=== PATIENT | male | born 1935 | race Caucasian/White ===

== ENCOUNTER 2020-07-05 16:58 | Emergency (ER) | payer MEDICARE ==
[2020-07-05 17:05] VITALS: RESP 17; TEMP 98.4
--- NOTE | 2020-07-05 17:52 | CT ---
EXAMINATION TYPE: CT brain yojanaine wo con DATE OF EXAM: 07/05/2020 COMPARISON: None HISTORY: Fall. CT DLP: 1559.7 mGycm Automated exposure control for dose reduction was used. There is cerebral atrophy. There is no mass effect nor midline shift. There is mild enlargement of th e ventricles relate to atrophy. Calvarium is intact. There is no evidence of intracranial hemorrhage. Cervical vertebra show degenerative disc space narrowing at C5-6 and C6-7 with spurring of the endpla sesar. There is mild facet arthropathy. The skull base is intact. There is normal aeration of the masto id sinuses. IMPRESSION: Spondylotic changes in the lower cervical spine. No fracture. Cerebral atrophy. No acute intracranial abnormality..
--- NOTE | 2020-07-05 17:54 | XR ---
EXAMINATION TYPE: XR shoulder complete LT DATE OF EXAM: 07/05/2020 COMPARISON: NONE HISTORY: Pain TECHNIQUE: 3 views FINDINGS: I see no fracture nor dislocation. Glenohumeral joint is anatomic. There is widening of the AC joint space. IMPRESSION: No fracture seen. Widened AC joint space consistent with ligamentous tear of uncertain ag e. Joint space measures 1.5 cm
--- NOTE | 2020-07-05 18:04 | ED ---
Fall HPI - General Chief Complaint: Fall Stated Complaint: fall Time Seen by Provider: 07/05/20 17:00 Source: EMS Mode of arrival: EMS - History of Present Illness Initial Comments: 84-year-old male who presents to the emergency department from [facility]. He does have a history of dementia and is only alert and oriented 1. Report is provided by EMS. They state that the patient fell out of his wheelchair earlier today. They did state that he struck the left side of his head. He did not lose consciousness. He originally was not going to be evaluated however later on they were attempting to place the patient in bed and noted that he had some bruising over his left shoulder. There are concern for fracture therefore sent him to the emergency room for evaluation. Patient cannot provide history. Does state that he fell out of his wheelchair. She does have a scab noted to the left side of his forehead which appears to be in healing stages. I'm told that the patient fell on the as well. The patient denies any shoulder pain or headache. The remainder of HPI is limited because the patient's significant dementia. Staff report that the patient is at his normal baseline - Related Data Home Medications Medication Instructions Recorded Confirmed Acetaminophen [Tylenol Arthritis] 650 mg PO Q8H 07/05/20 07/05/20 Albuterol Sulfate [Proair Hfa] 1 puff INHALATION RT-Q6H PRN 07/05/20 07/05/20 Docusate [Colace] 100 mg PO DAILY@0800 07/05/20 07/05/20 Escitalopram Oxalate 5 mg PO DAILY@0800 07/05/20 07/05/20 Fluticasone Nasal [place] [Flonase 2 spr EA NOSTRIL DAILY@0800 07/05/20 07/05/20 Nasal [place]] Furosemide [Lasix] 40 mg PO DAILY PRN 07/05/20 07/05/20 Lactose-Reduced Food [Ensure Plus] 1 can PO TID@0800,1400,2100 07/05/20 07/05/20 Magnesium Hydroxide [Milk of 2,400 mg PO DAILY PRN 07/05/20 07/05/20 Magnesia] Menthol-Zinc Oxide Oint 1 applic TOPICAL BID 07/05/20 07/05/20 [Calmoseptine Oint] Metoprolol Succinate (ER) [Toprol 25 mg PO DAILY@0800 10/18/20 10/18/20 Xl] Na Phos,M-B/Na Phos,Di-Ba [Fleet 133 ml RECTAL DAILY PRN 07/05/20 07/05/20 Adult] Nitroglycerin Sl Tabs [Nitrostat] 0.4 mg SUBLINGUAL Q5M PRN 07/05/20 07/05/20 SILVER sulfADIAZINE Cream 1 applic TOPICAL DAILY 07/05/20 07/05/20 [Silvadene 1% Cream] bisacodyL [Dulcolax] 10 mg RECTAL DAILY PRN 07/05/20 07/05/20 Allergies Allergy/AdvReac Type Severity Reaction Status Date / Time meperidine [From Demerol] Allergy Unknown Verified 07/05/20 17:03 mirtazapine [From Remeron] Allergy Unknown Verified 07/05/20 17:03 morphine Allergy Unknown Verified 07/05/20 17:03 Review of Systems ROS Statement: Those systems with pertinent positive or pertinent negative responses have been documented in the HPI. ROS Other: All systems not noted in ROS Statement are negative. Past Medical History Past Medical History: Atrial Fibrillation, Heart Failure, COPD, Dementia, GERD/Reflux, Hyperlipidemia, Hypertension History of Any Multi-Drug Resistant Organisms: None Reported Past Surgical History: Unable to Obtain Past Psychological History: Anxiety, Depression Smoking Status: Never smoker Past Alcohol Use History: None Reported Past Drug Use History: None Reported General Exam Limitations: altered mental status General appearance: alert, in no apparent distress Head exam: Present: other (healing scab left forehead with small surrounding ecchymosis) Eye exam: Present: normal appearance, PERRL, EOMI. Absent: scleral icterus, conjunctival injection, periorbital swelling ENT exam: Present: normal exam, mucous membranes moist Neck exam: Present: normal inspection. Absent: tenderness, meningismus, lymphadenopathy Respiratory exam: Present: normal lung sounds bilaterally. Absent: respiratory distress, wheezes, rales, rhonchi, stridor Cardiovascular Exam: Present: regular rate, normal rhythm, normal heart sounds. Absent: systolic murmur, diastolic murmur, rubs, gallop, clicks GI/Abdominal exam: Present: soft, normal bowel sounds. Absent: distended, tenderness, guarding, rebound, rigid Extremities exam: Present: other (ecchymosis over left shoulder - 3.0 x 2.0 cm ) Course Vital Signs 07/05/20 07/05/20 16:59 18:30 Temperature 98.4 F Pulse Rate 57 L 56 L Respiratory 17 17 Rate Blood Pressure 141/82 151/82 O2 Sat by Pulse 99 98 Oximetry Medical Decision Making - Medical Decision Making Upon arrival the patient is placed into room 27. A thorough history and physical exam was performed. Patient was sent over for CT of his brain and cervical spine. A left shoulder x-ray was also performed. Imaging is reviewed by myself. Imaging is read by the radiologist as negative for any intracranial process. No acute fracture and the patient's left shoulder. I discussed the results with the patient. He will be discharged back to [facility] at this time. Staff is updated. The patient remained in stable condition awaiting discharge Disposition Clinical Impression: Fall, Left anterior shoulder pain Disposition: HOME SELF-CARE Condition: Stable Instructions (If sedation given, give patient instructions): Fall Prevention for Older Adults (ED) Additional Instructions: You do not have any abnormalities of your left shoulder x-ray or the CAT scan of your brain. I recommend that you are evaluated by your primary care doctor within 2-4 days. Return to the emergency room for any new or worsening symptoms Is patient prescribed a controlled substance at d/c from ED?: No Referrals: Jaziel Turner MD [Primary Care Provider] - 1-2 days Time of Disposition: 18:04
[2020-07-05 18:32] VITALS: BP 151/82; PULSE 56
== END 2020-07-05 18:32 | disposition home or self-care (01) ==
LOC: EC 16:58
DX: S40.012A Contusion of left shoulder, initial encounter (principal); S09.90XA Unspecified injury of head, initial encounter; F03.90 Unspecified dementia, unspecified severity, without behavioral disturbance, psychotic disturbance, mood disturbance, and anxiety; R41.82 Altered mental status, unspecified; F41.9 Anxiety disorder, unspecified; F32.9 Major depressive disorder, single episode, unspecified; I11.0 Hypertensive heart disease with heart failure; I50.9 Heart failure, unspecified; I48.91 Unspecified atrial fibrillation; J44.9 Chronic obstructive pulmonary disease, unspecified; Z79.51 Long term (current) use of inhaled steroids; Z79.899 Other long term (current) drug therapy; Z88.5 Allergy status to narcotic agent; Z88.8 Allergy status to other drugs, medicaments and biological substances; W05.0XXA Fall from non-moving wheelchair, initial encounter; Y93.89 Activity, other specified
CPT/HCPCS: 70450; 72125; 99284

== ENCOUNTER 2020-09-30 19:16 | Inpatient (IN) | payer MEDICARE, BC ==
[2020-09-30] MEDS ORDERED: ACETAMINOPHEN SUPPOSITORY 650 MG SUPP RECTAL STA (19:33)
--- NOTE | 2020-09-30 19:35 | ED ---
General Adult HPI - General Source: EMS Mode of arrival: EMS Limitations: no limitations <Majo Silveira - Last Filed: 10/01/20 03:28> <Mark Portillo - Last Filed: 10/02/20 08:01> - General Chief complaint: Altered Mental Status Stated complaint: AMS Time Seen by Provider: 09/30/20 19:26 - History of Present Illness Initial comments: 84-year-old male patient who is currently residing at [facility] on [facility], history of advanced dementia, tested positive for COVID-19 on 09/16/20, is [facility] for evaluation of altered mental status. Patient has past medical history significant for C1 fracture soft collar in place, chronic systolic congestive heart failure, hypertension, coronary artery disease, advanced dementia, paroxysmal A. fib not on anticoagulation, multiple falls with multiple subdural hemorrhages. Patient is generally alert and oriented 1 and non-verbal. He is unable to contribute to history. [facility], they just came on shift and are unsure why he was sent here. (Majo Silveira) - Related Data Home Medications Medication Instructions Recorded Confirmed Acetaminophen [Tylenol Arthritis] 650 mg PO Q8HR@0600,1400,2200 07/05/20 09/30/20 Albuterol Sulfate [Proair Hfa] 1 puff INHALATION RT-Q6H PRN 07/05/20 09/30/20 Docusate [Colace] 100 mg PO DAILY@0900 07/05/20 09/30/20 Escitalopram Oxalate 5 mg PO DAILY@0900 07/05/20 09/30/20 Fluticasone Nasal [place] [Flonase 2 spr EA NOSTRIL DAILY@0900 07/05/20 09/30/20 Nasal [place]] Sulfamethox-Tmp 800-160Mg [Bactrim 1 tab PO BID@0900,2100 09/30/20 09/30/20 DS 800-160 mg] lisinopriL [Zestril] 2.5 mg PO DAILY@0900 09/30/20 09/30/20 Allergies Allergy/AdvReac Type Severity Reaction Status Date / Time meperidine [From Demerol] Allergy Unknown Verified 09/30/20 20:05 mirtazapine [From Remeron] Allergy Unknown Verified 09/30/20 20:05 morphine Allergy Unknown Verified 09/30/20 20:05 Review of Systems ROS Other: All systems not noted in ROS Statement are negative. <Majo Silveira - Last Filed: 10/01/20 03:28> ROS Other: All systems not noted in ROS Statement are negative. <LindseyMark - Last Filed: 10/02/20 08:01> ROS Statement: Those systems with pertinent positive or pertinent negative responses have been documented in the HPI. Past Medical History Past Medical History: Atrial Fibrillation, Heart Failure, COPD, Dementia, GERD/Reflux, Hyperlipidemia, Hypertension History of Any Multi-Drug Resistant Organisms: None Reported Past Surgical History: Unable to Obtain Past Psychological History: Anxiety, Depression Smoking Status: Never smoker Past Alcohol Use History: None Reported Past Drug Use History: None Reported <Majo Silveira - Last Filed: 10/01/20 03:28> General Exam Limitations: altered mental status General appearance: in no apparent distress, other (This is a well-developed, thin appearing elderly male patient in no acute distress. Vital signs upon presentation are temperature 100.1F, pulse 107, respirations 16, blood pressure 122/87, pulse ox 100% on room air.) Eye exam: Present: normal appearance, PERRL, EOMI. Absent: scleral icterus, conjunctival injection, periorbital swelling ENT exam: Present: normal exam, mucous membranes dry Respiratory exam: Present: normal lung sounds bilaterally, other (tachypnea). Absent: respiratory distress, wheezes, rales, rhonchi, stridor Cardiovascular Exam: Present: normal rhythm, tachycardia, normal heart sounds. Absent: systolic murmur, diastolic murmur, rubs, gallop, clicks GI/Abdominal exam: Present: soft, normal bowel sounds. Absent: distended, tenderness, guarding, rebound, rigid Neurological exam: Present: CN II-XII intact. Absent: alert (drowsy, responds to verbal stimulation), oriented X3 (oriented x1) Psychiatric exam: Present: normal affect, normal mood Skin exam: Present: warm, dry, intact, normal color. Absent: rash <Majo Silveira - Last Filed: 10/01/20 03:28> Course <Majo Silveira - Last Filed: 10/01/20 03:28> Vital Signs 09/30/20 09/30/20 09/30/20 19:24 20:37 22:48 Temperature 100.1 F H 98.2 F Pulse Rate 107 H 113 H 117 H Respiratory 16 17 18 Rate Blood Pressure 122/87 105/76 110/83 O2 Sat by Pulse 100 95 98 Oximetry 09/30/20 10/01/20 10/01/20 23:59 01:00 02:06 Temperature Pulse Rate 141 H 131 H 140 H Respiratory 20 19 20 Rate Blood Pressure 103/85 74/62 104/75 O2 Sat by Pulse 99 96 97 Oximetry 10/01/20 10/01/20 10/01/20 03:00 03:30 04:45 Temperature 98.0 F Pulse Rate 103 H 118 H 113 H Respiratory 20 16 20 Rate Blood Pressure 107/91 102/86 99/67 O2 Sat by Pulse 98 98 99 Oximetry - Reevaluation(s) Reevaluation #1: 10/01/20 01:30 Case was discussed with Dr. Carrion at 2310, who recommended CT brain to rule out acute bleed prior to starting anticoagulation due to multiple recent subdural bleeds. Plan was to start Lovenox and VQ scan in the morning. Patient's vital signs changed acutely. Patient's heart rate increased to 140s-150s and BP decreased into the 80s systolic. Review of labs showed that patient's d-dimer elevated to 31. Patient has acute kidney injury with GFR of 35. We did attempt to give adenosine which slowed rate enough to determine that underlying rhythm is normal sinus. I called the patient's son Link Collins Jr. and had a long discussion regarding his father's condition including current lab findings including kidney injury, concern for pulmonary embolism, and diagnosis of COVID. I did discuss option of CT chest with angiography and risk to his kidneys with potential for kidney failure with dialysis. We discussed risk of not finding a significant pulmonary embolism. Son agreed to proceed with CT scan at this time. We also discussed code status in detail, he is unsure at this time if he wants to change his current full code status. (Majo Silveira) Reevaluation #2: 10/01/20 02:49 CT back and is negative for PE or other significant abnormalities. After 1500ml of fluid the heart rate did improve. BP remains low so we will give an additional 500ml. Patient is resting comfortably. Son at bedside. (Majo Drake) EKG Findings - EKG Comments: EKG Findings:: EKG obtained at 2016 shows sinus tachycardia with occasional PVCs. Ventricular rate is 110, para interval 134, QRS duration 104, QT 364, QTC 492. No evidence of ST elevation or depression. EKG #2 obtained at 1 shows supraventricular tachycardia with occasional PVCs. Ventricular rate is 151, QRS duration 106, QT 322, QTc 510. <Majo Silveira - Last Filed: 10/01/20 03:28> Medical Decision Making - Lab Data Result diagrams: 09/30/20 20:05 09/30/20 20:05 - Radiology Data Radiology results: report reviewed, image reviewed <Majo Silveira - Last Filed: 10/01/20 03:28> - Lab Data Result diagrams: 09/30/20 20:05 09/30/20 20:05 <Mark Portillo - Last Filed: 10/02/20 08:01> - Medical Decision Making 84 year-old male patient diagnosed with COVID-19 on 09/16/20 presenting from [facility] on [facility] with altered mental status and fever. Patient was hospitalized for COVID-19 at [facility] and discharged to rehab. Patient has had multiple falls over the last year with 3 subdural hemorrhages the last being October. Patient also has advanced dementia and is non-verbal. We performed lab testing which showed acute kidney injury, hypernatremia, and lactic acidosis. D-dimer 31. WBC count was normal. Patient initially mildly tachycardic with normal blood pressures did acute develop heart rates in the 150s with low BPs with systolic in the 70s-80s. Patient underwent CT scan of the brain which was normal. CT chest angiography was unremarkable. Patient was given 2L IV fluids which did improve heart rate and blood pressures. Patient will be admitted to the hospital for acute kidney injury, dehydration, and COVID-19. Son is at bedside and is agreeable to the plan. (Majo Silveira) I saw this patient in conjunction with the physician personal injury legal assistant. I performed independent history and physical exam. Agree with case management. (Mark Portillo) - Lab Data Lab Results 09/30/20 09/30/20 09/30/20 Range/Units 20:05 20:05 20:05 WBC 8.3 (3.8-10.6) k/uL RBC 4.90 (4.30-5.90) m/uL Hgb 14.2 (13.0-17.5) gm/dL Hct 44.8 (39.0-53.0) % MCV 91.6 (80.0-100.0) fL MCH 29.0 (25.0-35.0) pg MCHC 31.7 (31.0-37.0) g/dL RDW 14.7 (11.5-15.5) % Plt Count 190 (150-450) k/uL MPV 8.4 Neutrophils % 85 % Lymphocytes % 10 % Monocytes % 5 % Eosinophils % 0 % Basophils % 0 % Neutrophils # 7.0 (1.3-7.7) k/uL Lymphocytes # 0.8 L (1.0-4.8) k/uL Monocytes # 0.4 (0-1.0) k/uL Eosinophils # 0.0 (0-0.7) k/uL Basophils # 0.0 (0-0.2) k/uL PT 10.8 (9.0-12.0) sec INR 1.0 (<1.2) APTT 23.7 (22.0-30.0) sec D-Dimer 31.42 H (<0.60) mg/L FEU Sodium 152 H (137-145) mmol/L Potassium 4.7 (3.5-5.1) mmol/L Chloride 118 H (98-107) mmol/L Carbon Dioxide 28 (22-30) mmol/L Anion Gap 6 mmol/L BUN 61 H (9-20) mg/dL Creatinine 1.75 H (0.66-1.25) mg/dL Est GFR (CKD-EPI)AfAm 41 (>60 ml/min/1.73 sqM) Est GFR (CKD-EPI)NonAf 35 (>60 ml/min/1.73 sqM) Glucose 112 H (74-99) mg/dL Lactic Ac Sepsis Rflx Plasma Lactic Acid Bhargav (0.7-2.0) mmol/L Calcium 8.8 (8.4-10.2) mg/dL Magnesium 2.8 H (1.6-2.3) mg/dL Ferritin 502.1 H (22.0-322.0) ng/mL Total Bilirubin 0.5 (0.2-1.3) mg/dL AST 21 (17-59) U/L ALT 13 (4-49) U/L Alkaline Phosphatase 70 (38-126) U/L Lactate Dehydrogenase 585 (313-618) U/L C-Reactive Protein 138.0 H (<10.0) mg/L Total Protein 6.0 L (6.3-8.2) g/dL Albumin 3.3 L (3.5-5.0) g/dL Procalcitonin (0.02-0.09) ng/mL 09/30/20 09/30/20 09/30/20 Range/Units 20:05 20:05 21:42 WBC (3.8-10.6) k/uL RBC (4.30-5.90) m/uL Hgb (13.0-17.5) gm/dL Hct (39.0-53.0) % MCV (80.0-100.0) fL MCH (25.0-35.0) pg MCHC (31.0-37.0) g/dL RDW (11.5-15.5) % Plt Count (150-450) k/uL MPV Neutrophils % % Lymphocytes % % Monocytes % % Eosinophils % % Basophils % % Neutrophils # (1.3-7.7) k/uL Lymphocytes # (1.0-4.8) k/uL Monocytes # (0-1.0) k/uL Eosinophils # (0-0.7) k/uL Basophils # (0-0.2) k/uL PT (9.0-12.0) sec INR (<1.2) APTT (22.0-30.0) sec D-Dimer (<0.60) mg/L FEU Sodium (137-145) mmol/L Potassium (3.5-5.1) mmol/L Chloride (98-107) mmol/L Carbon Dioxide (22-30) mmol/L Anion Gap mmol/L BUN (9-20) mg/dL Creatinine (0.66-1.25) mg/dL Est GFR (CKD-EPI)AfAm (>60 ml/min/1.73 sqM) Est GFR (CKD-EPI)NonAf (>60 ml/min/1.73 sqM) Glucose (74-99) mg/dL Lactic Ac Sepsis Rflx Y Plasma Lactic Acid Bhargav 2.5 H* (0.7-2.0) mmol/L Calcium (8.4-10.2) mg/dL Magnesium (1.6-2.3) mg/dL Ferritin (22.0-322.0) ng/mL Total Bilirubin (0.2-1.3) mg/dL AST (17-59) U/L ALT (4-49) U/L Alkaline Phosphatase (38-126) U/L Lactate Dehydrogenase (313-618) U/L C-Reactive Protein (<10.0) mg/L Total Protein (6.3-8.2) g/dL Albumin (3.5-5.0) g/dL Procalcitonin 0.15 H (0.02-0.09) ng/mL 10/01/20 Range/Units 00:50 WBC (3.8-10.6) k/uL RBC (4.30-5.90) m/uL Hgb (13.0-17.5) gm/dL Hct (39.0-53.0) % MCV (80.0-100.0) fL MCH (25.0-35.0) pg MCHC (31.0-37.0) g/dL RDW (11.5-15.5) % Plt Count (150-450) k/uL MPV Neutrophils % % Lymphocytes % % Monocytes % % Eosinophils % % Basophils % % Neutrophils # (1.3-7.7) k/uL Lymphocytes # (1.0-4.8) k/uL Monocytes # (0-1.0) k/uL Eosinophils # (0-0.7) k/uL Basophils # (0-0.2) k/uL PT (9.0-12.0) sec INR (<1.2) APTT (22.0-30.0) sec D-Dimer (<0.60) mg/L FEU Sodium (137-145) mmol/L Potassium (3.5-5.1) mmol/L Chloride (98-107) mmol/L Carbon Dioxide (22-30) mmol/L Anion Gap mmol/L BUN (9-20) mg/dL Creatinine (0.66-1.25) mg/dL Est GFR (CKD-EPI)AfAm (>60 ml/min/1.73 sqM) Est GFR (CKD-EPI)NonAf (>60 ml/min/1.73 sqM) Glucose (74-99) mg/dL Lactic Ac Sepsis Rflx Plasma Lactic Acid Bhargav 1.8 (0.7-2.0) mmol/L Calcium (8.4-10.2) mg/dL Magnesium (1.6-2.3) mg/dL Ferritin (22.0-322.0) ng/mL Total Bilirubin (0.2-1.3) mg/dL AST (17-59) U/L ALT (4-49) U/L Alkaline Phosphatase (38-126) U/L Lactate Dehydrogenase (313-618) U/L C-Reactive Protein (<10.0) mg/L Total Protein (6.3-8.2) g/dL Albumin (3.5-5.0) g/dL Procalcitonin (0.02-0.09) ng/mL - Radiology Data CT brain without contrast was obtained. Report was reviewed in its entirety. Impression by Dr. cMnally shows relaxers and chronic small vessel ischemia. Hydrocephalus. No acute intracranial abnormality. No change. One view x-ray of the chest is obtained. Report was reviewed in its entirety. Impression by Dr. Schneider shows mild right basilar opacity, favor atelectasis. (Majo Silveira) Critical Care Time Critical Care Time: Yes Total Critical Care Time: 35 (Review of labs, Imaging reports and images, vital signs review, coordination of care with admitting physician) <Majo Silveira - Last Filed: 10/01/20 03:28> Disposition Decision to Admit Reason: Admit from EC Decision Date: 10/01/20 Decision Time: 03:33 <Majo Silveira - Last Filed: 10/01/20 03:28> <Mark Portillo - Last Filed: 10/02/20 08:01> Clinical Impression: Acute kidney injury, Dehydration, COVID-19, Altered mental status Disposition: ADMITTED IP TO THIS [facility] Condition: Serious
[2020-09-30] MEDS ORDERED: SODIUM CHLORIDE 0.9% 500 ML 500 ML IV ONE (19:40)
[2020-09-30 21:12] LABS: Basophils % (A) 0 %; Eosinophils % (A) 0 %; HCT 44.8 % (39.0-53.0); HGB 14.2 gm/dL (13.0-17.5); Lymphocytes # (A) 0.8 k/uL (1.0-4.8); Lymphocytes % (A) 10 %; MCHC 31.7 g/dL (31.0-37.0); MCV 91.6 fL (80.0-100.0); Mean Platelet Volume 8.4; Monocytes # (A) 0.4 k/uL (0-1.0); Monocytes % (A) 5 %; Neutrophils % (A) 85 %; Platelet Count 190 k/uL (150-450); RDW 14.7 % (11.5-15.5); WBC 8.3 k/uL (3.8-10.6)
--- NOTE | 2020-09-30 21:17 | XR ---
EXAMINATION TYPE: XR chest 1V portable DATE OF EXAM: 09/30/2020 COMPARISON: NONE HISTORY: Altered mental status. TECHNIQUE: Single frontal view of the chest is obtained. FINDINGS: There is subtle mild right basilar opacity. No pleural effusion, or pneumothorax seen. Jodie or post surgical changes noted. The cardiac silhouette size is within normal limits. The osseous st ructures are intact. IMPRESSION: Mild right basilar opacity, favor atelectasis.
[2020-09-30 21:27] LABS: Partial Thromboplastin Time 23.7 sec (22.0-30.0); Prothrombin Time 10.8 sec (9.0-12.0)
[2020-09-30 21:28] LABS: D-Dimer 31.42 mg/L FEU (<0.60)
[2020-09-30 21:29] LABS: Albumin 3.3 g/dL (3.5-5.0); Calcium 8.8 mg/dL (8.4-10.2); Magnesium 2.8 mg/dL (1.6-2.3); Potassium 4.7 mmol/L (3.5-5.1); Total Bilirubin 0.5 mg/dL (0.2-1.3)
[2020-10-01] MEDS ORDERED: NALOXONE 0.4 MG/ML 1 ML VIAL IV PRN (00:07)
[2020-10-01] MEDS ORDERED: ONDANSETRON 4 MG/2 ML VIAL IVP PRN (00:07)
[2020-10-01] MEDS ORDERED: ADENOSINE 3 MG/ML 2 ML VIAL IVP STA ×2 (00:13)
[2020-10-01] MEDS ORDERED: SODIUM CHLORIDE 0.9% 1,000 ML IV SCH (00:15)
--- NOTE | 2020-10-01 00:25 | CT ---
EXAMINATION TYPE: CT brain wo con DATE OF EXAM: 09/30/2020 COMPARISON: 07/05/2020 HISTORY: AMS CT DLP: 1051.4 mGycm Automated exposure control for dose reduction was used. There is cerebral cortical atrophy. There is no mass effect nor midline shift. There is no sign of in tracranial hemorrhage. The calvarium is intact. There is enlargement of the ventricles. There is hypo density in the periventricular white matter. IMPRESSION: Cerebral atrophy and chronic small vessel ischemia. Hydrocephalus. No acute intracranial abnormality. No change.
[2020-10-01] MEDS ORDERED: ENOXAPARIN 80 MG/0.8 ML SYRINGE SQ STA (00:26)
--- NOTE | 2020-10-01 01:59 | CT ---
EXAM: CT Angiography Chest With Intravenous Contrast CLINICAL HISTORY: ITS.REASON CT Reason: Poss pulmonary embolism TECHNIQUE: Axial computed tomographic angiography images of the chest with intravenous contrast. CTDI is 15.17 mGy and DLP is 322.6 mGy-cm. This CT exam was performed using one or more of the following dose reduction techniques: automated exposure control, adjustment of the mA and/or kV according to patient size, and/or use of iterative reconstruction technique. MIP reconstructed images were created and reviewed. COMPARISON: No relevant prior studies available. FINDINGS: Pulmonary arteries: No filling defects. Aorta: No thoracic aortic aneurysm. 3 cm abdominal aortic aneurysm. Lungs: No mass. No consolidation. Scarring/discoid atelectasis in the right lower lobe. Mild COPD. Pleural space: No pneumothorax. No effusion. Thickened right lung base pleura with calcifications. Heart: No cardiomegaly. No pericardial effusion. Bones/joints: No acute fracture or dislocation. Soft tissues: Large volume of stool in the visualized:. Lymph nodes: No enlarged lymph nodes. IMPRESSION: 1. No pulmonary embolism. 2. Thickened right lung base pleura with calcified plaques. Possibly related to prior asbestos exposure. Scarring/discoid atelectasis in the right lower lobe. 3. Mild COPD. 4. 3 cm abdominal aortic aneurysm. 5. Large volume of stool.
[2020-10-01] MEDS ORDERED: SODIUM CHLORIDE 0.9% 500 ML 500 ML IV ONE ×3 (02:25→02:49)
--- NOTE | 2020-10-01 08:15 | US ---
EXAMINATION TYPE: US venous doppler duplex LE DATE OF EXAM: 10/01/2020 8:08 AM COMPARISON: NONE CLINICAL HISTORY: Elevated d-dimer. Shortness of breath. SIDE PERFORMED: Bilateral TECHNIQUE: The lower extremity deep venous system is examined utilizing real time linear array sonog aydin with graded compression, doppler sonography and color-flow sonography. VESSELS IMAGED: Common Femoral Vein Deep Femoral Vein Greater Saphenous Vein * Femoral Vein Popliteal Vein Small Saphenous Vein * Proximal Calf Veins (* superficial vessels) Right Leg: Negative for DVT Left Leg: Negative for DVT Grayscale, color doppler, spectral doppler imaging performed of the deep veins of the bilateral lower extremities. There is normal flow, compressibility, vascular waveforms. IMPRESSION: No ultrasound evidence for acute DVT in either lower extremity.
[2020-10-01] MEDS: SODIUM CHLORIDE 0.45% 1,000 ML IV SCH (10:08)
[2020-10-01 10:46] LABS: Ferritin 502.1 ng/mL (22.0-322.0)
[2020-10-01] MEDS: ESCITALOPRAM 5 MG TAB PO SCH (12:19)
[2020-10-01] MEDS ORDERED: DILTIAZEM DRIP BOLUS FROM BAG 1 MG SOLN IV STA (13:18)
[2020-10-01] MEDS ORDERED: niCARdipine 20 MG in SODIUM CHLORIDE 0.9% 192 ML IV ONE (13:18)
[2020-10-01] MEDS: DILTIAZEM 125 MG in SODIUM CHLORIDE 0.9% 100 ML IV SCH (14:23)
[2020-10-01] MEDS ORDERED: ENOXAPARIN 80 MG/0.8 ML SYRINGE SQ SCH (15:00)
--- NOTE | 2020-10-01 15:22 | P.CNPUL ---
History of Present Illness Consult date: 10/01/20 Requesting physician: Beni Carrion Reason for consult: abnormal CXR/CT Chief complaint: Altered mental status History of present illness: This is an 84-year-old gentleman who resides at [facility]. He has a history of advanced dementia, atrial fibrillation, con gestive heart failure, hypertension, hyperlipidemia, anxiety/depression, frequent falls and previous subdural hemorrhage, recent cervical neck fracture currently in a soft collar. Lifelong nonsmoker. He was brought into the emergency room yesterday for altered mental status. He is seen today in onsultation. Apparently he tested positive 09/16/2020 for CoVID 19 infection. There is also some question of asbestos exposure in the past. Computed tomography scan of the brain revealed cerebral atrophy and chronic small vessel ischemia. Hydrocephalus. No acute intracranial abnormalities. Chest x-ray revealed mild right basilar opacity, most likely atelectasis. CT angiogram revealed no evidence of pulmonary embolism. There is sick and right lung base pleural with calcified plaques. Possibly related to previous asbestos exposure. There is scarring/discoid atelectasis in the right lower lobe. Mild COPD. Dopplers of lower extremity were negative for DVT. White count 8.3. Hemolymph 14.2. Lymphocytes 0.8. D-dimer 31.42. Sodium 152. Potassium 4.7. Creatinine 1.75. Ferritin 502. LDH 585. C-reactive protein 138. Pro-calcitonin 0.15. He is a poor historian. No information able to be obtained from the patient. He was found to be in a chair for ablation with rapid ventricular response. Currently on Cardizem drip at 10 mg per hour. Review of Systems ROS unobtainable: due to mental status Past Medical History Past Medical History: Atrial Fibrillation, Heart Failure, COPD, Dementia, G ERD/Reflux, Hyperlipidemia, Hypertension History of Any Multi-Drug Resistant Organisms: None Reported Past Surgical History: Coronary Bypass/CABG Additional Past Surgical History / Comment(s): 1/2 lung removed. Past Anesthesia/Blood Transfusion Reactions: No Reported Reaction Past Psychological History: Anxiety, Depression Smoking Status: Never smoker Past Alcohol Use History: None Reported Past Drug Use History: None Reported Medications and Allergies Home Medications Medication Instructions Recorded Confirmed Type Acetaminophen [Tylenol Arthritis] 650 mg PO Q8HR@0600,1400,2200 07/05/20 09/30/20 History Albuterol Sulfate [Proair Hfa] 1 puff INHALATION RT-Q6H PRN 07/05/20 09/30/20 History Docusate [Colace] 100 mg PO DAILY@0900 07/05/20 09/30/20 History Escitalopram Oxalate 5 mg PO DAILY@0900 07/05/20 09/30/20 History Fluticasone Nasal [place] [Flonase 2 spr EA NOSTRIL DAILY@0900 07/05/20 09/30/20 History Nasal [place]] Sulfamethox-Tmp 800-160Mg [Bactrim 1 tab PO BID@0900,2100 09/30/20 09/30/20 History DS 800-160 mg] lisinopriL [Zestril] 2.5 mg PO DAILY@0900 09/30/20 09/30/20 History Allergies Allergy/AdvReac Type Severity Reaction Status Date / Time meperidine [From Demerol] Allergy Unknown Verified 09/30/20 20:05 mirtazapine [From Remeron] Allergy Unknown Verified 09/30/20 20:05 morphine Allergy Unknown Verified 09/30/20 20:05 Physical Exam Vitals: Vital Signs Temp Pulse Pulse Resp BP BP Pulse Ox 10/01/20 12:00 97.6 F 136 H 22 149/84 98 10/01/20 08:00 99 F 110 H 24 140/88 92 L 10/01/20 05:14 26 H 10/01/20 04:45 98.0 F 113 H 20 99/67 99 10/01/20 03:30 118 H 16 102/86 98 10/01/20 03:00 103 H 20 107/91 98 10/01/20 02:06 140 H 20 104/75 97 10/01/20 01:00 131 H 19 74/62 96 09/30/20 23:59 141 H 20 103/85 99 09/30/20 22:48 98.2 F 117 H 18 110/83 98 09/30/20 20:37 113 H 17 105/76 95 09/30/20 19:24 100.1 F H 107 H 16 122/87 100 Intake and Output 10/01/20 10/01/20 10/01/20 06:59 14:59 22:59 Output Total 0 Balance 0 Output: Urine 0 Other: Voiding Method Diaper # Voids 2 1 Weight 45 kg 45 kg GENERAL EXAM: Alert, 84-year-old male patient, on 3 L nasal cannula, comfortable in no apparent distress. HEAD: Normocephalic. EYES: Normal reaction of pupils, equal size. NOSE: Clear with pink turbinates. THROAT: No erythema or exudates. NECK: No masses, no JVD. CHEST: No chest wall deformity. LUNGS: Equal air entry with few crackles in the right base CVS: S1 and S2 normal with no audible murmur, tachycardic, irregular rhythm. ABDOMEN: No hepatosplenomegaly, normal bowel sounds, no guarding or rigidity. SPINE: No scoliosis or deformity SKIN: No rashes CENTRAL NERVOUS SYSTEM: No focal deficits, tone is normal in all 4 extremities. EXTREMITIES: There is no peripheral edema. No clubbing, no cyanosis. Peripheral pulses are intact. Results - Laboratory Findings CBC and BMP: 09/30/20 20:05 09/30/20 20:05 PT/INR, D-dimer PT 10.8 sec (9.0-12.0) 09/30/20 20:05 INR 1.0 (<1.2) 09/30/20 20:05 D-Dimer 31.42 mg/L FEU (<0.60) H 09/30/20 20:05 Abnormal lab findings: Abnormal Labs 09/30/20 09/30/20 09/30/20 20:05 20:05 20:05 Lymphocytes # 0.8 L D-Dimer 31.42 H Sodium 152 H Chloride 118 H BUN 61 H Creatinine 1.75 H Glucose 112 H Plasma Lactic Acid Bhargav Magnesium 2.8 H Ferritin 502.1 H C-Reactive Protein 138.0 H Total Protein 6.0 L Albumin 3.3 L Procalcitonin 09/30/20 09/30/20 20:05 20:05 Lymphocytes # D-Dimer Sodium Chloride BUN Creatinine Glucose Plasma Lactic Acid Bhargav 2.5 H* Magnesium Ferritin C-Reactive Protein Total Protein Albumin Procalcitonin 0.15 H - Diagnostic Findings Chest x-ray: image reviewed CT scan - chest: image reviewed Assessment and Plan Assessment: 1 Altered mental status of unclear etiology 2 Recent CoVID 19 infection on 09/16/2020 according to ECF 3 Frequent falls and recent fracture of C1, currently in a soft collar 4 History of chronic systolic congestive heart failure 5 Advanced dementia 6 History of paroxysmal atrial fibrillation not on anticoagulation due to multiple falls, currently on a Cardizem drip 7 History of subdural hemorrhage 8 Hypertension 9 Coronary disease 10 Hyperlipidemia 11 Gastroesophageal reflux disease 12 History of anxiety/depression 13 Poor overall functional performance based on the above-mentioned multiple comorbidities Plan: The patient was seen and evaluated by Dr. Rodriguez Chest x-ray, CAT scan reviewed Minimal atelectasis in the right lung base We'll continue the current treatment plan He is a DO NOT RESUSCITATE/DO NOT INTUBATE CODE STATUS We will continue to follow and make further recommendations based on his clinical status I, the cosigning physician, performed a history & physical examination of the patient. Lungs sounds with few crackles in the right lung base. Maintaining good O2 saturations in the 90s on 3 L/m per nasal cannula. I discussed the assessment and plan of care with my nurse practitioner, Aury Serrano. I attest to the above note as dictated by her. Time with Patient: Greater than 30
[2020-10-01] MEDS: DEXAMETHASONE SOD PHOSPHATE 10 MG/ML 1 ML VIAL IV SCH (15:55)
[2020-10-01] MEDS: ACETAMINOPHEN TAB 325 MG TAB PO SCH ×2 (16:40→22:55)
--- NOTE | 2020-10-01 19:39 | P.HPIM ---
History of Present Illness H&P Date: 10/01/20 Chief Complaint: Tested positive for COVID History of presenting complaint: This is a 84-year-old patient resident of [facility] in [facility] being followed by Davide Pérez. Patient tested positive for COVID 19 on 09/16/2020. Patient was sent in for altered mental status. Patient's son at the bedside. He stated that patient was recently at [facility] was treated there for UTI. From that he was discharged and sent to rehab at [facility] in [facility]. In the process patient lost some weight and become rather weak. As per the EMS run sheet- "patient has a fair appetite. Today patient was not eating well. Has a temperature 101. Patient has a c-collar in place. And he had a fall prior to that for which he was [facility]. Patient also found to have A. fib with rapid ventricular rate. On room air saturation was 90%. Patient himself is not able to give any history. Rather lethargic. Admitting review of systems: Patient cannot tell. Relevant information above Past medical history to include: Atrial fibrillation, CHF, COPD, dementia, GERD, hypertension, hyperlipidemia carotid artery disease with bypass, partial pneumonectomy, anxiety depression Social history: Currently for rehab at [facility] on the [facility]. No history of smoking or alcohol Family history: Patient cannot tell Physical examination: VITAL SIGNS: 100.1, 107, 16, 122/87, 100% on 2 L GENERAL: BMI 15.1, laying in bed, lethargic. EYES: Pupils equal. Conjunctiva dirty appearancel. HEENT: External appearance of nose and ears normal, oral cavity dry mucous membranes. NECK: JVD unable to assess; masses not palpable. HEART: First and second heart sounds are normal; no edema. LUNGS:[ Respiratory rate normal; decreased breath sounds. ABDOMEN: Soft, nontender, liver spleen not palpable, no masses palpable. PSYCH: [Lethargic, barely arousable l. NEUROLOGICAL: Cranial nerves grossly intact; no facial asymmetry, power and sensation grossly intact. LYMPHATICS: No lymph nodes palpable in the axilla and neck INVESTIGATIONS, reviewed in the clinical context: White count 8.3 hemoglobin 14.2 platelets 190 sodium 152 potassium 4.7 chloride 118 bun 61 and creatinine 1.75 lactic acid 2.5 albumin 3.3 CRP 138 pro-calcitonin 0.15 d-dimer 31.42 EKG tracing personally reviewed by me-sinus rhythm with a rate of 150s Chest x-ray film personally reviewed by me-no obvious infiltrate Chest CTA-no PE. Large volume of stool. 3 cm abdominal aortic aneurysm. Computed tomography scan of the brain-cerebral atrophy and chronic small vessel ischemia. Some mild hydrocephalus Doppler ultrasound lower extremity-negative for DVT UA-pending Assessment: -This is a patient who presents with fever. No obvious pulmonary infiltrate. Minimum if any. Was diagnosed with COVID 19 on September 16. Patient does have an elevated CRP and a d-dimer. Which is supportive evidence. -Acute metabolic encephalopathy from above -Hypernatremia, from free water deficit -Atrial fibrillation with a rapid ventricular rate -COPD -Alzheimer's dementia -GERD -Hyperlipidemia -Essential hypertension -Coronary artery disease with prior history of bypass -History of pneumonectomy partial -Severe protein calorie malnutrition patient has decreased muscle mass loss of subcutaneous fat and a BMI 15.1 -Advancing medical debility -No code Plan: Patient started on subcu Lovenox and dexamethasone. Also given half saline. Aspiration precautions. Follow labs closely. Urine cultures pending. Discussed at length with the son at the bedside. Prognosis guarded. 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 Past Anesthesia/Blood Transfusion Reactions: No Reported Reaction Past Psychological History: Anxiety, Depression Smoking Status: Never smoker Past Alcohol Use History: None Reported Past Drug Use History: None Reported Medications and Allergies Home Medications Medication Instructions Recorded Confirmed Type Acetaminophen [Tylenol Arthritis] 650 mg PO Q8HR@0600,1400,2200 07/05/20 09/30/20 History Albuterol Sulfate [Proair Hfa] 1 puff INHALATION RT-Q6H PRN 07/05/20 09/30/20 History Docusate [Colace] 100 mg PO DAILY@0900 07/05/20 09/30/20 History Escitalopram Oxalate 5 mg PO DAILY@0900 07/05/20 09/30/20 History Fluticasone Nasal [place] [Flonase 2 spr EA NOSTRIL DAILY@0900 07/05/20 09/30/20 History Nasal [place]] Sulfamethox-Tmp 800-160Mg [Bactrim 1 tab PO BID@0900,2100 09/30/20 09/30/20 History DS 800-160 mg] lisinopriL [Zestril] 2.5 mg PO DAILY@0900 09/30/20 09/30/20 History Allergies Allergy/AdvReac Type Severity Reaction Status Date / Time meperidine [From Demerol] Allergy Unknown Verified 09/30/20 20:05 mirtazapine [From Remeron] Allergy Unknown Verified 09/30/20 20:05 morphine Allergy Unknown Verified 09/30/20 20:05 Physical Exam Vitals: Vital Signs Temp Pulse Pulse Resp BP BP Pulse Ox 10/01/20 16:00 99.8 F H 126 H 24 121/78 97 10/01/20 14:15 100.8 F H 10/01/20 14:00 24 10/01/20 12:00 97.6 F 136 H 22 149/84 98 10/01/20 08:00 99 F 110 H 24 140/88 92 L 10/01/20 05:14 26 H 10/01/20 04:45 98.0 F 113 H 20 99/67 99 10/01/20 03:30 118 H 16 102/86 98 10/01/20 03:00 103 H 20 107/91 98 10/01/20 02:06 140 H 20 104/75 97 10/01/20 01:00 131 H 19 74/62 96 09/30/20 23:59 141 H 20 103/85 99 09/30/20 22:48 98.2 F 117 H 18 110/83 98 09/30/20 20:37 113 H 17 105/76 95 09/30/20 19:24 100.1 F H 107 H 16 122/87 100 Intake and Output 10/01/20 10/01/20 10/01/20 06:59 14:59 22:59 Output Total 0 Balance 0 Output: Urine 0 Other: Voiding Method Diaper Diaper # Voids 2 1 1 Weight 45 kg 45 kg Results CBC & Chem 7: 09/30/20 20:05 09/30/20 20:05 Labs: Abnormal Lab Results - Last 24 Hours (Table) 09/30/20 09/30/20 09/30/20 Range/Units 20:05 20:05 20:05 Lymphocytes # 0.8 L (1.0-4.8) k/uL D-Dimer 31.42 H (<0.60) mg/L FEU Sodium 152 H (137-145) mmol/L Chloride 118 H (98-107) mmol/L BUN 61 H (9-20) mg/dL Creatinine 1.75 H (0.66-1.25) mg/dL Glucose 112 H (74-99) mg/dL Plasma Lactic Acid Bhargav (0.7-2.0) mmol/L Magnesium 2.8 H (1.6-2.3) mg/dL Ferritin 502.1 H (22.0-322.0) ng/mL C-Reactive Protein 138.0 H (<10.0) mg/L Total Protein 6.0 L (6.3-8.2) g/dL Albumin 3.3 L (3.5-5.0) g/dL Procalcitonin (0.02-0.09) ng/mL 09/30/20 09/30/20 Range/Units 20:05 20:05 Lymphocytes # (1.0-4.8) k/uL D-Dimer (<0.60) mg/L FEU Sodium (137-145) mmol/L Chloride (98-107) mmol/L BUN (9-20) mg/dL Creatinine (0.66-1.25) mg/dL Glucose (74-99) mg/dL Plasma Lactic Acid Bhargav 2.5 H* (0.7-2.0) mmol/L Magnesium (1.6-2.3) mg/dL Ferritin (22.0-322.0) ng/mL C-Reactive Protein (<10.0) mg/L Total Protein (6.3-8.2) g/dL Albumin (3.5-5.0) g/dL Procalcitonin 0.15 H (0.02-0.09) ng/mL Thrombosis Risk Factor Assmnt - Choose All That Apply Each Risk Factor Represents 3 Points: Age 75 years or older Thrombosis Risk Factor Assessment Total Risk Factor Score: 3 Thrombosis Risk Factor Assessment Level: Moderate Risk
[2020-10-01] MEDS: ENOXAPARIN 40 MG/0.4 ML SYRINGE SQ SCH (22:32)
[2020-10-02] MEDS: SODIUM CHLORIDE 0.45% 1,000 ML IV SCH ×2 (00:41→15:15)
[2020-10-02] MEDS: DILTIAZEM 125 MG in SODIUM CHLORIDE 0.9% 100 ML IV SCH (03:31)
[2020-10-02] MEDS: ACETAMINOPHEN TAB 325 MG TAB PO SCH ×3 (06:33→20:32)
[2020-10-02] MEDS: ESCITALOPRAM 5 MG TAB PO SCH (09:07)
[2020-10-02] MEDS: ENOXAPARIN 40 MG/0.4 ML SYRINGE SQ SCH (09:08)
[2020-10-02] MEDS: DEXAMETHASONE SOD PHOSPHATE 10 MG/ML 1 ML VIAL IV SCH (09:34)
--- NOTE | 2020-10-02 10:28 | P.PN ---
Subjective 84-year-old patient resident of [facility] in [facility] being followed by Davide Pérez. Patient tested positive for COVID 19 on 09/16/2020. Patient was sent in for altered mental status. Patient's son at the bedside. He stated that patient was recently at [facility] was treated there for UTI. From that he was discharged and sent to rehab at [facility] in the [place] [facility]. In the process patient lost some weight and become rather weak. As per the EMS run sheet- "patient has a fair appetite. Today patient was not eating well. Has a temperature 101. Patient has a c-collar in place. And he had a fall prior to that for which he was [facility]. Patient also found to have A. fib with rapid ventricular rate. On room air saturation was 90%. Patient himself is not able to give any history. Rather lethargic. 10/02/2020 Patient is alert oriented 1. Patient is cachectic appears to have dementia, poor functionality. Patient is not requiring oxygen at this time. Patient remains on half-normal saline at 75 mL per hour. Repeat labs will be obtained for today and tomorrow morning. Review of systems: Unable to obtain due to his clinical condition All inpatient medications were reviewed and appropriate changes in these medications as dictated in the interval history and assessment and plan. Objective - Vital Signs Vital signs: Vital Signs Temp 97.5 F L 10/02/20 08:00 Pulse 76 10/02/20 08:00 Resp 20 10/02/20 08:00 BP 115/76 10/02/20 08:00 Pulse Ox 96 10/02/20 08:00 Intake & Output 10/01/20 10/02/20 10/02/20 18:59 06:59 18:59 Intake Total 1125 240 Balance 1125 240 Weight 45 kg 53.5 kg Intake: Intake, IV Titration 125 Amount Diltiazem 125 mg In 125 Sodium Chloride 0.9% 100 ml @ 10 MG/HR 10 mls/hr IV .[id number] [facility] Rx#: [id number] Oral 1000 240 Other: Voiding Method Diaper Diaper # Voids 1 2 - Exam PHYSICAL EXAMINATION: GENERAL: The patient is alert and oriented x1, not in any acute distress. Cachectic thin built HEENT: Pupils are round and equally reacting to light. EOMI. No scleral icterus. No conjunctival pallor. Normocephalic, atraumatic. No pharyngeal erythema. No thyromegaly. CARDIOVASCULAR: S1 and S2 present. No murmurs, rubs, or gallops. PULMONARY: Chest is clear to auscultation, no wheezing or crackles. ABDOMEN: Soft, nontender, nondistended, normoactive bowel sounds. No palpable organomegaly. MUSCULOSKELETAL: No joint swelling or deformity. EXTREMITIES: No cyanosis, clubbing, or pedal edema. NEUROLOGICAL: Unable to assess SKIN: No rashes. Note: Because of COVID 19 isolation, some of the history and physical exam findings are indirect and obtained from nursing staff, and other physician examinations to avoid unnecessary contact with the patient. - Labs CBC & Chem 7: 09/30/20 20:05 09/30/20 20:05 Labs: Abnormal Lab Results - Last 24 Hours (Table) 09/30/20 Range/Units 20:05 Ferritin 502.1 H (22.0-322.0) ng/mL Microbiology - Last 24 Hours (Table) 09/30/20 20:20 Blood Culture - Preliminary Blood No Growth after 24 hours 09/30/20 20:05 Blood Culture - Preliminary Blood No Growth after 24 hours Assessment and Plan Plan: -Covid 19 pneumonia. Was diagnosed with COVID 19 on September 16. Patient does have an elevated CRP and a d-dimer. 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
[2020-10-02 11:28] LABS: Calcium 8.4 mg/dL (8.4-10.2); Potassium 4.6 mmol/L (3.5-5.1)
--- NOTE | 2020-10-02 13:35 | P.CRDCN ---
History of Present Illness Consult date: 10/02/20 History of present illness: CHIEF COMPLAINT: A. fib with RVR HISTORY OF PRESENT ILLNESS: This is a 84-year-old male with a past medical history significant for atrial fibrillation, COPD, dementia, hyperlipidemia, and hypertension. It is unknown if the patient follows with a hospital cleaning specialist. We have been asked to see the patient in consultation for A. fib with RVR. The patient's currently admitted to the hospital secondary to Covid 19. The patient apparently went into afib with RVR yesterday. He was started on a cardizem drip. His heartrate is currently controlled. The patient is lethargic and unable to provide any history. DIAGNOSTICS: EKG reveals sinus tachycardia Chest xray mild right basilar opacity, favor atelectasis Laboratory data: W BC 8.3. Hemoglobin 14.2. Platelet count 190. D-dimer 31.42. Sodium 145. Potassium 4.6. UN 49. Creatinine 1.05. Current home cardiac medications include lisinopril 2.5 mg daily REVIEW OF SYSTEMS: Unable to obtain thorough review of systems secondary to altered mental status PHYSICAL EXAM: VITAL SIGNS: Reviewed. GENERAL: Well-developed in no acute distress. HEENT: Head is normocephalic. Pupils are equal, round. Sclerae anicteric. Mucous membranes of the mouth are moist. Neck supple. No JVD or thyromegaly LUNGS: Respirations even and unlabored. Lungs diminished bilaterally. HEART: Regular rate and rhythm. S1 and S2 heard. ABDOMEN: Soft. Nondistended. Nontender. EXTREMITIES: Normal range of motion. No clubbing or cyanosis. Peripheral pulses intact. No lower extremity edema NEUROLOGIC: Lethargic ASSESSMENT: Covid 19 pneumonia Paroxysmal atrial fibrillation with RVR, not on anticoagulation secondary to multiple falls and history of subdural hematoma COPD Hypertension Hyperlipidemia Dementia PLAN: Obtain 2-D echo to assess cardiac structure and function Begin metoprolol 25 mg twice a day Discontinue Cardizem drip Continue telemetry monitoring Further recommendations pending patient's course Nurse practitioner note has been reviewed by physician. Signing provider agrees with the documented findings, assessment, and plan of care. 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 Past Anesthesia/Blood Transfusion Reactions: No Reported Reaction Past Psychological History: Anxiety, Depression Smoking Status: Never smoker Past Alcohol Use History: None Reported Past Drug Use History: None Reported Medications and Allergies Home Medications Medication Instructions Recorded Confirmed Type Acetaminophen [Tylenol Arthritis] 650 mg PO Q8HR@0600,1400,2200 07/05/20 09/30/20 History Albuterol Sulfate [Proair Hfa] 1 puff INHALATION RT-Q6H PRN 07/05/20 09/30/20 Hi story Docusate [Colace] 100 mg PO DAILY@0900 07/05/20 09/30/20 History Escitalopram Oxalate 5 mg PO DAILY@0900 07/05/20 09/30/20 History Fluticasone Nasal [place] [Flonase 2 spr EA NOSTRIL DAILY@0900 07/05/20 09/30/20 History Nasal [place]] Sulfamethox-Tmp 800-160Mg [Bactrim 1 tab PO BID@0900,2100 09/30/20 09/30/20 History DS 800-160 mg] lisinopriL [Zestril] 2.5 mg PO DAILY@0900 09/30/20 09/30/20 History Allergies Allergy/AdvReac Type Severity Reaction Status Date / Time meperidine [From Demerol] Allergy Unknown Verified 09/30/20 20:05 mirtazapine [From Remeron] Allergy Unknown Verified 09/30/20 20:05 morphine Allergy Unknown Verified 09/30/20 20:05 Physical Exam Vitals: Vital Signs Temp Pulse Resp BP Pulse Ox 10/02/20 12:00 97.5 F L 72 22 103/68 92 L 10/02/20 08:00 97.5 F L 76 20 115/76 96 10/02/20 04:00 98.0 F 77 25 H 108/73 97 10/02/20 02:00 26 H 10/01/20 23:55 98.4 F 103 H 26 H 143/78 96 10/01/20 20:00 98.6 F 112 H 22 104/64 95 10/01/20 16:00 99.8 F H 126 H 24 121/78 97 10/01/20 14:15 100.8 F H 10/01/20 14:00 24 Intake and Output 10/01/20 10/02/20 10/02/20 22:59 06:59 14:59 Intake Total 1125 465 Balance 1125 465 Intake: Intake, IV Titration 125 225 Amount Diltiazem 125 mg In 125 Sodium Chloride 0.9% 100 ml @ 10 MG/HR 10 mls/hr IV .[id number] [facility] Rx#: [id number] Sodium Chloride 0.45% 1, 225 000 ml @ 75 mls/hr IV . [id number] [facility] Rx#:[id number] Oral 1000 240 Other: Voiding Method Diaper Diaper Diaper # Voids 1 2 Weight 53.5 kg Results 09/30/20 20:05 10/02/20 11:01 Comprehensive Metabolic Panel 10/02/20 Range/Units 11:01 Sodium 145 (137-145) mmol/L Potassium 4.6 (3.5-5.1) mmol/L Chloride 117 H (98-107) mmol/L Carbon Dioxide 26 (22-30) mmol/L BUN 49 H (9-20) mg/dL Creatinine 1.05 (0.66-1.25) mg/dL Glucose 148 H (74-99) mg/dL Calcium 8.4 (8.4-10.2) mg/dL Current Medications Generic Name Dose Route Start Last Admin Trade Name Freq PRN Reason Stop Dose Admin Acetaminophen 650 mg 10/01/20 14:00 10/02/20 13:06 Acetaminophen Tab 325 Mg Tab PO 650 mg Q8HR@0600,1400,2200 [facility] Administration Dexamethasone Sodium Phosphate 6 mg 10/01/20 13:45 10/02/20 09:34 Dexamethasone Sod Phosphate 10 Mg/Ml 1 Ml Vial IV 6 mg DAILY [facility] Administration Enoxaparin Sodium 40 mg 10/03/20 09:00 Enoxaparin 40 Mg/0.4 Ml Syringe SQ DAILY [facility] Escitalopram Oxalate 5 mg 10/01/20 09:00 10/02/20 09:07 Escitalopram 5 Mg Tab PO 5 mg DAILY@0900 [facility] Administration Sodium Chloride 1,000 mls @ 75 mls/hr 10/01/20 10:00 10/02/20 00:41 Saline 0.45% IV 75 mls/hr .[id number] [facility] Administration Metoprolol Tartrate 25 mg 10/02/20 13:30 Metoprolol Tartrate 25 Mg Tab PO BID [facility] Naloxone HCl 0.2 mg 10/01/20 00:07 Naloxone 0.4 Mg/Ml 1 Ml Vial IV Q2M PRN Opioid Reversal Ondansetron HCl 4 mg 10/01/20 00:07 Ondansetron 4 Mg/2 Ml Vial IVP Q8HR PRN Nausea And Vomiting Intake and Output 10/01/20 10/02/20 10/02/20 22:59 06:59 14:59 Intake Total 1125 465 Balance 1125 465 Intake: Intake, IV Titration 125 225 Amount Diltiazem 125 mg In 125 Sodium Chloride 0.9% 100 ml @ 10 MG/HR 10 mls/hr IV .[id number] [facility] Rx#: [id number] Sodium Chloride 0.45% 1, 225 000 ml @ 75 mls/hr IV . [id number] [facility] Rx#:[id number] Oral 1000 240 Other: Voiding Method Diaper Diaper Diaper # Voids 1 2 Weight 53.5 kg 09/30/20 20:05 10/02/20 11:01
[2020-10-02] MEDS: METOPROLOL TARTRATE 25 MG TAB PO SCH ×2 (15:13→20:32)
--- NOTE | 2020-10-02 15:30 | P.PN ---
Subjective Progress Note Date: 10/02/20 Principal diagnosis: Altered mental status This is an 84-year-old gentleman who resides at [facility] on the [facility]. He has a history of advanced dementia, atrial fibrillation, congestive heart failure, hypertension, hyperlipidemia, anxiety/depression, frequent falls and previous subdural hemorrhage, recent cervical neck fracture currently in a soft collar. Lifelong nonsmoker. He was brought into the emergency room yesterday for altered mental status. He is seen today in consultation. Apparently he tested positive 09/16/2020 for CoVID 19 infection. There is also some question of asbestos exposure in the past. Computed tomography scan of the brain revealed cerebral atrophy and chronic small vessel ischemia. Hydrocephalus. No acute intracranial abnormalities. Chest x-ray revealed mild right basilar opacity, most likely atelectasis. CT angiogram revealed no evidence of pulmonary embolism. There is sick and right lung base pleural with calcified plaques. Possibly related to previous asbestos exposure. There is scarring/discoid atelectasis in the right lower lobe. Mild COPD. Dopplers of lower extremity were negative for DVT. White count 8.3. Hemolymph 14.2. Lymphocytes 0.8. D-dimer 31.42. Sodium 152. Potassium 4.7. Creatinine 1.75. Ferritin 502. LDH 585. C-reactive protein 138. Pro-calcitonin 0.15. He is a poor historian. No information able to be obtained from the patient. He was found to be in a chair for ablation with rapid ventricular response. Currently on Cardizem drip at 10 mg per hour. The patient is seen today 10/02/2020 in follow-up on the selective care unit. He is currently resting fairly comfortably in bed. Currently maintaining O2 saturations in the 90s on room air. Afebrile. Hemodynamically stable. Blood cultures reveal no growth to date. Sodium 145. Potassium 4.6. Creatinine 1 .05. He is continued on dexamethasone, Lovenox. 0.45 normal saline at 75 ML's per hour. Objective - Vital Signs Vital signs: Vital Signs Temp 97.5 F L 10/02/20 12:00 Pulse 72 10/02/20 12:00 Resp 22 10/02/20 12:00 BP 103/68 10/02/20 12:00 Pulse Ox 92 L 10/02/20 12:00 Intake & Output 10/01/20 10/02/20 10/02/20 18:59 06:59 18:59 Intake Total 1125 705 Balance 1125 705 Weight 45 kg 53.5 kg Intake: Intake, IV Titration 125 225 Amount Diltiazem 125 mg In 125 Sodium Chloride 0.9% 100 ml @ 10 MG/HR 10 mls/hr IV .[id number] [facility] Rx#: [id number] Sodium Chloride 0.45% 1, 225 000 ml @ 75 mls/hr IV . [id number] [facility] Rx#:[id number] Oral 1000 480 Other: Voiding Method Diaper Diaper Diaper # Voids 1 2 2 - Exam GENERAL EXAM: Alert, 84-year-old male patient, on room air, comfortable in no apparent distress. HEAD: Normocephalic. EYES: Normal reaction of pupils, equal size. NOSE: Clear with pink turbinates. THROAT: No erythema or exudates. NECK: No masses, no JVD. CHEST: No chest wall deformity. LUNGS: Equal air entry with few crackles in the right base CVS: S1 and S2 normal with no audible murmur, tachycardic, irregular rhythm. ABDOMEN: No hepatosplenomegaly, normal bowel sounds, no guarding or rigidity. SPINE: No scoliosis or deformity SKIN: No rashes CENTRAL NERVOUS SYSTEM: No focal deficits, tone is normal in all 4 extremities. EXTREMITIES: There is no peripheral edema. No clubbing, no cyanosis. Peripheral pulses are intact. - Labs CBC & Chem 7: 09/30/20 20:05 10/02/20 11:01 Labs: Abnormal Lab Results - Last 24 Hours (Table) 10/02/20 Range/Units 11:01 Chloride 117 H (98-107) mmol/L BUN 49 H (9-20) mg/dL Glucose 148 H (74-99) mg/dL Microbiology - Last 24 Hours (Table) 09/30/20 20:20 Blood Culture - Preliminary Blood No Growth after 24 hours 09/30/20 20:05 Blood Culture - Preliminary Blood No Growth after 24 hours Assessment and Plan Assessment: 1 Altered mental status of unclear etiology 2 Recent CoVID 19 infection on 09/16/2020 according to ECF 3 Frequent falls and recent fracture of C1, currently in a soft collar 4 History of chronic systolic congestive heart failure 5 Advanced dementia 6 History of paroxysmal atrial fibrillation not on anticoagulation due to multiple falls, currently on a Cardizem drip 7 History of subdural hemorrhage 8 Hypertension 9 Coronary disease 10 Hyperlipidemia 11 Gastroesophageal reflux disease 12 History of anxiety/depression 13 Poor overall functional performance based on the above-mentioned multiple comorbidities Plan: The patient was seen and evaluated by Dr. Jennifer Gamino from the pulmonary standpoint, on room air We'll continue the current treatment plan He is a DO NOT RESUSCITATE/DO NOT INTUBATE CODE STATUS Cleared for transfer back to [facility] in a.m. We will continue to follow I, the cosigning physician, performed a history & physical examination of the patient. Lungs sounds with few crackles in the right lung base. Maintaining good O2 saturations in the 90s on room air. I discussed the assessment and plan of care with my nurse practitioner, Aury Serrano. I attest to the above note as dictated by her.
[2020-10-03] MEDS: SODIUM CHLORIDE 0.45% 1,000 ML IV SCH ×2 (06:04→23:33)
[2020-10-03] MEDS: ACETAMINOPHEN TAB 325 MG TAB PO SCH ×3 (06:05→19:36)
[2020-10-03 08:02] LABS: African American GFR (CKD) >90 (>60 ml/min/1.73 sqM); Anion Gap 1 mmol/L; Blood Urea Nitrogen 45 mg/dL (9-20); Calcium 8.8 mg/dL (8.4-10.2); Carbon Dioxide 22 mmol/L (22-30); Chloride 118 mmol/L (98-107); Glucose 129 mg/dL (74-99); Non-African American GFR(CKD) 81 (>60 ml/min/1.73 sqM); Potassium 4.7 mmol/L (3.5-5.1); Sodium 141 mmol/L (137-145)
[2020-10-03] MEDS: DEXAMETHASONE SOD PHOSPHATE 10 MG/ML 1 ML VIAL IV SCH (08:52)
[2020-10-03] MEDS: METOPROLOL TARTRATE 25 MG TAB PO SCH ×2 (08:53→19:35)
[2020-10-03] MEDS: ENOXAPARIN 40 MG/0.4 ML SYRINGE SQ SCH (08:53)
[2020-10-03] MEDS: ESCITALOPRAM 5 MG TAB PO SCH (08:53)
--- NOTE | 2020-10-03 15:05 | P.PN ---
Subjective Progress Note Date: 10/03/20 Principal diagnosis: Mental status changes. This is an 84-year-old gentleman who resides at [facility] on the [facility]. He has a history of advanced dementia, atrial fibrillation, congestive heart failure, hypertension, hyperlipidemia, anxiety/depression, frequent falls and previous subdural hemorrhage, recent cervical neck fracture currently in a soft collar. Lifelong nonsmoker. He was brought into the emergency room yesterday for altered mental status. He is seen today in consultation. Apparently he tested positive 09/16/2020 for CoVID 19 infection. There is also some question of asbestos exposure in the past. Computed tomography scan of the brain revealed cerebral atrophy and chronic small vessel ischemia. Hydrocephalus. No acute intracranial abnormalities. Chest x-ray revealed mild right basilar opacity, most likely atelectasis. CT angiogram revealed no evidence of pulmonary embolism. There is sick and right lung base pleural with calcified plaques. Possibly related to previous asbestos exposure. There is scarring/discoid atelectasis in the right lower lobe. Mild COPD. Dopplers of lower extremity were negative for DVT. White count 8.3. Hemolymph 14.2. Lymphocytes 0.8. D-dimer 31.42. Sodium 152. Potassium 4.7. Creatinine 1.75. Ferritin 502. LDH 585. C-reactive protein 138. Pro-calcitonin 0.15. He is a poor historian. No information able to be obtained from the patient. He was found to be in a chair for ablation with rapid ventricular response. Currently on Cardizem drip at 10 mg per hour. The patient is seen today 10/02/2020 in follow-up on the selective care unit. He is currently resting fairly comfortably in bed. Currently maintaining O2 saturations in the 90s on room air. Afebrile. Hemodynamically stable. Blood cultures reveal no growth to date. Sodium 145. Potassium 4.6. Creatinine 1.05. He is continued on dexamethasone, Lovenox. 0.45 normal saline at 75 ML's per hour. Progress note dated 10/03/2020. 84-year-old male admitted with a diagnosis of mental status changes. He had a recent COVID 19 infection on 09/16/2020. He has a history of chronic systolic heart failure, advanced dementia, paroxysmal atrial fibrillation, subdural hematoma, hypertension, CAD, hyperlipidemia, gastroesophageal reflux disease, anxiety/depression, and poor overall functional status. Currently, the patient's on room air, but the saturation ranged from 94 to 99%. His temperature is 96.9 and his blood pressure is stable at 109/73. Microbiologic studies are negative. Sodium is 141, potassium is 4.7, chlorides 118, CO2 22, anion gap 1, BUN 45, and creatinine 0.83. Objective - Vital Signs Vital signs: Vital Signs Temp 96.9 F L 10/03/20 11:50 Pulse 81 10/03/20 11:50 Resp 20 10/03/20 11:50 BP 109/73 10/03/20 11:50 Pulse Ox 94 L 10/03/20 11:50 Intake & Output 10/02/20 10/03/20 10/03/20 18:59 06:59 18:59 Intake Total 945 225 480 Balance 945 225 480 Weight 49 kg Intake: Intake, IV Titration 225 225 Amount Sodium Chloride 0.45% 1, 225 225 000 ml @ 75 mls/hr IV . [id number] [facility] Rx#:[id number] Oral 720 480 Other: Voiding Method Diaper Diaper Diaper # Voids 2 3 - Exam No acute distress, very confused. The patient is currently not on any supplemental oxygen. HEENT examination is grossly unremarkable. Mucous membranes are moist. No oral lesions. Neck supple. Full range of motion. No adenopathy thyromegaly or neck vein distention. Cardiovascular examination reveals irregular rhythm and rate. S1-S2 normal. No S3 or S4. No discernible murmur noted. Lungs reveal a few crackles at the right lung base. No rhonchi or wheezes. Breath sounds equal bilaterally. The patient is no acute respiratory distress. Abdomen soft bowel sounds are heard. No masses or tenderness. Extremities are intact. No cyanosis clubbing or edema. Skin is without rash or lesion. Neurologic examination is brief but nonfocal. - Labs CBC & Chem 7: 09/30/20 20:05 10/03/20 07:09 Labs: Abnormal Lab Results - Last 24 Hours (Table) 10/03/20 Range/Units 07:09 Chloride 118 H (98-107) mmol/L BUN 45 H (9-20) mg/dL Glucose 129 H (74-99) mg/dL Microbiology - Last 24 Hours (Table) 01/13/21 20:20 Blood Culture - Preliminary Blood No Growth after 48 hours 09/30/20 20:05 Blood Culture - Preliminary Blood No Growth after 48 hours Assessment and Plan Assessment: 1 Altered mental status of unclear etiology. 2 Recent COVID 19 infection on 09/16/2020 according to ECF. 3 Frequent falls and recent fracture of C1, currently in a soft collar. 4 History of chronic systolic congestive heart failure. 5 Advanced dementia. 6 History of paroxysmal atrial fibrillation not on anticoagulation due to multiple falls. 7 History of subdural hemorrhage. 8 Hypertension. 9 Coronary disease. 10 Hyperlipidemia. 11 Gastroesophageal reflux disease. 12 History of anxiety/depression. 13 Poor overall functional performance based on the above-mentioned multiple comorbidities. Plan: Plan dated 10/03/2020. The patient appears to be relatively stable from the pulmonary standpoint. The patient should complete 10 days of Decadron and then it can be discontinued. The patient's is currently not on any supplemental oxygen. Blood pressure is stable. We will follow up only as needed. Overall prognosis remains poor. The patient is a no code. Time with Patient: Less than 30
--- NOTE | 2020-10-03 16:06 | ECHOF ---
Referral Reason:LV function MEASUREMENTS -------- HEIGHT: 172.7 cm WEIGHT: 53.1 kg BP: IVSd: 1.3 cm (0.6 - 1.1) LVIDd: 5.3 cm (3.9 - 5.3) LVPWd: 1.3 cm (0.6 - 1.1) IVSs: 1.4 cm LVIDs: 4.8 cm LVPWs: 1.2 cm LAESV Index (A-L): 34.03 ml/m Ao Diam: 3.1 cm (2.0 - 3.7) AV Cusp: 1.4 cm (1.5 - 2.6) LA Diam: 3.2 cm (2.7 - 3.8) MV EXCURSION: 15.965 mm (> 18.000) MV EF SLOPE: 144 mm/s (70 - 150) EPSS: 0.9 cm MV E Jose: 0.71 m/s MV DecT: 271 ms MV A Jose: 0.38 m/s MV E/A Ratio: 1.88 RAP: 5.00 mmHg RVSP: 17.61 mmHg FINDINGS -------- This was a technically adequate study. The left ventricular size is normal. There is mild concentric left ventricular hypertrophy. There is severe global hypokinesis of LV . Overall left ventricular systolic function is severely impair ed with, an EF between 20 - 25 %. The right ventricle is normal in size. LA is moderately dilated 34-39 ml/m2 The right atrial size is normal. Lumason used Aortic valve is trileaflet and is mildly thickened. The mitral valve is normal. The mitral valve leaflets are mildly thickened. Mild mitral regurgita tion is present. The tricuspid valve appears structurally normal. Mild tricuspid regurgitation present. Right vent ricular systolic pressure is normal at < 35 mmHg. Moderate pulmonic regurgitation. The aortic root size is normal. IVC Not well visulized. There is no pericardial effusion. CONCLUSIONS -------- 1. The left ventricular size is normal. 2. There is mild concentric left ventricular hypertrophy. 3. There is severe global hypokinesis of LV . 4. Overall left ventricular systolic function is severely impaired with, an EF between 20 - 25 %. 5. LA is moderately dilated 34-39 ml/m2 6. Aortic valve is trileaflet and is mildly thickened. 7. The mitral valve leaflets are mildly thickened. 8. Mild mitral regurgitation is present. 9. Mild tricuspid regurgitation present. 10. Moderate pulmonic regurgitation. 11. There is no pericardial effusion. AERONAUTICS TEACHER: Mary Escoto RDCS
--- NOTE | 2020-10-03 18:15 | P.PN ---
Subjective HISTORY OF PRESENT ILLNESS: This is a 84-year-old male with a past medical history significant for atrial fibrillation, COPD, dementia, hyperlipidemia, and hypertension. It is unknown if the patient follows with a cable rigger. We have been asked to see the patient in consultation for AGraham awan with RVR. The patient's currently admitted to the hospital secondary to Covid 19. The patient apparently went into afib with RVR yesterday. He was started on a cardizem drip. His heartrate is currently controlled. The patient is lethargic and unable to provide any history. 10/03/2020 Patient seen and examined. Patient confused however denies any chest pain or pressure. Heart rates are controlled the 70s to 80s. Patient was placed on metoprolol 25 twice a day. REVIEW OF SYSTEMS: Unable to obtain thorough review of systems secondary to altered mental status, denies chest pain PHYSICAL EXAM: VITAL SIGNS: Reviewed. GENERAL: Well-developed in no acute distress. Confused HEENT: Head is normocephalic. Pupils are equal, round. Sclerae anicteric. Mucous membranes of the mouth are moist. Neck supple. No JVD or thyromegaly LUNGS: Respirations even and unlabored. Lungs diminished bilaterally. HEART: Regular rate and rhythm. S1 and S2 heard. ABDOMEN: Soft. Nondistended. Nontender. EXTREMITIES: Normal range of motion. No clubbing or cyanosis. Peripheral pulses intact. No lower extremity edema NEUROLOGIC: Lethargic ASSESSMENT: Covid 19 pneumonia Paroxysmal atrial fibrillation with RVR, not on anticoagulation secondary to multiple falls and history of subdural hematoma COPD Hypertension Hyperlipidemia Dementia Cardiomyopathy with ejection fraction 2024% PLAN: Patient's echo reveals cardiomyopathy with ejection fraction 20-25%. Optimize heart failure regimen as able. Patient's pressure is borderline however. Continue with metoprolol 25 mg twice a day. Prognosis guarded. Objective - Vital Signs Vital signs: Vital Signs Temp 96.9 F L 10/03/20 16:00 Pulse 70 10/03/20 16:00 Resp 20 10/03/20 16:00 BP 118/67 10/03/20 16:00 Pulse Ox 97 10/03/20 16:00 Intake & Output 10/02/20 10/03/20 10/03/20 18:59 06:59 18:59 Intake Total 395 793 0848 Balance 664 995 2917 Weight 49 kg Intake: Intake, IV Titration 225 225 600 Amount Sodium Chloride 0.45% 1 225 600 000 ml @ 75 mls/hr IV . [id number] [facility] Rx#:[id number] Oral 720 840 Other: Voiding Method Diaper Diaper Diaper # Voids 2 3 - Labs CBC & Chem 7: 09/30/20 20:05 10/03/20 07:09 Labs: Abnormal Lab Results - Last 24 Hours (Table) 10/03/20 Range/Units 07:09 Chloride 118 H (98-107) mmol/L BUN 45 H (9-20) mg/dL Glucose 129 H (74-99) mg/dL Microbiology - Last 24 Hours (Table) 09/30/20 20:20 Blood Culture - Preliminary Blood No Growth after 48 hours 09/30/20 20:05 Blood Culture - Preliminary Blood No Growth after 48 hours
[2020-10-04] MEDS: METOPROLOL TARTRATE 25 MG TAB PO SCH ×3 (04:51→21:13)
[2020-10-04] MEDS: ACETAMINOPHEN TAB 325 MG TAB PO SCH ×3 (04:51→21:12)
[2020-10-04] MEDS: SODIUM CHLORIDE 0.45% 1,000 ML IV SCH ×2 (04:58→21:13)
[2020-10-04] MEDS: DEXAMETHASONE SOD PHOSPHATE 10 MG/ML 1 ML VIAL IV SCH (08:29)
[2020-10-04] MEDS: ESCITALOPRAM 5 MG TAB PO SCH (08:29)
[2020-10-04] MEDS: ENOXAPARIN 40 MG/0.4 ML SYRINGE SQ SCH ×2 (08:29→21:13)
--- NOTE | 2020-10-04 08:58 | P.PN ---
Subjective Progress Note Date: 10/03/20 84-year-old patient resident of [facility] in [facility] being followed by Davide Pérez. Patient tested positive for COVID 19 on 09/16/2020. Patient was sent in for altered mental status. Patient's son at the bedside. He stated that patient was recently at [facility] was treated there for UTI. From that he was discharged and sent to rehab at [facility] in [facility]. In the process patient lost some weight and become rather weak. As per the EMS run sheet- "patient has a fair appetite. Today patient was not eating well. Has a temperature 101. Patient has a c-collar in place. And he had a fall prior to that for which he was [facility]. Patient also found to have A. fib with rapid ventricular rate. On room air saturation was 90%. Patient himself is not able to give any history. Rather lethargic. 10/02/2020 Patient is alert oriented 1. Patient is cachectic appears to have dementia, poor functionality. Patient is not requiring oxygen at this time. Patient remains on half-normal saline at 75 mL per hour. Repeat labs will be obtained for today and tomorrow morning. 10/03/2020 Patient is mostly nonverbal. Overall there is clinical improvement along with improvement in his labs. Review of systems: Unable to obtain due to his clinical condition All inpatient medications were reviewed and appropriate changes in these medications as dictated in the interval history and assessment and plan. Objective - Vital Signs Vital signs: Vital Signs Temp 97.9 F 10/04/20 03:32 Pulse 60 10/04/20 03:32 Resp 18 10/04/20 03:32 BP 114/70 10/04/20 03:32 Pulse Ox 95 10/04/20 03:32 Intake & Output 10/03/20 10/04/20 10/04/20 18:59 06:59 18:59 Intake Total 1440 225 240 Balance 1440 225 240 Weight 48 kg Intake: Intake, IV Titration 600 225 Amount Sodium Chloride 0.45% 1, 600 225 000 ml @ 75 mls/hr IV . [id number] [facility] Rx#:[id number] Oral 840 240 Other: Voiding Method Diaper Diaper # Voids 2 - Exam PHYSICAL EXAMINATION: GENERAL: The patient is alert and oriented x1, not in any acute distress. Cachectic thin built HEENT: Pupils are round and equally reacting to light. EOMI. No scleral icterus. No conjunctival pallor. Normocephalic, atraumatic. No pharyngeal erythema. No thyromegaly. CARDIOVASCULAR: S1 and S2 present. No murmurs, rubs, or gallops. PULMONARY: Chest is clear to auscultation, no wheezing or crackles. ABDOMEN: Soft, nontender, nondistended, normoactive bowel sounds. No palpable organomegaly. MUSCULOSKELETAL: No joint swelling or deformity. EXTREMITIES: No cyanosis, clubbing, or pedal edema. NEUROLOGICAL: Unable to assess SKIN: No rashes. Note: Because of COVID 19 isolation, some of the history and physical exam findings are indirect and obtained from nursing staff, and other physician examinations to avoid unnecessary contact with the patient. - Labs CBC & Chem 7: 09/30/20 20:05 10/03/20 07:09 Labs: Microbiology - Last 24 Hours (Table) 09/30/20 20:20 Blood Culture - Preliminary Blood No Growth after 72 hours 09/30/20 20:05 Blood Culture - Preliminary Blood No Growth after 72 hours Assessment and Plan Plan: -Covid 19 pneumonia. Was diagnosed with COVID 19 on September 16. Patient does have an elevated CRP and a d-dimer. Continue with Decadron and Lovenox consider ing his poor renal function need to be cautious with the Lovenox if his creatinine continues to be elevated we'll switch him to subcutaneous heparin and discontinue Lovenox patient has elevated d-dimer about 3 -Acute renal failure: Secondary to Bactrim which was discontinued patient is receiving half-normal saline, improved -Generalized deconditioning -Dehydration -Acute metabolic encephalopathy from above -Hypernatremia, from free water deficit and dehydration -Atrial fibrillation with a rapid ventricular rate -COPD -Possible vascular dementia -GERD -Hyperlipidemia -Essential hypertension -Coronary artery disease with prior history of bypass -History of pneumonectomy partial -Moderate protein calorie malnutrition patient has decreased muscle mass loss of subcutaneous fat and a BMI 15.1 -Advancing medical debility -No code Possibly of discharge to subacute rehabilitation on Monday
--- NOTE | 2020-10-04 09:00 | P.PN ---
Subjective 84-year-old patient resident of [facility] in [facility] being followed by Davide Pérez. Patient tested positive for COVID 19 on 09/16/2020. Patient was sent in for altered mental status. Patient's son at the bedside. He stated that patient was recently at [facility] was treated there for UTI. From that he was discharged and sent to rehab at [facility] in [facility]. In the process patient lost some weight and become rather weak. As per the EMS run sheet- "patient has a fair appetite. Today patient was not eating well. Has a temperature 101. Patient has a c-collar in place. And he had a fall prior to that for which he was [facility]. Patient also found to have A. fib with rapid ventricular rate. On room air saturation was 90%. Patient himself is not able to give any history. Rather lethargic. 10/02/2020 Patient is alert oriented 1. Patient is cachectic appears to have dementia, poor functionality. Patient is not requiring oxygen at this time. Patient remains on half-normal saline at 75 mL per hour. Repeat labs will be obtained for today and tomorrow morning. 10/03/2020 Patient is mostly nonverbal. Overall there is clinical improvement along with improvement in his labs. 10/04/2020 Respiratory status improved creatinine improved. Review of systems: Unable to obtain due to his clinical condition All inpatient medications were reviewed and appropriate changes in these medications as dictated in the interval history and assessment and plan. Objective - Vital Signs Vital signs: Vital Signs Temp 97.9 F 10/04/20 03:32 Pulse 60 10/04/20 03:32 Resp 18 10/04/20 03:32 BP 114/70 10/04/20 03:32 Pulse Ox 95 10/04/20 03:32 Intake & Output 10/03/20 10/04/20 10/04/20 18:59 06:59 18:59 Intake Total 1440 225 240 Balance 1440 225 240 Weight 48 kg Intake: Intake, IV Titration 600 225 Amount Sodium Chloride 0.45% 1, 600 225 000 ml @ 75 mls/hr IV . [id number] [facility] Rx#:[id number] Oral 840 240 Other: Voiding Method Diaper Diaper # Voids 2 - Exam PHYSICAL EXAMINATION: GENERAL: The patient is alert and oriented x1, not in any acute distress. Cachectic thin built HEENT: Pupils are round and equally reacting to light. EOMI. No scleral icterus. No conjunctival pallor. Normocephalic, atraumatic. No pharyngeal erythema. No thyromegaly. CARDIOVASCULAR: S1 and S2 present. No murmurs, rubs, or gallops. PULMONARY: Chest is clear to auscultation, no wheezing or crackles. ABDOMEN: Soft, nontender, nondistended, normoactive bowel sounds. No palpable organomegaly. MUSCULOSKELETAL: No joint swelling or deformity. EXTREMITIES: No cyanosis, clubbing, or pedal edema. NEUROLOGICAL: Unable to assess SKIN: No rashes. Note: Because of COVID 19 isolation, some of the history and physical exam findings are indirect and obtained from nursing staff, and other physician examinations to avoid unnecessary contact with the patient. - Labs CBC & Chem 7: 09/30/20 20:05 10/03/20 07:09 Labs: Microbiology - Last 24 Hours (Table) 09/30/20 20:20 Blood Culture - Preliminary Blood No Growth after 72 hours 09/30/20 20:05 Blood Culture - Preliminary Blood No Growth after 72 hours Assessment and Plan Plan: -Covid 19 pneumonia. Was diagnosed with COVID 19 on September 16. Patient does have an elevated CRP and a d-dimer. Continue with Decadron and Lovenox considering his poor renal function need to be cautious with the Lovenox if his creatinine continues to be elevated we'll switch him to subcutaneous heparin and discontinue Lovenox patient has elevated d-dimer about 3 -Acute renal failure: Secondary to Bactrim which was discontinued patient is receiving half-normal saline, improved -Generalized deconditioning -Dehydration -Acute metabolic encephalopathy from above -Hypernatremia, from free water deficit and dehydration -Atrial fibrillation with a rapid ventricular rate -COPD -Possible vascular dementia -GERD -Hyperlipidemia -Essential hypertension -Coronary artery disease with prior history of bypass -History of pneumonectomy partial -Moderate protein calorie malnutrition patient has decreased muscle mass loss of subcutaneous fat and a BMI 15.1 -Advancing medical debility -No code Possibly of discharge to subacute rehabilitation on Monday
--- NOTE | 2020-10-04 12:43 | P.PN ---
Subjective HISTORY OF PRESENT ILLNESS: This is a 84-year-old male with a past medical history significant for paroxysmal atrial fibrillation, COPD, dementia, hyperlipidemia, and hypertension. It is unknown if the patient follows with a guide visitor. He is seen and examined sitting up in bed in no acute distress. Blood pressure 114/70 heart rate 68 afebrile maintaining oxygen saturation on room air. Currently maintained on metoprolol 50 mg twice a day. PHYSICAL EXAM: GENERAL: Well-developed in no acute distress. Confused HEENT: Head is normocephalic. Pupils are equal, round. Sclerae anicteric. Mucous membranes of the mouth are moist. Neck supple. No JVD or thyromegaly LUNGS: Respirations even and unlabored. Lungs diminished bilaterally. HEART: Regular rate and rhythm. S1 and S2 heard. EXTREMITIES: Normal range of motion. No clubbing or cyanosis. Peripheral pulses intact. 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 Add small dose of lisinopril 2.5 mg daily. Nurse Practitioner note has been reviewed, I agree with a documented findings and plan of care. Patient was seen and examined. Objective - Vital Signs Vital signs: Vital Signs Temp 97.9 F 10/04/20 03:32 Pulse 60 10/04/20 03:32 Resp 18 10/04/20 03:32 BP 114/70 10/04/20 03:32 Pulse Ox 95 10/04/20 03:32 Intake & Output 10/03/20 10/04/20 10/04/20 18:59 06:59 18:59 Intake Total 1440 225 240 Balance 1440 225 240 Weight 48 kg Intake: Intake, IV Titration 600 225 Amount Sodium Chloride 0.45% 1, 600 225 000 ml @ 75 mls/hr IV . [id number] [facility] Rx#:[id number] Oral 840 240 Other: Voiding Method Diaper Diaper # Voids 2 - Labs CBC & Chem 7: 09/30/20 20:05 10/03/20 07:09 Labs: Microbiology - Last 24 Hours (Table) 09/30/20 20:20 Blood Culture - Preliminary Blood No Growth after 72 hours 09/30/20 20:05 Blood Culture - Preliminary Blood No Growth after 72 hours
--- NOTE | 2020-10-04 14:28 | P.PN ---
Subjective Progress Note Date: 10/04/20 Principal diagnosis: Mental status changes. This is an 84-year-old gentleman who resides at [facility]. He has a history of advanced dementia, atrial fibrillation, congestive heart failure, hypertension, hyperlipidemia, anxiety/depression, frequent falls and previous subdural hemorrhage, recent cervical neck fracture currently in a soft collar. Lifelong nonsmoker. He was brought into the emergency room yesterday for altered mental status. He is seen today in consultation. Apparently he tested positive 09/16/2020 for CoVID 19 infection. There is also some question of asbestos exposure in the past. Computed tomography scan of the brain revealed cerebral atrophy and chronic small vessel ischemia. Hydrocephalus. No acute intracranial abnormalities. Chest x-ray revealed mild right basilar opacity, most likely atelectasis. CT angiogram revealed no evidence of pulmonary embolism. There is sick and right lung base pleural with calcified plaques. Possibly related to previous asbestos exposure. There is scarring/discoid atelectasis in the right lower lobe. Mild COPD. Dopplers of lower extremity were negative for DVT. White count 8.3. Hemolymph 14.2. Lymphocytes 0.8. D-dimer 31.42. Sodium 152. Potassium 4.7. Creatinine 1.75. Ferritin 502. LDH 585. C-reactive protein 138. Pro-calcitonin 0.15. He is a poor historian. No information able to be obtained from the patient. He was found to be in a chair for ablation with rapid ventricular response. Currently on Cardizem drip at 10 mg per hour. The patient is seen today 10/02/2020 in follow-up on the selective care unit. He is currently resting fairly comfortably in bed. Currently maintaining O2 saturations in the 90s on room air. Afebrile. Hemodynamically stable. Blood cultures reveal no growth to date. Sodium 145. Potassium 4.6. Creatinine 1.05. He is continued on dexamethasone, Lovenox. 0.45 normal saline at 75 ML's per hour. Progress note dated 10/03/2020. 84-year-old male admitted with a diagnosis of mental status changes. He had a recent COVID 19 infection on 09/16/2020. He has a history of chronic systolic heart failure, advanced dementia, paroxysmal atrial fibrillation, subdural hematoma, hypertension, CAD, hyperlipidemia, gastroesophageal reflux disease, anxiety/depression, and poor overall functional status. Currently, the patient's on room air, but the saturation ranged from 94 to 99%. His temperature is 96.9 and his blood pressure is stable at 109/73. Microbiologic studies are negative. Sodium is 141, potassium is 4.7, chlorides 118, CO2 22, anion gap 1, BUN 45, and creatinine 0.83. Progress note dated 10/04/2020. 84-year-old male admitted with a diagnosis of mental status changes. The patient had a recent COVID 19 infection, in late August. He does carry with him a diagnosis of chronic systolic CHF, advanced dementia, paroxysmal atrial fibrillation, subdural hematoma, hypertension, coronary artery disease, hyperlipidemia, gastroesophageal reflux disease, and anxiety/depression. Currently, the patient's on room air. His saturations ranged from 92 up to 96% on no supplemental oxygen. The rest of his vital signs are stable. No new labs for today. Today's temperature is 96.9, heart rate 76, her rate 20, and the pressure 105/69. Objective - Vital Signs Vital signs: Vital Signs Temp 96.9 F L 10/04/20 08:00 Pulse 76 10/04/20 11:47 Resp 20 10/04/20 11:47 BP 105/69 10/04/20 11:47 Pulse Ox 93 L 10/04/20 11:47 Intake & Output 10/03/20 10/04/20 10/04/20 18:59 06:59 18:59 Intake Total 1440 225 420 Balance 1440 225 420 Weight 48 kg 49.5 kg Intake: Intake, IV Titration 600 225 Amount Sodium Chloride 0.45% 1, 600 225 000 ml @ 75 mls/hr IV . [id number] [facility] Rx#:[id number] Oral 840 420 Other: Voiding Method Diaper Diaper Diaper # Voids 1 - Exam No acute distress, very confused. The patient is currently not on any supplemental oxygen. HEENT examination is grossly unremarkable. Mucous membranes are moist. No oral lesions. Neck supple. Full range of motion. No adenopathy thyromegaly or neck vein distention. Cardiovascular examination reveals irregular rhythm and rate. S1-S2 normal. No S3 or S4. No discernible murmur noted. Heart rate is 76 bpm. Lungs reveal a few crackles at the right lung base. No rhonchi or wheezes. Breath sounds equal bilaterally. The patient is no acute respiratory distress. Abdomen soft bowel sounds are heard. No masses or tenderness. Extremities are intact. No cyanosis clubbing or edema. Skin is without rash or lesion. Neurologic examination is brief but nonfocal. - Labs CBC & Chem 7: 09/30/20 20:05 10/03/20 07:09 Labs: Microbiology - Last 24 Hours (Table) 09/30/20 20:20 Blood Culture - Preliminary Blood No Growth after 72 hours 09/30/20 20:05 Blood Culture - Preliminary Blood No Growth after 72 hours Assessment and Plan Assessment: 1 Altered mental status of unclear etiology. 2 Recent COVID 19 infection on 09/16/2020 according to ECF. 3 Frequent falls and recent fracture of C1, currently in a soft collar. 4 History of chronic systolic congestive heart failure. 5 Advanced dementia. 6 History of paroxysmal atrial fibrillation not on anticoagulation due to multi ple falls. 7 History of subdural hemorrhage. 8 Hypertension. 9 Coronary disease. 10 Hyperlipidemia. 11 Gastroesophageal reflux disease. 12 History of anxiety/depression. 13 Poor overall functional performance based on the above-mentioned multiple comorbidities. Plan: Plan dated 10/04/2020. Clinically, the patient seems be relatively stable. His blood pressure is 105/69. Heart rate 76. I'm sure is normal. Room air saturations ranged from 93 up to 96%. The patient is a very poor historian. He suffers from severe dementia. We will continue to follow. Prognosis is guarded. No additional recommendations are made. His respiratory status and hemodynamics status appeared to be stable. Time with Patient: Less than 30
[2020-10-05 03:42] VITALS: RESP 18
[2020-10-05] MEDS: ACETAMINOPHEN TAB 325 MG TAB PO SCH (05:59)
--- NOTE | 2020-10-05 09:16 | P.DS ---
Providers Date of admission: 10/01/20 04:22 Attending physician: Beni Carrion Consults: 10/01/20 00:08 Consult Physician Routine Consulting Provider: Cheng Rodriguez Consult Reason/Comments: COVID Do you want consulting provider notified?: Yes 10/02/20 08:21 Consult Physician Routine Consulting Provider: Robin Watson Consult Reason/Comments: afib rvr Do you want consulting provider notified?: Already Contacted Primary care physician: Daryl Umanzor [facility] Course: 84-year-old patient resident of [facility] in [facility] being followed by Davide Pérez. Patient tested positive for COVID 19 on 09/16/2020. Patient was sent in for altered mental status. Patient's son at the bedside. He stated that patient was recently at [facility] was treated there for UTI. From that he was discharged and sent to rehab at [facility] in [facility]. In the process patient lost some weight and become rather weak. As per the EMS run sheet- "patient has a fair appetite. Today patient was not eating well. Has a temperature 101. Patient has a c-collar in place. And he had a fall prior to that for which he was [facility]. Patient also found to have A. fib with rapid ventricular rate. On room air saturation was 90%. Patient himself is not able to give any history. Rather lethargic. 10/02/2020 Patient is alert oriented 1. Patient is cachectic appears to have dementia, poor functionality. Patient is not requiring oxygen at this time. Patient remains on half-normal saline at 75 mL per hour. Repeat labs will be obtained for today and tomorrow morning. 10/03/2020 Patient is mostly nonverbal. Overall there is clinical improvement along with improvement in his labs. 10/04/2020 Respiratory status improved creatinine improved. 10/05/2020 Patient's creatinine remained stable and improved. Patient will be discharged today to subacute rehabilitation. Patient has severe cardiomyopathy with EF of around 20-25%, presently not on any diuretics Will repeat a chest x-ray shows pulmonary edema patient will need a low-dose of diuretic at that time patient is presently on CRISTIANA inhibitor and beta jacoby. PHYSICAL EXAMINATION: GENERAL: The patient is alert and oriented x1, not in any acute distress. Cachectic thin built HEENT: Pupils are round and equally reacting to light. EOMI. No scleral icterus. No conjunctival pallor. Normocephalic, atraumatic. No pharyngeal erythema. No thyromegaly. CARDIOVASCULAR: S1 and S2 present. No murmurs, rubs, or gallops. PULMONARY: Chest is clear to auscultation, no wheezing or crackles. ABDOMEN: Soft, nontender, nondistended, normoactive bowel sounds. No palpable organomegaly. MUSCULOSKELETAL: No joint swelling or deformity. EXTREMITIES: No cyanosis, clubbing, or pedal edema. NEUROLOGICAL: Unable to assess SKIN: No rashes. Note: Because of COVID 19 isolation, some of the history and physical exam findings are indirect and obtained from nursing staff, and other physician examinations to avoid unnecessary contact with the patient. Assessment and Plan Plan: -Atrial fibrillation with rapid ventricular rate presently rate controlled patient is on beta jacoby which will be continued. Congestive heart failure chronic systolic dysfunction severe cardiomyopathy of of around 20-25%: Patient will be continued on lisinopril and not on any diure tics -Covid 19 pneumonia. Was diagnosed with COVID 19 on September 16. Patient does have an elevated CRP and a d-dimer. Decadron will be discontinued ration the blood pressure need to be monitored considering that Decadron is being discontinued at this time after a few days of being on that medication. Patient will be discharged on Lovenox constraining highly elevated d-dimer which can be continued for next 2 weeks -Acute renal failure: Secondary to Bactrim which was discontinued. Improved now -Generalized deconditioning -Acute metabolic encephalopathy from above, improved a bit patient does have advanced dementia -Hypernatremia, from free water deficit and dehydration -COPD -Possible vascular dementia -GERD -Hyperlipidemia -Essential hypertension -Coronary artery disease with prior history of bypass -History of pneumonectomy partial -Moderate protein calorie malnutrition patient has decreased muscle mass loss of subcutaneous fat and a BMI 15.1 -No code Patient Condition at Discharge: Serious Plan - Discharge Summary Discharge Rx Participant: Yes New Discharge Prescriptions: New Metoprolol Tartrate [Lopressor] 50 mg PO BID #0 tab Enoxaparin [Lovenox] 40 mg SQ BID #30 syringe Continue Albuterol Sulfate [Proair Hfa] 1 puff INHALATION RT-Q6H PRN PRN Reason: Wheezing Acetaminophen [Tylenol Arthritis] 650 mg PO Q8HR@0600,1400,2200 Fluticasone Nasal [place] [Flonase Nasal [place]] 2 spr EA NOSTRIL DAILY@0900 Escitalopram Oxalate 5 mg PO DAILY@0900 Docusate [Colace] 100 mg PO DAILY@0900 lisinopriL [Zestril] 2.5 mg PO DAILY@0900 Discontinued Sulfamethox-Tmp 800-160Mg [Bactrim DS 800-160 mg] 1 tab PO BID@0900,2100 Discharge Medication List Acetaminophen [Tylenol Arthritis] 650 mg PO Q8HR@0600,1400,2200 07/05/20 [History] Albuterol Sulfate [Proair Hfa] 1 puff INHALATION RT-Q6H PRN 07/05/20 [History] Docusate [Colace] 100 mg PO DAILY@0900 07/05/20 [History] Escitalopram Oxalate 5 mg PO DAILY@0900 07/05/20 [History] Fluticasone Nasal [place] [Flonase Nasal [place]] 2 spr EA NOSTRIL DAILY@0900 07/05/20 [History] lisinopriL [Zestril] 2.5 mg PO DAILY@0900 09/30/20 [History] Enoxaparin [Lovenox] 40 mg SQ BID #30 syringe 10/05/20 [Rx] Metoprolol Tartrate [Lopressor] 50 mg PO BID #0 tab 10/05/20 [Rx] Follow up Appointment(s)/Referral(s): Daryl Umanzor MD [Primary Care Provider] - 1-2 Days Discharge Disposition: TRANSFER TO SNF/ECF
--- NOTE | 2020-10-05 09:32 | P.PN ---
Subjective Progress Note Date: 10/05/20 This is an 84-year-old gentleman who resides at [facility] the [facility]. He has a history of advanced dementia, atrial fibrillation, congestive heart failure, hypertension, hyperlipidemia, anxiety/depression, frequent falls and previous subdural hemorrhage, recent cervical neck fracture currently in a soft collar. Lifelong nonsmoker. He was brought into the emergency room yesterday for altered mental status. He is seen today in consultation. Apparently he tested positive 09/16/2020 for CoVID 19 infection. Computed tomography scan of the brain revealed cerebral atrophy and chronic small vessel ischemia. Hydrocephalus. No acute intracranial abnormalities. Chest x-ray revealed mild right basilar opacity, most likely atelectasis. CT angiogram revealed no evidence of pulmonary embolism. There is right lung base pleural with calcified plaques. Possibly related to previous asbestos exposure. There is scarring/discoid atelectasis in the right lower lobe. Mild COPD. Dopplers of lower extremity were negative for DVT. The patient is on Decadron and Lovenox. The procalcitonin is mildly elevated at 0.15. Today's evaluation, the patient is still on room air oxygen. No signs of any significant respiratory distress. He is sluggish. He is slow in answering questions. He is still wearing a soft collar. He is a [facility] resident. No agitation. The chest x-ray from today shows post-bypass thoracotomy changes. There is a hazy infiltration occupying the right lung involving the right lower lobe of the right middle lobe extending to the right upper lobe. Left lower lobe was also infiltrated. This is worse compared to the earlier chest x-ray from 09/30/2020. Objective - Vital Signs Vital signs: Vital Signs Temp 97.7 F 10/05/20 03:40 Pulse 77 10/05/20 03:40 Resp 18 10/05/20 03:40 BP 123/64 10/05/20 03:40 Pulse Ox 94 L 10/05/20 03:40 Intake & Output 10/04/20 10/05/20 10/05/20 18:59 06:59 18:59 Intake Total 1180 Balance 1180 Weight 49.5 kg 48.5 kg Intake: Intake, IV Titration 160 Amount Sodium Chloride 0.45% 1, 160 000 ml @ 75 mls/hr IV . [id number] [facility] Rx#:[id number] Oral 1020 Other: Voiding Method Diaper Diaper # Voids 2 1 - Exam No acute distress, very confused. The patient is currently not on any supplemental oxygen. HEENT examination is grossly unremarkable. Mucous membranes are moist. No oral lesions. Neck supple. Full range of motion. No adenopathy thyromegaly or neck vein distention. Cardiovascular examination reveals irregular rhythm and rate. S1-S2 normal. No S3 or S4. No discernible murmur noted. Heart rate is 76 bpm. Lungs reveal a few crackles at the right lung base. No rhonchi or wheezes. Breath sounds equal bilaterally. The patient is no acute respiratory distress. Abdomen soft bowel sounds are heard. No masses or tenderness. Extremities are intact. No cyanosis clubbing or edema. Skin is without rash or lesion. Neurologic examination is brief but nonfocal. - Labs CBC & Chem 7: 09/30/20 20:05 10/03/20 07:09 Labs: Microbiology - Last 24 Hours (Table) 09/30/20 20:20 Blood Culture - Preliminary Blood No Growth after 96 hours 09/30/20 20:05 Blood Culture - Preliminary Blood No Growth after 96 hours Assessment and Plan Plan: 1 Altered mental status of unclear etiology. 2 Recent COVID 19 infection on 09/16/2020 according to [facility]. Currently on Decadron 6 mg IV and the patient is also on Lovenox 3 Frequent falls and recent fracture of C1, currently in a soft collar. 4 History of chronic systolic congestive heart failure. 5 Advanced dementia. 6 History of paroxysmal atrial fibrillation not on anticoagulation due to m ultiple falls. 7 History of subdural hemorrhage. 8 Hypertension. 9 Coronary disease. 10 Hyperlipidemia. 11 Gastroesophageal reflux disease. 12 History of anxiety/depression. 13 Poor overall functional performance based on the above-mentioned multiple comorbidities. Plan: Clinically, the patient seems be relatively stable. The chest x-ray slightly worse compared to his baseline. Nevertheless, the patient does not have any worsening his oxygenation. Breathing comfortably. His mental status is back to his baseline. He is on Decadron. I would recommend completing a total of 10 days of Decadron. He can potentially go home as long as his overall respiratory status remains unchanged and stable and he does not have any significant oxygen requirements. Long-term prognosis poor. Aspiration precautions. The patient is a very poor historian. He suffers from severe dementia. We will continue to follow. Prognosis is guarded.
[2020-10-05] MEDS ORDERED: FUROSEMIDE 10 MG/ML 4 ML VIAL IV STA (09:39)
--- NOTE | 2020-10-05 09:41 | XR ---
EXAMINATION TYPE: XR chest 1V DATE OF EXAM: 10/05/2020 COMPARISON: Prior chest x-ray 09/30/2020 HISTORY: Congestive heart failure, shortness of breath TECHNIQUE: Single frontal view of the chest is obtained. FINDINGS: There is patchy bilateral airspace disease present. Left hemidiaphragm is obscured, there is blunting the costophrenic angles. No evident pneumothorax. Patient is post median sternotomy. Card iac mediastinal silhouette is stable accounting for differences in technique. Aorta is dense and aneu rysmal. Exam is expiratory and rotated. IMPRESSION: Correlate for possible congestive heart failure versus pneumonia. Difficult to exclude s mall effusions. Aortic aneurysm.
[2020-10-05] MEDS: ENOXAPARIN 40 MG/0.4 ML SYRINGE SQ SCH (09:53)
[2020-10-05] MEDS: ESCITALOPRAM 5 MG TAB PO SCH (09:54)
[2020-10-05] MEDS: DEXAMETHASONE SOD PHOSPHATE 10 MG/ML 1 ML VIAL IV SCH (09:54)
[2020-10-05] MEDS: METOPROLOL TARTRATE 25 MG TAB PO SCH (09:54)
[2020-10-05 10:10] VITALS: BMI 16.2
[2020-10-05 10:17] VITALS: TEMP 96.8
[2020-10-05 12:29] VITALS: BP 110/76; PULSE 79
--- NOTE | 2020-10-05 12:45 | P.PN ---
Subjective Progress Note Date: 10/05/20 HISTORY OF PRESENT ILLNESS: This is a 84-year-old male with a past medical history significant for atrial fibrillation, COPD, dementia, hyperlipidemia, and hypertension. It is unknown if the patient follows with a rose grower. We have been asked to see the patient in consultation for Robby awan with RVR. The patient's currently admitted to the hospital secondary to Covid 19. Patient remains in atrial fibrillation with controlled ventricular rates. Echocardiogram completed revealing ejection fraction 20-25% PHYSICAL EXAM: Thorough physical exam not completed secondary to limited evaluation/examination and due to Covid19 ASSESSMENT: Covid 19 pneumonia Paroxysmal atrial fibrillation with RVR, not on anticoagulation secondary to mu ltiple falls and history of subdural hematoma COPD Hypertension Hyperlipidemia Dementia Cardiomyopathy with ejection fraction 20-25% PLAN: Continue current cardiac medications Patient is stable from a cardiac perspective We will follow on an as-needed basis. Please call for questions or concerns. Nurse practitioner note has been reviewed by physician. Signing provider agrees with the documented findings, assessment, and plan of care. Objective - Vital Signs Vital signs: Vital Signs Temp 96.8 F L 10/05/20 08:30 Pulse 79 10/05/20 12:00 Resp 18 10/05/20 12:00 BP 110/76 10/05/20 12:00 Pulse Ox 96 10/05/20 12:00 Intake & Output 10/04/20 10/05/20 10/05/20 18:59 06:59 18:59 Intake Total 1180 375 Balance 1180 375 Weight 49.5 kg 48.5 kg 48.5 kg Intake: Intake, IV Titration 160 375 Amount Sodium Chloride 0.45% 1, 160 375 000 ml @ 75 mls/hr IV . [id number] [facility] Rx#:[id number] Oral 1020 Other: Voiding Method Diaper Diaper Diaper # Voids 2 1 1 - Labs CBC & Chem 7: 09/30/20 20:05 10/03/20 07:09 Labs: Microbiology - Last 24 Hours (Table) 09/30/20 20:20 Blood Culture - Preliminary Blood No Growth after 96 hours 09/30/20 20:05 Blood Culture - Preliminary Blood No Growth after 96 hours
== END 2020-10-05 13:00 | DRG 177 ==
LOC: EC 19:16 → 3SCARD 10-01 04:22
PROVIDERS: ADMIT Hospitalist; ATTEND Hospitalist
DX: U07.1 COVID-19 (principal); G93.41 Metabolic encephalopathy; E43 Unspecified severe protein-calorie malnutrition; J12.82 Pneumonia due to coronavirus disease 2019; I50.22 Chronic systolic (congestive) heart failure; N17.9 Acute kidney failure, unspecified; J44.0 Chronic obstructive pulmonary disease with (acute) lower respiratory infection; E87.0 Hyperosmolality and hypernatremia; E87.2 Acidosis; Z68.1 Body mass index [BMI] 19.9 or less, adult; J98.11 Atelectasis; R64 Cachexia; G91.9 Hydrocephalus, unspecified; I42.9 Cardiomyopathy, unspecified; I48.0 Paroxysmal atrial fibrillation; Z66 Do not resuscitate; I25.10 Atherosclerotic heart disease of native coronary artery without angina pectoris; I11.0 Hypertensive heart disease with heart failure; E78.5 Hyperlipidemia, unspecified; E86.0 Dehydration; F02.80 Dementia in other diseases classified elsewhere, unspecified severity, without behavioral disturbance, psychotic disturbance, mood disturbance, and anxiety; F41.8 Other specified anxiety disorders; G30.9 Alzheimer's disease, unspecified; R53.81 Other malaise; R29.6 Repeated falls; K21.9 Gastro-esophageal reflux disease without esophagitis; Z79.899 Other long term (current) drug therapy; Z88.8 Allergy status to other drugs, medicaments and biological substances; Z88.5 Allergy status to narcotic agent; Z95.1 Presence of aortocoronary bypass graft; Z90.2 Acquired absence of lung [part of]
CPT/HCPCS: 36415; 70450; 71045; 71275; 80048; 80053; 82728; 83605; 83615; 83735; 84145; 85025; 85379; 85610; 85730; 86140; 87040; 93005; 93306; 93970; 96361; 96372; 96374; 99291

== ENCOUNTER 2020-10-11 11:10 | Inpatient (IN) | payer MEDICARE, BC ==
[2020-10-11] MEDS ORDERED: ACETAMINOPHEN SUPPOSITORY 650 MG SUPP RECTAL STA (11:27)
[2020-10-11] MEDS ORDERED: SODIUM CHLORIDE 0.9% 1,000 ML IV STA ×2 (11:28→13:06)
--- NOTE | 2020-10-11 11:31 | ED ---
General Adult HPI - General Chief complaint: Arrhythmia/Palpitations Stated complaint: Tachycardia Time Seen by Provider: 10/11/20 11:17 Source: patient, EMS, RN notes reviewed Mode of arrival: EMS Limitations: no limitations - History of Present Illness Initial comments: Patient is a 84-year-old male presenting to the emergency department for tachycardia. Patient is nonverbal and provides no history. Patient reportedly was diagnosed withcovid a few weeks ago. History is further limited. Patient does have history of A. fib. Unclear if patient is having fevers at home. Staff was considering if patient was candidate for hospice however family did not want that. - Related Data Home Medications Medication Instructions Recorded Confirmed Acetaminophen [Tylenol Arthritis] 650 mg PO Q8HR@0600,1400,2200 07/05/20 10/11/20 Albuterol Sulfate [Proair Hfa] 1 puff INHALATION RT-Q6H PRN 07/05/20 10/11/20 Docusate [Colace] 100 mg PO DAILY@2100 07/05/20 10/11/20 Escitalopram Oxalate 5 mg PO DAILY@209907/05/20 10/11/20 Fluticasone Nasal [place] [Flonase 2 spr EA NOSTRIL DAILY@0900 07/05/20 10/11/20 Nasal [place]] lisinopriL [Zestril] 2.5 mg PO DAILY@0900 09/30/20 10/11/20 Enoxaparin [Lovenox] 40 mg SQ BID@0900,2100 10/11/20 10/11/20 Lactose-Reduced Food [Ensure Plus] 120 ml PO TID@1000,1400,1800 10/11/20 10/11/20 Metoprolol Tartrate [Lopressor] 50 mg PO BID@0900,2100 10/11/20 10/11/20 Metoprolol Tartrate [Lopressor] 50 mg PO ONCE PRN 10/11/20 10/11/20 Allergies Allergy/AdvReac Type Severity Reaction Status Date / Time meperidine [From Demerol] Allergy Unknown Verified 10/11/20 13:19 mirtazapine [From Remeron] Allergy Unknown Verified 10/11/20 13:19 morphine Allergy Unknown Verified 10/11/20 13:19 Review of Systems ROS Statement: Those systems with pertinent positive or pertinent negative responses have been documented in the HPI. ROS Other: All systems not noted in ROS Statement are negative. Limitations: ROS unobtainable due to patients medical condition Past Medical History Past Medical History: Atrial Fibrillation, Heart Failure, COPD, Dementia, GERD/Reflux, Hyperlipidemia, Hypertension History of Any Multi-Drug Resistant Organisms: None Reported Past Surgical History: Coronary Bypass/CABG Additional Past Surgical History / Comment(s): 1/2 lung removed. Past Anesthesia/Blood Transfusion Reactions: No Reported Reaction Past Psychological History: Anxiety, Depression Smoking Status: Never smoker Past Alcohol Use History: None Reported Past Drug Use History: None Reported General Exam Limitations: altered mental status, physical limitation General appearance: lethargic Head exam: Present: atraumatic Eye exam: Present: normal appearance, PERRL ENT exam: Present: normal oropharynx Neck exam: Present: normal inspection Respiratory exam: Present: normal lung sounds bilaterally Cardiovascular Exam: Present: tachycardia, irregular rhythm GI/Abdominal exam: Present: soft. Absent: distended, tenderness Extremities exam: Present: normal inspection Neurological exam: Present: altered, other (Nonverbal. Does not follow commands.) Expanded Neurological exam: Present: other (Withdraws all extremities to pain.) Speech: Present: total aphasia Eye Response: (2) open to pain Motor Response: (4) withdraws to pain Verbal Response: (1) no verbal response Psychiatric exam: Present: flat affect Skin exam: Present: normal color Course Vital Signs 10/11/20 10/11/20 10/11/20 11:13 12:11 12:44 Temperature 99.6 F 98.2 F Pulse Rate 165 H 165 H 165 H Respiratory 22 26 H Rate Blood Pressure 104/85 117/88 O2 Sat by Pulse 96 96 Oximetry - Reevaluation(s) Reevaluation #1: 10/11/20 13:27 Patient does meet sepsis criteria diagnosed at 1320. Blood culture, lactic acid, fluid bolus, and IV antibiotics have been ordered. EKG Findings - EKG Comments: EKG Findings:: Neuro context tachycardia with rate of 166. QRS 108. QT 294. QTC 448. Left axis. Nonspecific ST-T. Normal QRS. Medical Decision Making - Medical Decision Making Patient reevaluated. Case discussed with Dr. Carrion, who will admit covering for Dr. Umanzor. Case also discussed with Dr. Vazquez, who will consult. He does not feel patient needs to go to ICU at this time. He agrees with extra fluids and Cardizem drip that of just been started. - Lab Data Result diagrams: 10/11/20 11:46 10/11/20 11:46 Lab Results 10/11/20 10/11/20 10/11/20 Range/Units 11:46 11:46 11:46 WBC 15.3 H (3.8-10.6) k/uL RBC 4.91 (4.30-5.90) m/uL Hgb 14.4 (13.0-17.5) gm/dL Hct 44.8 (39.0-53.0) % MCV 91.3 (80.0-100.0) fL MCH 29.3 (25.0-35.0) pg MCHC 32.1 (31.0-37.0) g/dL RDW 14.8 (11.5-15.5) % Plt Count 315 (150-450) k/uL MPV 7.8 Neutrophils % 91 % Lymphocytes % 4 % Monocytes % 3 % Eosinophils % 1 % Basophils % 0 % Neutrophils # 14.0 H (1.3-7.7) k/uL Lymphocytes # 0.7 L (1.0-4.8) k/uL Monocytes # 0.5 (0-1.0) k/uL Eosinophils # 0.1 (0-0.7) k/uL Basophils # 0.0 (0-0.2) k/uL Hypochromasia Slight PT 11.0 (9.0-12.0) sec INR 1.0 (<1.2) APTT 27.9 (22.0-30.0) sec Sodium 150 H (137-145) mmol/L Potassium 4.8 (3.5-5.1) mmol/L Chloride 121 H (98-107) mmol/L Carbon Dioxide 22 (22-30) mmol/L Anion Gap 7 mmol/L BUN 41 H (9-20) mg/dL Creatinine 1.06 (0.66-1.25) mg/dL Est GFR (CKD-EPI)AfAm 75 (>60 ml/min/1.73 sqM) Est GFR (CKD-EPI)NonAf 65 (>60 ml/min/1.73 sqM) Glucose 124 H (74-99) mg/dL Plasma Lactic Acid Bhargav (0.7-2.0) mmol/L Calcium 8.7 (8.4-10.2) mg/dL Magnesium 2.5 H (1.6-2.3) mg/dL Total Bilirubin 0.7 (0.2-1.3) mg/dL AST 26 (17-59) U/L ALT 38 (4-49) U/L Alkaline Phosphatase 63 (38-126) U/L Lactate Dehydrogenase 937 H (313-618) U/L C-Reactive Protein 86.5 H (<10.0) mg/L Total Protein 5.8 L (6.3-8.2) g/dL Albumin 2.9 L (3.5-5.0) g/dL Urine Color Urine Appearance (Clear) Urine pH (5.0-8.0) Ur Specific [place] (1.001-1.035) Urine Protein (Negative) Urine Glucose (UA) (Negative) Urine Ketones (Negative) Urine Blood (Negative) Urine Nitrite (Negative) Urine Bilirubin (Negative) Urine Urobilinogen (<2.0) mg/dL Ur Leukocyte Esterase (Negative) Urine RBC (0-5) /hpf Urine WBC (0-5) /hpf Urine WBC Clumps (None) /hpf Urine Bacteria (None) /hpf Urine Mucus (None) /hpf 10/11/20 10/11/20 Range/Units 11:46 12:31 WBC (3.8-10.6) k/uL RBC (4.30-5.90) m/uL Hgb (13.0-17.5) gm/dL Hct (39.0-53.0) % MCV (80.0-100.0) fL MCH (25.0-35.0) pg MCHC (31.0-37.0) g/dL RDW (11.5-15.5) % Plt Count (150-450) k/uL MPV Neutrophils % % Lymphocytes % % Monocytes % % Eosinophils % % Basophils % % Neutrophils # (1.3-7.7) k/uL Lymphocytes # (1.0-4.8) k/uL Monocytes # (0-1.0) k/uL Eosinophils # (0-0.7) k/uL Basophils # (0-0.2) k/uL Hypochromasia PT (9.0-12.0) sec INR (<1.2) APTT (22.0-30.0) sec Sodium (137-145) mmol/L Potassium (3.5-5.1) mmol/L Chloride (98-107) mmol/L Carbon Dioxide (22-30) mmol/L Anion Gap mmol/L BUN (9-20) mg/dL Creatinine (0.66-1.25) mg/dL Est GFR (CKD-EPI)AfAm (>60 ml/min/1.73 sqM) Est GFR (CKD-EPI)NonAf (>60 ml/min/1.73 sqM) Glucose (74-99) mg/dL Plasma Lactic Acid Bhargav 2.4 H* (0.7-2.0) mmol/L Calcium (8.4-10.2) mg/dL Magnesium (1.6-2.3) mg/dL Total Bilirubin (0.2-1.3) mg/dL AST (17-59) U/L ALT (4-49) U/L Alkaline Phosphatase (38-126) U/L Lactate Dehydrogenase (313-618) U/L C-Reactive Protein (<10.0) mg/L Total Protein (6.3-8.2) g/dL Albumin (3.5-5.0) g/dL Urine Color Yellow Urine Appearance Turbid (Clear) Urine pH 5.0 (5.0-8.0) Ur Specific [place] 1.028 (1.001-1.035) Urine Protein 1+ H (Negative) Urine Glucose (UA) Negative (Negative) Urine Ketones Negative (Negative) Urine Blood Moderate H (Negative) Urine Nitrite Negative (Negative) Urine Bilirubin Negative (Negative) Urine Urobilinogen <2.0 (<2.0) mg/dL Ur Leukocyte Esterase Large H (Negative) Urine RBC 124 H (0-5) /hpf Urine WBC >182 H (0-5) /hpf Urine WBC Clumps Many H (None) /hpf Urine Bacteria Few H (None) /hpf Urine Mucus Many H (None) /hpf - Radiology Data Radiology results: image reviewed (She x-ray with right middle and lower lobe interstitial infiltrates, similar to previous) Critical Care Time Critical Care Time: Yes Total Critical Care Time: 34 Disposition Clinical Impression: COVID-19, UTI (urinary tract infection), Sepsis, Tachycardia, Dehydration Disposition: ADMITTED IP TO THIS [facility] Condition: Serious Is patient prescribed a controlled substance at d/c from ED?: No Referrals: Daryl Umanzor MD [Primary Care Provider] - 1-2 days Decision Time: 13:22
[2020-10-11] MEDS ORDERED: LIDOCAINE URO-JET JELLY 2% 5 ML KIT URETHRAL ONE (12:07)
[2020-10-11 12:09] LABS: Albumin 2.9 g/dL (3.5-5.0); C Reactive Protein 86.5 mg/L (<10.0); Calcium 8.7 mg/dL (8.4-10.2); Magnesium 2.5 mg/dL (1.6-2.3); Potassium 4.8 mmol/L (3.5-5.1); Total Bilirubin 0.7 mg/dL (0.2-1.3); Total Protein 5.8 g/dL (6.3-8.2)
[2020-10-11 12:13] LABS: Basophils % (A) 0 %; Eosinophils # (A) 0.1 k/uL (0-0.7); Eosinophils % (A) 1 %; HCT 44.8 % (39.0-53.0); HGB 14.4 gm/dL (13.0-17.5); Hypochromasia Slight; Lymphocytes # (A) 0.7 k/uL (1.0-4.8); Lymphocytes % (A) 4 %; MCH 29.3 pg (25.0-35.0); MCHC 32.1 g/dL (31.0-37.0); MCV 91.3 fL (80.0-100.0); Mean Platelet Volume 7.8; Monocytes # (A) 0.5 k/uL (0-1.0); Monocytes % (A) 3 %; Neutrophils % (A) 91 %; Platelet Count 315 k/uL (150-450); RBC 4.91 m/uL (4.30-5.90); RDW 14.8 % (11.5-15.5); WBC 15.3 k/uL (3.8-10.6)
--- NOTE | 2020-10-11 12:29 | XR ---
EXAMINATION TYPE: XR chest 1V portable DATE OF EXAM: 10/11/2020 COMPARISON: 10/05/2020 HISTORY: Suspected Covid pneumonia TECHNIQUE: AP chest FINDINGS: Chest is examined in the AP view. Patient is rotated and side bent towards the right. Sternotomy wires are present. Heart size is normal. Pulmonary vasculature is normal. Mild infiltrate is present to the right mid and lower lung field. Findings are nonspecific. Atypical pneumonia is wit hin the differential. Atelectasis and pneumonia could be considered. Findings are similar to comparis on. IMPRESSION: 1. Right mid and lower lung field infiltrate. Findings were present previously.
[2020-10-11 12:36] LABS: Partial Thromboplastin Time 27.9 sec (22.0-30.0)
[2020-10-11] MEDS: DILTIAZEM 125 MG in SODIUM CHLORIDE 0.9% 100 ML IV SCH (12:50)
[2020-10-11 12:54] LABS: Appearance,Urine Turbid (Clear); Bacteria,Urine Few /hpf; Bilirubin,Urine Negative (Negative); Blood,Urine Moderate (Negative); Color,Urine Yellow; Glucose,Urine (UA) Negative (Negative); Ketones,Urine Negative (Negative); Leukocyte Esterase,Urine Large (Negative); Mucus,Urine Many /hpf; Nitrite,Urine Negative (Negative); Protein,Urine 1+ (Negative); RBC,Urine 124 /hpf (0-5); Specific Gravity,Urine 1.028 (1.001-1.035); Urobilinogen,Urine <2.0 mg/dL (<2.0); WBC,Urine >182 /hpf (0-5)
[2020-10-11] MEDS ORDERED: cefTRIAXone IN SWFI 1,000 MG/10 ML SYRINGE IVP STA (13:05)
[2020-10-11] MEDS ORDERED: AZITHROMYCIN 500 MG in SODIUM CHLORIDE 0.9% 250 ML IVPB STA (13:33)
[2020-10-11] MEDS ORDERED: PNEUMONIA PROTOCOL UTILIZED 1 EACH MISC PO PRN (13:33)
[2020-10-11] MEDS ORDERED: METOPROLOL TARTRATE 50 MG TAB PO PRN (13:35)
[2020-10-11 16:55] LABS: Ferritin 461.4 ng/mL (22.0-322.0)
[2020-10-11] MEDS: ZINC SULFATE 220 MG CAP PO SCH (19:22)
[2020-10-11] MEDS: ASCORBIC ACID 500 MG TAB PO SCH ×2 (19:22→21:30)
[2020-10-11] MEDS: CHOLECALCIFEROL 25 MCG (1000 IU) TABLET PO SCH (19:22)
[2020-10-11] MEDS: SODIUM CHLORIDE 0.9% 1,000 ML IV SCH ×2 (19:24→21:30)
[2020-10-11] MEDS: ENOXAPARIN 40 MG/0.4 ML SYRINGE SQ SCH (21:29)
[2020-10-11] MEDS: METOPROLOL TARTRATE 50 MG TAB PO SCH (21:30)
[2020-10-12] MEDS: ACETAMINOPHEN SUPPOSITORY 650 MG SUPP RECTAL PRN (01:07)
[2020-10-12] MEDS: SODIUM CHLORIDE 0.9% 1,000 ML IV SCH (06:06)
[2020-10-12] MEDS: ALBUTEROL HFA INHALER INHALATION PRN ×2 (07:43→20:52)
--- NOTE | 2020-10-12 08:23 | XR ---
EXAMINATION TYPE: XR chest 1V DATE OF EXAM: 10/12/2020 COMPARISON: 10/11/2020 HISTORY: 84-year-old male pneumonia TECHNIQUE: Single frontal view of the chest is obtained. FINDINGS: Rightward patient rotation ultrasound and normal cardiac and mediastinal contours. Median sternotomy wires post-CABG changes. Stable line at the right hilum. Heart borderline to mildly enlarged. Patchy airspace opacities throughout the right lung with underlying effusion persist. Left lung and pleural space are relatively clear. IMPRESSION: Limited, rotated exam. Continued small right effusion with patchy pulmonary edema versus infiltrate t hroughout the right lung without significant change.
[2020-10-12] MEDS ORDERED: AMIODARONE 200 MG TAB PO SCH (09:30)
--- NOTE | 2020-10-12 09:51 | CT ---
EXAMINATION TYPE: CT brain wo con DATE OF EXAM: 10/12/2020 COMPARISON: 09/30/2020 and 07/05/2020 HISTORY: 84-year-old male Left Arm Flaccid TECHNIQUE: Examination was done in axial plane without intravenous contrast. Coronal and sagittal r econstructions performed. CT DLP: 1072.4 mGycm Automated exposure control for dose reduction was used. FINDINGS: There is no evidence of acute intracranial hemorrhage, acute ischemic changes, mass, mass-effect, or extra-axial fluid collection. There is no effacement of cerebral sulci or basal subarachnoid cister ns. There is no midline shift. Reyes-white matter distinction is preserved. Remains some mild left frontal scalp swelling. Mild generalized cervical cortical atrophy. Mild to mo derate hydrocephalus may in part relate to central cerebral atrophy. Ratliff ratio calculated at 0.37, not significantly changed. Partially empty sella. Paranasal sinuses and mastoid air cells are well pneumatized. Orbits and globes are intact. IMPRESSION: Mild to moderate ventriculomegaly/hydrocephalus probably in part due to central cerebral atrophy. Thi s remains unchanged. Correlate to exclude underlying NPH. No acute intracranial abnormality seen.
[2020-10-12] MEDS: METOPROLOL TARTRATE 50 MG TAB PO SCH ×2 (10:22→20:33)
[2020-10-12] MEDS: CHOLECALCIFEROL 25 MCG (1000 IU) TABLET PO SCH (10:22)
[2020-10-12] MEDS: ASCORBIC ACID 500 MG TAB PO SCH ×2 (10:22→20:36)
[2020-10-12] MEDS: ZINC SULFATE 220 MG CAP PO SCH (10:23)
[2020-10-12] MEDS: ENOXAPARIN 40 MG/0.4 ML SYRINGE SQ SCH ×2 (10:26→20:33)
[2020-10-12] MEDS: PIPERACILLIN-TAZOBACTAM 3.375 GM in SODIUM CHLORIDE 0.9% 100 ML IVPB SCH ×2 (10:32→18:21)
[2020-10-12] MEDS: DEXTROSE 5% IN WATER 1,000 ML IV SCH (10:33)
[2020-10-12] MEDS ORDERED: DEXTROSE 5% IN WATER 100 ML with AMIODARONE 150 MG IV ONE (12:00)
[2020-10-12] MEDS ORDERED: AMIODARONE 360 MG in DEXTROSE 5% IN WATER 200 ML IV ONE ×2 (12:00)
--- NOTE | 2020-10-12 12:07 | P.CRDCN ---
History of Present Illness History of present illness: HISTORY OF PRESENTING ILLNESS This is a pleasant 84-year-old male past medical history significant for paroxysmal atrial fibrillation on long-term anticoagulation secondary to frequent falls and subdural hematoma in the past, COPD, chronic systolic heart failure, hypertension, dyslipidemia and coronary artery disease status post bypass grafting exact details unavailable. The patient is nonverbal. He does not answer questions or give history. We have been asked to see in consultation for atrial fibrillation. Since the hospital from [facility] secondary to tachycardia. He was recently diagnosed with Covid. Review of previous hospitalization reveals he was seen by Dr. Watson secondary to Chantel. lv at that time. An echocardiogram was obtained revealing impaired LV systolic function with ejection fraction 20-25%. Patient has been seen by the pulmonary care team and their concern for possible recurrent aspiration. He is currently nothing by mouth pending speech evaluation. DIAGNOSTICS EKG reveals atrial fibrillation with heart rate of 160. Telemetry tracings indicate going atrial fibrillation with variable ventricular rates. Chest xray on admission revealed right mid and lower lung infiltrate. Repeat today revealed continued small right effusion with patchy pulmonary edema versus ongoing infiltrate throughout the right lung. Laboratory reviewed, CBC 15.3, hemoglobin 14.4, platelets 315, sodium 150, potassium 4.8, creatinine 1.06, peak lactic acid 3. 5 repeat after hydration 1.9, magnesium 2.5, C-reactive protein 86.5 and procalcitonin 0.21. Current cardiac medications include lisinopril 2.5 mg daily, Lovenox 40 mg subcu twice a day, Lopressor 50 mg twice a day. REVIEW OF SYSTEMS At the time of my exam: Unable to obtain an accurate review of systems secondary to altered mental status. PHYSICAL EXAMINATION Blood pressure 135/77 heart rate 106 afebrile and maintaining oxygen saturation on high flow nasal cannula. CONSTITUTIONAL: No apparent distress. HEENT: Head is normocephalic. Pupils are equal, round. Sclerae anicteric. Mucous membranes of the mouth are moist. No JVD. No carotid bruit. CHEST EXAMINATION: Scatterd rhonchi on the right. No wheezes or rales. No chest wall tenderness is noted on palpation or with deep breathing. HEART EXAMINATION: Irregular rate and rhythm. S1, S2 heard. No murmurs, gallops or rub. ABDOMEN: Soft, nontender. Positive bowel sounds. EXTREMITIES: 2+ peripheral pulses, no lower extremity edema and no calf tend erness. NEUROLOGIC EXAMINATION: Patient is awake, alert and oriented x3. ASSESSMENT Covid 19 Paroxysmal atrial fibrillation not on [facility] anticoagulation secondary to history of falls and subdural hematoma Leukocytosis Lactic acidosis Chronic systolic heart failure Coronary artery disease status post bypass grafting Hypertension Dyslipidemia COPD Dementia PLAN Initiate amiodarone bolus and infusion. Continue Cardizem infusion until his heart rates are under 100. Unfortunately, he is not tolerating oral intake at this time. Prognosis is guarded. Further recommendations to follow based upon clinical course. Thank you kindly for this consultation. Nurse Practitioner note has been reviewed, I agree with a documented findings and plan of care. Patient was seen and examined. 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 Past Anesthesia/Blood Transfusion Reactions: No Reported Reaction Past Psychological History: Anxiety, Depression Smoking Status: Never smoker Past Alcohol Use History: None Reported Past Drug Use History: None Reported Medications and Allergies Home Medications Medication Instructions Recorded Confirmed Type Acetaminophen [Tylenol Arthritis] 650 mg PO Q8HR@0600,1400,2200 07/05/20 10/11/20 History Albuterol Sulfate [Proair Hfa] 1 puff INHALATION RT-Q6H PRN 07/05/20 10/11/20 History Docusate [Colace] 100 mg PO DAILY@209907/05/20 10/11/20 History Escitalopram Oxalate 5 mg PO DAILY@209907/05/20 10/11/20 History Fluticasone Nasal [place] [Flonase 2 spr EA NOSTRIL DAILY@0900 07/05/20 10/11/20 History Nasal [place]] lisinopriL [Zestril] 2.5 mg PO DAILY@0909/30/20 10/11/20 History Enoxaparin [Lovenox] 40 mg SQ BID@0900,209910/11/20 10/11/20 History Lactose-Reduced Food [Ensure Plus] 120 ml PO TID@1000,1400,1800 10/11/20 10/11/20 History Metoprolol Tartrate [Lopressor] 50 mg PO BID@0900,209910/11/2010/11/21 History Metoprolol Tartrate [Lopressor] 50 mg PO ONCE PRN 10/11/20 10/11/20 History Allergies Allergy/AdvReac Type Severity Reaction Status Date / Time meperidine [From Demerol] Allergy Unknown Verified 10/11/20 13:19 mirtazapine [From Remeron] Allergy Unknown Verified 10/11/20 13:19 morphine Allergy Unknown Verified 10/11/20 13:19 Physical Exam Vitals: Vital Signs Temp Pulse Pulse Resp BP BP Pulse Ox 10/12/20 08:00 97.7 F 106 H 24 135/77 94 L 10/12/20 04:00 98.0 F 126 H 19 114/73 94 L 10/11/20 23:49 100.5 F H 121 H 18 124/75 95 10/11/20 20:29 93 L 10/11/20 20:00 100.0 F H 133 H 19 123/82 93 L 10/11/20 16:00 99.1 F 10/11/20 14:08 111 H 26 H 110/87 96 10/11/20 14:00 132 H 26 H 10/11/20 13:51 163 H 22 107/84 96 10/11/20 13:50 99.2 F 132 H 24 100/69 95 10/11/20 12:44 98.2 F 165 H 10/11/20 12:11 165 H 26 H 117/88 96 10/11/20 11:13 99.6 F 165 H 22 104/85 96 Intake and Output 10/11/20 10/12/20 10/12/20 22:59 06:59 14:59 Output Total 500 Balance -500 Output: Urine 500 Other: Voiding Method Indwelling Catheter Indwelling Catheter Indwelling Catheter # Voids 1 # Bowel Movements 1 Weight 60.1 kg Results 10/11/20 11:46 10/11/20 11:46 Cardiac Enzymes 10/11/20 Range/Units 11:46 AST 26 (17-59) U/L Lactate Dehydrogenase 937 H (313-618) U/L Coagulation 10/11/20 Range/Units 11:46 PT 11.0 (9.0-12.0) sec APTT 27.9 (22.0-30.0) sec CBC 10/11/20 Range/Units 11:46 WBC 15.3 H (3.8-10.6) k/uL RBC 4.91 (4.30-5.90) m/uL Hgb 14.4 (13.0-17.5) gm/dL Hct 44.8 (39.0-53.0) % Plt Count 315 (150-450) k/uL Comprehensive Metabolic Panel 10/11/20 Range/Units 11:46 Sodium 150 H (137-145) mmol/L Potassium 4.8 (3.5-5.1) mmol/L Chloride 121 H (98-107) mmol/L Carbon Dioxide 22 (22-30) mmol/L BUN 41 H (9-20) mg/dL Creatinine 1.06 (0.66-1.25) mg/dL Glucose 124 H (74-99) mg/dL Calcium 8.7 (8.4-10.2) mg/dL AST 26 (17-59) U/L ALT 38 (4-49) U/L Alkaline Phosphatase 63 (38-126) U/L Total Protein 5.8 L (6.3-8.2) g/dL Albumin 2.9 L (3.5-5.0) g/dL Current Medications Generic Name Dose Route Start Last Admin Trade Name Freq PRN Reason Stop Dose Admin Acetaminophen 650 mg 10/11/20 11:27 10/12/20 01:07 Acetaminophen Suppository 650 Mg Supp RECTAL 650 mg Q4HR PRN Administration Fever and/ or Mild Pain Albuterol Sulfate 1 puff 10/11/20 13:35 10/12/20 07:43 Albuterol Hfa Inhaler INHALATION 1 puff RT-Q6H PRN Administration Wheezing Ascorbic Acid 500 mg 10/11/20 13:45 10/11/20 21:30 Ascorbic Acid 500 Mg Tab PO Not Given BID FLORENCIO Azithromycin 500 mg 10/12/20 14:00 Azithromycin 500 Mg Tab PO DAILY@1400 [facility] Cholecalciferol 125 mcg 10/11/20 13:45 10/11/20 19:22 Cholecalciferol 25 Mcg (1000 Iu) Tablet PO Not Given DAILY FLORENCIO Enoxaparin Sodium 40 mg 10/11/20 21:00 10/11/20 21:29 Enoxaparin 40 Mg/0.4 Ml Syringe SQ 40 mg BID@0900,2100 [facility] Administration Diltiazem HCl 125 mg/ Sodium 125 mls @ 5 mls/hr 10/11/20 12:45 10/11/20 12:50 Chloride IV 5 mg/hr .Q24H FLORENCIO 5 mls/hr Administration 5 MG/HR Sodium Chloride 1,000 mls @ 130 mls/hr 10/11/20 13:45 10/12/20 06:06 Saline 0.9% IV 130 mls/hr .Q7H42M FLORENCIO Administration Ceftriaxone Sodium 2 gm/ 50 mls @ 100 mls/hr 10/12/20 09:00 Sodium Chloride IVPB 10/14/20 09:01 Q24HR FLORENCIO Metoprolol Tartrate 50 mg 10/11/20 13:35 Metoprolol Tartrate 50 Mg Tab PO ONCE PRN elevated pulse Metoprolol Tartrate 50 mg 10/11/20 21:00 10/11/20 21:30 Metoprolol Tartrate 50 Mg Tab PO Not Given BID@0900,2100 [facility] Miscellaneous Information 1 each 10/11/20 13:33 Pneumonia Protocol Utilized 1 Each Misc PO ONCE PRN Per Protocol Zinc Sulfate 220 mg 10/11/20 13:45 10/11/20 19:22 Zinc Sulfate 220 Mg Cap PO Not Given DAILY FLORENCIO Intake and Output 10/11/20 10/12/20 10/12/20 22:59 06:59 14:59 Output Total 500 Balance -500 Output: Urine 500 Other: Voiding Method Indwelling Catheter Indwelling Catheter Indwelling Catheter # Voids 1 # Bowel Movements 1 Weight 60.1 kg 10/11/20 11:46 10/11/20 11:46
[2020-10-12] MEDS ORDERED: SODIUM CHLORIDE 0.45% 1,000 ML IV SCH (13:45)
[2020-10-12] MEDS ORDERED: NON FORMULARY DRUG (Lactose-Reduced Food [Ensure Plus] 237 ML Liquid) PO SCH (14:00)
[2020-10-12] MEDS ORDERED: AZITHROMYCIN 500 MG TAB PO SCH (14:00)
[2020-10-12] MEDS: DILTIAZEM 125 MG in SODIUM CHLORIDE 0.9% 100 ML IV SCH (14:28)
[2020-10-12] MEDS: ACETAMINOPHEN TAB 325 MG TAB PO SCH ×2 (15:16→20:36)
--- NOTE | 2020-10-12 15:30 | P.CNNES ---
History of Present Illness Consult date: 10/12/20 Requesting physician: Beni Carrion Reason for Consult: Left-sided weakness History of Present Illness: Patient is a 84-year-old male with history of advanced dementia, resident of [facility] came to the hospital by ambulance yesterday at 11:10 AM for tachycardia. Patient was nonverbal, not providing any history. Patient was diagnosed with Covid 09/16/2020. Patient does have history of atrial fibrillation. Staff was considering patient was candidate for hospice however family did not want that. Patient currently on Lovenox 40 mg subcu twice a day, prior to arrival. Patient is completely nonverbal, not able to provide any history. Patient has history of recurrent falls, therefore not on anticoagulation. Patient was placed on Cardizem drip. Patient has left arm flaccid. Vital signs on arrival blood pressure 104/85, pulse rate 165, temperature 99.6 CT head showed [id number] ventricular megaly/hydrocephalus probably in part due to central cerebral atrophy. This remains unchanged. Correlate to exclude underlying NPH. No acute process. Chest x-ray showed right mid and lower lung field infiltrates. EKG showed supraventricular tachycardia with occasional PVCs. Left axis deviation. Patient's blood test shows WBC 15.3 hemoglobin 14.4, platelets 315. PT/PTT normal. Sodium 150 potassium 4.8, BUN 41, creatinine 1.06. Liver panel is normal. CRP 86.5. UA shows large amount of leukocyte Estrace, > 182 WBCs, with many WBC clumps and few bacteria. Urine culture so far negative. Patient started on Zosyn, Rocephin and Zithromax. Also on amiodarone. Patient on Lovenox 40 mg SQ twice a day. 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 Past Anesthesia/Blood Transfusion Reactions: No Reported Reaction Past Psychological History: Anxiety, Depression Smoking Status: Never smoker Past Alcohol Use History: None Reported Past Drug Use History: None Reported Medications and Allergies Home Medications Medication Instructions Recorded Confirmed Type Acetaminophen [Tylenol Arthritis] 650 mg PO Q8HR@0600,1400,2200 10/18/20 01/24/21 History Albuterol Sulfate [Proair Hfa] 1 puff INHALATION RT-Q6H PRN 07/05/20 10/11/20 History Docusate [Colace] 100 mg PO DAILY@209907/05/20 10/11/20 History Escitalopram Oxalate 5 mg PO DAILY@209907/05/20 10/11/20 History Fluticasone Nasal [place] [Flonase 2 spr EA NOSTRIL DAILY@89907/05/20 10/11/20 History Nasal [place]] lisinopriL [Zestril] 2.5 mg PO DAILY@89909/30/20 10/11/20 History Enoxaparin [Lovenox] 40 mg SQ BID@09,209910/11/20 10/11/20 History Lactose-Reduced Food [Ensure Plus] 120 ml PO TID@1000,1400,1800 10/11/20 10/11/20 History Metoprolol Tartrate [Lopressor] 50 mg PO BID@0900,209910/11/20 10/11/20 History Metoprolol Tartrate [Lopressor] 50 mg PO ONCE PRN 10/11/20 10/11/20 History Allergies Allergy/AdvReac Type Severity Reaction Status Date / Time meperidine [From Demerol] Allergy Unknown Verified 10/11/20 13:19 mirtazapine [From Remeron] Allergy Unknown Verified 10/11/20 13:19 morphine Allergy Unknown Verified 10/11/20 13:19 Physical Examination - Vital Signs Vital Signs: Vital Signs Temp Pulse Pulse Resp BP BP Pulse Ox 10/12/20 08:00 97.7 F 106 H 24 135/77 94 L 10/12/20 04:00 98.0 F 126 H 19 114/73 94 L 10/11/20 23:49 100.5 F H 121 H 18 124/75 95 10/11/20 20:29 93 L 10/11/20 20:00 100.0 F H 133 H 19 123/82 93 L 10/11/20 16:00 99.1 F 10/11/20 14:08 111 H 26 H 110/87 96 10/11/20 14:00 132 H 26 H 10/11/20 13:51 163 H 22 107/84 96 10/11/20 13:50 99.2 F 132 H 24 100/69 95 10/11/20 12:44 98.2 F 165 H 10/11/20 12:11 165 H 26 H 117/88 96 10/11/20 11:13 99.6 F 165 H 22 104/85 96 Intake and Output 10/11/20 10/12/20 10/12/20 22:59 06:59 14:59 Output Total 500 Balance -500 Output: Urine 500 Other: Voiding Method Indwelling Catheter Indwelling Catheter Indwelling Catheter # Voids 1 # Bowel Movements 1 Weight 60.1 kg On examination patient is an elderly male, appears somewhat cachectic, in no distress. He is nonverbal. He does make some eye contact, but does not follow much commands. Patient's pupils are round and reacting, visual maravilla could not be tested. No obvious gaze deviation. He has mild left facial asymmetry. Patient did not protrude his tongue. Lower cranial nerves could not be tested. Extraocular muscles could not be tested although patient does move his gaze on either side. Patient spontaneously moves his right arm and brings it on his face, but the left arm is flaccid. He tried to squeeze very minimally with the right hand, and give some resistance for biceps but was not consistent. Patient moves bilateral lower extremities but right is better than the left. Patient does not withdraw to painful stimuli with the left arm. Patient has downgoing plantar on the right, but upgoing plantar on the left. Patient has no peripheral edema. Peripheral pulses are present. Patient has some crackles. Abdomen is soft. S1 and S2 audible. Results - Laboratory Findings CBC and BMP: 10/11/20 11:46 10/11/20 11:46 Abnormal Lab Findings: Abnormal Labs 10/11/20 10/11/20 10/11/20 11:46 11:46 11:46 WBC 15.3 H Neutrophils # 14.0 H Lymphocytes # 0.7 L Sodium 150 H Chloride 121 H BUN 41 H Glucose 124 H Plasma Lactic Acid Bhargav 2.4 H* Magnesium 2.5 H Ferritin 461.4 H Lactate Dehydrogenase 937 H C-Reactive Protein 86.5 H Total Protein 5.8 L Albumin 2.9 L Procalcitonin Urine Protein Urine Blood Ur Leukocyte Esterase Urine RBC Urine WBC Urine WBC Clumps Urine Bacteria Urine Mucus 0110/11/20 10/11/20 11:46 12:31 14:52 WBC Neutrophils # Lymphocytes # Sodium Chloride BUN Glucose Plasma Lactic Acid Bhargav 3.5 H* Magnesium Ferritin Lactate Dehydrogenase C-Reactive Protein Total Protein Albumin Procalcitonin 0.21 H Urine Protein 1+ H Urine Blood Moderate H Ur Leukocyte Esterase Large H Urine RBC 124 H Urine WBC >182 H Urine WBC Clumps Many H Urine Bacteria Few H Urine Mucus Many H 10/11/20 10/11/20 17:36 20:08 WBC Neutrophils # Lymphocytes # Sodium Chloride BUN Glucose Plasma Lactic Acid Bhargav 3.1 H* 3.3 H* Magnesium Ferritin Lactate Dehydrogenase C-Reactive Protein Total Protein Albumin Procalcitonin Urine Protein Urine Blood Ur Leukocyte Esterase Urine RBC Urine WBC Urine WBC Clumps Urine Bacteria Urine Mucus Assessment and Plan Assessment: * Acute left hemiparesis, possible CVA. Etiology likely due to cardioembolism from atrial fibrillation. * Advanced dementia * Superimposed encephalopathy, likely due to pneumonia. Recent history of COVID infection. * Atrial fibrillation. * CT head reported hydrocephalus, but patient probably has advanced dementia. Not a candidate for ventriculoperitoneal shunting. Plan: * Continue Lovenox 40 mg twice a day. * Repeat computed tomography scan of the head in a.m. to evaluate for evolving CVA. * Carotid Doppler to rule out stenosis. * Telemetry monitoring showing atrial fibrillation, bigeminy, PAC, PVCs and runs of V. tach. Cardiology on board. Patient started on amiodarone and also on Cardizem. * Patient on antibiotics for pneumonia. * 2-D echo from 10/02/2020 showed mild concentric LVH, severe global hypokinesis of left ventricle. EF is severely impaired 20-25%. Left atrium is moderately dilated. * Supportive care. Patient is DO NOT RESUSCITATE.
--- NOTE | 2020-10-12 15:41 | P.CNPUL ---
History of Present Illness Consult date: 10/12/20 Reason for consult: dyspnea, other Chief complaint: Fever, tachycardia, recent COVD 19 pneumonia History of present illness: 84-year-old white male patient, with recent history of hospitalization for COVID19 pneumonia, and patient was discharged to the [facility] on the [place] on 10/05/2020. Patient was hospitalized from 10/01/2020 through 10/05/2020. Patient is a poor historian, has underlying history of advanced dementia, his severe cardiomyopathy with EF of around 20-25%, atrial fibrillation, chronic congestive heart failure systolic dysfunction, hypertension, hyperlipidemia, anxiety, frequent falls, previous history of subdural hemorrhage, recent cervical neck fracture currently in a soft collar. On 10/11/2020 patient was brought into the emergency department for evaluation of fever, tachycardia. His previous chest x-ray from his previous admission there was mild right basilar opacity, most likely related to atelectasis, a CT angiogram of the chest showed no evidence of pulmonary embolism. 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 His subsequent chest x-ray on 10/05/2020 showed some worsening in the appearance of the right lower lobe and right middle lobe hazy infiltration. However clinically patient had remained stable and did not have any worsening in his oxygenation and he was discharged to the long-term on Decadron. His chest x-ray on admission on the 2020 showed right mid and lower lung field infiltrates. EKG showed SVT with a rate of 166, temperature was 100.5F, patient was satting 93% on 12 L of oxygen. His laboratory data showed leukocytosis with white blood cell, 15.3, hemoglobin of 14.4, neutrophils of 14, lymphocyte count of 0.7, his INR was 1, sodium is 150, potassium is 4.8, chloride was 121, BUN of 41 Cr1.06, his LDH has trended up to 937 from 585, CRP is 86.5, up from 138 during last admission, pro- calcitonin level is 0.21, his urinalysis shows evidence of infection. Patient is lethargic, and there is suspicion for aspiration pneumonia. He was started on a azithromycin and Rocephin for empiric antibiotic coverage, however in view of suspected aspiration we will switch the antibiotic coverage to Zosyn. Brain CT showed mild to moderate ventricular megaly/hydrocephalus probably in part due to central cerebral atrophy. No acute intracranial abnormality Review of Systems All systems: negative Constitutional: Reports fever, Reports weakness, Denies chills Eyes: denies blurred vision, denies pain Ears, nose, mouth and throat: Denies headache, Denies sore throat Cardiovascular: Denies chest pain, Denies shortness of breath Respiratory: Reports dyspnea, Denies cough Gastrointestinal: Denies abdominal pain, Denies diarrhea, Denies nausea, Denies vomiting Musculoskeletal: Denies myalgias Integumentary: Denies pruritus, Denies rash Neurological: Denies numbness, Denies weakness Psychiatric: Denies anxiety, Denies depression Endocrine: Denies fatigue, Denies weight change Past Medical History Past Medical History: Atrial Fibrillation, Heart Failure, COPD, Dementia, GERD/Reflux, Hyperlipidemia, Hypertension History of Any Multi-Drug Resistant Organisms: None Reported Past Surgical History: Coronary Bypass/CABG Additional Past Surgical History / Comment(s): 1/2 lung removed. Past Anesthesia/Blood Transfusion Reactions: No Reported Reaction Past Psychological History: Anxiety, Depression Smoking Status: Never smoker Past Alcohol Use History: None Reported Past Drug Use History: None Reported Medications and Allergies Home Medications Medication Instructions Recorded Confirmed Type Acetaminophen [Tylenol Arthritis] 650 mg PO Q8HR@0600,1400,2200 07/05/20 10/11/20 History Albuterol Sulfate [Proair Hfa] 1 puff INHALATION RT-Q6H PRN 07/05/20 10/11/20 History Docusate [Colace] 100 mg PO DAILY@209907/05/20 10/11/20 History Escitalopram Oxalate 5 mg PO DAILY@209907/05/20 10/11/20 History Fluticasone Nasal [place] [Flonase 2 spr EA NOSTRIL DAILY@0900 07/05/20 10/11/20 History Nasal [place]] lisinopriL [Zestril] 2.5 mg PO DAILY@0900 09/30/20 10/11/20 History Enoxaparin [Lovenox] 40 mg SQ BID@0900,2100 10/11/20 10/11/20 History Lactose-Reduced Food [Ensure Plus] 120 ml PO TID@1000,1400,1800 10/11/20 10/11/20 History Metoprolol Tartrate [Lopressor] 50 mg PO BID@0900,2100 10/11/20 10/11/20 History Metoprolol Tartrate [Lopressor] 50 mg PO ONCE PRN 10/11/20 10/11/20 History Allergies Allergy/AdvReac Type Severity Reaction Status Date / Time meperidine [From Demerol] Allergy Unknown Verified 10/11/20 13:19 mirtazapine [From Remeron] Allergy Unknown Verified 10/11/20 13:19 morphine Allergy Unknown Verified 10/11/20 13:19 Physical Exam Vitals: Vital Signs Temp Pulse Resp BP Pulse Ox 10/12/20 15:00 81 20 87/56 96 10/12/20 14:40 87 20 87/58 95 10/12/20 14:35 87 20 104/59 95 10/12/20 14:30 20 109/55 94 L 10/12/20 08:00 97.7 F 106 H 24 135/77 94 L 10/12/20 04:00 98.0 F 126 H 19 114/73 94 L 10/11/20 23:49 100.5 F H 121 H 18 124/75 95 10/11/20 20:29 93 L 10/11/20 20:00 100.0 F H 133 H 19 123/82 93 L 10/11/20 16:00 99.1 F Intake and Output 10/12/20 10/12/20 10/12/20 06:59 14:59 22:59 Intake Total 125 Output Total 500 150 Balance -500 -25 Intake: Intake, IV Titration 125 Amount Diltiazem 125 mg In 125 Sodium Chloride 0.9% 100 ml @ 5 MG/HR 5 mls/hr IV .Q24H [facility] Rx#:[id number] Output: Urine 500 150 Other: Voiding Method Indwelling Catheter Indwelling Catheter # Voids 1 Weight 60.1 kg GENERAL EXAM: Lethargic, drowsy 84-year-old white male, on 5 L of oxygen, with pulse ox of 96% comfortable in no apparent distress. HEAD: Normocephalic/atraumatic. EYES: Normal reaction of pupils, equal size. Conjunctiva pink, sclera white. NOSE: Clear with pink turbinates. THROAT: No erythema or exudates. NECK: No masses, no JVD, no thyroid enlargement, no adenopathy. CHEST: No chest wall deformity. Symmetrical expansion. LUNGS: Equal air entry with basilar crackles CVS: Regular rate and rhythm, normal S1 and S2, no gallops, no murmurs, no rubs ABDOMEN: Soft, nontender. No hepatosplenomegaly, normal bowel sounds, no guarding or rigidity. EXTREMITIES: No clubbing, no edema, no cyanosis, 2+ pulses and upper and lower extremities. MUSCULOSKELETAL: Muscle strength and tone normal. SPINE: No scoliosis or deformity SKIN: No rashes CENTRAL NERVOUS SYSTEM: Drowsy, lethargic No focal deficits, tone is normal in all 4 extremities. Results - Laboratory Findings CBC and BMP: 10/11/20 11:46 10/11/20 11:46 PT/INR, D-dimer PT 11.0 sec (9.0-12.0) 10/11/20 11:46 INR 1.0 (<1.2) 10/11/20 11:46 Abnormal lab findings: Abnormal Labs 10/11/20 10/11/20 10/11/20 11:46 11:46 11:46 WBC 15.3 H Neutrophils # 14.0 H Lymphocytes # 0.7 L Sodium 150 H Chloride 121 H BUN 41 H Glucose 124 H Plasma Lactic Acid Bhargav 2.4 H* Magnesium 2.5 H Ferritin 461.4 H Lactate Dehydrogenase 937 H C-Reactive Protein 86.5 H Total Protein 5.8 L Albumin 2.9 L Procalcitonin Urine Protein Urine Blood Ur Leukocyte Esterase Urine RBC Urine WBC Urine WBC Clumps Urine Bacteria Urine Mucus 10/11/20 10/11/20 10/11/20 11:46 12:31 14:52 WBC Neutrophils # Lymphocytes # Sodium Chloride BUN Glucose Plasma Lactic Acid Bhargav 3.5 H* Magnesium Ferritin Lactate Dehydrogenase C-Reactive Protein Total Protein Albumin Procalcitonin 0.21 H Urine Protein 1+ H Urine Blood Moderate H Ur Leukocyte Esterase Large H Urine RBC 124 H Urine WBC >182 H Urine WBC Clumps Many H Urine Bacteria Few H Urine Mucus Many H 10/11/20 10/11/20 17:36 20:08 WBC Neutrophils # Lymphocytes # Sodium Chloride BUN Glucose Plasma Lactic Acid Bhargav 3.1 H* 3.3 H* Magnesium Ferritin Lactate Dehydrogenase C-Reactive Protein Total Protein Albumin Procalcitonin Urine Protein Urine Blood Ur Leukocyte Esterase Urine RBC Urine WBC Urine WBC Clumps Urine Bacteria Urine Mucus - Diagnostic Findings Chest x-ray: report reviewed, image reviewed Additional studies: Brain CT, EKG reviewed Assessment and Plan Plan: Assessment: #1. Acute hypoxic respiratory failure related to suspected aspiration pneumonia in addition to recent history of COVID 19 related pneumonia #2. A. fib with RVR #3. Chronic systolic heart failure #4. Recent hospitalization for acute exacerbation of systolic CHF and A. fib with RVR #5. Recent COVID 19 infection diagnosed on 09/16/2020 #6. Acute metabolic encephalopathy and underlying advanced dementia, brain CT showed no acute intracranial abnormality #7. Hypertension #8. Hyperlipidemia #9. Coronary artery disease with prior history of bypass #10. Frequent falls, recent fracture of C1, currently in the soft collar #11. History of paroxysmal A. fib not on anticoagulation due to multiple falls #12. History of subdural hemorrhage #13. GERD/reflux #14. Anxiety/depression Plan: Maintain aspiration precautions, will switch antibiotic coverage to Zosyn, chest x-rays have been reviewed suspect aspiration pneumonia. Keep patient nothing by mouth, obtain swallow evaluation, there is a possibility patient may need PEG tube insertion if remains unable to take in any oral intake. Continue Decadron, Lovenox, continue rate control drugs. I performed a history & physical examination of the patient and discussed their management with my nurse practitioner, Leelee Roth. I reviewed the nurse practitioner's note and agree with the documented findings and plan of care. Lung sounds are positive for diffuse wheezes throughout the lung [place]. The findings and the impression was discussed with the patient. I attest to the documentation by the nurse practitioner. Time with Patient: Greater than 30
--- NOTE | 2020-10-12 19:20 | P.HPIM ---
History of Present Illness H&P Date: 10/12/20 Chief Complaint: Unwell History of presenting complaint: This is a 84-year-old patient resident of [facility] in [facility] being followed by Davide Pérez. Patient tested positive for COVID 19 on 09/16/2020. Patient was sent in for altered mental status. Patient's son at the bedside. He stated that patient was recently at [facility] was treated there for UTI. From that he was discharged and sent to rehab at [facility] in [facility]. In the process patient lost some weight and become rather weak. Patient admitted to the hospital on September 16. Diagnosed with COVID 19 pneumonia. Treated with heparin steroids. Also to acute kidney injury felt to be from Bactrim. Acute metabolic encephalopathy. Hyponatremic. Uncontrolled A. fib. Advanced medical debility. Patient was discharged on October 05. It seemed by the time patient left from the hospital he was eating. As per the EMS run sheet: Blood pressure 120/88, pulse 81, respiration 30, pulse ox 83% on room air, temperature 100.6. EMS was called out for patient having rapid respirations and tachycardia. Patient is barely been talking over the last week. Decrease response to stimuli. Patient been moving his hand under his head. No signs of trauma. EKG showed sinus tachycardia. Admitting review of systems: Patient cannot tell. Relevant information above Past medical history to include: Atrial fibrillation, CHF, COPD, dementia, GERD, hypertension, hyperlipidemia carotid artery disease with bypass, partial pneumonectomy, anxiety depression. COVID 19 pneumonia diagnosed 09/16/2020 Social history: rehab at [facility] on the [facility]. No history of smoking or alcohol Family history: Patient cannot tell Physical examination: VITAL SIGNS: 99.6, 165, 26, 104/85, 96% room air GENERAL: BMI 19, laying in bed, a bit delirious, moving about, EYES: Pupils equal. Conjunctiva normal HEENT: External appearance of nose and ears normal, oral cavity dry NECK: wearing a collar HEART: First and second heart sounds are normal; no edema. LUNGS:[ Respiratory rate increased; decreased breath sounds. ABDOMEN: Soft, nontender, liver spleen not palpable, no masses palpable. PSYCH: Patient lesions-unable to assess. NEUROLOGICAL: Cranial nerves grossly intact; no facial asymmetry, moving limbs LYMPHATICS: No lymph nodes palpable in the axilla and neck INVESTIGATIONS, reviewed in the clinical context: White count 15.3 hemoglobin 14.4 platelets 315-2150 potassium 4.8 bun 41 and creatinine 1.06 Lactic acid 2.4 CRP 86.5 pro-calcitonin 0.21 UA positive for leukoesterase, WBC, bacteria EKG tracing personally reviewed by me--sinus tachycardia Chest x-ray film personally reviewed by me-right lower lobe infiltrate Assessment: -Right lower lobe pneumonia, suspect gram-negative orgasm and/or aspiration, causing sepsis with lactic acidosis, POA -Acute metabolic encephalopathy from infection, hypernatremia -Hypernatremia, from free water deficit -Persistent Atrial fibrillation with a rapid ventricular rate -COPD -Alzheimer's dementia -GERD -Hyperlipidemia -Essential hypertension -Coronary artery disease with prior history of bypass -History of pneumonectomy partial -Moderate protein calorie malnutrition patient has decreased muscle mass loss of subcutaneous fat and a BMI 19 -Advancing medical debility -No code Plan: Patient started IV amiodarone. IV Zosyn. IV fluids. Aspiration precautions. All feeding with assistance. Follow labs closely. Prognosis guarded. IV D5 0.45 drip. Fall precautions Past Medical History Past Medical History: Atrial Fibrillation, Heart Failure, COPD, Dementia, GERD/Reflux, Hyperlipidemia, Hypertension History of Any Multi-Drug Resistant Organisms: None Reported Past Surgical History: Coronary Bypass/CABG Additional Past Surgical History / Comment(s): 1/2 lung removed. Past Anesthesia/Blood Transfusion Reactions: No Reported Reaction Past Psychological History: Anxiety, Depression Smoking Status: Never smoker Past Alcohol Use History: None Reported Past Drug Use History: None Reported Medications and Allergies Home Medications Medication Instructions Recorded Confirmed Type Acetaminophen [Tylenol Arthritis] 650 mg PO Q8HR@0600,1400,2200 07/05/20 10/11/20 History Albuterol Sulfate [Proair Hfa] 1 puff INHALATION RT-Q6H PRN 07/05/20 10/11/20 History Docusate [Colace] 100 mg PO DAILY@209907/05/20 10/11/20 History Escitalopram Oxalate 5 mg PO DAILY@209907/05/20 10/11/20 History Fluticasone Nasal [place] [Flonase 2 spr EA NOSTRIL DAILY@0900 07/05/20 10/11/20 History Nasal [place]] lisinopriL [Zestril] 2.5 mg PO DAILY@0900 09/30/20 10/11/20 History Enoxaparin [Lovenox] 40 mg SQ BID@0900,2100 10/11/20 10/11/20 History Lactose-Reduced Food [Ensure Plus] 120 ml PO TID@1000,1400,1800 10/11/20 10/11/20 History Metoprolol Tartrate [Lopressor] 50 mg PO BID@0900,2100 10/11/20 10/11/20 History Metoprolol Tartrate [Lopressor] 50 mg PO ONCE PRN 10/11/20 10/11/20 History Allergies Allergy/AdvReac Type Severity Reaction Status Date / Time meperidine [From Demerol] Allergy Unknown Verified 10/11/20 13:19 mirtazapine [From Remeron] Allergy Unknown Verified 10/11/20 13:19 morphine Allergy Unknown Verified 10/11/20 13:19 Physical Exam Vitals: Vital Signs Temp Pulse Pulse Resp BP BP Pulse Ox 10/12/20 08:00 97.7 F 106 H 24 135/77 94 L 10/12/20 04:00 98.0 F 126 H 19 114/73 94 L 10/11/20 23:49 100.5 F H 121 H 18 124/75 95 10/11/20 20:29 93 L 10/11/20 20:00 100.0 F H 133 H 19 123/82 93 L 10/11/20 16:00 99.1 F 10/11/20 14:08 111 H 26 H 110/87 96 10/11/20 14:00 132 H 26 H 10/11/20 13:51 163 H 22 107/84 96 10/11/20 13:50 99.2 F 132 H 24 100/69 95 10/11/20 12:44 98.2 F 165 H 10/11/20 12:11 165 H 26 H 117/88 96 Intake and Output 10/11/20 10/12/20 10/12/20 22:59 06:59 14:59 Output Total 500 Balance -500 Output: Urine 500 Other: Voiding Method Indwelling Catheter Indwelling Catheter Indwelling Catheter # Voids 1 # Bowel Movements 1 Weight 60.1 kg Results CBC & Chem 7: 10/11/20 11:46 10/11/20 11:46 Labs: Abnormal Lab Results - Last 24 Hours (Table) 10/11/20 10/11/20 10/11/20 Range/Units 11:46 11:46 11:46 WBC 15.3 H (3.8-10.6) k/uL Neutrophils # 14.0 H (1.3-7.7) k/uL Lymphocytes # 0.7 L (1.0-4.8) k/uL Sodium 150 H (137-145) mmol/L Chloride 121 H (98-107) mmol/L BUN 41 H (9-20) mg/dL Glucose 124 H (74-99) mg/dL Plasma Lactic Acid Bhargav 2.4 H* (0.7-2.0) mmol/L Magnesium 2.5 H (1.6-2.3) mg/dL Ferritin 461.4 H (22.0-322.0) ng/mL Lactate Dehydrogenase 937 H (313-618) U/L C-Reactive Protein 86.5 H (<10.0) mg/L Total Protein 5.8 L (6.3-8.2) g/dL Albumin 2.9 L (3.5-5.0) g/dL Procalcitonin (0.02-0.09) ng/mL Urine Protein (Negative) Urine Blood (Negative) Ur Leukocyte Esterase (Negative) Urine RBC (0-5) /hpf Urine WBC (0-5) /hpf Urine WBC Clumps (None) /hpf Urine Bacteria (None) /hpf Urine Mucus (None) /hpf 10/11/20 10/11/20 10/11/20 Range/Units 11:46 12:31 14:52 WBC (3.8-10.6) k/uL Neutrophils # (1.3-7.7) k/uL Lymphocytes # (1.0-4.8) k/uL Sodium (137-145) mmol/L Chloride (98-107) mmol/L BUN (9-20) mg/dL Glucose (74-99) mg/dL Plasma Lactic Acid Bhargav 3.5 H* (0.7-2.0) mmol/L Magnesium (1.6-2.3) mg/dL Ferritin (22.0-322.0) ng/mL Lactate Dehydrogenase (313-618) U/L C-Reactive Protein (<10.0) mg/L Total Protein (6.3-8.2) g/dL Albumin (3.5-5.0) g/dL Procalcitonin 0.21 H (0.02-0.09) ng/mL Urine Protein 1+ H (Negative) Urine Blood Moderate H (Negative) Ur Leukocyte Esterase Large H (Negative) Urine RBC 124 H (0-5) /hpf Urine WBC >182 H (0-5) /hpf Urine WBC Clumps Many H (None) /hpf Urine Bacteria Few H (None) /hpf Urine Mucus Many H (None) /hpf 10/11/20 10/11/20 Range/Units 17:36 20:08 WBC (3.8-10.6) k/uL Neutrophils # (1.3-7.7) k/uL Lymphocytes # (1.0-4.8) k/uL Sodium (137-145) mmol/L Chloride (98-107) mmol/L BUN (9-20) mg/dL Glucose (74-99) mg/dL Plasma Lactic Acid Bhargav 3.1 H* 3.3 H* (0.7-2.0) mmol/L Magnesium (1.6-2.3) mg/dL Ferritin (22.0-322.0) ng/mL Lactate Dehydrogenase (313-618) U/L C-Reactive Protein (<10.0) mg/L Total Protein (6.3-8.2) g/dL Albumin (3.5-5.0) g/dL Procalcitonin (0.02-0.09) ng/mL Urine Protein (Negative) Urine Blood (Negative) Ur Leukocyte Esterase (Negative) Urine RBC (0-5) /hpf Urine WBC (0-5) /hpf Urine WBC Clumps (None) /hpf Urine Bacteria (None) /hpf Urine Mucus (None) /hpf Microbiology - Last 24 Hours (Table) 10/11/20 12:31 Urine Culture - Preliminary Urine,Voided
[2020-10-12] MEDS: ESCITALOPRAM 5 MG TAB PO SCH (20:33)
[2020-10-12] MEDS: DOCUSATE 100 MG CAP PO SCH (20:36)
[2020-10-12] MEDS: AMIODARONE 450 MG in DEXTROSE 5% IN WATER 250 ML IV SCH ×2 (21:09)
[2020-10-13] MEDS: PIPERACILLIN-TAZOBACTAM 3.375 GM in SODIUM CHLORIDE 0.9% 100 ML IVPB SCH ×3 (02:24→18:06)
[2020-10-13] MEDS: DILTIAZEM 125 MG in SODIUM CHLORIDE 0.9% 100 ML IV SCH ×2 (02:39→23:47)
[2020-10-13] MEDS ORDERED: FUROSEMIDE 10 MG/ML 4 ML VIAL ONE (02:47)
[2020-10-13] MEDS ORDERED: FUROSEMIDE 10 MG/ML 4 ML VIAL IV STA (02:47)
[2020-10-13] MEDS: ACETAMINOPHEN TAB 325 MG TAB PO SCH ×3 (05:47→21:42)
[2020-10-13] MEDS: DEXTROSE 5% IN WATER 1,000 ML IV SCH (06:11)
[2020-10-13] MEDS: ALBUTEROL HFA INHALER INHALATION PRN (08:39)
[2020-10-13] MEDS: ASCORBIC ACID 500 MG TAB PO SCH ×2 (08:53→21:42)
[2020-10-13] MEDS: ENOXAPARIN 40 MG/0.4 ML SYRINGE SQ SCH ×2 (09:00→22:00)
--- NOTE | 2020-10-13 09:09 | US ---
EXAMINATION TYPE: US carotid duplex LT DATE OF EXAM: 10/13/2020 COMPARISON: NONE CLINICAL HISTORY: neuro deficits. Patient non-responsive. EXAM MEASUREMENTS: RIGHT: Unable to scan right side due to patient position. Patient curled into his right side with hi s right arm up, unable to move patient to scan right side. LEFT: Peak Systolic Velocity (PSV) cm/sec ----- Left CCA: 60.1 ----- Left ICA: 119.4 ----- Left ECA: 72.3 ICA/CCA ratio: 2.0 LEFT: End Diastole cm/sec ----- Left CCA: 11.3 ----- Left ICA: 41.8 ----- Left ECA: 4.8 VERTEBRALS (direction of flow): Left Vertebral: Antegrade Rhythm: Arrhythmia Mild plaque with slight velocity increase seen in left ICA. IMPRESSION: No evidence for hemodynamically significant stenosis. Criteria for Assigning % of Stenosis / Diameter reduction (Estimation based on the indirect measurements of the internal carotid artery velocities (ICA PSV). 1. Normal (no stenosis)=ICA PSV < 125 cm/s: ratio < 2.0: ICA EDV<40 cm/s. 2. Less than 50% stenosis=ICA PSV < 125 cm/s: ratio < 2.0: ICA EDV<40 cm/s. 3. 50 to 69% stenosis=ICA PSV of 125 to 230 cm/s: ration 2.0 ? 4.0: ICA EDV 40-100 cm/s. 4. Greater than 70% stenosis to near occlusion= ICA PSV > 230 cm/s: ratio > 4.0: ICA EDV > 100 cm/s. 5. Near occlusion= ICA PSV velocities may be low or undetectable: variable ratio and ICA EDV. 6. Total occlusion=unable to detect flow.
--- NOTE | 2020-10-13 10:45 | CT ---
EXAMINATION TYPE: CT brain wo con DATE OF EXAM: 10/13/2020 COMPARISON: 10/12/2020 HISTORY: 84-year-old male Neuro deficits TECHNIQUE: Examination was done in axial plane without intravenous contrast. Coronal and sagittal r econstructions performed. CT DLP: 1159.4 mGycm Automated exposure control for dose reduction was used. FINDINGS: There is no evidence of acute intracranial hemorrhage, acute ischemic changes, mass, mass-effect, or extra-axial fluid collection. There is no effacement of cerebral sulci or basal subarachnoid cister ns. There is no midline shift. Reyes-white matter distinction is preserved. No mucosal thickening or stones. Mild cerebral cortical atrophy. Mild to moderate hydrocephalus. Partially empty sella also noted. Mild patchy ventricular white matter hypodensities unchanged. IMPRESSION: 1. No evolving large vascular territory infarct identified. No acute intracranial hemorrhage or midli ne shift. 2. Stable [id number] hydrocephalus as described on 10/12/2020.
--- NOTE | 2020-10-13 11:25 | P.PN ---
Subjective HISTORY OF PRESENTING ILLNESS This is a pleasant 84-year-old male past medical history significant for paroxysmal atrial fibrillation on long-term anticoagulation secondary to frequent falls and subdural hematoma in the past, COPD, chronic systolic heart failure, hypertension, dyslipidemia and coronary artery disease status post bypass grafting exact details unavailable. The patient is nonverbal. He does not answer questions or give history. He is having difficulty swallowing and not taking oral pills. Therefore, he continues to be maintained on IV cardizem and amiodarone. Blood pressure 130/80 heart rate 113 maintaining oxygen saturation on nasal cannula. PHYSICAL EXAMINATION CONSTITUTIONAL: No apparent distress. No physical exam performed due to COVID 19 to prevent spread of infection. ASSESSMENT Covid 19 Paroxysmal atrial fibrillation not on intermediate anticoagulation secondary to history of falls and subdural hematoma Leukocytosis Lactic acidosis Chronic systolic heart failure Coronary artery disease status post bypass grafting Hypertension Dyslipidemia COPD Dementia PLAN Continue IV amiodarone for another 24 hours and hopefully can transition to oral tomorrow. Nurse Practitioner note has been reviewed, I agree with a documented findings and plan of care. Patient was seen and examined. Objective - Vital Signs Vital signs: Vital Signs Temp 98.4 F 10/13/20 08:00 Pulse 113 H 10/13/20 08:00 Resp 28 H 10/13/20 08:00 BP 130/80 10/13/20 08:00 Pulse Ox 94 L 10/13/20 08:39 Intake & Output 10/12/20 10/13/20 10/13/20 18:59 06:59 18:59 Intake Total 395 160.917 Output Total 325 825 Balance 70 -664.083 Weight 61.5 kg Intake: Intake, IV Titration 125 160.917 Amount Diltiazem 125 mg In 125 60.917 Sodium Chloride 0.9% 100 ml @ 5 MG/HR 5 mls/hr IV .Q24H [facility] Rx#:[id number] Piperacillin-Tazobactam 3 100 .375 gm In Sodium Chloride 0.9% 100 ml @ 25 mls/hr IVPB Q8H [facility] Rx#: [id number] Oral 270 Output: Urine 325 825 Other: Voiding Method Indwelling Catheter Indwelling Catheter Indwelling Catheter - Labs CBC & Chem 7: 10/11/20 11:46 10/11/20 11:46 Labs: Microbiology - Last 24 Hours (Table) 10/11/20 12:31 Urine Culture - Preliminary Urine,Voided Gram Neg Bacilli 10/11/20 11:46 Blood Culture - Preliminary Blood No Growth after 24 hours
--- NOTE | 2020-10-13 11:33 | XR ---
EXAMINATION TYPE: XR chest 1V portable DATE OF EXAM: 10/13/2020 HISTORY: follow up COVID, aspir pneumonia . COMPARISON: 10/12/2020 TECHNIQUE: Single view of the chest is submitted. FINDINGS: There is near complete opacification of the right hemithorax. Underlying infiltrate, mass atelectasis and effusion suspected. The left lung is hyperinflated. Mild patchy density right medial lung base. The heart is stable. Hilar and mediastinal structures are within normal limits. Degenerative changes are seen of the dorsal spine. IMPRESSION: 1. There is near complete opacification of the right hemithorax. Underlying infiltrate, mass atelect asis and effusion suspected. The left lung is hyperinflated. Mild patchy density right medial lung ba se.
[2020-10-13] MEDS: ZINC SULFATE 220 MG CAP PO SCH (12:02)
[2020-10-13] MEDS: CHOLECALCIFEROL 25 MCG (1000 IU) TABLET PO SCH (12:02)
--- NOTE | 2020-10-13 14:49 | P.PN ---
Subjective Progress Note Date: 10/13/20 Patient essentially unchanged. Patient continues to be nonverbal. Continues to have flaccid left upper extremity Objective - Vital Signs Vital signs: Vital Signs Temp 97.1 F L 10/13/20 11:56 Pulse 74 10/13/20 11:56 Resp 24 10/13/20 11:56 BP 116/66 10/13/20 11:56 Pulse Ox 97 10/13/20 11:56 Intake & Output 10/12/20 10/13/20 10/13/20 18:59 06:59 18:59 Intake Total 395 160.917 Output Total 325 825 Balance 70 -664.083 Weight 61.5 kg Intake: Intake, IV Titration 125 160.917 Amount Diltiazem 125 mg In 125 60.917 Sodium Chloride 0.9% 100 ml @ 5 MG/HR 5 mls/hr IV .Q24H [facility] Rx#:[id number] Piperacillin-Tazobactam 3 100 .375 gm In Sodium Chloride 0.9% 100 ml @ 25 mls/hr IVPB Q8H [facility] Rx#: [id number] Oral 270 Output: Urine 325 825 Other: Voiding Method Indwelling Catheter Indwelling Catheter Indwelling Catheter - Exam Completely unchanged as compared to yesterday. - Labs CBC & Chem 7: 10/11/20 11:46 10/11/20 11:46 Labs: Microbiology - Last 24 Hours (Table) 10/11/20 11:46 Blood Culture - Preliminary Blood No Growth after 48 hours 10/11/20 12:31 Urine Culture - Preliminary Urine,Voided Gram Neg Bacilli Assessment and Plan Assessment: * Acute left hemiparesis, possible CVA. Etiology likely due to cardioembolism from atrial fibrillation. * Advanced dementia * Superimposed encephalopathy, likely due to pneumonia. Recent history of COVID infection. * Atrial fibrillation. * CT head reported hydrocephalus, but patient probably has advanced dementia. Not a candidate for ventriculoperitoneal shunting. Plan: * Continue Lovenox 40 mg twice a day. * Repeat computed tomography scan of the head today did not reveal any evolving stroke. ?Cervical etiology. Patient has soft neck collar in place. * Carotid Doppler showed no significant stenosis. Antegrade flow in both vertebral arteries.. * Telemetry monitoring showing atrial fibrillation, bigeminy, PAC, PVCs and runs of V. tach. Cardiology on board. Patient started on amiodarone and also on Cardizem. * Patient on antibiotics for pneumonia. * 2-D echo from 10/02/2020 showed mild concentric LVH, severe global hypokinesis of left ventricle. EF is severely impaired 20-25%. Left atrium is moderately dilated. * Supportive care. Patient is DO NOT RESUSCITATE.
[2020-10-13] MEDS: AMIODARONE 450 MG in DEXTROSE 5% IN WATER 250 ML IV SCH ×2 (15:00)
--- NOTE | 2020-10-13 16:03 | P.PN ---
Subjective Progress Note Date: 10/13/20 Principal diagnosis: Fever, tachycardia, recent COVID 19 pneumonia 84-year-old white male patient, with recent history of hospitalization for COVID19 pneumonia, and patient was discharged to the [facility] on the [place] on 10/05/2020. Patient was hospitalized from 10/01/2020 through 10/05/2020. Patient is a poor historian, has underlying history of advanced dementia, his severe cardiomyopathy with EF of around 20-25%, atrial fibrillation, chronic congestive heart failure systolic dysfunction, hypertension, hyperlipidemia, anxiety, frequent falls, previous history of subdural hemorrhage, recent cervical neck fracture currently in a soft collar. On 10/11/2020 patient was br ought into the emergency department for evaluation of fever, tachycardia. His previous chest x-ray from his previous admission there was mild right basilar opacity, most likely related to atelectasis, a CT angiogram of the chest showed no evidence of pulmonary embolism. 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 His subsequent chest x- ray on 10/05/2020 showed some worsening in the appearance of the right lower lobe and right middle lobe hazy infiltration. However clinically patient had remained stable and did not have any worsening in his oxygenation and he was discharged to the care home on [place]. His chest x-ray on admission on the 2020 showed right mid and lower lung field infiltrates. EKG showed SVT with a rate of 166, temperature was 100.5F, patient was satting 93% on 12 L of oxygen. His laboratory data showed leukocytosis with white blood cell, 15.3, hemoglobin of 14.4, neutrophils of 14, lymphocyte count of 0.7, his INR was 1, sodium is 150, potassium is 4.8, chloride was 121, BUN of 41 Cr1.06, his LDH has trended up to 937 from 585, CRP is 86.5, up from 138 during last admission, pro- calcitonin level is 0.21, his urinalysis shows evidence of infection. Patient is lethargic, and there is suspicion for aspiration pneumonia. He was started on a azithromycin and Rocephin for empiric antibiotic coverage, however in view of suspected aspiration we will switch the antibiotic coverage to Zosyn. Brain CT showed mild to moderate ventricular megaly/hydrocephalus probably in part due to central cerebral atrophy. No acute intracranial abnormality On 10/13/2020 patient seen in follow-up on selective care unit. Patient is awake, but confused, encephalopathic, but does not appear to be in any acute distress. He is currently on 7 L of oxygen the pulse ox of 97%, not sure why his oxygen had increased, earlier patient was on 3 L of oxygen pulse ox of 94%, patient has been nothing by mouth in view of his altered mentation, speech evaluation was obtained, and patient was noted to be coughing with thin liquids, and although she did not outright failed the swallow evaluation his altered mental status prevented him from following simple verbal commands. Patient had a delayed swallow, and coughing after swallowing, difficulty chewing. Recommendation was made for dysphagia level I pured diet with nectar thick liquids upright positioning, direct one-on-one supervision, however in view of his continued altered mental status, generalized weakness, suspected chronic aspiration, we will recommend PEG tube placement for nutritional support. Today's chest x-ray shows near complete opacification of the right hemithorax, left lung hyperinflated, mild patchy density in the right medial lung base. Patient has a very weak cough, likely developed mucous plugging in the right mainstem bronchus, however his CODE STATUS is DO NOT RESUSCITATE, he is a very frail. We placed on BiPAP support. Overall his CODE STATUS needs to be readdressed again, as the patient is suspected to be chronically aspirating, will need PEG tube for nutritional support if the patient's family wants to continue with supportive care. He has been unable to take any of his oral medications, cardiology has the patient on Cardizem and amiodarone drip for rate control. Patient is on Zosyn for empiric antibiotic coverage. Objective - Vital Signs Vital signs: Vital Signs Temp 97.1 F L 10/13/20 11:56 Pulse 74 10/13/20 11:56 Resp 24 10/13/20 11:56 BP 116/66 10/13/20 11:56 Pulse Ox 97 10/13/20 11:56 Intake & Output 10/12/20 10/13/20 10/13/20 18:59 06:59 18:59 Intake Total 395 160.917 433.28 Output Total 325 825 Balance 70 -664.083 433.28 Weight 61.5 kg Intake: IV 40 Diltiazem 125 mg In 40 Sodium Chloride 0.9% 100 ml @ 5 MG/HR 5 mls/hr IV .Q24H [facility] Rx#:[id number] Intake, IV Titration 125 160.917 393.28 Amount Amiodarone 450 mg In 133.28 Dextrose 5% in Water 250 ml @ 0.5 MG/MIN 16.667 mls/hr IV .Q15H [facility] Rx#: [id number] Dextrose 5% in Water 1, 160 000 ml @ 20 mls/hr IV . Q24H [facility] Rx#:[id number] Diltiazem 125 mg In 125 60.917 Sodium Chloride 0.9% 100 ml @ 5 MG/HR 5 mls/hr IV .Q24H [facility] Rx#:[id number] Piperacillin-Tazobactam 3 100 100 .375 gm In Sodium Chloride 0.9% 100 ml @ 25 mls/hr IVPB Q8H [facility] Rx#: [id number] Oral 270 Output: Urine 325 825 Other: Voiding Method Indwelling Catheter Indwelling Catheter Indwelling Catheter - Exam GENERAL EXAM: Lethargic, drowsy 84-year-old white male, on 7 L of oxygen with a pulse ox of 97% patient is lethargic, he has a weak cough, unable to clear secretions, is thought to be chronically aspirating HEAD: Normocephalic/atraumatic. EYES: Normal reaction of pupils, equal size. Conjunctiva pink, sclera white. NOSE: Clear with pink turbinates. THROAT: No erythema or exudates. NECK: No masses, no JVD, no thyroid enlargement, no adenopathy. CHEST: No chest wall deformity. Symmetrical expansion. LUNGS: Equal air entry with basilar crackles CVS: Regular rate and rhythm, normal S1 and S2, no gallops, no murmurs, no rubs ABDOMEN: Soft, nontender. No hepatosplenomegaly, normal bowel sounds, no guarding or rigidity. EXTREMITIES: No clubbing, no edema, no cyanosis, 2+ pulses and upper and lower extremities. MUSCULOSKELETAL: Muscle strength and tone normal. SPINE: No scoliosis or deformity SKIN: No rashes CENTRAL NERVOUS SYSTEM: Drowsy, lethargic No focal deficits, tone is normal in all 4 extremities. - Labs CBC & Chem 7: 10/11/20 11:46 10/11/20 11:46 Labs: Microbiology - Last 24 Hours (Table) 10/11/20 11:46 Blood Culture - Preliminary Blood No Growth after 48 hours 10/11/20 12:31 Urine Culture - Preliminary Urine,Voided Gram Neg Bacilli Assessment and Plan Plan: Assessment: #1. Acute hypoxic respiratory failure related to suspected aspiration pneumonia in addition to recent history of COVID 19 related pneumonia #2. Suspect chronic aspiration related to overall generalized medical debility, toxic metabolic encephalopathy #3. Near-complete opacification of the right hemithorax likely related to right mainstem mucous plugging, patient has a very weak and ineffective cough, mentation has been altered, patient is thought to be chronically aspirating. Code Status DO NOT RESUSCITATE, will be placed on BiPAP support #4. A. fib with RVR, remains on Cardizem and amiodarone drip #5. Chronic systolic heart failure #6. Recent hospitalization for acute exacerbation of systolic CHF and A. fib with RVR #7. Recent COVID 19 infection diagnosed on 09/16/2020 #8. Acute metabolic encephalopathy and underlying advanced dementia, brain CT showed no acute intracranial abnormality #9. Hypertension #10. Hyperlipidemia #11. 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 Frequent falls, recent fracture of C1, currently in the soft collar #13. History of paroxysmal A. fib not on anticoagulation due to multiple falls #14. History of subdural hemorrhage #15. GERD/reflux #16. Anxiety/depression Plan: Patient has developed near-complete opacification of the right hemithorax, likely related to mucous plugging. Keep the patient nothing by mouth, placed the patient BiPAP support with pressures of 12/6 and FiO2 to keep O2 sat at 92% or better. Continue with Zosyn, CODE STATUS is DO NOT RESUSCITATE, we'll continue with supportive treatment, CODE STATUS is to be addressed, overall prognosis is quite poor and guarded in view of general medical debility, advance d dementia, recurrent hospitalization, chronic aspiration, weak cough reflex. We recommend palliative care hospice consultation, and we will continue supportive medical treatment. I performed a history & physical examination of the patient and discussed their management with my nurse practitioner, Leelee Roth. I reviewed the nurse practitioner's note and agree with the documented findings and plan of care. Lung sounds are positive for diffuse wheezes throughout the lung maravilla. The findings and the impression was discussed with the patient. I attest to the documentation by the nurse practitioner. Time with Patient: Less than 30
[2020-10-13] MEDS: METOPROLOL TARTRATE 50 MG TAB PO SCH ×2 (17:00→21:42)
--- NOTE | 2020-10-13 19:36 | P.PN ---
Progress Note - Text Progress Note Date: 10/13/20 Chief Complaint: Unwell History of presenting complaint: This is a 84-year-old patient resident of [facility] in [facility] being followed by Davide Pérez. Patient tested positive for COVID 19 on 09/16/2020. recently at [facility] was treated there for UTI. From that he was discharged and sent to rehab at [facility] in [facility]. In the process patient lost some weight and become rather weak. Admitted September 16. Diagnosed with COVID 19 pneumonia. Treated with heparin steroids. Also to acute kidney injury felt to be from Bactrim. Acute metabolic encephalopathy. Hyponatremic. Uncontrolled A. fib. Advanced medical debility. Patient was discharged on October 05. Patient oral intake was fairly left the hospital. Now presents to the ER. As per the EMS run sheet: Blood pressure 120/88, pulse 81, respiration 30, pulse ox 83% on room air, temperature 100.6. EMS was called out for patient having rapid respirations and tachycardia. Patient is barely been talking over the last week. Decrease response to stimuli. Patient been moving his hand under his head. No signs of trauma. EKG showed sinus tachycardia. Admitted with right lower lobe pneumonia, possible aspiration with sepsis lactic acidosis, metabolic encephalopathy, hyper natremia, atrial fibrillation rapid ventricular rate. Started on IV Zosyn, aspiration precautions, IV fluids. Today-bit more awake. Nothing by mouth. Remains on IV Cardizem and amiodarone. Heart rate in 1 teens . Admitting review of systems: Patient cannot tell. Past medical history to include: Atrial fibrillation, CHF, COPD, dementia, GERD, hypertension, hyperlipidemia carotid artery disease with bypass, partial pneumonectomy, anxiety depression. COVID 19 pneumonia diagnosed 09/16/2020 Social history: rehab at [facility] on [facility]. No history of smoking or alcohol Family history: Patient cannot tell Physical examination: VITAL SIGNS: 98, 105, 24, 125/83, 98% on 7 L GENERAL: BMI 19, laying in bed, a bit less delirious, EYES: Pupils equal. Conjunctiva normal HEENT: External appearance of nose and ears normal, oral cavity dry NECK: wearing a collar HEART: Irregular heart sounds no edema. LUNGS:[ Respiratory rate increased; decreased breath sounds. ABDOMEN: Soft, nontender, liver spleen not palpable, no masses palpable. PSYCH: Unable to assess. A bit more awake today.. NEUROLOGICAL: Cranial nerves grossly intact; no facial asymmetry, moving limbs INVESTIGATIONS, reviewed in the clinical context: White count 15.3 hemoglobin 14.4 platelets 315-2150 potassium 4.8 bun 41 and creatinine 1.06 Lactic acid 2.4 CRP 86.5 pro-calcitonin 0.21 UA positive for leukoesterase, WBC, bacteria EKG tracing personally reviewed by me--sinus tachycardia Chest x-ray film personally reviewed by me-right lower lobe infiltrate Assessment: -Right lower lobe pneumonia, suspect gram-negative orgasm and/or aspiration, causing sepsis with lactic acidosis, POA -Acute metabolic encephalopathy from infection, hypernatremia-slow to respond -Hypernatremia, from free water deficit -Persistent Atrial fibrillation with a rapid ventricular rate-remains uncontrollable 100 -COPD -Alzheimer's dementia -GERD -Hyperlipidemia -Essential hypertension -Coronary artery disease with prior history of bypass -History of pneumonectomy partial -Moderate protein calorie malnutrition patient has decreased muscle mass loss of subcutaneous fat and a BMI 19 -Advancing medical debility -No code Plan: Continue IV amiodarone. IV Zosyn. IV fluids. IV Cardizem. Aspiration precautions. Follow labs. Spoke at length on the phone to patient's son Gen. Collins. He does understand the patient has multiple problems and rather ill. But of course he is suspecting a more positive outcome. Treatment was explained. She'll try to again visit him tomorrow. I spent today in patient care was about 40 minutes with over 20 minutes of discussion with the son and the nurse.
[2020-10-13] MEDS: DOCUSATE 100 MG CAP PO SCH (21:42)
[2020-10-13] MEDS: ESCITALOPRAM 5 MG TAB PO SCH (21:42)
[2020-10-14] MEDS: PIPERACILLIN-TAZOBACTAM 3.375 GM in SODIUM CHLORIDE 0.9% 100 ML IVPB SCH ×3 (02:59→17:22)
[2020-10-14] MEDS: AMIODARONE 450 MG in DEXTROSE 5% IN WATER 250 ML IV SCH ×2 (03:03)
[2020-10-14] MEDS: ACETAMINOPHEN TAB 325 MG TAB PO SCH ×3 (06:32→19:48)
[2020-10-14] MEDS: DEXTROSE 5% IN WATER 1,000 ML IV SCH ×3 (06:34→19:54)
[2020-10-14 07:48] LABS: HCT 38.1 % (39.0-53.0); Hypochromasia Slight; MCH 29.1 pg (25.0-35.0); MCHC 31.4 g/dL (31.0-37.0); MCV 92.8 fL (80.0-100.0); Mean Platelet Volume 7.8; Platelet Count 245 k/uL (150-450); RBC 4.11 m/uL (4.30-5.90); RDW 14.9 % (11.5-15.5); WBC 11.4 k/uL (3.8-10.6)
[2020-10-14 08:08] LABS: Calcium 8.2 mg/dL (8.4-10.2); Potassium 3.6 mmol/L (3.5-5.1)
[2020-10-14] MEDS: ENOXAPARIN 40 MG/0.4 ML SYRINGE SQ SCH ×2 (08:24→19:53)
[2020-10-14] MEDS: ALBUTEROL HFA INHALER INHALATION PRN ×2 (08:56→19:36)
[2020-10-14] MEDS: ASCORBIC ACID 500 MG TAB PO SCH ×2 (09:09→19:48)
[2020-10-14] MEDS: METOPROLOL TARTRATE 50 MG TAB PO SCH ×2 (09:09→19:48)
[2020-10-14] MEDS: ZINC SULFATE 220 MG CAP PO SCH (09:09)
[2020-10-14] MEDS: CHOLECALCIFEROL 25 MCG (1000 IU) TABLET PO SCH (09:09)
--- NOTE | 2020-10-14 09:16 | XR ---
EXAMINATION TYPE: XR chest 1V portable DATE OF EXAM: 10/14/2020 COMPARISON: Chest x-ray 10/13/2020, 10/12/2020, CT chest 10/01/2020 HISTORY: Pneumonia TECHNIQUE: Single frontal view of the chest is obtained. FINDINGS: Postop changes again seen, there is persistent opacification right hemithorax. Patient is post median sternotomy. Some minimal patchy density present at the left lung base. Patient is rotated . IMPRESSION: Opacified right hemithorax likely due to atelectasis and possible associated effusion. P ostop changes. Difficult to exclude pneumonia
--- NOTE | 2020-10-14 13:02 | P.PN ---
Subjective HISTORY OF PRESENTING ILLNESS This is a pleasant 84-year-old male past medical history significant for paroxysmal atrial fibrillation on long-term anticoagulation secondary to frequent falls and subdural hematoma in the past, COPD, chronic systolic heart failure, hypertension, dyslipidemia and coronary artery disease status post bypass grafting exact details unavailable. The patient is nonverbal. He does not answer questions or give history. He continues to refuse oral intake. Currently maintained on IV amiodarone and cardizem for rate control. Blood pressure 113/77 heart rate 83 afebrile and maintaining oxygen saturation on bip ap. Repeat chest x-ray today reveals opacified right hemithorax likely due to atelectasis or possible associated effusion. Laboratory data reviewed, WBC 11.4, hemoglobin 12, platelets 245, sodium 149, potassium 3.6 and creatinine 1.05. PHYSICAL EXAMINATION CONSTITUTIONAL: No apparent distress. No physical exam performed due to COVID 19 to prevent spread of infection. ASSESSMENT Covid 19 Paroxysmal atrial fibrillation not on oysterman anticoagulation secondary to history of falls and subdural hematoma Leukocytosis Lactic acidosis Chronic systolic heart failure Coronary artery disease status post bypass grafting Hypertension Dyslipidemia COPD Dementia PLAN Continue IV amiodarone and cardizem as long as he is not tolerating oral agents for heart rate control. Nurse Practitioner note has been reviewed, I agree with a documented findings and plan of care. Patient was seen and examined. Objective - Vital Signs Vital signs: Vital Signs Temp 98.1 F 10/14/20 11:04 Pulse 83 10/14/20 11:04 Resp 22 10/14/20 11:04 BP 113/77 10/14/20 11:04 Pulse Ox 93 L 10/14/20 11:04 Intake & Output 10/13/20 10/14/20 10/14/20 18:59 06:59 18:59 Intake Total 683.28 306.504 Output Total 1800 450 0 Balance -1116.72 -143.496 0 Weight 59.5 kg Intake: IV 40 Diltiazem 125 mg In 40 Sodium Chloride 0.9% 100 ml @ 5 MG/HR 5 mls/hr IV .Q24H [facility] Rx#:[id number] Intake, IV Titration 643.28 306.504 Amount Amiodarone 450 mg In 383.28 200.837 Dextrose 5% in Water 250 ml @ 0.5 MG/MIN 16.667 mls/hr IV .Q15H [facility] Rx#: [id number] Dextrose 5% in Water 1, 160 000 ml @ 20 mls/hr IV . Q24H [facility] Rx#:[id number] Diltiazem 125 mg In 105.667 Sodium Chloride 0.9% 100 ml @ 5 MG/HR 5 mls/hr IV .Q24H [facility] Rx#:[id number] Piperacillin-Tazobactam 3 100 .375 gm In Sodium Chloride 0.9% 100 ml @ 25 mls/hr IVPB Q8H [facility] Rx#: [id number] Oral 0 Output: Urine 1800 450 Stool 0 0 Other: Voiding Method Indwelling Catheter Indwelling Catheter Indwelling Catheter - Labs CBC & Chem 7: 10/14/20 07:21 10/14/20 07:21 Labs: Abnormal Lab Results - Last 24 Hours (Table) 10/14/20 10/14/20 Range/Units 07:21 07:21 WBC 11.4 H (3.8-10.6) k/uL RBC 4.11 L (4.30-5.90) m/uL Hgb 12.0 L (13.0-17.5) gm/dL Hct 38.1 L (39.0-53.0) % Sodium 149 H (137-145) mmol/L Chloride 121 H (98-107) mmol/L BUN 35 H (9-20) mg/dL Glucose 144 H (74-99) mg/dL Calcium 8.2 L (8.4-10.2) mg/dL Microbiology - Last 24 Hours (Table) 10/11/20 12:31 Urine Culture - Final Urine,Voided Escherichia coli 10/11/20 11:46 Blood Culture - Preliminary Blood No Growth after 48 hours
--- NOTE | 2020-10-14 13:57 | P.PN ---
Subjective Progress Note Date: 10/14/20 Patient essentially unchanged. Patient continues to be nonverbal. Continues to have flaccid left upper extremity. Patient currently on BiPAP. Objective - Vital Signs Vital signs: Vital Signs Temp 98.1 F 10/14/20 11:04 Pulse 83 10/14/20 11:04 Resp 22 10/14/20 11:04 BP 113/77 10/14/20 11:04 Pulse Ox 93 L 10/14/20 11:04 Intake & Output 10/13/20 10/14/20 10/14/20 18:59 06:59 18:59 Intake Total 683.28 306.504 Output Total 1800 450 0 Balance -1116.72 -143.496 0 Weight 59.5 kg Intake: IV 40 Diltiazem 125 mg In 40 Sodium Chloride 0.9% 100 ml @ 5 MG/HR 5 mls/hr IV .Q24H [facility] Rx#:[id number] Intake, IV Titration 643.28 306.504 Amount Amiodarone 450 mg In 383.28 200.837 Dextrose 5% in Water 250 ml @ 0.5 MG/MIN 16.667 mls/hr IV .Q15H [facility] Rx#: [id number] Dextrose 5% in Water 1, 160 000 ml @ 20 mls/hr IV . Q24H [facility] Rx#:[id number] Diltiazem 125 mg In 105.667 Sodium Chloride 0.9% 100 ml @ 5 MG/HR 5 mls/hr IV .Q24H [facility] Rx#:[id number] Piperacillin-Tazobactam 3 100 .375 gm In Sodium Chloride 0.9% 100 ml @ 25 mls/hr IVPB Q8H [facility] Rx#: [id number] Oral 0 Output: Urine 1800 450 Stool 0 0 Other: Voiding Method Indwelling Catheter Indwelling Catheter Indwelling Catheter - Exam Completely unchanged as compared to yesterday. - Labs CBC & Chem 7: 10/14/20 07:21 10/14/20 07:21 Labs: Abnormal Lab Results - Last 24 Hours (Table) 10/14/20 10/14/20 Range/Units 07:21 07:21 WBC 11.4 H (3.8-10.6) k/uL RBC 4.11 L (4.30-5.90) m/uL Hgb 12.0 L (13.0-17.5) gm/dL Hct 38.1 L (39.0-53.0) % Sodium 149 H (137-145) mmol/L Chloride 121 H (98-107) mmol/L BUN 35 H (9-20) mg/dL Glucose 144 H (74-99) mg/dL Calcium 8.2 L (8.4-10.2) mg/dL Microbiology - Last 24 Hours (Table) 10/11/20 11:46 Blood Culture - Preliminary Blood No Growth after 72 hours 10/11/20 12:31 Urine Culture - Final Urine,Voided Escherichia coli Assessment and Plan Assessment: * Acute left hemiparesis, possible CVA. Etiology likely due to cardioembolism from atrial fibrillation. * Advanced dementia * Superimposed encephalopathy, likely due to pneumonia. Recent history of COVID infection. * Atrial fibrillation. * CT head reported hydrocephalus, but patient probably has advanced dementia. Not a candidate for ventriculoperitoneal shunting. Plan: * Continue Lovenox 40 mg twice a day. * Repeat computed tomography scan of the head today did not reveal any evolving stroke. ?Cervical etiology. Patient has soft neck collar in place. * Carotid Doppler showed no significant stenosis. Antegrade flow in both vertebral arteries.. * Telemetry monitoring showing atrial fibrillation, bigeminy, PAC, PVCs and runs of V. tach. Cardiology on board. Patient started on amiodarone and also on Cardizem. * Patient on antibiotics for pneumonia. * 2-D echo from 10/02/2020 showed mild concentric LVH, severe global hypokinesis of left ventricle. EF is severely impaired 20-25%. Left atrium is moderately dilated. * Consider MRI of the brain and cervical spine, if the family wishes to continue full treatment. * Supportive care. Patient is DO NOT RESUSCITATE.
--- NOTE | 2020-10-14 14:27 | P.PN ---
Subjective Progress Note Date: 10/14/20 84-year-old white male patient, with recent history of hospitalization for COVID19 pneumonia, and patient was discharged to the [facility] on the [place] on 10/05/2020. Patient was hospitalized from 10/01/2020 through 10/05/2020. Patient is a poor historian, has underlying history of advanced dementia, his s evere cardiomyopathy with EF of around 20-25%, atrial fibrillation, chronic congestive heart failure systolic dysfunction, hypertension, hyperlipidemia, anxiety, frequent falls, previous history of subdural hemorrhage, recent cervical neck fracture currently in a soft collar. On 10/11/2020 patient was brought into the emergency department for evaluation of fever, tachycardia. His previous chest x-ray from his previous admission there was mild right basilar opacity, most likely related to atelectasis, a CT angiogram of the chest showed no evidence of pulmonary embolism. 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 His subsequent chest x- ray on 10/05/2020 showed some worsening in the appearance of the right lower lobe and right middle lobe hazy infiltration. However clinically patient had remained stable and did not have any worsening in his oxygenation and he was discharged to the detention on [place]. His chest x-ray on admission on the 2020 showed right mid and lower lung field infiltrates. EKG showed SVT with a rate of 166, temperature was 100.5F, patient was satting 93% on 12 L of oxygen. His laboratory data showed leukocytosis with white blood cell, 15.3, hemoglobin of 14.4, neutrophils of 14, lymphocyte count of 0.7, his INR was 1, sodium is 150, potassium is 4.8, chloride was 121, BUN of 41 Cr1.06, his LDH has trended up to 937 from 585, CRP is 86.5, up from 138 during last admission, pro- calcitonin level is 0.21, his urinalysis shows evidence of infection. Patient is lethargic, and there is suspicion for aspiration pneumonia. He was started on a azithromycin and Rocephin for empiric antibiotic coverage, however in view of suspected aspiration we will switch the antibiotic coverage to Zosyn. Brain CT showed mild to moderate ventricular megaly/hydrocephalus probably in part due to central cerebral atrophy. No acute intracranial abnormality On 10/13/2020 patient seen in follow-up on selective care unit. Patient is aw larry, but confused, encephalopathic, but does not appear to be in any acute distress. He is currently on 7 L of oxygen the pulse ox of 97%, not sure why his oxygen had increased, earlier patient was on 3 L of oxygen pulse ox of 94%, patient has been nothing by mouth in view of his altered mentation, speech evaluation was obtained, and patient was noted to be coughing with thin liquids, and although she did not outright failed the swallow evaluation his altered mental status prevented him from following simple verbal commands. Patient had a delayed swallow, and coughing after swallowing, difficulty chewing. Recommendation was made for dysphagia level I pured diet with nectar thick liquids upright positioning, direct one-on-one supervision, however in view of his continued altered mental status, generalized weakness, suspected chronic aspiration, we will recommend PEG tube placement for nutritional support. Today's chest x-ray shows near complete opacification of the right hemithorax, left lung hyperinflated, mild patchy density in the right medial lung base. Patient has a very weak cough, likely developed mucous plugging in the right mainstem bronchus, however his CODE STATUS is DO NOT RESUSCITATE, he is a very frail. We placed on BiPAP support. Overall his CODE STATUS needs to be readdressed again, as the patient is suspected to be chronically aspirating, will need PEG tube for nutritional support if the patient's family wants to continue with supportive care. He has been unable to take any of his oral medications, cardiology has the patient on Cardizem and amiodarone drip for rate control. Patient is on Zosyn for empiric antibiotic coverage. The patient is seen today 10/14/2020 in follow-up on the selective care unit. He is currently resting in bed. He remains on BiPAP 12/6 and 40% FiO2 to maintain O2 saturations in the 90s. He is currently afebrile. Urine culture positive for E. coli. Blood culture reveals no growth. White count 11.1. Hemoglobin 12.0. Sodium 139. Potassium 3.6. Creatinine 1.05. He remains on a Cardizem drip at 5 mg per hour. Lovenox for DVT prophylaxis. Antibiotics in the form of Zosyn. He is a DO NOT RESUSCITATE/DO NOT INTUBATE CODE STATUS. He remains quite ill. Minimally responsive. X-ray reveals opacified right hemithorax likely due to atelectasis and possible associated effusion. Objective - Vital Signs Vital signs: Vital Signs Temp 98.1 F 10/14/20 11:04 Pulse 83 10/14/20 14:00 Resp 22 10/14/20 14:00 BP 113/77 10/14/20 11:04 Pulse Ox 93 L 10/14/20 11:04 Intake & Output 10/13/20 10/14/20 10/14/20 18:59 06:59 18:59 Intake Total 683.28 306.504 Output Total 1800 450 0 Balance -1116.72 -143.496 0 Weight 59.5 kg Intake: IV 40 Diltiazem 125 mg In 40 Sodium Chloride 0.9% 100 ml @ 5 MG/HR 5 mls/hr IV .Q24H [facility] Rx#:[id number] Intake, IV Titration 643.28 306.504 Amount Amiodarone 450 mg In 383.28 200.837 Dextrose 5% in Water 250 ml @ 0.5 MG/MIN 16.667 mls/hr IV .Q15H [facility] Rx#: [id number] Dextrose 5% in Water 1, 160 000 ml @ 20 mls/hr IV . Q24H [facility] Rx#:[id number] Diltiazem 125 mg In 105.667 Sodium Chloride 0.9% 100 ml @ 5 MG/HR 5 mls/hr IV .Q24H [facility] Rx#:[id number] Piperacillin-Tazobactam 3 100 .375 gm In Sodium Chloride 0.9% 100 ml @ 25 mls/hr IVPB Q8H [facility] Rx#: [id number] Oral 0 Output: Urine 1800 450 Stool 0 0 Other: Voiding Method Indwelling Catheter Indwelling Catheter Indwelling Catheter - Exam GENERAL EXAM: Lethargic, drowsy 84-year-old male patient on BiPAP 12/6 and 40% FiO2, he has a weak cough, unable to clear secretions, is thought to be chronically aspirating HEAD: Normocephalic/atraumatic. EYES: Normal reaction of pupils, equal size. Conjunctiva pink, sclera white. NOSE: Clear with pink turbinates. THROAT: No erythema or exudates. NECK: No masses, no JVD, no thyroid enlargement, no adenopathy. CHEST: No chest wall deformity. Symmetrical expansion. LUNGS: Equal air entry with basilar crackles CVS: Regular rate and rhythm, normal S1 and S2, no gallops, no murmurs, no rubs ABDOMEN: Soft, nontender. No hepatosplenomegaly, normal bowel sounds, no guarding or rigidity. EXTREMITIES: No clubbing, no edema, no cyanosis, 2+ pulses and upper and lower extremities. MUSCULOSKELETAL: Muscle strength and tone normal. SPINE: No scoliosis or deformity SKIN: No rashes CENTRAL NERVOUS SYSTEM: Drowsy, lethargic No focal deficits, tone is normal in all 4 extremities. - Labs CBC & Chem 7: 10/14/20 07:21 10/14/20 07:21 Labs: Abnormal Lab Results - Last 24 Hours (Table) 10/14/20 10/14/20 Range/Units 07:21 07:21 WBC 11.4 H (3.8-10.6) k/uL RBC 4.11 L (4.30-5.90) m/uL Hgb 12.0 L (13.0-17.5) gm/dL Hct 38.1 L (39.0-53.0) % Sodium 149 H (137-145) mmol/L Chloride 121 H (98-107) mmol/L BUN 35 H (9-20) mg/dL Glucose 144 H (74-99) mg/dL Calcium 8.2 L (8.4-10.2) mg/dL Microbiology - Last 24 Hours (Table) 10/11/20 11:46 Blood Culture - Preliminary Blood No Growth after 72 hours 10/11/20 12:31 Urine Culture - Final Urine,Voided Escherichia coli Assessment and Plan Assessment: #1. Acute hypoxic respiratory failure related to suspected aspiration pneumonia in addition to recent history of COVID 19 related pneumonia. Currently on BiPAP 08/23 at 40% FiO2 #2. Suspect chronic aspiration related to overall generalized medical debility, toxic metabolic encephalopathy #3. Near-complete opacification of the right hemithorax likely related to right mainstem mucous plugging, patient has a very weak and ineffective cough, mentation has been altered, patient is thought to be chronically aspirating. Code Status DO NOT RESUSCITATE, on BiPAP support, too frail for bronchoscopy at this point #4. A. fib with RVR, remains on Cardizem and amiodarone drip #5. Chronic systolic heart failure #6. Recent hospitalization for acute exacerbation of systolic CHF and A. fib with RVR #7. Recent COVID 19 infection diagnosed on 09/16/2020 #8. Acute metabolic encephalopathy and underlying advanced dementia, brain CT showed no acute intracranial abnormality #9. Hypertension #10. Hyperlipidemia #11. 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 Frequent falls, recent fracture of C1, currently in the soft collar #13. History of paroxysmal A. fib not on anticoagulation due to multiple falls #14. History of subdural hemorrhage #15. GERD/reflux #16. Anxiety/depression Plan: The patient was seen and evaluated by Dr. Cantu Chest x-ray and labs reviewed Too frail and unstable for bronchoscopy at this point He is a DO NOT RESUSCITATE/DO NOT INTUBATE CODE STATUS Prognosis is poor Hospice should be considered We'll continue the current treatment plan for now I, the cosigning physician, performed a history & physical examination of the patient. Lungs sounds are significantly diminished in the right lung.. Maintaining good O2 saturations in the 90s on 40% FiO2 via BiPAP. I discussed the assessment and plan of care with my nurse practitioner, Aury Serrano. I attest to the above note as dictated by her.
[2020-10-14] MEDS: ESCITALOPRAM 5 MG TAB PO SCH (19:48)
[2020-10-14] MEDS: DOCUSATE 100 MG CAP PO SCH (19:48)
[2020-10-14] MEDS: DILTIAZEM 125 MG in SODIUM CHLORIDE 0.9% 100 ML IV SCH (20:31)
--- NOTE | 2020-10-14 21:46 | P.PN ---
Progress Note - Text Progress Note Date: 10/14/20 Chief Complaint: Unwell History of presenting complaint: This is a 84-year-old patient resident of [facility] in [facility] being followed by Davide Pérez. Patient tested positive for COVID 19 on 09/16/2020. recently at [facility] was treated there for UTI. From that he was discharged and sent to rehab at [facility] in the [place] [facility]. In the process patient lost some weight and become rather weak. Admitted September 16. Diagnosed with COVID 19 pneumonia. Treated with heparin steroids. Also to acute kidney injury felt to be from Bactrim. Acute metabolic encephalopathy. Hyponatremic. Uncontrolled A. fib. Advanced medical debility. Patient was discharged on October 05. Patient oral intake was fairly left the hospital. Now presents to the ER. As per the EMS run sheet: Blood pressure 120/88, pulse 81, respiration 30, pulse ox 83% on room air, temperature 100.6. EMS was called out for patient having rapid respirations and tachycardia. Patient is barely been talking over the last week. Decrease response to stimuli. Patient been moving his hand under his head. No signs of trauma. EKG showed sinus tachycardia. Admitted with right lower lobe pneumonia, possible aspiration with sepsis lactic acidosis, metabolic encephalopathy, hyper natremia, atrial fibrillation rapid ventricular rate. Started on IV Zosyn, aspiration precautions, IV fluids. Today-shade more responsive. Attempting to talk. Sounds congested. Son at the bedside. Possible right lung collapse on x-ray with possible fluid. . review of systems:Patient cannot tell. Active Medications Acetaminophen (Acetaminophen Suppository 650 Mg Supp) 650 mg RECTAL Q4HR PRN PRN Reason: Fever and/ or Mild Pain Last Admin: 10/12/20 01:07 Dose: 650 mg Documented by: Acetaminophen (Acetaminophen Tab 325 Mg Tab) 650 mg PO Q8HR@0600,1400,2200 [facility] Last Admin: 10/14/20 19:48 Dose: Not Given Documented by: Albuterol Sulfate (Albuterol Hfa Inhaler) 1 puff INHALATION RT-Q6H PRN PRN Reason: Wheezing Last Admin: 10/14/20 19:36 Dose: 1 puff Documented by: Ascorbic Acid (Ascorbic Acid 500 Mg Tab) 500 mg PO BID [facility] Last Admin: 10/14/20 19:48 Dose: Not Given Documented by: Cholecalciferol (Cholecalciferol 25 Mcg (1000 Iu) Tablet) 125 mcg PO DAILY [facility] Last Admin: 10/14/20 09:09 Dose: Not Given Documented by: Docusate Sodium (Docusate 100 Mg Cap) 100 mg PO DAILY@2099 [facility] Last Admin: 10/14/20 19:48 Dose: Not Given Documented by: Enoxaparin Sodium (Enoxaparin 40 Mg/0.4 Ml Syringe) 40 mg SQ BID@ [facility] Last Admin: 10/14/20 19:53 Dose: 40 mg Documented by: Escitalopram Oxalate (Escitalopram 5 Mg Tab) 5 mg PO DAILY@2099 [facility] Last Admin: 10/14/20 19:48 Dose: Not Given Documented by: Diltiazem HCl 125 mg/ Sodium (Chloride) 125 mls @ 5 mls/hr IV .Q24H [facility] Last Admin: 10/14/20 20:31 Dose: 5 mg/hr, 5 mls/hr Documented by: Dextrose/Water (Dextrose 5%-Water Iv Soln) 1,000 mls @ 100 mls/hr IV .Q10H [facility] Last Admin: 10/14/20 19:54 Dose: 100 mls/hr Documented by: Piperacillin Sod/Tazobactam (Sod 3.375 gm/ Sodium Chloride) 100 mls @ 25 mls/hr IVPB Q8H [facility] Last Admin: 10/14/20 17:22 Dose: 25 mls/hr Documented by: Lisinopril (Lisinopril 2.5 Mg Tab) 2.5 mg PO DAILY@0900 [facility] Last Admin: 10/14/20 09:09 Dose: Not Given Documented by: Metoprolol Tartrate (Metoprolol Tartrate 50 Mg Tab) 50 mg PO ONCE PRN PRN Reason: elevated pulse Metoprolol Tartrate (Metoprolol Tartrate 50 Mg Tab) 50 mg PO BID@899,2099 [facility] Last Admin: 10/14/20 19:48 Dose: Not Given Documented by: Miscellaneous Information (Pneumonia Protocol Utilized [facility] 1 each PO ONCE PRN PRN Reason: Per Protocol Zinc Sulfate (Zinc Sulfate 220 Mg Cap) 220 mg PO DAILY [facility] Last Admin: 10/14/20 09:09 Dose: Not Given Documented by: Past medical history to include: Atrial fibrillation, CHF, COPD, dementia, GERD, hypertension, hyperlipidemia carotid artery disease with bypass, partial pneumonectomy, anxiety depression. COVID 19 pneumonia diagnosed 09/16/2020 Social history: rehab at [facility] on the [facility]. No history of smoking or alcohol Family history: Patient cannot tell Physical examination: VITAL SIGNS: 98, 74, 22, 116/73, 96% on 6 L. Earlier on BiPAP GENERAL: BMI 19, laying in bed, it tends to open eyes., EYES: Pupils equal. Conjunctiva normal HEENT: External appearance of nose and ears normal, oral cavity dry NECK: wearing a collar HEART: Irregular heart sounds no edema. LUNGS:[ Respiratory rate increased; decreased breath sounds. ABDOMEN: Soft, nontender, liver spleen not palpable, no masses palpable. PSYCH: Unable to assess. NEUROLOGICAL: Cranial nerves grossly intact; no facial asymmetry, moving limbs INVESTIGATIONS, reviewed in the clinical context: October 14: White count 11.4 hemoglobin 12 potassium 3.6 creatinine 1.05 Chest x-ray film personally reviewed by me-new right-sided wipeout, with trachea pulled of the right Coronavirus [PCR]-detected White count 15.3 hemoglobin 14.4 platelets 315-2150 potassium 4.8 bun 41 and creatinine 1.06 Lactic acid 2.4 CRP 86.5 pro-calcitonin 0.21 UA positive for leukoesterase, WBC, bacteria Urine culture-E. coli/ESBL EKG tracing personally reviewed by me--sinus tachycardia Chest x-ray film personally reviewed by me-right lower lobe infiltrate Assessment: -Right lower lobe pneumonia, suspect gram-negative orgasm and/or aspiration, causing sepsis with lactic acidosis, worsening, with atelectasis/collapse. -Acute metabolic encephalopathy from infection, hypernatremia-slow to respond -Hypernatremia, from free water deficit-slow to respond -Persistent Atrial fibrillation with a rapid ventricular rate-remains uncontr ollable 100 -COPD -Alzheimer's dementia -GERD -Hyperlipidemia -Essential hypertension -Coronary artery disease with prior history of bypass -History of pneumonectomy partial -Moderate protein calorie malnutrition patient has decreased muscle mass loss of subcutaneous fat and a BMI 19 -Advancing medical debility -No code Plan: Continue IV Zosyn. IV fluids. IV Cardizem. Aspiration precautions. Had a lengthy talk with patient's son at the bedside. Prognosis guarded. He would like bronchoscopy to be done if possible. Did ask him to speak to Dr. Cantu from pulmonary. I did explain to him that highly possible that patient would let up on the ventilator. There may be underlying mucous plug also. Also spoke Dr. Burgess earlier. Total time spent about 40-45 minutes with over 25 minutes of discussion..
[2020-10-15] MEDS: PIPERACILLIN-TAZOBACTAM 3.375 GM in SODIUM CHLORIDE 0.9% 100 ML IVPB SCH ×3 (01:32→18:09)
[2020-10-15] MEDS: ACETAMINOPHEN TAB 325 MG TAB PO SCH ×3 (02:56→21:29)
[2020-10-15] MEDS: DEXTROSE 5% IN WATER 1,000 ML IV SCH (06:34)
[2020-10-15] MEDS: ALBUTEROL HFA INHALER INHALATION PRN ×2 (08:11→12:13)
[2020-10-15 08:22] LABS: Basophils % (A) 0 %; Eosinophils # (A) 0.1 k/uL (0-0.7); Eosinophils % (A) 1 %; HCT 37.6 % (39.0-53.0); HGB 12.2 gm/dL (13.0-17.5); Hypochromasia Moderate; Lymphocytes # (A) 0.9 k/uL (1.0-4.8); Lymphocytes % (A) 9 %; MCH 30.2 pg (25.0-35.0); MCHC 32.4 g/dL (31.0-37.0); MCV 93.3 fL (80.0-100.0); Mean Platelet Volume 7.5; Monocytes # (A) 0.3 k/uL (0-1.0); Monocytes % (A) 3 %; Neutrophils # (A) 8.8 k/uL (1.3-7.7); Neutrophils % (A) 87 %; Platelet Count 217 k/uL (150-450); RBC 4.03 m/uL (4.30-5.90); RDW 14.5 % (11.5-15.5); WBC 10.1 k/uL (3.8-10.6)
[2020-10-15 08:34] LABS: Albumin 2.3 g/dL (3.5-5.0); Potassium 3.6 mmol/L (3.5-5.1); Total Bilirubin 0.6 mg/dL (0.2-1.3); Total Protein 4.8 g/dL (6.3-8.2)
[2020-10-15] MEDS: ZINC SULFATE 220 MG CAP PO SCH (09:07)
[2020-10-15] MEDS: CHOLECALCIFEROL 25 MCG (1000 IU) TABLET PO SCH (09:07)
[2020-10-15] MEDS: ASCORBIC ACID 500 MG TAB PO SCH ×2 (09:07→20:10)
[2020-10-15] MEDS: METOPROLOL TARTRATE 50 MG TAB PO SCH ×2 (09:07→20:10)
[2020-10-15] MEDS: ENOXAPARIN 40 MG/0.4 ML SYRINGE SQ SCH ×2 (09:16→20:13)
--- NOTE | 2020-10-15 10:01 | XR ---
EXAMINATION TYPE: XR chest 1V portable DATE OF EXAM: 10/15/2020 COMPARISON: 10/14/2020 INDICATION: Covid 19 TECHNIQUE: Single frontal view of the chest is obtained. FINDINGS: The heart size is normal. The pulmonary vasculature is normal. Patchy infiltrates through the right mid and lower lung field. Peripheral right pleural effusion may be present. Minimal infiltrate may be at the left base. There is significant improvement of aeration of the lung from comparison study. Postsurgical changes are at the right.. IMPRESSION: 1. Improving aeration to the right lung. Moderate infiltrate remains in the right mid lower lung fiel d. Small effusion may be present.
--- NOTE | 2020-10-15 12:43 | P.PN ---
Subjective Progress Note Date: 10/15/20 84-year-old white male patient, with recent history of hospitalization for COVID19 pneumonia, and patient was discharged to the [facility] on the [place] on 10/05/2020. Patient was hospitalized from 10/01/2020 through 10/05/2020. Patient is a poor historian, has underlying history of advanced dementia, his s evere cardiomyopathy with EF of around 20-25%, atrial fibrillation, chronic congestive heart failure systolic dysfunction, hypertension, hyperlipidemia, anxiety, frequent falls, previous history of subdural hemorrhage, recent cervical neck fracture currently in a soft collar. On 10/11/2020 patient was brought into the emergency department for evaluation of fever, tachycardia. His previous chest x-ray from his previous admission there was mild right basilar opacity, most likely related to atelectasis, a CT angiogram of the chest showed no evidence of pulmonary embolism. 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 His subsequent chest x- ray on 10/05/2020 showed some worsening in the appearance of the right lower lobe and right middle lobe hazy infiltration. However clinically patient had remained stable and did not have any worsening in his oxygenation and he was discharged to the assisted on [facility]. His chest x-ray on admission on the 2020 showed right mid and lower lung field infiltrates. EKG showed SVT with a rate of 166, temperature was 100.5F, patient was satting 93% on 12 L of oxygen. His laboratory data showed leukocytosis with white blood cell, 15.3, hemoglobin of 14.4, neutrophils of 14, lymphocyte count of 0.7, his INR was 1, sodium is 150, potassium is 4.8, chloride was 121, BUN of 41 Cr1.06, his LDH has trended up to 937 from 585, CRP is 86.5, up from 138 during last admission, pro- calcitonin level is 0.21, his urinalysis shows evidence of infection. Patient is lethargic, and there is suspicion for aspiration pneumonia. He was started on a azithromycin and Rocephin for empiric antibiotic coverage, however in view of suspected aspiration we will switch the antibiotic coverage to Zosyn. Brain CT showed mild to moderate ventricular megaly/hydrocephalus probably in part due to central cerebral atrophy. No acute intracranial abnormality On 10/13/2020 patient seen in follow-up on selective care unit. Patient is aw larry, but confused, encephalopathic, but does not appear to be in any acute distress. He is currently on 7 L of oxygen the pulse ox of 97%, not sure why his oxygen had increased, earlier patient was on 3 L of oxygen pulse ox of 94%, patient has been nothing by mouth in view of his altered mentation, speech evaluation was obtained, and patient was noted to be coughing with thin liquids, and although she did not outright failed the swallow evaluation his altered mental status prevented him from following simple verbal commands. Patient had a delayed swallow, and coughing after swallowing, difficulty chewing. Recommendation was made for dysphagia level I pured diet with nectar thick liquids upright positioning, direct one-on-one supervision, however in view of his continued altered mental status, generalized weakness, suspected chronic aspiration, we will recommend PEG tube placement for nutritional support. Today's chest x-ray shows near complete opacification of the right hemithorax, left lung hyperinflated, mild patchy density in the right medial lung base. Patient has a very weak cough, likely developed mucous plugging in the right mainstem bronchus, however his CODE STATUS is DO NOT RESUSCITATE, he is a very frail. We placed on BiPAP support. Overall his CODE STATUS needs to be readdressed again, as the patient is suspected to be chronically aspirating, will need PEG tube for nutritional support if the patient's family wants to continue with supportive care. He has been unable to take any of his oral medications, cardiology has the patient on Cardizem and amiodarone drip for rate control. Patient is on Zosyn for empiric antibiotic coverage. The patient is seen today 10/14/2020 in follow-up on the selective care unit. He is currently resting in bed. He remains on BiPAP 12/6 and 40% FiO2 to maintain O2 saturations in the 90s. He is currently afebrile. Urine culture positive for E. coli. Blood culture reveals no growth. White count 11.1. Hemoglobin 12.0. Sodium 139. Potassium 3.6. Creatinine 1.05. He remains on a Cardizem drip at 5 mg per hour. Lovenox for DVT prophylaxis. Antibiotics in the form of Zosyn. He is a DO NOT RESUSCITATE/DO NOT INTUBATE CODE STATUS. He remains quite ill. Minimally responsive. X-ray reveals opacified right hemithorax likely due to atelectasis and possible associated effusion. The patient is seen today 10/15/2020 in follow-up on the selective care unit. He is currently resting in bed. He remains on BiPAP 12/6 at 40% FiO2. He does open his eyes to verbal request. Currently afebrile. Still tachycardic. Tachypneic. Chest x-ray is showing improved aeration to the right lung. Moderate infiltrate remains in the right midlung field. Small effusion. Blood cultures reveal no growth. Urine culture positive for E. coli. White count 10.1. Hemoglobin 12.2. Sodium 148. Potassium 3.6. Creatinine 0.94. Follow- up chrona virus testing was still positive. Objective - Vital Signs Vital signs: Vital Signs Temp 98.2 F 10/15/20 11:27 Pulse 109 H 10/15/20 11:27 Resp 26 H 10/15/20 11:27 BP 123/82 10/15/20 11:27 Pulse Ox 95 10/15/20 11:27 Intake & Output 10/14/20 10/15/20 10/15/20 18:59 06:59 18:59 Intake Total 103.667 Output Total 0 1750 Balance 0 -1646.333 Weight 60 kg Intake: Intake, IV Titration 103.667 Amount Diltiazem 125 mg In 103.667 Sodium Chloride 0.9% 100 ml @ 5 MG/HR 5 mls/hr IV .Q24H [facility] Rx#:[id number] Oral 0 Output: Urine 1750 Stool 0 Other: Voiding Method Indwelling Catheter Indwelling Catheter - Exam GENERAL EXAM: Lethargic, drowsy 84-year-old male patient on BiPAP 12/6 and 40% FiO2, he has a weak cough, unable to clear secretions, is thought to be chronically aspirating HEAD: Normocephalic/atraumatic. EYES: Normal reaction of pupils, equal size. Conjunctiva pink, sclera white. NOSE: Clear with pink turbinates. THROAT: No erythema or exudates. NECK: No masses, no JVD, no thyroid enlargement, no adenopathy. CHEST: No chest wall deformity. Symmetrical expansion. LUNGS: Equal air entry with few crackles in the right lung base, diminished CVS: Regular rate and rhythm, normal S1 and S2, no gallops, no murmurs, no rubs ABDOMEN: Soft, nontender. No hepatosplenomegaly, normal bowel sounds, no guarding or rigidity. EXTREMITIES: No clubbing, no edema, no cyanosis, 2+ pulses and upper and lower extremities. MUSCULOSKELETAL: Muscle strength and tone normal. SPINE: No scoliosis or deformity SKIN: No rashes CENTRAL NERVOUS SYSTEM: Drowsy, lethargic No focal deficits, tone is normal in all 4 extremities. - Labs CBC & Chem 7: 10/15/20 08:00 10/15/20 08:00 Labs: Abnormal Lab Results - Last 24 Hours (Table) 10/14/20 10/15/20 10/15/20 Range/Units 15:42 08:00 08:00 RBC 4.03 L (4.30-5.90) m/uL Hgb 12.2 L (13.0-17.5) gm/dL Hct 37.6 L (39.0-53.0) % Neutrophils # 8.8 H (1.3-7.7) k/uL Lymphocytes # 0.9 L (1.0-4.8) k/uL Sodium 148 H (137-145) mmol/L Chloride 120 H (98-107) mmol/L Carbon Dioxide 21 L (22-30) mmol/L BUN 28 H (9-20) mg/dL Glucose 120 H (74-99) mg/dL Calcium 8.0 L (8.4-10.2) mg/dL AST 14 L (17-59) U/L Total Protein 4.8 L (6.3-8.2) g/dL Albumin 2.3 L (3.5-5.0) g/dL Coronavirus (PCR) Detected A (Not Detectd) Microbiology - Last 24 Hours (Table) 10/11/20 11:46 Blood Culture - Preliminary Blood No Growth after 72 hours Assessment and Plan Assessment: 1. Acute hypoxic respiratory failure related to suspected aspiration pneumonia in addition to recent history of COVID 19 related pneumonia. Currently on BiPAP 08/23 at 40% FiO2. Coronavirus still detected 10/14/2020. 2. Suspect chronic aspiration related to overall generalized medical debility, toxic metabolic encephalopathy 3. Near-complete opacification of the right hemithorax likely related to right mainstem mucous plugging, patient has a very weak and ineffective cough, mentation has been altered, patient is thought to be chronically aspirating. Code Status DO NOT RESUSCITATE, on BiPAP support, too frail for bronchoscopy at this point 4. A. fib with RVR, remains on Cardizem and amiodarone drip 5. Chronic systolic heart failure 6. Recent hospitalization for acute exacerbation of systolic CHF and A. fib with RVR 7. Recent COVID 19 infection diagnosed on 09/16/2020 8. Acute metabolic encephalopathy and underlying advanced dementia, brain CT showed no acute intracranial abnormality 9. Hypertension 10. Hyperlipidemia 11. Coronary artery disease with prior history of bypass 12. Frequent falls, recent fracture of C1, currently in the soft collar 13. History of paroxysmal A. fib not on anticoagulation due to multiple falls 14. History of subdural hemorrhage 15. GERD/reflux 16. Anxiety/depression Plan: The patient was seen and evaluated by Dr. Cantu Chest x-ray shows improved aeration of the right lung No plans for bronchoscopy at this point Repeat CoVID 19 screen still positive He is a DO NOT RESUSCITATE/DO NOT INTUBATE CODE STATUS Prognosis is poor Hospice should be considered I, the cosigning physician, performed a history & physical examination of the patient. Lungs sounds few crackles in the right lung base, diminished.. M aintaining good O2 saturations in the 90s on 40% FiO2 via BiPAP. I discussed the assessment and plan of care with my nurse practitioner, Aury Serrano. I attest to the above note as dictated by her.
--- NOTE | 2020-10-15 13:38 | P.PN ---
Subjective HISTORY OF PRESENTING ILLNESS This is a pleasant 84-year-old male past medical history significant for paroxysmal atrial fibrillation on long-term anticoagulation secondary to frequent falls and subdural hematoma in the past, COPD, chronic systolic heart failure, hypertension, dyslipidemia and coronary artery disease status post bypass grafting exact details unavailable. The patient is nonverbal. He does not answer questions or give history. He continues to refuse oral intake. Currently maintained on IV amiodarone and cardizem for rate control. Blood pressure 113/77 heart rate 83 afebrile and maintaining oxygen saturation on bip ap. Repeat chest x-ray today reveals opacified right hemithorax likely due to atelectasis or possible associated effusion. Laboratory data reviewed, WBC 11.4, hemoglobin 12, platelets 245, sodium 149, potassium 3.6 and creatinine 1.05. 10/15/2020 Heart rates are better today but not below 100. He continues to be on a cardizem infusion. Blood pressure 123/82 heart rate 109 afebrile and maintaining oxygen saturation on bipap. Laboratory data reviewed, WBC 10.1, hemoglobin 12.2, platelets 148, sodium 136 and creatinine 0.94. According to the nursing staff there is discussion of possible comfort care. He continues to refuse any oral intake. Chest x-ray obtained today reveals ongoing moderate infiltrate in the right mid to lower lung field with some improved aeration. PHYSICAL EXAMINATION CONSTITUTIONAL: No apparent distress. No physical exam performed due to COVID 19 to prevent spread of infection. 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 Agree with plans for comfort care if that is what the family wishes. Nurse Practitioner note has been reviewed, I agree with a documented findings a nd plan of care. Patient was seen and examined. Objective - Vital Signs Vital signs: Vital Signs Temp 98.2 F 10/15/20 11:27 Pulse 109 H 10/15/20 11:27 Resp 30 H 10/15/20 11:27 BP 123/82 10/15/20 11:27 Pulse Ox 95 10/15/20 11:27 Intake & Output 10/14/20 10/15/20 10/15/20 18:59 06:59 18:59 Intake Total 103.667 Output Total 0 1750 Balance 0 -1646.333 Weight 60 kg Intake: Intake, IV Titration 103.667 Amount Diltiazem 125 mg In 103.667 Sodium Chloride 0.9% 100 ml @ 5 MG/HR 5 mls/hr IV .Q24H [facility] Rx#:[id number] Oral 0 Output: Urine 1750 Stool 0 Other: Voiding Method Indwelling Catheter Indwelling Catheter - Labs CBC & Chem 7: 10/15/20 08:00 10/15/20 08:00 Labs: Abnormal Lab Results - Last 24 Hours (Table) 10/14/20 10/15/20 10/15/20 Range/Units 15:42 08:00 08:00 RBC 4.03 L (4.30-5.90) m/uL Hgb 12.2 L (13.0-17.5) gm/dL Hct 37.6 L (39.0-53.0) % Neutrophils # 8.8 H (1.3-7.7) k/uL Lymphocytes # 0.9 L (1.0-4.8) k/uL Sodium 148 H (137-145) mmol/L Chloride 120 H (98-107) mmol/L Carbon Dioxide 21 L (22-30) mmol/L BUN 28 H (9-20) mg/dL Glucose 120 H (74-99) mg/dL Calcium 8.0 L (8.4-10.2) mg/dL AST 14 L (17-59) U/L Total Protein 4.8 L (6.3-8.2) g/dL Albumin 2.3 L (3.5-5.0) g/dL Coronavirus (PCR) Detected A (Not Detectd) Microbiology - Last 24 Hours (Table) 10/11/20 11:46 Blood Culture - Preliminary Blood No Growth after 72 hours
[2020-10-15] MEDS: DILTIAZEM 125 MG in SODIUM CHLORIDE 0.9% 100 ML IV SCH (18:11)
[2020-10-15] MEDS: DOCUSATE 100 MG CAP PO SCH (20:10)
[2020-10-15] MEDS: ESCITALOPRAM 5 MG TAB PO SCH (20:10)
--- NOTE | 2020-10-15 21:20 | P.PN ---
Subjective Progress Note Date: 10/15/20 Patient essentially unchanged. Patient continues to be nonverbal. Continues to have flaccid left upper extremity. Patient currently on BiPAP. Very somnolent. Encephalopathic. Objective - Vital Signs Vital signs: Vital Signs Temp 98.2 F 10/15/20 16:00 Pulse 130 H 10/15/20 16:00 Resp 30 H 10/15/20 16:00 BP 110/60 10/15/20 16:00 Pulse Ox 97 10/15/20 16:00 Intake & Output 10/15/20 10/15/20 10/16/20 06:59 18:59 06:59 Intake Total 103.667 908.500 Output Total 1750 Balance -1646.333 908.500 Weight 60 kg Intake: Intake, IV Titration 103.667 908.500 Amount Dextrose 5% in Water 1, 700 000 ml @ 100 mls/hr IV . Q10H [facility] Rx#:[id number] Diltiazem 125 mg In 103.667 108.500 Sodium Chloride 0.9% 100 ml @ 5 MG/HR 5 mls/hr IV .Q24H [facility] Rx#:[id number] Piperacillin-Tazobactam 3 100 .375 gm In Sodium Chloride 0.9% 100 ml @ 25 mls/hr IVPB Q8H [facility] Rx#: [id number] Oral 0 Output: Urine 1750 Other: Voiding Method Indwelling Catheter Indwelling Catheter - Exam Completely unchanged as compared to yesterday. On BiPAP. Left arm flaccid. Patient does not communicate. Does not follow commands. Patient does withdraw to pain on the right but not the left. - Labs CBC & Chem 7: 10/15/20 08:00 10/15/20 08:00 Labs: Abnormal Lab Results - Last 24 Hours (Table) 10/15/20 10/15/20 Range/Units 08:00 08:00 RBC 4.03 L (4.30-5.90) m/uL Hgb 12.2 L (13.0-17.5) gm/dL Hct 37.6 L (39.0-53.0) % Neutrophils # 8.8 H (1.3-7.7) k/uL Lymphocytes # 0.9 L (1.0-4.8) k/uL Sodium 148 H (137-145) mmol/L Chloride 120 H (98-107) mmol/L Carbon Dioxide 21 L (22-30) mmol/L BUN 28 H (9-20) mg/dL Glucose 120 H (74-99) mg/dL Calcium 8.0 L (8.4-10.2) mg/dL AST 14 L (17-59) U/L Total Protein 4.8 L (6.3-8.2) g/dL Albumin 2.3 L (3.5-5.0) g/dL Microbiology - Last 24 Hours (Table) 10/11/20 11:46 Blood Culture - Preliminary Blood No Growth after 96 hours Assessment and Plan Assessment: * Acute left hemiparesis, possible CVA. Etiology likely due to cardioembolism from atrial fibrillation. * Advanced dementia * Superimposed encephalopathy, likely due to pneumonia. Recent history of COVID infection. * Atrial fibrillation. * CT head reported hydrocephalus, but patient probably has advanced dementia. Not a candidate for ventriculoperitoneal shunting. Plan: * Continue Lovenox 40 mg twice a day. * Repeat computed tomography scan of the head today did not reveal any evolving stroke. ?Cervical etiology. Patient has soft neck collar in place. * Carotid Doppler showed no significant stenosis. Antegrade flow in both vertebral arteries.. * Telemetry monitoring showing atrial fibrillation, bigeminy, PAC, PVCs and runs of V. tach. Cardiology on board. Patient started on amiodarone and also on Cardizem. * Patient on antibiotics for pneumonia. * 2-D echo from 10/02/2020 showed mild concentric LVH, severe global hypokinesis of left ventricle. EF is severely impaired 20-25%. Left atrium is moderately dilated. * Patient's family interested in continuing full care. Discussed with patient's nurse Mr Cardenas, to discuss with family about consideration for MRI of the brain and cervical spine. If the family agrees, to go ahead with ordering these tests.
--- NOTE | 2020-10-16 00:18 | P.PN ---
Progress Note - Text Progress Note Date: 10/15/20 Chief Complaint: Unwell History of presenting complaint: This is a 84-year-old patient resident of [facility] in [facility] being followed by Davide Pérez. Patient tested positive for COVID 19 on 09/16/2020. recently at [facility] was treated there for UTI. From that he was discharged and sent to rehab at [facility] in [facility]. In the process patient lost some weight and become rather weak. Admitted September 16. Diagnosed with COVID 19 pneumonia. Treated with heparin steroids. Also to acute kidney injury felt to be from Bactrim. Acute metabolic encephalopathy. Hyponatremic. Uncontrolled A. fib. Advanced medical debility. Patient was discharged on October 05. Patient oral intake was fairly left the hospital. Now presents to the ER. As per the EMS run sheet: Blood pressure 120/88, pulse 81, respiration 30, pulse ox 83% on room air, temperature 100.6. EMS was called out for patient having rapid respirations and tachycardia. Patient is barely been talking over the last week. Decrease response to stimuli. Patient been moving his hand under his head. No signs of trauma. EKG showed sinus tachycardia. Left arm felt to be flaccid. Admitted with right lower lobe pneumonia, possible aspiration with sepsis lactic acidosis, metabolic encephalopathy, hyper natremia, atrial fibrillation rapid ventricular rate. Started on IV Zosyn, aspiration precautions, IV fluids. [place] to have embolic stroke. Affecting the left arm. Developed collapse atelectasis of the right lung. Today-still somewhat delirious. Moving his head. Per daughter able to communicate. Spoke to pulmonary. Some improvement of the right site. Bronchoscopy deferred. Nurse called me that patient's son wants of feeding tube. . review of systems:Patient cannot tell. Active Medications Acetaminophen (Acetaminophen Suppository 650 Mg Supp) 650 mg RECTAL Q4HR PRN PRN Reason: Fever and/ or Mild Pain Last Admin: 10/12/20 01:07 Dose: 650 mg Documented by: Acetaminophen (Acetaminophen Tab 325 Mg Tab) 650 mg PO Q8HR@0600,1400,2200 [facility] Last Admin: 10/15/20 21:29 Dose: Not Given Documented by: Albuterol Sulfate (Albuterol Hfa Inhaler) 1 puff INHALATION RT-Q6H PRN PRN Reason: Wheezing Last Admin: 10/15/20 12:13 Dose: 1 puff Documented by: Ascorbic Acid (Ascorbic Acid 500 Mg Tab) 500 mg PO BID [facility] Last Admin: 10/15/20 20:10 Dose: Not Given Documented by: Cholecalciferol (Cholecalciferol 25 Mcg (1000 Iu) Tablet) 125 mcg PO DAILY [facility] Last Admin: 10/15/20 09:07 Dose: Not Given Documented by: Docusate Sodium (Docusate 100 Mg Cap) 100 mg PO DAILY@2099 [facility] Last Admin: 10/15/20 20:10 Dose: Not Given Documented by: Enoxaparin Sodium (Enoxaparin 40 Mg/0.4 Ml Syringe) 40 mg SQ BID@0900,2099 [facility] Last Admin: 10/15/20 20:13 Dose: 40 mg Documented by: Escitalopram Oxalate (Escitalopram 5 Mg Tab) 5 mg PO DAILY@2099 [facility] Last Admin: 10/15/20 20:10 Dose: Not Given Documented by: Diltiazem HCl 125 mg/ Sodium (Chloride) 125 mls @ 5 mls/hr IV .Q24H [facility] Last Admin: 10/15/20 18:11 Dose: 10 mg/hr, 10 mls/hr Documented by: Dextrose/Water (Dextrose 5%-Water Iv Soln) 1,000 mls @ 100 mls/hr IV .Q10H [facility] Last Admin: 10/15/20 06:34 Dose: 100 mls/hr Documented by: Piperacillin Sod/Tazobactam (Sod 3.375 gm/ Sodium Chloride) 100 mls @ 25 mls/hr IVPB Q8H [facility] Last Admin: 10/15/20 18:09 Dose: 25 mls/hr Documented by: Lisinopril (Lisinopril 2.5 Mg Tab) 2.5 mg PO DAILY@0900 [facility] Last Admin: 10/15/20 09:07 Dose: Not Given Documented by: Metoprolol Tartrate (Metoprolol Tartrate 50 Mg Tab) 50 mg PO ONCE PRN PRN Reason: elevated pulse Metoprolol Tartrate (Metoprolol Tartrate 50 Mg Tab) 50 mg PO BID@0900,2100 [facility] Last Admin: 10/15/20 20:10 Dose: Not Given Documented by: Miscellaneous Information (Pneumonia Protocol Utilized 1 [facility]) 1 each PO ONCE PRN PRN Reason: Per Protocol Zinc Sulfate (Zinc Sulfate 220 Mg Cap) 220 mg PO DAILY [facility] Last Admin: 10/15/20 09:07 Dose: Not Given Documented by: Past medical history to include: Atrial fibrillation, CHF, COPD, dementia, GERD, hypertension, hyperlipidemia carotid artery disease with bypass, partial pneumonectomy, anxiety depression. COVID 19 pneumonia diagnosed 09/16/2020 Social history: rehab at [facility]. No history of smoking or alcohol Family history: Patient cannot tell Physical examination: VITAL SIGNS: 98.2, on 10 9, 30, 123 with 82, 95% on BiPAP GENERAL: BMI 19, laying in bed, slightly restless, EYES: Pupils equal. Conjunctiva normal HEENT: External appearance of nose and ears normal, oral cavity dry NECK: wearing a collar HEART: Irregular heart sounds no edema. LUNGS:[ Respiratory rate increased; decreased breath sounds. ABDOMEN: Soft, nontender, liver spleen not palpable, no masses palpable. PSYCH: Unable to assess. NEUROLOGICAL: Cranial nerves grossly intact; not moving left arm since presentation INVESTIGATIONS, reviewed in the clinical context: October 07: White count 10.1 hemoglobin 12.2 sodium 140 potassium 3.6 creatinine 0.94. Check stat x-ray-7 improvement of aeration on the right side. With infiltrates October 14: White count 11.4 hemoglobin 12 potassium 3.6 creatinine 1.05 Chest x-ray film personally reviewed by me-new right-sided wipeout, with trachea pulled of the right Coronavirus [PCR]-detected White count 15.3 hemoglobin 14.4 platelets 315-2150 potassium 4.8 bun 41 and creatinine 1.06 Lactic acid 2.4 CRP 86.5 pro-calcitonin 0.21 UA positive for leukoesterase, WBC, bacteria Urine culture-E. coli/ESBL EKG tracing personally reviewed by me--sinus tachycardia Chest x-ray film personally reviewed by me-right lower lobe infiltrate Assessment: -Right lower lobe pneumonia, suspect gram-negative orgasm and/or aspiration, causing sepsis with lactic acidosis, -Right-sided atelectasis with some improvement -Acute cardioembolic stroke causing left arm paresis -Acute metabolic encephalopathy from infection, hypernatremia-slow to respond -Hypernatremia, from free water deficit-slow to respond -Persistent Atrial fibrillation with a rapid ventricular rate-remains uncontrollable 100 -COPD -Alzheimer's dementia -GERD -Hyperlipidemia -Essential hypertension -Coronary artery disease with prior history of bypass -History of pneumonectomy partial -Moderate protein calorie malnutrition patient has decreased muscle mass loss of subcutaneous fat and a BMI 19 -Advancing medical debility -No code Plan: Continue IV Zosyn. IV fluids. IV Cardizem. Aspiration precautions. Per the wishes of patient's son, GI's been consulted for a PEG tube placement. Dose is guarded. Bronchoscopy deferred for now as improvement of aeration of the right lung. Total time spent about 45 minutes with over 25 minutes of discussion.
[2020-10-16] MEDS: PIPERACILLIN-TAZOBACTAM 3.375 GM in SODIUM CHLORIDE 0.9% 100 ML IVPB SCH ×3 (02:33→18:58)
[2020-10-16] MEDS: ACETAMINOPHEN TAB 325 MG TAB PO SCH ×3 (05:50→20:24)
--- NOTE | 2020-10-16 07:26 | XR ---
EXAMINATION TYPE: XR chest 1V portable DATE OF EXAM: 10/16/2020 HISTORY: Shortness of breath. COMPARISON: 10/15/2020 TECHNIQUE: Single view of the chest is submitted. FINDINGS: Demonstrated are scattered senescent parenchymal change. Persistent right mid and right lower lung zone infiltrates as well as left lower lobe infiltrate. Sma ll right-sided pleural effusion. Overall no change appreciated. The heart is stable. Hilar and mediastinal structures are within normal limits. Degenerative changes are seen of the dorsal spine. IMPRESSION: 1. Persistent right mid and right lower lung zone infiltrates as well as left lower lobe infiltrate. Small right-sided pleural effusion. Overall no change appreciated.
[2020-10-16] MEDS: ALBUTEROL HFA INHALER INHALATION PRN (09:00)
[2020-10-16] MEDS: ASCORBIC ACID 500 MG TAB PO SCH ×2 (09:27→20:24)
[2020-10-16] MEDS: CHOLECALCIFEROL 25 MCG (1000 IU) TABLET PO SCH (09:27)
[2020-10-16] MEDS: METOPROLOL TARTRATE 50 MG TAB PO SCH (09:27)
[2020-10-16] MEDS: ZINC SULFATE 220 MG CAP PO SCH (09:27)
[2020-10-16] MEDS: ENOXAPARIN 40 MG/0.4 ML SYRINGE SQ SCH ×2 (09:35→20:59)
--- NOTE | 2020-10-16 12:44 | P.PN ---
Subjective Progress Note Date: 10/16/20 84-year-old white male patient, with recent history of hospitalization for COVID19 pneumonia, and patient was discharged to the [facility] on the [address] on 10/05/2020. Patient was hospitalized from 10/01/2020 through 10/05/2020. Patient is a poor historian, has underlying history of advanced dementia, his s evere cardiomyopathy with EF of around 20-25%, atrial fibrillation, chronic congestive heart failure systolic dysfunction, hypertension, hyperlipidemia, anxiety, frequent falls, previous history of subdural hemorrhage, recent cervical neck fracture currently in a soft collar. On 10/11/2020 patient was brought into the emergency department for evaluation of fever, tachycardia. His previous chest x-ray from his previous admission there was mild right basilar opacity, most likely related to atelectasis, a CT angiogram of the chest showed no evidence of pulmonary embolism. 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 His subsequent chest x- ray on 10/05/2020 showed some worsening in the appearance of the right lower lobe and right middle lobe hazy infiltration. However clinically patient had remained stable and did not have any worsening in his oxygenation and he was discharged to the residential on [place]. His chest x-ray on admission on the 2020 showed right mid and lower lung field infiltrates. EKG showed SVT with a rate of 166, temperature was 100.5F, patient was satting 93% on 12 L of oxygen. His laboratory data showed leukocytosis with white blood cell, 15.3, hemoglobin of 14.4, neutrophils of 14, lymphocyte count of 0.7, his INR was 1, sodium is 150, potassium is 4.8, chloride was 121, BUN of 41 Cr1.06, his LDH has trended up to 937 from 585, CRP is 86.5, up from 138 during last admission, pro- calcitonin level is 0.21, his urinalysis shows evidence of infection. Patient is lethargic, and there is suspicion for aspiration pneumonia. He was started on a azithromycin and Rocephin for empiric antibiotic coverage, however in view of suspected aspiration we will switch the antibiotic coverage to Zosyn. Brain CT showed mild to moderate ventricular megaly/hydrocephalus probably in part due to central cerebral atrophy. No acute intracranial abnormality On 10/13/2020 patient seen in follow-up on selective care unit. Patient is aw larry, but confused, encephalopathic, but does not appear to be in any acute distress. He is currently on 7 L of oxygen the pulse ox of 97%, not sure why his oxygen had increased, earlier patient was on 3 L of oxygen pulse ox of 94%, patient has been nothing by mouth in view of his altered mentation, speech evaluation was obtained, and patient was noted to be coughing with thin liquids, and although she did not outright failed the swallow evaluation his altered mental status prevented him from following simple verbal commands. Patient had a delayed swallow, and coughing after swallowing, difficulty chewing. Recommendation was made for dysphagia level I pured diet with nectar thick liquids upright positioning, direct one-on-one supervision, however in view of his continued altered mental status, generalized weakness, suspected chronic aspiration, we will recommend PEG tube placement for nutritional support. Today's chest x-ray shows near complete opacification of the right hemithorax, left lung hyperinflated, mild patchy density in the right medial lung base. Patient has a very weak cough, likely developed mucous plugging in the right mainstem bronchus, however his CODE STATUS is DO NOT RESUSCITATE, he is a very frail. We placed on BiPAP support. Overall his CODE STATUS needs to be readdressed again, as the patient is suspected to be chronically aspirating, will need PEG tube for nutritional support if the patient's family wants to continue with supportive care. He has been unable to take any of his oral medications, cardiology has the patient on Cardizem and amiodarone drip for rate control. Patient is on Zosyn for empiric antibiotic coverage. The patient is seen today 10/14/2020 in follow-up on the selective care unit. He is currently resting in bed. He remains on BiPAP 12/6 and 40% FiO2 to maintain O2 saturations in the 90s. He is currently afebrile. Urine culture positive for E. coli. Blood culture reveals no growth. White count 11.1. Hemoglobin 12.0. Sodium 139. Potassium 3.6. Creatinine 1.05. He remains on a Cardizem drip at 5 mg per hour. Lovenox for DVT prophylaxis. Antibiotics in the form of Zosyn. He is a DO NOT RESUSCITATE/DO NOT INTUBATE CODE STATUS. He remains quite ill. Minimally responsive. X-ray reveals opacified right hemithorax likely due to atelectasis and possible associated effusion. The patient is seen today 10/15/2020 in follow-up on the selective care unit. He is currently resting in bed. He remains on BiPAP 12/6 at 40% FiO2. He does open his eyes to verbal request. Currently afebrile. Still tachycardic. Tachypneic. Chest x-ray is showing improved aeration to the right lung. Moderate infiltrate remains in the right midlung field. Small effusion. Blood cultures reveal no growth. Urine culture positive for E. coli. White count 10.1. Hemoglobin 12.2. Sodium 148. Potassium 3.6. Creatinine 0.94. Follow- up chrona virus testing was still positive. The patient is seen today 10/16/2020 follow-up on the selective care unit. He is currently resting fairly comfortably in bed. He is awake. Off the BiPAP. Currently on 3 L nasal cannula and maintaining O2 saturation in the 90s. He's b een afebrile. Chest x-ray continues to show improved aeration of the right lung. Continued infiltrate. Small effusion. Urine culture positive for E. coli. He remains on Zosyn. Remains tachycardic. On Cardizem drip at 10 mg per hour. Lovenox for DVT prophylaxis. He remains on D5W at 100 ML's per hour. Aspiration precautions. Plan is for PEG tube placement. Objective - Vital Signs Vital signs: Vital Signs Temp 98.5 F 10/16/20 11:42 Pulse 110 H 10/16/20 11:42 Resp 26 H 10/16/20 11:42 BP 121/72 10/16/20 11:42 Pulse Ox 94 L 10/16/20 11:42 Intake & Output 10/15/20 10/16/20 10/16/20 18:59 06:59 18:59 Intake Total 908.500 800 Output Total 0 Balance 908.500 800 Weight 59.8 kg Intake: Intake, IV Titration 908.500 800 Amount Dextrose 5% in Water 1, 700 800 000 ml @ 100 mls/hr IV . Q10H [facility] Rx#:[id number] Diltiazem 125 mg In 108.500 Sodium Chloride 0.9% 100 ml @ 5 MG/HR 5 mls/hr IV .Q24H [facility] Rx#:[id number] Piperacillin-Tazobactam 3 100 .375 gm In Sodium Chloride 0.9% 100 ml @ 25 mls/hr IVPB Q8H [facility] Rx#: [id number] Output: Stool 0 Other: Voiding Method Indwelling Catheter Indwelling Catheter - Exam GENERAL EXAM: Lethargic, drowsy 84-year-old male patient on 6 L high flow nasal cannula, he has a weak cough, unable to clear secretions, is thought to be chronically aspirating HEAD: Normocephalic/atraumatic. EYES: Normal reaction of pupils, equal size. Conjunctiva pink, sclera white. NOSE: Clear with pink turbinates. THROAT: No erythema or exudates. NECK: No masses, no JVD, no thyroid enlargement, no adenopathy. CHEST: No chest wall deformity. Symmetrical expansion. LUNGS: Equal air entry with few crackles in the right lung base, diminished CVS: Regular rate and rhythm, normal S1 and S2, no gallops, no murmurs, no rubs ABDOMEN: Soft, nontender. No hepatosplenomegaly, normal bowel sounds, no guarding or rigidity. EXTREMITIES: No clubbing, no edema, no cyanosis, 2+ pulses and upper and lower extremities. MUSCULOSKELETAL: Muscle strength and tone normal. SPINE: No scoliosis or deformity SKIN: No rashes CENTRAL NERVOUS SYSTEM: Drowsy, lethargic No focal deficits, tone is normal in all 4 extremities. - Labs CBC & Chem 7: 10/15/20 08:00 10/15/20 08:00 Labs: Microbiology - Last 24 Hours (Table) 10/11/20 11:46 Blood Culture - Preliminary Blood No Growth after 96 hours Assessment and Plan Assessment: 1. Acute hypoxic respiratory failure related to suspected aspiration pneumonia in addition to recent history of COVID 19 related pneumonia. Currently on 6 L high flow nasal cannula. Coronavirus still detected 10/14/2020. 2. Suspect chronic aspiration related to overall generalized medical debility, toxic metabolic encephalopathy 3. Aspiration pneumonia with Near-complete opacification of the right hemithorax likely related to right mainstem mucous plugging, patient has a very weak and ineffective cough, mentation has been altered, patient is thought to be chronically aspirating. Follow-up chest x-ray shows improved aeration of the right lung base. No plans for bronchoscopy. 4. A. fib with RVR, remains on Cardizem and amiodarone drip 5. Chronic systolic heart failure 6. Recent hospitalization for acute exacerbation of systolic CHF and A. fib wi th RVR 7. Recent COVID 19 infection diagnosed on 09/16/2020 8. Acute metabolic encephalopathy and underlying advanced dementia, brain CT showed no acute intracranial abnormality 9. Hypertension 10. Hyperlipidemia 11. Coronary artery disease with prior history of bypass 12. Frequent falls, recent fracture of C1, currently in the soft collar 13. History of paroxysmal A. fib not on anticoagulation due to multiple falls 14. History of subdural hemorrhage 15. GERD/reflux 16. Anxiety/depression Plan: The patient was seen and evaluated by Dr. Cantu Chest x-ray shows improved aeration of the right lung No plans for bronchoscopy at this point Repeat CoVID 19 screen still positive He is a DO NOT RESUSCITATE/DO NOT INTUBATE CODE STATUS Remains on aspiration precautions Plan is for PEG tube placement Prognosis is poor We will see as needed I, the cosigning physician, performed a history & physical examination of the patient. Lungs sounds few crackles in the right lung base, diminished.. Maintaining good O2 saturations in the 90s on 6 L high flow nasal cannula. I discussed the assessment and plan of care with my nurse practitioner, Aury Serrano. I attest to the above note as dictated by her.
--- NOTE | 2020-10-16 13:51 | P.PN ---
Subjective HISTORY OF PRESENTING ILLNESS This is a pleasant 84-year-old male past medical history significant for paroxysmal atrial fibrillation on long-term anticoagulation secondary to frequent falls and subdural hematoma in the past, COPD, chronic systolic heart failure, hypertension, dyslipidemia and coronary artery disease status post bypass grafting exact details unavailable. The patient is nonverbal. He does not answer questions or give history. He continues to refuse oral intake. Currently maintained on IV amiodarone and cardizem for rate control. Blood pressure 113/77 heart rate 83 afebrile and maintaining oxygen saturation on bip ap. Repeat chest x-ray today reveals opacified right hemithorax likely due to atelectasis or possible associated effusion. Laboratory data reviewed, WBC 11.4, hemoglobin 12, platelets 245, sodium 149, potassium 3.6 and creatinine 1.05. 10/15/2020 Heart rates are better today but not below 100. He continues to be on a cardizem infusion. Blood pressure 123/82 heart rate 109 afebrile and maintaining oxygen saturation on bipap. Laboratory data reviewed, WBC 10.1, hemoglobin 12.2, platelets 148, sodium 136 and creatinine 0.94. According to the nursing staff there is discussion of possible comfort care. He continues to refuse any oral intake. Chest x-ray obtained today reveals ongoing moderate infiltrate in the right mid to lower lung field with some improved aeration. 10/16/2020 Discussed the case with the nurse. He continues to be in atrial fibrillation however his rates are better controlled today on Cardizem infusion. Unfortunately he is still not taking in oral intake. There is discussion about possible PEG tube placement. Blood pressure 134/73 heart rate 96 afebrile maintaining oxygen saturation on room air. PHYSICAL EXAMINATION CONSTITUTIONAL: No apparent distress. No physical exam performed due to COVID 19 to prevent spread of infection. ASSESSMENT Covid 19 Paroxysmal atrial fibrillation not on terminal supervisor anticoagulation secondary to history of falls and subdural hematoma Leukocytosis Lactic acidosis Chronic systolic heart failure Coronary artery disease status post bypass grafting Hypertension Dyslipidemia COPD Dementia PLAN Continue IV cardizem for rate control as long as he is not tolerating oral intake. He is currently being evaluated for possible PEG tube placement. We will transition to oral agents if he does get a PEG tube placed. Given his current medical state and co-morbid conditions, he is high risk to undergo surgical intervention however, is this is the families wish we will provided supportive care. Nurse Practitioner note has been reviewed, I agree with a documented findings and plan of care. Patient was seen and examined. Objective - Vital Signs Vital signs: Vital Signs Temp 98.5 F 10/16/20 11:42 Pulse 110 H 10/16/20 11:42 Resp 26 H 10/16/20 11:42 BP 121/72 10/16/20 11:42 Pulse Ox 94 L 10/16/20 11:42 Intake & Output 10/15/20 10/16/20 10/16/20 18:59 06:59 18:59 Intake Total 908.500 800 Output Total 0 Balance 908.500 800 Weight 59.8 kg 59.8 kg Intake: Intake, IV Titration 908.500 800 Amount Dextrose 5% in Water 1, 700 800 000 ml @ 100 mls/hr IV . Q10H [facility] Rx#:[id number] Diltiazem 125 mg In 108.500 Sodium Chloride 0.9% 100 ml @ 5 MG/HR 5 mls/hr IV .Q24H [facility] Rx#:[id number] Piperacillin-Tazobactam 3 100 .375 gm In Sodium Chloride 0.9% 100 ml @ 25 mls/hr IVPB Q8H [facility] Rx#: [id number] Output: Stool 0 Other: Voiding Method Indwelling Catheter Indwelling Catheter - Labs CBC & Chem 7: 10/15/20 08:00 10/15/20 08:00 Labs: Microbiology - Last 24 Hours (Table) 10/11/20 11:46 Blood Culture - Preliminary Blood No Growth after 96 hours
[2020-10-16] MEDS: DILTIAZEM 125 MG in SODIUM CHLORIDE 0.9% 100 ML IV SCH (17:21)
--- NOTE | 2020-10-16 18:11 | PN ---
PROGRESS NOTE DATE OF SERVICE: 10/16/2020 This 85-year-old gentleman who is a resident of [facility] on the [place], followed by Dr. Umanzor in the outpatient setting, was admitted with a COVID positive test last month. The patient also was recently at [facility] for UTI. The patient is being closely monitored at this time. The patient was admitted with possible COVID-19 pneumonia. The patient was treated with heparin and steroids. Right lower lobe pneumonia is persistent and the patient also had a change in mental status. Oral intake appears to be extremely poor. The chest x-ray, which was reviewed personally by me, showed significant pneumonia bilaterally, significantly more on the right than left, and multiple consultants are following the patient closely. As mentioned earlier, speech pathology evaluation is in progress also. The patient is currently NO CODE. The patient also requires oxygen and at times BiPAP. Past medical history reviewed. Review of systems could not be taken. CURRENT MEDICATIONS: Reviewed. They include Tylenol, Ventolin, vitamin C, vitamin D3, Lovenox, Lexapro, Zosyn IV. PHYSICAL EXAMINATION: Patient is stuporous. Pulse is 110, blood pressure 131/70, respiration 26, temperature 98.4, pulse ox 94% on 3 L. HEENT: Conjunctivae normal. NECK: No jugular venous distention. CARDIOVASCULAR SYSTEM: S1, S2 muffled. RESPIRATORY SYSTEM: Breath sounds diminished at the bases. Bilateral scattered rhonchi and crackles. ABDOMEN: Soft, non-tender. NERVOUS SYSTEM: Diffusely weak. LABS: WBC 10.1, hemoglobin 12.6. Sodium 148. ASSESSMENT: 1. Acute bilateral COVID-19 pneumonia, right more than left, with acute hypoxic respiratory failure as well as sepsis, present on admission. 2. Change in mental status, acute on chronic metabolic encephalopathy. 3. Escherichia coli sepsis. 4. Hypernatremia, possibly secondary to dehydration and poor oral intake. 5. Increased white count, possibly secondary to sepsis. 6. Anemia, normocytic anemia of chronic disease. 7. Severe protein-calorie malnutrition with body mass index of 18.9. 8. History of chronic obstructive pulmonary disease. 9. History of atrial fibrillation. 10.History of congestive heart failure. 11.History of dementia. 12.Gastroesophageal reflux disease. 13.Hypertension. 14.Hyperlipidemia. 15.Extended-spectrum beta-lactamase in the urine. 16.Anxiety, depression. 17.NO CODE, NO CPR, NO VENT. RECOMMENDATIONS AND DISCUSSION: In this 85-year-old gentleman who presented with multiple complex medical issues, we will monitor the patient closely, continue the current medications, continue with symptomatic treatment. At this time the urine culture showed ESBL E coli. I would consult Dr. Alicia to fine-tune the antibiotic treatment. The patient is currently on Zosyn. Cardiology is following the patient along with multiple other consultants. IV 5% dextrose is also being given. Will continue to monitor. Prognosis is extremely guarded because of multiple complex medical issues. Further recommendations to follow. MMODL / IJN: [id number] /
--- NOTE | 2020-10-16 19:48 | P.PN ---
Subjective Progress Note Date: 10/16/20 Patient essentially unchanged. Patient continues to be nonverbal and significantly encephalopathic. Continues to have flaccid left upper extremity. Very somnolent. Encephalopathic. As per son, the patient tries to communicate, but appears too weak to answer. I spoke to patient's son in detail. He tells me that patient fell at home dislocating left shoulder. He was admitted to [facility] at that time. This then he has chronic weakness in the left arm. He barely move his arm, and has been flaccid since last 6 months, not a new issue. Patient turned positive for Covid on 09/19/2020. He states that on 10/05/2020 after patient was discharged from hospital, he was only answering with only yes or no response, following simple commands. However after he was transferred to [facility], since then he has not been talking at all. Patient at present has aspiration pneumonia, recent Covid infection with persistent positive reactivity, even as of 10/16/2020. He also has severe CHF, which probably is contributing to metabolic encephalopathy. Objective - Vital Signs Vital signs: Vital Signs Temp 98.9 F 10/16/20 17:16 Pulse 110 H 10/16/20 17:16 Resp 28 H 10/16/20 17:16 BP 133/66 10/16/20 17:16 Pulse Ox 97 10/16/20 17:16 Intake & Output 10/16/20 10/16/20 10/17/20 06:59 18:59 06:59 Intake Total 925 Output Total 0 400 Balance 925 -400 Weight 59.8 kg 59.8 kg Intake: Intake, IV Titration 925 Amount Dextrose 5% in Water 1, 800 000 ml @ 100 mls/hr IV . Q10H [facility] Rx#:[id number] Diltiazem 125 mg In 125 Sodium Chloride 0.9% 100 ml @ 5 MG/HR 5 mls/hr IV .Q24H [facility] Rx#:[id number] Output: Urine 400 Stool 0 Other: Voiding Method Indwelling Catheter Indwelling Catheter - Exam Patient continues to be nonverbal, encephalopathic, does not follow commands. Left arm is flaccid. Patient does move right arm to painful stimuli. Patient moves both legs to painful stimuli, right slightly better than the left. - Labs CBC & Chem 7: 10/15/20 08:00 10/15/20 08:00 Labs: Abnormal Lab Results - Last 24 Hours (Table) 10/16/20 Range/Units 16:41 D-Dimer 1.23 H (<0.60) mg/L FEU Microbiology - Last 24 Hours (Table) 10/11/20 11:46 Blood Culture - Preliminary Blood No Growth after 120 hours Assessment and Plan Assessment: * Chronic left arm weakness, since suffering from a fall 6 months ago. Per patient's son description, the left arm weaknesses is chronic, not a new issue. * Nonverbal state, probably due to toxic metabolic encephalopathy. Patient has multiple active infectious issues, organ dysfunction as mentioned below, probably resulting in toxic metabolic encephalopathy. * Aspiration pneumonia, recent COVID infection * UTI * CHF with low ejection fraction * Hypernatremia * Advanced dementia * Atrial fibrillation. * CT head reported hydrocephalus, but patient probably has advanced dementia. Not a candidate for ventriculoperitoneal shunting. Plan: * After discussion with the patient's son, it appears the left arm weakness is chronic. Patient's inability to speak is likely from significant toxic metabolic encephalopathy. No need for MRI at this time. Patient had CT scans of head performed twice that were negative. * Continue Lovenox 40 mg twice a day. * Carotid Doppler showed no significant stenosis. Antegrade flow in both vertebral arteries.. * Telemetry monitoring showing atrial fibrillation, bigeminy, PAC, PVCs and runs of V. tach. Cardiology on board. Patient started on amiodarone and also on Cardizem. * Patient on Zosyn for pneumonia and UTI. * 2-D echo from 10/02/2020 showed mild concentric LVH, severe global hypokinesis of left ventricle. EF is severely impaired 20-25%. Left atrium is moderately dilated. * Medical management as per IM. Patient has enough medical conditions to acc ount for encephalopathy. We will check EEG.
[2020-10-16] MEDS: DEXTROSE 5% IN WATER 1,000 ML IV SCH (20:24)
[2020-10-16] MEDS: DOCUSATE 100 MG CAP PO SCH (20:24)
[2020-10-16] MEDS: ESCITALOPRAM 5 MG TAB PO SCH (20:24)
[2020-10-16] MEDS: MEROPENEM 1 GM in SODIUM CHLORIDE 0.9% 100 ML IVPB SCH (22:57)
--- NOTE | 2020-10-16 23:11 | CONS ---
CONSULTATION DATE OF SERVICE: 10/16/2020. REASON FOR CONSULTATION: Covid and UTI. HISTORY OF PRESENT ILLNESS: The patient is an 85-year-old male who is a resident of the [facility]. Apparently the patient was diagnosed with COVID-19 on September 16, 2020. The patient subsequently was admitted at this facility and after stabilization discharged back to the half-way according to the son who provided most of the history present at bedside. The patient was in half-way for a few days before the patient was brought back to the ER on October 11, 2020 for evaluation of weakness, shortness of breath, and apparently the patient did have tachycardia. Patient on presentation to the hospital on October 11 was afebrile. However he did have a fever of 100.5 degrees Fahrenheit on October 11. The patient has been hypoxic requiring supplemental oxygen therapy, that has been slowly weaning off. The patient on admission did have a white count of 15,000. He did have a positive UA and romero PCR remains to be positive. Chest x-ray did show some right-sided infiltrate and there was concern for opacification of the right side and possible aspiration pneumonia. The patient has been treated with Zosyn. His urine culture subsequently came back positive with ESBL E coli. Infectious disease was consulted today for further management of antibiotic therapy. The patient is currently slightly lethargic, though he was able to answer some questions. He did mention he was feeling better. He was breathing more comfortably. Mentioned he was feeling hungry. He would like to eat. The patient has been made n.p.o. with concern for possible aspiration and with the initial plan for a PEG tube which has been postponed. The patient denies any chest pain. He did have a cough mild to moderate in intensity but not able to bring up any sputum. No vomiting has been reported or any diarrhea. REVIEW OF SYSTEMS: Positive points have been mentioned in HPI. Rest of systems are negative. PAST MEDICAL HISTORY: Atrial fibrillation, heart failure, COPD, gastroesophageal reflux disease, hypertension, hyperlipidemia. PAST SURGICAL HISTORY: and coronary artery bypass grafting. SOCIAL HISTORY: No history of smoking, drinking or drug use. FAMILY HISTORY: No pertinent findings noticed. ALLERGIES: Allergies to , MORPHINE, MEDICATIONS: Include the patient is currently on Tylenol, Ventolin, vitamin C, diltiazem, Colace, Lovenox Lexapro, Zosyn and zinc. PHYSICAL EXAMINATION: Blood pressure 130/66, pulse of 110. Temperature 98.9. He is 97% on 2 L nasal cannula. General description: The patient is an elderly male lying in bed in no distress. No tachypnea or accessory muscles of respiration use. HEENT: Examination shows no pallor or scleral icterus. Oral mucous membranes dry. NECK: Trachea is central. No thyromegaly. LUNGS: Unlabored breathing with decreased breath sounds in the base, with no wheeze or crackles. HEART S1, S2. Regular rate and rhythm. ABDOMEN: Soft, no tenderness. No guarding. No rigidity. EXTREMITIES are no edema of the feet. SKIN examination: No rashes or masses palpable. NEUROLOGICALLY: Patient is awake, alert, oriented x1. Mood and affect normal. LABS: Hemoglobin is 12.1, white count 10.1. is 15.3, BUN of 28, creatinine 0.94, abnormal. CRP on admission 86.5, . Lactic acid 3.3, repeat is 1.9. mentioned above. DIAGNOSTIC IMPRESSION AND PLAN: Patient admitted to the hospital with weakness, tachycardia, fever, elevated white count meeting criteria for sepsis with source likely combination of ESBL E coli urinary tract infection, possible right-sided aspiration pneumonia in this patient who has grown ESBL E coli in the urine and will need to cover for the resistant to be likely pathogen responsible for pneumonia and urinary tract infection. PLAN: 1. We will try to obtain sputum for Gram stain and culture. 2. Discontinue Zosyn. 3. Start the patient on meropenem 1 g q.8 hours. 4. We will follow on clinical condition and further adjust medication if needed. Thank you for this consultation. Will follow this patient along with you. Son at the bedside. His questions and concerns were answered. MMODL / IJN: [id number] /
[2020-10-17] MEDS: ACETAMINOPHEN TAB 325 MG TAB PO SCH ×3 (06:00→19:54)
[2020-10-17 07:21] LABS: Basophils % (A) 0 %; Eosinophils # (A) 0.2 k/uL (0-0.7); Eosinophils % (A) 3 %; HCT 36.4 % (39.0-53.0); HGB 11.9 gm/dL (13.0-17.5); Hypochromasia Slight; Lymphocytes # (A) 0.9 k/uL (1.0-4.8); Lymphocytes % (A) 12 %; MCH 29.7 pg (25.0-35.0); MCHC 32.6 g/dL (31.0-37.0); MCV 91.1 fL (80.0-100.0); Mean Platelet Volume 7.8; Monocytes # (A) 0.3 k/uL (0-1.0); Monocytes % (A) 4 %; Neutrophils # (A) 5.9 k/uL (1.3-7.7); Neutrophils % (A) 81 %; Platelet Count 189 k/uL (150-450); RDW 14.5 % (11.5-15.5); WBC 7.3 k/uL (3.8-10.6)
[2020-10-17 07:36] LABS: African American GFR (CKD) >90 (>60 ml/min/1.73 sqM); Anion Gap 6 mmol/L; Blood Urea Nitrogen 18 mg/dL (9-20); Calcium 7.7 mg/dL (8.4-10.2); Carbon Dioxide 22 mmol/L (22-30); Chloride 113 mmol/L (98-107); Glucose 94 mg/dL (74-99); LDH 457 U/L (313-618); Non-African American GFR(CKD) 83 (>60 ml/min/1.73 sqM); Potassium 3.4 mmol/L (3.5-5.1); Sodium 141 mmol/L (137-145)
[2020-10-17] MEDS: ASCORBIC ACID 500 MG TAB PO SCH ×2 (08:33→19:54)
[2020-10-17] MEDS: ZINC SULFATE 220 MG CAP PO SCH (08:33)
[2020-10-17] MEDS: CHOLECALCIFEROL 25 MCG (1000 IU) TABLET PO SCH (08:33)
[2020-10-17 08:38] LABS: C Reactive Protein 77.1 mg/L (<10.0)
[2020-10-17] MEDS: FLUTICASONE 50MCG/SPRAY NASAL 16GM EA NOSTRIL SCH (09:56)
[2020-10-17] MEDS: MEROPENEM 1 GM in SODIUM CHLORIDE 0.9% 100 ML IVPB SCH ×3 (09:56→23:47)
[2020-10-17] MEDS: DEXTROSE 5% IN WATER 1,000 ML IV SCH (09:56)
[2020-10-17] MEDS: ENOXAPARIN 40 MG/0.4 ML SYRINGE SQ SCH ×2 (09:57→19:54)
--- NOTE | 2020-10-17 11:35 | P.CONS ---
History of Present Illness - Reason for Consult Consult date: 10/16/20 PEG tube placement Requesting physician: Beni Carrion - Chief Complaint Weakness, altered mental status - History of Present Illness 84-year-old male with multiple medical comorbidities including hypertension, osteoarthritis, atrial fibrillation, cardiomyopathy, congestive heart failure and recent diagnosis of Covid 19 pneumonia who was sent to an extended care facility after a urinary tract infection. Patient was brought back to the hospital for further evaluation due to worsening mental status. Currently the patient is receiving treatment for hypoxic respiratory failure on oxygen and possible aspiration pneumonia. The gastroenterology service was consult is to evaluate the patient for possible PEG tube placement. Laboratory evaluation significant for INR 1.0, total bilirubin 0.6, alkaline phosphatase 57, AST 14 and ALT 19 with a WBC 10.1, hemoglobin 12.2 and platelet count 217,000. Initially on presentation patient had evaluation with speech language pathology with suggestion for a period diet with nectar thick liquids and a one-to-one assist with oral intake and crushed medications. Given the patient's continued difficulty there were called to reevaluate the patient at this time recommendation is for a video swallow evaluation on Monday. Review of Systems ROS unobtainable: due to mental status Past Medical History Past Medical History: Atrial Fibrillation, Heart Failure, COPD, Dementia, GERD/Reflux, Hyperlipidemia, Hypertension History of Any Multi-Drug Resistant Organisms: ESBL Year Discovered:: 10/11/20 MDRO Source:: ESBL URINE Past Surgical History: Coronary Bypass/CABG Additional Past Surgical History / Comment(s): 1/2 lung removed. Past Anesthesia/Blood Transfusion Reactions: No Reported Reaction Past Psychological History: Anxiety, Depression Smoking Status: Never smoker Past Alcohol Use History: None Reported Past Drug Use History: None Reported Additional History: Family history: Noncontributory to current medical presentation. Medications and Allergies Home Medications Medication Instructions Recorded Confirmed Type Acetaminophen [Tylenol Arthritis] 650 mg PO Q8HR@0600,1400,2200 07/05/20 10/11/20 History Albuterol Sulfate [Proair Hfa] 1 puff INHALATION RT-Q6H PRN 07/05/20 10/11/20 History Docusate [Colace] 100 mg PO DAILY@2100 07/05/20 10/11/20 History Escitalopram Oxalate 5 mg PO DAILY@209907/05/20 10/11/20 History Fluticasone Nasal Dyer [Flonase 2 spr EA NOSTRIL DAILY@0900 07/05/20 10/11/20 History Nasal Dyer] lisinopriL [Zestril] 2.5 mg PO DAILY@0900 09/30/20 10/11/20 History Enoxaparin [Lovenox] 40 mg SQ BID@0900,2100 10/11/20 10/11/20 History Lactose-Reduced Food [Ensure Plus] 120 ml PO TID@1000,1400,1800 10/11/20 10/11/20 History Metoprolol Tartrate [Lopressor] 50 mg PO BID@0900,2100 10/11/20 10/11/20 History Metoprolol Tartrate [Lopressor] 50 mg PO ONCE PRN 10/11/20 10/11/20 History Allergies Allergy/AdvReac Type Severity Reaction Status Date / Time meperidine [From Demerol] Allergy Unknown Verified 10/11/20 13:19 mirtazapine [From Remeron] Allergy Unknown Verified 10/11/20 13:19 morphine Allergy Unknown Verified 10/11/20 13:19 Physical Exam Vitals: Vital Signs Temp Pulse Resp BP Pulse Ox 10/16/20 11:42 98.5 F 110 H 26 H 121/72 94 L 10/16/20 08:00 98.5 F 115 H 26 H 130/66 97 10/16/20 04:00 98.0 F 89 24 114/84 97 10/16/20 00:00 97.8 F 78 20 110/67 97 10/15/20 20:00 98.2 F 71 19 134/75 96 10/15/20 16:00 98.2 F 130 H 30 H 110/60 97 Intake and Output 10/15/20 10/16/20 10/16/20 22:59 06:59 14:59 Intake Total 908.500 800 Output Total 0 0 Balance 908.500 800 Intake: Intake, IV Titration 908.500 800 Amount Dextrose 5% in Water 1, 700 800 000 ml @ 100 mls/hr IV . Q10H [facility] Rx#:[id number] Diltiazem 125 mg In 108.500 Sodium Chloride 0.9% 100 ml @ 5 MG/HR 5 mls/hr IV .Q24H [facility] Rx#:[id number] Piperacillin-Tazobactam 3 100 .375 gm In Sodium Chloride 0.9% 100 ml @ 25 mls/hr IVPB Q8H [facility] Rx#: [id number] Output: Stool 0 0 Other: Voiding Method Indwelling Catheter Indwelling Catheter Weight 59.8 kg 59.8 kg On physical examination, patient appears comfortable in no apparent distress. HEAD: Normocephalic, atraumatic. EYES: No scleral icterus. No conjunctival injection. MOUTH: No lesions, tongue midline. NECK: Trachea midline, no gross abnormalities. CHEST: Decreased air entry in all lung maravilla. HEART: S1-S2 appreciated. ABDOMEN: Soft, nontender. Bowel sounds are positive. No organomegaly. No guarding or rigidity. EXTREMITIES: No pedal edema. SKIN: No rashes, no jaundice. NEUROLOGIC: Awake and arousable but nonverbal with flaccid paralysis of the left upper extremity. Results CBC & Chem 7: 10/17/20 06:40 10/17/20 06:40 Labs: Microbiology - Last 24 Hours (Table) 10/11/20 11:46 Blood Culture - Preliminary Blood No Growth after 120 hours Chest x-ray: report reviewed Assessment and Plan (1) Oropharyngeal dysphagia Narrative/Plan: 85-year-old male with multiple medical comorbidities including recent hospitalization for infection with Covid 19. Currently the patient is hospitalized receiving treatment for metabolic encephalopathy, hypoxic respiratory failure and possible aspiration pneumonia. Initial consultation by speech language pathology the patient's was able to swallow with recommendation for next or thick liquids with pured diet and one-to-one assist with oral intake. There are reconsulted as the patient's oral intake is poor and plan is for video swallow evaluation on Monday. Current Visit: Yes Status: Acute Code(s): R13.12 - DYSPHAGIA, OROPHARYNGEAL PHASE SNOMED Code(s): 99063051 (2) COVID-19 Current Visit: Yes Status: Acute Code(s): U07.1 - COVID-19 SNOMED Code(s): 834196038 (3) Altered mental status Current Visit: No Status: Acute Code(s): R41.82 - ALTERED MENTAL STATUS, UNSPECIFIED SNOMED Code(s): 938060654 Plan: Supportive care Continue broad-spectrum antibiotic therapy Continue management by her primary team as well as consultants including pulmonology and neurology Continue other medical management Await findings from a video swallow ordered on Monday Consideration is for PEG tube placement, however overall prognosis is very poor given multiple medical comorbidities and other options such as Comfort Care should also be discussed with the patient's family Thank you for allowing us to participate in the care of the patient we will continue to follow
[2020-10-17] MEDS ORDERED: Potassium Replacement Protocol 1 EACH MISC MISCELLANE PRN ×2 (11:38→14:03)
[2020-10-17] MEDS ORDERED: Magnesium Replacement Protocol 1 EACH MISC MISCELLANE PRN (11:38)
--- NOTE | 2020-10-17 15:34 | XR ---
EXAMINATION TYPE: XR chest 1V portable DATE OF EXAM: 10/17/2020 COMPARISON: Yesterday HISTORY: Short of breath TECHNIQUE: FINDINGS: There is significant opacification of the right hemithorax. There are clips at the right pu lmonary hilum. There are sternal wires. Thoracic aorta is atheromatous. There is a mild infiltrate an d atelectasis left lung base. There are chest leads. There is no obvious heart failure. IMPRESSION: There is significant increasing opacification of the right hemithorax compared to yesterd ay and consistent with increased pleural fluid and pulmonary consolidation. No heart failure. Minimal infiltrate left lower lobe.
[2020-10-17] MEDS: POTASSIUM CHLORIDE 20 MEQ in WATER FOR INJECTION 1 100ML.BAG IVPB SCH ×2 (16:08→19:51)
--- NOTE | 2020-10-17 18:10 | PN ---
PROGRESS NOTE DATE OF SERVICE: 10/17/2020 REASON FOR CONSULTATION: ESBL E coli urinary tract infection and pneumonia. INTERVAL HISTORY: Patient is currently afebrile. Patient is breathing comfortably, currently on 3 L nasal cannula. Denies any chest pain or cough. No abdominal pain. No diarrhea has been reported. PHYSICAL EXAMINATION: Blood pressure 120/74 with a pulse of 83, temperature 97.5. He is 96% on 2 L nasal cannula. General description is an elderly male lying in bed in no distress. Respiratory system: Unlabored breathing with decreased breath sounds at the base. No wheeze. Heart S1, S2. Regular rate and rhythm. Abdomen soft, no tenderness. LABS: Hemoglobin 11.1, WBC 7.3, BUN of 18, creatinine 0.77. DIAGNOSTIC IMPRESSION AND PLAN: Patient admitted to the hospital with sepsis. Source is likely combination of an ESBL E coli UTI and possible pneumonia, possible aspiration. The patient is currently covered with meropenem to continue while inpatient and monitor clinical course closely. Continue supportive care. MMODL / IJN: [id number] /
[2020-10-17] MEDS: DOCUSATE 100 MG CAP PO SCH (19:54)
[2020-10-17] MEDS: ESCITALOPRAM 5 MG TAB PO SCH (19:54)
--- NOTE | 2020-10-17 19:58 | PN ---
PROGRESS NOTE DATE OF SERVICE: 10/17/2020 This 85-year-old gentleman who is a resident of [facility] is being followed by Dr. Umanzor in the outpatient with COVID positive. The patient was apparently in [facility] also. The patient had possible COVID-19 pneumonia. The most recent chest x-ray which was reviewed personally by me showed significant pneumonic process and possibly effusion on the right side which was a definite significant worsening compared to the previous one. Possibility of atelectasis also considered. The patient also had very poor p.o. intake and Dr. Fournier is following the patient also. PAST MEDICAL HISTORY: Reviewed. REVIEW OF SYSTEMS: Could not be taken. CURRENT MEDICATIONS: Tylenol, Ventolin, vitamin C, dextrose, Cardizem. The doses reviewed. PHYSICAL EXAM: Patient is barely arousable, confused, stuporous. Pulse 78, blood pressure 124/70, respiration 21, temperature 97.2, pulse ox 98% on 3 L. HEENT: Conjunctivae normal. Oral mucosa moist. NECK: No jugular venous distention. No lymph node enlargement. CARDIOVASCULAR: S1, S2, muffled. No S3, no S4, RESPIRATORY: Diminished breath sounds at the bases. Bilateral scattered rhonchi and crackles. ABDOMEN: Soft, nontender. LEGS: No edema, no swelling. NERVOUS SYSTEM: No focal motor or sensory deficits. LABS: WBC 7.2, hemoglobin 11.2, sodium 141, potassium 3.4. ASSESSMENT: 1. Acute bilateral COVID-19 pneumonia, right more than the left with acute hypoxic respiratory failure as well as sepsis, present on admission. 2. Possible right lobe atelectasis. 3. Change in mental status, acute on chronic metabolic encephalopathy. 4. Escherichia coli sepsis. 5. Hypernatremia possibly secondary to dehydration and poor p.o. intake. 6. Increased WBC possibly secondary to sepsis. 7. Anemia, normocytic anemia of chronic disease. 8. Severe protein calorie malnutrition with body mass index of 18.9. 9. History of chronic obstructive pulmonary disease. 10.History atrial fibrillation. 11.History of congestive heart failure. 12.History of dementia. 13.Gastroesophageal reflux disease. 14.Hypertension. 15.Hyperlipidemia. 16.ESBL E coli from the urine. 17.Anxiety, depression. 18.NO CODE, NO CPR, NO VENT. RECOMMENDATIONS AND DISCUSSION: I recommend to continue current management and continue the bronchodilators. Otherwise, continue with empiric antibiotics. The patient has been on meropenem per Dr. Alicia. Otherwise, closely follow with Dr. Cantu. I would also recommend a CT scan of the chest. Prognosis guarded because of multiple complex medical issues and further recommendations to follow. MMODL / IJN: [id number] /
--- NOTE | 2020-10-17 21:55 | CT ---
EXAMINATION TYPE: CT chest wo con DATE OF EXAM: 10/17/2020 COMPARISON: 10/01/2020 HISTORY: Rt lung collapse Covid + CT DLP: 360.1 mGycm Automated exposure control for dose reduction was used. There are moderate-sized bilateral pleural effusions. Heart is moderately enlarged. There is coronary artery calcification. There is dense consolidation and atelectasis in the right lung involving right upper lobe and right lower lobe. There is some infiltrate and atelectasis also in the left lower lob e adjacent to the pleural fluid. There are multiple surgical clips at the right pulmonary hilum. Ther e is right side diaphragmatic pleural patchy calcification. Gallbladder is dilated and measures 5.4 cm. Liver shows no focal defect. Thoracic aorta shows some atheromatous change. The ascending aorta measures 4 cm. 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 It is not clear if there is a partial rig ht-sided pneumonectomy. Thoracic spine is intact. The sternum is intact. There are sternal wires. IMPRESSION: Moderately large bilateral pleural effusions. Extensive pneumonic consolidation in the right lung. Co mplete obstruction of the right mainstem bronchus. Nature of this obstruction is not determined. Infiltrate and atelectasis left lung base. Right bronchial obstruction and occlusion is a change comp ared to the old CT scan of 10/01/2020. This would be consistent with aspiration pneumonia.
[2020-10-18] MEDS: POTASSIUM CHLORIDE 20 MEQ in WATER FOR INJECTION 1 100ML.BAG IVPB SCH (00:22)
[2020-10-18] MEDS: ACETAMINOPHEN TAB 325 MG TAB PO SCH ×3 (06:16→19:38)
[2020-10-18] MEDS: DEXTROSE 5% IN WATER 1,000 ML IV SCH ×2 (07:03→10:25)
[2020-10-18 07:55] LABS: Basophils % (A) 0 %; Eosinophils # (A) 0.1 k/uL (0-0.7); Eosinophils % (A) 2 %; HCT 36.2 % (39.0-53.0); HGB 11.3 gm/dL (13.0-17.5); Hypochromasia Slight; Lymphocytes % (A) 19 %; MCHC 31.4 g/dL (31.0-37.0); MCV 92.4 fL (80.0-100.0); Mean Platelet Volume 7.9; Monocytes # (A) 0.2 k/uL (0-1.0); Monocytes % (A) 4 %; Neutrophils % (A) 74 %; Platelet Count 197 k/uL (150-450); RBC 3.91 m/uL (4.30-5.90); RDW 14.8 % (11.5-15.5); WBC 5.3 k/uL (3.8-10.6)
[2020-10-18 08:10] LABS: African American GFR (CKD) >90 (>60 ml/min/1.73 sqM); Anion Gap 5 mmol/L; Blood Urea Nitrogen 17 mg/dL (9-20); C Reactive Protein 61.6 mg/L (<10.0); Calcium 7.7 mg/dL (8.4-10.2); Carbon Dioxide 20 mmol/L (22-30); Chloride 112 mmol/L (98-107); Glucose 95 mg/dL (74-99); LDH 421 U/L (313-618); Magnesium 2.1 mg/dL (1.6-2.3); Non-African American GFR(CKD) 87 (>60 ml/min/1.73 sqM); Potassium 4.3 mmol/L (3.5-5.1); Sodium 137 mmol/L (137-145)
[2020-10-18] MEDS: ENOXAPARIN 40 MG/0.4 ML SYRINGE SQ SCH ×2 (08:28→19:40)
[2020-10-18] MEDS: MEROPENEM 1 GM in SODIUM CHLORIDE 0.9% 100 ML IVPB SCH ×3 (08:28→23:32)
[2020-10-18] MEDS: FLUTICASONE 50MCG/SPRAY NASAL 16GM EA NOSTRIL SCH (08:30)
[2020-10-18] MEDS: DILTIAZEM 125 MG in SODIUM CHLORIDE 0.9% 100 ML IV SCH (10:23)
[2020-10-18] MEDS: CHOLECALCIFEROL 25 MCG (1000 IU) TABLET PO SCH (10:24)
[2020-10-18] MEDS: ZINC SULFATE 220 MG CAP PO SCH (10:24)
[2020-10-18] MEDS: ASCORBIC ACID 500 MG TAB PO SCH ×2 (10:24→19:38)
--- NOTE | 2020-10-18 12:37 | P.PN ---
Progress Note - Text Progress Note Date: 10/18/20 Discussed with the patient's condition today with Dr. Jamiosn, reviewed his chest x-ray and CT of the chest, ideally speaking patient will benefit temporary from bronchoscopy, however as long as he is aspirating he will continue to have right lung collapse and opacification, patient will clearly need a PEG tube placement. Considering his overall condition, patient is relatively high risk for bronchoscopy, may require intubation and mechanical ventilation, and may have to be maintained on mechanical ventilation post bronchoscopy. Not to mention the patient has acute Covid 19 pneumonitis, and relatively risky procedure for all the people performing the procedure in spite of precautions. Considering the patient did improve with BiPAP, and were able to expand his right lung just using BiPAP previously, I would recommend BiPAP for now, and reevaluate chest x- ray in a.m. Prognosis remains extremely poor and guarded, in the meantime I would strongly recommend a PEG tube placement and patient to be kept nothing by mouth at all times. Obviously the patient is having recurrent episodes of aspiration and recurrent right lung collapse. We will reevaluate chest x-ray in a.m.
--- NOTE | 2020-10-18 17:35 | PN ---
PROGRESS NOTE DATE OF SERVICE: 10/18/2020 This 84-year-old gentleman admitted from [facility] on the [place], had bilateral pneumonia, right more the left. The patient apparently had recurrent episodes of aspiration at this time. The patient is rather obtunded and PEG tube was suggested and the family would like to have the PEG tube done at this time. Patient on broad spectrum IV antibiotics. The patient was previously Covid 19 positive which remains positive at this time. Chest CT scan was reviewed. Dr. Sinclairs and multiple consultants are following the patient closely. Past medical history reviewed. REVIEW OF SYSTEMS: CARDIOVASCULAR SYSTEM: No angina. RESPIRATORY: As mentioned earlier. GI: As mentioned earlier. : No dysuria. NERVOUS SYSTEM: No focal deficits. CURRENT MEDICATIONS: Reviewed and include: Tylenol, Ventolin, vitamin C, vitamin D3, Cardizem, Colace, Lovenox Lexapro, Flonase, meropenem. PHYSICAL EXAM: Patient is alert and oriented times two. Pulse 54, blood pressure 126/71, respirations 16, temperature 97.7, pulse ox 93% on BiPAP. HEENT: Conjunctivae normal. NECK: No JVD. CARDIOVASCULAR: S1, S2 muffled. RESPIRATIONS: Breath sounds diminished in the bases. Bilateral scattered rhonchi and crackles. ABDOMEN: Soft, nontender. LEGS are no edema. No swelling. NERVOUS SYSTEM: No focal deficits. LABS: WBC 5.3, hemoglobin 11.3, sodium 137, potassium 4.3. D-dimer is 1.49. ASSESSMENT: 1. Acute bilateral Covid 19 pneumonia, right more than the left with possible acute hypoxic respiratory failure as well as sepsis, present on admission. 2. Possible right lower lobe atelectasis, pneumonia, aspiration pneumonia. 3. Change in mental status, acute on chronic, metabolic encephalopathy. 4. E coli sepsis. 5. Hyponatremia possibly secondary to dehydration, poor p.o. intake. 6. Increased WBC possibly secondary to sepsis. 7. Anemia, normocytic anemia of chronic disease. 8. Severe protein calorie malnutrition. Body mass index 18.9. 9. History of chronic obstructive pulmonary disease. 10.History of atrial fibrillation. 11.History of congestive heart failure. 12.History of dementia. 13.Gastroesophageal reflux disease. 14.Hypertension. 15.Hyperlipidemia. 16.ESBL E coli from the urine. 17.Anxiety, depression. 18.NO CODE, NO CPR, NO VENT. RECOMMENDATIONS AND DISCUSSION: Recommend to continue current medications, monitor and symptomatic treatment. Otherwise at this time, I recommend continue with current medication. Continue with BiPAP. PEG tube placement per Gastroenterology. Prognosis guarded because of multiple complex medical issues. Further recommendations to follow. MMODL / IJN: [id number] /
--- NOTE | 2020-10-18 18:04 | P.PN ---
Subjective Progress Note Date: 10/17/20 Principal diagnosis: oropharyngeal dysphagia, suspected aspiration pneumonia, Covid 19 infection the patient is seen lying in bed in no acute events overnight. Patient remains nothing by mouth. Objective - Vital Signs Vital signs: Vital Signs Temp 97.5 F L 10/17/20 04:00 Pulse 83 10/17/20 04:00 Resp 21 10/17/20 04:00 BP 120/74 10/17/20 04:00 Pulse Ox 96 10/17/20 04:00 Intake & Output 10/16/20 10/17/20 10/17/20 18:59 06:59 18:59 Intake Total 1100 Output Total 400 475 Balance 700 -475 Weight 59.8 kg 63 kg Intake: Intake, IV Titration 1100 Amount Dextrose 5% in Water 1, 1000 000 ml @ 100 mls/hr IV . Q10H [facility] Rx#:[id number] Piperacillin-Tazobactam 3 100 .375 gm In Sodium Chloride 0.9% 100 ml @ 25 mls/hr IVPB Q8H [facility] Rx#: [id number] Output: Urine 400 475 Stool 0 Other: Voiding Method Indwelling Catheter Indwelling Catheter - Exam On physical examination, patient appears comfortable in no apparent distress. HEAD: Normocephalic, atraumatic. EYES: No scleral icterus. No conjunctival injection. MOUTH: No lesions, tongue midline. NECK: Trachea midline, no gross abnormalities. CHEST: decreased air entry in all mar[place]. ABDOMEN: Soft, nontender. Bowel sounds are positive. No organomegaly. No guarding or rigidity. EXTREMITIES: bilateral pedal edema. SKIN: No rashes, no jaundice. NEUROLOGIC:the patient is nonverbal, flaccid left upper extremity paralysis. - Labs CBC & Chem 7: 10/18/20 07:05 10/18/20 07:05 Labs: Abnormal Lab Results - Last 24 Hours (Table) 10/16/20 10/17/20 10/17/20 Range/Units 16:41 06:40 06:40 RBC 4.00 L (4.30-5.90) m/uL Hgb 11.9 L (13.0-17.5) gm/dL Hct 36.4 L (39.0-53.0) % Lymphocytes # 0.9 L (1.0-4.8) k/uL D-Dimer 1.23 H (<0.60) mg/L FEU Potassium 3.4 L (3.5-5.1) mmol/L Chloride 113 H (98-107) mmol/L Calcium 7.7 L (8.4-10.2) mg/dL C-Reactive Protein 77.1 H (<10.0) mg/L 10/17/20 Range/Units 06:40 RBC (4.30-5.90) m/uL Hgb (13.0-17.5) gm/dL Hct (39.0-53.0) % Lymphocytes # (1.0-4.8) k/uL D-Dimer 1.49 H (<0.60) mg/L FEU Potassium (3.5-5.1) mmol/L Chloride (98-107) mmol/L Calcium (8.4-10.2) mg/dL C-Reactive Protein (<10.0) mg/L Microbiology - Last 24 Hours (Table) 10/11/20 11:46 Blood Culture - Preliminary Blood No Growth after 120 hours Assessment and Plan (1) Oropharyngeal dysphagia Narrative/Plan: 85-year-old male with multiple medical comorbidities including recent hospitalization for infection with Covid 19. Currently the patient is hospitalized receiving treatment for metabolic encephalopathy, hypoxic respiratory failure and possible aspiration pneumonia. Initial consultation by speech language pathology the patient's was able to swallow with recommendation for next or thick liquids with pured diet and one-to-one assist with oral intake. There are reconsulted as the patient's oral intake is poor and plan is for video swallow evaluation on Monday. Current Visit: Yes Status: Acute Code(s): R13.12 - DYSPHAGIA, OROPHARYNGEAL PHASE SNOMED Code(s): 87915320 (2) COVID-19 Current Visit: Yes Status: Acute Code(s): U07.1 - COVID-19 SNOMED Code(s): 471620259 (3) Altered mental status Current Visit: No Status: Acute Code(s): R41.82 - ALTERED MENTAL STATUS, UNSPECIFIED SNOMED Code(s): 858178030 Plan: Supportive care Continue broad-spectrum antibiotic therapy Continue management by her primary team as well as consultants including pulmonology and neurology Continue other medical management Await findings from a video swallow ordered on Monday Consideration is for PEG tube placement, however overall prognosis is very poor given multiple medical comorbidities and other options such as Comfort Care should also be discussed with the patient's family Thank you for allowing us to participate in the care of the patient we will continue to follow
--- NOTE | 2020-10-18 18:05 | P.PN ---
Subjective Progress Note Date: 10/18/20 Principal diagnosis: oropharyngeal dysphagia, suspected aspiration pneumonia, Covid 19 infection the patient is seen lying in bed in no acute events overnight. Patient remains nothing by mouth. Objective - Vital Signs Vital signs: Vital Signs Temp 97.8 F 10/18/20 04:00 Pulse 92 10/18/20 04:00 Resp 19 10/18/20 04:00 BP 130/71 10/18/20 04:00 Pulse Ox 96 10/18/20 04:00 Intake & Output 10/17/20 10/18/20 10/18/20 18:59 06:59 18:59 Intake Total 1100 1000 Output Total 150 500 Balance 950 500 Weight 65.5 kg Intake: Intake, IV Titration 1100 1000 Amount Dextrose 5% in Water 1, 800 800 000 ml @ 100 mls/hr IV . Q10H [facility] Rx#:[id number] Meropenem 1 gm In Sodium 200 100 Chloride 0.9% 100 ml @ 33 .3 mls/hr IVPB Q8HR [facility] Rx#:[id number] Potassium Chloride 20 meq 100 100 In Water For Injection 1 100ml.bag @ 50 mls/hr IVPB Q2H [facility] Rx#: [id number] Oral 0 Output: Urine 150 500 Stool 0 0 Other: Voiding Method Indwelling Catheter Indwelling Catheter # Voids 1 - Exam On physical examination, patient appears comfortable in no apparent distress. HEAD: Normocephalic, atraumatic. EYES: No scleral icterus. No conjunctival injection. MOUTH: No lesions, tongue midline. NECK: Trachea midline, no gross abnormalities. CHEST: decreased air entry in all maravilla. ABDOMEN: Soft, nontender. Bowel sounds are positive. No organomegaly. No guarding or rigidity. EXTREMITIES: bilateral pedal edema. SKIN: No rashes, no jaundice. NEUROLOGIC:the patient is nonverbal, flaccid left upper extremity paralysis. - Labs CBC & Chem 7: 10/18/20 07:05 10/18/20 07:05 Labs: Abnormal Lab Results - Last 24 Hours (Table) 10/18/20 10/18/20 Range/Units 07:05 07:05 RBC 3.91 L (4.30-5.90) m/uL Hgb 11.3 L (13.0-17.5) gm/dL Hct 36.2 L (39.0-53.0) % Chloride 112 H (98-107) mmol/L Carbon Dioxide 20 L (22-30) mmol/L Calcium 7.7 L (8.4-10.2) mg/dL C-Reactive Protein 61.6 H (<10.0) mg/L Microbiology - Last 24 Hours (Table) 10/11/20 11:46 Blood Culture - Final Blood No Growth after 144 hours Assessment and Plan (1) Oropharyngeal dysphagia Narrative/Plan: 85-year-old male with multiple medical comorbidities including recent hospitalization for infection with Covid 19. Currently the patient is hospit alized receiving treatment for metabolic encephalopathy, hypoxic respiratory failure and possible aspiration pneumonia. Initial consultation by speech language pathology the patient's was able to swallow with recommendation for next or thick liquids with pured diet and one-to-one assist with oral intake. There are reconsulted as the patient's oral intake is poor and plan is for video swallow evaluation on Monday. Current Visit: Yes Status: Acute Code(s): R13.12 - DYSPHAGIA, OROPHARYNGEAL PHASE SNOMED Code(s): 93930408 (2) COVID-19 Current Visit: Yes Status: Acute Code(s): U07.1 - COVID-19 SNOMED Code(s): 891441255 (3) Altered mental status Current Visit: No Status: Acute Code(s): R41.82 - ALTERED MENTAL STATUS, UNSPECIFIED SNOMED Code(s): 056066215 Plan: Supportive care Continue broad-spectrum antibiotic therapy Continue management by her primary team as well as consultants including pulmonology and neurology Continue other medical management Await findings from a video swallow ordered on Monday Consideration is for PEG tube placement, however overall prognosis is very poor given multiple medical comorbidities and other options such as Comfort Care should also be discussed with the patient's family Thank you for allowing us to participate in the care of the patient we will continue to follow
[2020-10-18] MEDS: DOCUSATE 100 MG CAP PO SCH (19:38)
[2020-10-18] MEDS: ESCITALOPRAM 5 MG TAB PO SCH (19:38)
--- NOTE | 2020-10-18 23:29 | PN ---
PROGRESS NOTE DATE OF SERVICE: 10/18/2020 REASON FOR FOLLOWUP: ESBL E coli UTI and pneumonia. INTERVAL HISTORY: Patient is currently afebrile. The patient is slightly more lethargic and on BiPAP and was unable to provide any history. No vomiting, diarrhea or any other changes reported by nursing staff. PHYSICAL EXAMINATION: Blood pressure 123/73 with a pulse of 89, temperature 98.2. He is 97% on BiPAP. General description is an elderly male lying in bed in no distress. Respiratory system: Unlabored breathing with decreased intensity of breath sounds. No wheeze. HEART: S1, S2. Regular rate and rhythm. ABDOMEN: Soft, no tenderness. LABS: Hemoglobin 11.1, white count of 5.3, BUN of 17, creatinine 0.69. Blood culture negative. Sputum not collected. DIAGNOSTIC IMPRESSION AND PLAN: Patient with acute respiratory failure, currently on the BiPAP with concern for possible aspiration pneumonia in this patient who did have E coli UTI. Currently covered with meropenem to continue. CT did show evidence of possible complete obstruction of the right mainstem bronchus, possible mucus plugging and may benefit from bronchoscopy and cultures. Pulmonary is following the patient. Continue supportive care. MMODL / IJN: [id number] /
[2020-10-19] MEDS: DEXTROSE 5% IN WATER 1,000 ML IV SCH (00:10)
[2020-10-19 00:17] LABS: Glucose,Whole Blood 97 mg/dL (75-99)
[2020-10-19 06:10] LABS: Glucose,Whole Blood 113 mg/dL (75-99)
[2020-10-19] MEDS: ACETAMINOPHEN TAB 325 MG TAB PO SCH ×3 (06:55→19:37)
[2020-10-19] MEDS: ALBUTEROL HFA INHALER INHALATION PRN ×2 (07:55→11:22)
[2020-10-19 08:04] LABS: Basophils % (A) 1 %; Eosinophils # (A) 0.1 k/uL (0-0.7); Eosinophils % (A) 2 %; HCT 39.3 % (39.0-53.0); HGB 12.8 gm/dL (13.0-17.5); Hypochromasia Slight; Lymphocytes # (A) 1.3 k/uL (1.0-4.8); Lymphocytes % (A) 21 %; MCH 29.6 pg (25.0-35.0); MCHC 32.6 g/dL (31.0-37.0); MCV 90.8 fL (80.0-100.0); Mean Platelet Volume 8.1; Monocytes # (A) 0.3 k/uL (0-1.0); Monocytes % (A) 5 %; Neutrophils # (A) 4.6 k/uL (1.3-7.7); Neutrophils % (A) 71 %; Platelet Count 184 k/uL (150-450); Poikilocytosis Slight; RBC 4.32 m/uL (4.30-5.90); RDW 14.5 % (11.5-15.5); WBC 6.5 k/uL (3.8-10.6)
[2020-10-19 08:11] LABS: African American GFR (CKD) >90 (>60 ml/min/1.73 sqM); Anion Gap 5 mmol/L; Blood Urea Nitrogen 16 mg/dL (9-20); Calcium 7.8 mg/dL (8.4-10.2); Carbon Dioxide 18 mmol/L (22-30); Chloride 113 mmol/L (98-107); Glucose 98 mg/dL (74-99); LDH 535 U/L (313-618); Non-African American GFR(CKD) 86 (>60 ml/min/1.73 sqM); Potassium 4.1 mmol/L (3.5-5.1); Sodium 136 mmol/L (137-145)
--- NOTE | 2020-10-19 08:16 | XR ---
EXAMINATION TYPE: XR chest 1V DATE OF EXAM: 10/19/2020 HISTORY: Shortness of breath. COMPARISON: 10/17/2020 TECHNIQUE: Single view of the chest is submitted. FINDINGS: Demonstrated are scattered senescent parenchymal change. Patchy perihilar and basilar infiltrates right much greater than left persist although appear to be s omewhat improved. Suspect underlying effusions. The heart is stable. Hilar and mediastinal structures are within normal limits. Degenerative changes are seen of the dorsal spine. IMPRESSION: 1. Patchy perihilar and basilar infiltrates right much greater than left persist although appear to be somewhat improved. Suspect underlying effusions.
[2020-10-19] MEDS: CHOLECALCIFEROL 25 MCG (1000 IU) TABLET PO SCH (08:41)
[2020-10-19] MEDS: ZINC SULFATE 220 MG CAP PO SCH (08:41)
[2020-10-19] MEDS: ASCORBIC ACID 500 MG TAB PO SCH ×2 (08:41→19:36)
[2020-10-19] MEDS: DILTIAZEM 125 MG in SODIUM CHLORIDE 0.9% 100 ML IV SCH ×2 (08:53→21:27)
[2020-10-19] MEDS: ENOXAPARIN 40 MG/0.4 ML SYRINGE SQ SCH ×2 (08:54→19:36)
[2020-10-19] MEDS: FLUTICASONE 50MCG/SPRAY NASAL 16GM EA NOSTRIL SCH (08:54)
[2020-10-19 09:03] LABS: C Reactive Protein 64.6 mg/L (<10.0)
[2020-10-19] MEDS: MEROPENEM 1 GM in SODIUM CHLORIDE 0.9% 100 ML IVPB SCH ×2 (09:51→15:48)
[2020-10-19] MEDS: SODIUM CHLORIDE 0.9% 1,000 ML IV SCH (11:23)
[2020-10-19 11:52] LABS: Glucose,Whole Blood 97 mg/dL (75-99)
--- NOTE | 2020-10-19 12:09 | P.PN ---
Subjective Progress Note Date: 10/19/20 Principal diagnosis: Dysphasia This is an 84-year-old male patient with multiple medical comorbidities who is here with Covid-19 pneumonia infection area gastroenterology has been consulted because the patient has been unwilling to eat and possible evidence of aspiration pneumonia. The patient's son is requesting a PEG tube to be placed. However the patient is currently on BiPAP. The patient has remained nothing by mouth all weekend, speech was supposed to repeat evaluate patient today with a modified barium swallow, however since patient is on BiPAP and has been deferred at this time. Objective - Vital Signs Vital signs: Vital Signs Temp 97.8 F 10/19/20 08:00 Pulse 107 H 10/19/20 11:25 Resp 18 10/19/20 11:25 BP 143/91 10/19/20 11:25 Pulse Ox 92 L 10/19/20 11:25 Intake & Output 10/18/20 10/19/20 10/19/20 18:59 06:59 18:59 Intake Total 207.5 400 Output Total 100 700 Balance -100 -492.5 400 Weight 65.5 kg 65.5 kg Intake: Intake, IV Titration 207.5 400 Amount Dextrose 5% in Water 1, 400 000 ml @ 100 mls/hr IV . Q10H [facility] Rx#:[id number] Diltiazem 125 mg In 107.5 0 Sodium Chloride 0.9% 100 ml @ 5 MG/HR 5 mls/hr IV .Q24H [facility] Rx#:[id number] Meropenem 1 gm In Sodium 100 Chloride 0.9% 100 ml @ 33 .3 mls/hr IVPB Q8HR [facility] Rx#:[id number] Oral 0 Output: Urine 100 700 Stool 0 Other: Voiding Method Indwelling Catheter Indwelling Catheter Indwelling Catheter # Voids 1 # Bowel Movements 0 - Exam General appearance: The patient is alert, nonverbal, opens eyes. HET: Head is normocephalic and atraumatic. Conjunctiva pink. Sclera aniicteric. Neck: Supple without lymphadenopathy. Abdomen: Soft, thin, nontender, nondistended with bowel sounds. No guarding or rigidity. Extremities: Normal skin color and turgor. No pedal edema Neurological: No focal deficits. Alert and oriented 3. - Labs CBC & Chem 7: 10/19/20 07:22 10/19/20 07:22 Labs: Abnormal Lab Results - Last 24 Hours (Table) 10/19/20 10/19/20 10/19/20 Range/Units 06:09 07:22 07:22 Hgb 12.8 L (13.0-17.5) gm/dL Sodium 136 L (137-145) mmol/L Chloride 113 H (98-107) mmol/L Carbon Dioxide 18 L (22-30) mmol/L POC Glucose (mg/dL) 113 H (75-99) mg/dL Calcium 7.8 L (8.4-10.2) mg/dL C-Reactive Protein 64.6 H (<10.0) mg/L Assessment and Plan (1) COVID-19 Current Visit: Yes Status: Acute Code(s): U07.1 - COVID-19 SNOMED Code(s): 431296126 (2) Oropharyngeal dysphagia Current Visit: Yes Status: Acute Code(s): R13.12 - DYSPHAGIA, OROPHARYNGEAL PHASE SNOMED Code(s): 99153807 (3) Altered mental status Current Visit: No Status: Acute Code(s): R41.82 - ALTERED MENTAL STATUS, UNSPECIFIED SNOMED Code(s): 318822101 Plan: 1. Supportive care 2. Continue broad-spectrum antibiotic therapy 3. Continue medical management by primary team 4. Appreciate recommendations from pulmonology 5. Plan for EGD with PEG tube placement for tomorrow if cleared by anesthesia 6. Hold Lovenox 7. Nothing by mouth Thank you for this consultation we will continue to follow Dr. Milind Madsen I agree with the dictator's note, documented as a scribe by Zenaida Baca.
--- NOTE | 2020-10-19 13:57 | P.PN ---
Subjective Progress Note Date: 10/19/20 Principal diagnosis: Fever, tachycardia, recent COVID 19 pneumonia 84-year-old white male patient, with recent history of hospitalization for COVID19 pneumonia, and patient was discharged to the [facility] on the [place] on 10/05/2020. Patient was hospitalized from 10/01/2020 through 10/05/2020. Patient is a poor historian, has underlying history of advanced dementia, his severe cardiomyopathy with EF of around 20-25%, atrial fibrillation, chronic congestive heart failure systolic dysfunction, hypertension, hyperlipidemia, anxiety, frequent falls, previous history of subdural hemorrhage, recent cervical neck fracture currently in a soft collar. On 10/11/2020 patient was br ought into the emergency department for evaluation of fever, tachycardia. His previous chest x-ray from his previous admission there was mild right basilar opacity, most likely related to atelectasis, a CT angiogram of the chest showed no evidence of pulmonary embolism. 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 His subsequent chest x- ray on 10/05/2020 showed some worsening in the appearance of the right lower lobe and right middle lobe hazy infiltration. However clinically patient had remained stable and did not have any worsening in his oxygenation and he was discharged to the snf on Decadron. His chest x-ray on admission on the 2020 showed right mid and lower lung field infiltrates. EKG showed SVT with a rate of 166, temperature was 100.5F, patient was satting 93% on 12 L of oxygen. His laboratory data showed leukocytosis with white blood cell, 15.3, hemoglobin of 14.4, neutrophils of 14, lymphocyte count of 0.7, his INR was 1, sodium is 150, potassium is 4.8, chloride was 121, BUN of 41 Cr1.06, his LDH has trended up to 937 from 585, CRP is 86.5, up from 138 during last admission, pro- calcitonin level is 0.21, his urinalysis shows evidence of infection. Patient is lethargic, and there is suspicion for aspiration pneumonia. He was started on a azithromycin and Rocephin for empiric antibiotic coverage, however in view of suspected aspiration we will switch the antibiotic coverage to Zosyn. Brain CT showed mild to moderate ventricular megaly/hydrocephalus probably in part due to central cerebral atrophy. No acute intracranial abnormality On 10/13/2020 patient seen in follow-up on selective care unit. Patient is awake, but confused, encephalopathic, but does not appear to be in any acute distress. He is currently on 7 L of oxygen the pulse ox of 97%, not sure why his oxygen had increased, earlier patient was on 3 L of oxygen pulse ox of 94%, patient has been nothing by mouth in view of his altered mentation, speech evaluation was obtained, and patient was noted to be coughing with thin liquids, and although she did not outright failed the swallow evaluation his altered mental status prevented him from following simple verbal commands. Patient had a delayed swallow, and coughing after swallowing, difficulty chewing. Recommendation was made for dysphagia level I pured diet with nectar thick liquids upright positioning, direct one-on-one supervision, however in view of his continued altered mental status, generalized weakness, suspected chronic aspiration, we will recommend PEG tube placement for nutritional support. Today's chest x-ray shows near complete opacification of the right hemithorax, left lung hyperinflated, mild patchy density in the right medial lung base. Patient has a very weak cough, likely developed mucous plugging in the right mainstem bronchus, however his CODE STATUS is DO NOT RESUSCITATE, he is a very frail. We placed on BiPAP support. Overall his CODE STATUS needs to be readdressed again, as the patient is suspected to be chronically aspirating, will need PEG tube for nutritional support if the patient's family wants to continue with supportive care. He has been unable to take any of his oral medications, cardiology has the patient on Cardizem and amiodarone drip for rate control. Patient is on Zosyn for empiric antibiotic coverage. On October 19, 2020 patient is seen in follow-up on medical floor, he remains on BiPAP, with pressures of 12/6 and FiO2 of 40%, pulse ox of 93%, hemodynamically blood pressure has been stable, been afebrile. His chest x-ray today showed patchy perihilar and basilar infiltrates right greater than left although somewhat improved. Patient is currently on meropenem for ESBL E. coli, blood cultures have shown no growth. Patient remains on 0.0 cm rate is 75 ML per hour and diltiazem 5 mg per hour for heart rate control. Generally patient continues to be very weak, he has been nothing by mouth all weekend, we recommended PEG tube placement for nutritional support. Speech evaluation was supposed to repeat a modified barium swallow however the patient has remained on BiPAP [id number], and speech eval was deferred. ID Service is following. On meropenem. Objective - Vital Signs Vital signs: Vital Signs Temp 97.8 F 10/19/20 08:00 Pulse 107 H 10/19/20 11:25 Resp 18 10/19/20 13:17 BP 143/91 10/19/20 11:25 Pulse Ox 92 L 10/19/20 11:25 Intake & Output 10/18/20 10/19/20 10/19/20 18:59 06:59 18:59 Intake Total 207.5 400 Output Total 100 700 Balance -100 -492.5 400 Weight 65.5 kg 65.5 kg Intake: Intake, IV Titration 207.5 400 Amount Dextrose 5% in Water 1, 400 000 ml @ 100 mls/hr IV . Q10H [facility] Rx#:[id number] Diltiazem 125 mg In 107.5 0 Sodium Chloride 0.9% 100 ml @ 5 MG/HR 5 mls/hr IV .Q24H [facility] Rx#:[id number] Meropenem 1 gm In Sodium 100 Chloride 0.9% 100 ml @ 33 .3 mls/hr IVPB Q8HR [facility] Rx#:[id number] Oral 0 Output: Urine 100 700 Stool 0 Other: Voiding Method Indwelling Catheter Indwelling Catheter Indwelling Catheter # Voids 1 # Bowel Movements 0 - Exam GENERAL EXAM: Lethargic, drowsy 84-year-old white male, on BiPAP support with pressures of 12/6 and FiO2 of 40% he has a weak cough, unable to clear secretions, is thought to be chronically aspirating HEAD: Normocephalic/atraumatic. EYES: Normal reaction of pupils, equal size. Conjunctiva pink, sclera white. NOSE: Clear with pink turbinates. THROAT: No erythema or exudates. NECK: No masses, no JVD, no thyroid enlargement, no adenopathy. CHEST: No chest wall deformity. Symmetrical expansion. LUNGS: Equal air entry with basilar crackles CVS: Regular rate and rhythm, normal S1 and S2, no gallops, no murmurs, no rubs ABDOMEN: Soft, nontender. No hepatosplenomegaly, normal bowel sounds, no guarding or rigidity. EXTREMITIES: No clubbing, no edema, no cyanosis, 2+ pulses and upper and lower extremities. MUSCULOSKELETAL: Muscle strength and tone normal. SPINE: No scoliosis or deformity SKIN: No rashes CENTRAL NERVOUS SYSTEM: Drowsy, lethargic No focal deficits, tone is normal in all 4 extremities. - Labs CBC & Chem 7: 10/19/20 07:22 10/19/20 07:22 Labs: Abnormal Lab Results - Last 24 Hours (Table) 10/19/20 10/19/20 10/19/20 Range/Units 06:09 07:22 07:22 Hgb 12.8 L (13.0-17.5) gm/dL Sodium 136 L (137-145) mmol/L Chloride 113 H (98-107) mmol/L Carbon Dioxide 18 L (22-30) mmol/L POC Glucose (mg/dL) 113 H (75-99) mg/dL Calcium 7.8 L (8.4-10.2) mg/dL C-Reactive Protein 64.6 H (<10.0) mg/L Assessment and Plan Plan: Assessment: #1. Acute hypoxic respiratory failure related to suspected aspiration pneumonia in addition to recent history of COVID 19 related pneumonia. #2. Suspect chronic aspiration related to overall generalized medical debility, toxic metabolic encephalopathy #3. Near-complete opacification of the right hemithorax likely related to right mainstem mucous plugging, patient has a very weak and ineffective cough, mentation has been altered, patient is thought to be chronically aspirating. Code Status DO NOT RESUSCITATE, remains on BiPAP support pressures of 12/6 and FiO2 of 40% #4. A. fib with RVR, remains on Cardizem and amiodarone drip #5. Chronic systolic heart failure #6. Recent hospitalization for acute exacerbation of systolic CHF and A. fib with RVR #7. Recent COVID 19 infection diagnosed on 09/16/2020 #8. Acute metabolic encephalopathy and underlying advanced dementia, brain CT showed no acute intracranial abnormality #9. Hypertension #10. Hyperlipidemia #11. 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 Frequent falls, recent fracture of C1, currently in the soft collar #13. History of paroxysmal A. fib not on anticoagulation due to multiple falls #14. History of subdural hemorrhage #15. GERD/reflux #16. Anxiety/depression Plan: Continue BiPAP support, patient remains quite weak and encephalopathic, he was supposed to have another swallow evaluation today however was unable to complete it because of BiPAP dependence. We do recommend PEG tube placement in view of general medical debility, and suspected chronic aspiration. Overall prognosis is quite poor and guarded. Continue with antibiotics per ID service recommendations, head of the bed up at least 30 at all times. I performed a history & physical examination of the patient and discussed their management with my nurse practitioner, Leelee Roth. I reviewed the nurse practitioner's note and agree with the documented findings and plan of care. Lung sounds are positive for diffuse wheezes throughout the lung maravilla. The findings and the impression was discussed with the patient. I attest to the documentation by the nurse practitioner. Time with Patient: Less than 30
--- NOTE | 2020-10-19 16:19 | PN ---
PROGRESS NOTE DATE OF SERVICE: 10/19/2020 This 85-year-old gentleman who was admitted to [facility] on the [place], had bilateral pneumonia, right more than the left. The patient had significant aspiration. PEG tube is implanted. The patient on BiPAP. Multiple consultants are following the patient closely. The most recent chest x-ray and CT scan were reviewed personally by me. The patient is on broad-spectrum IV antibiotics. The patient is on some IV meropenem. PAST MEDICAL HISTORY: Reviewed. REVIEW OF SYSTEMS: Could not be taken. The patient is stuporous. CURRENT MEDICATIONS: Reviewed and include: Tylenol suppository, Ventolin, vitamin C, vitamin D3, Colace, Lovenox, Lexapro, meropenem. Potassium supplementation, oral zinc. PHYSICAL EXAM: Patient is conscious, stuporous. Pulse is 107. Blood pressure 140/91, respiration 18, temperature 97.8, pulse ox 92% on BiPAP. HEENT: Conjunctivae normal. NECK: No JVD. CARDIOVASCULAR: S1, S2 muffled. RESPIRATION: Breath sounds diminished in the bases. A few scattered rhonchi. ABDOMEN: Soft. Nontender. NERVOUS SYSTEM: Diffusely weak. SKIN: No ulcer, rash or bleeding. LABS: Hemoglobin 12.8, sodium 136, potassium 4.1. C-reactive protein is 64.6. ASSESSMENT: 1. Acute bilateral Covid 19 pneumonia, right more than the left with possible acute hypoxic respiratory failure and as well as sepsis, present on admission. 2. Possible right lower lobe atelectasis pneumonia, aspiration pneumonia. 3. Change in mental status, acute on chronic metabolic encephalopathy. 4. E coli sepsis. 5. Hyponatremia, possibly secondary to dehydration, poor p.o. intake. 6. Increased WBC possibly secondary to sepsis. 7. Anemia, normocytic anemia of chronic disease. 8. Severe protein calorie malnutrition: Body mass index 8.9. 9. History of chronic obstructive pulmonary disease. 10.History atrial fibrillation. 11.History of congestive heart failure. 12.History of dementia. 13.History of gastroesophageal reflux disease. 14.Hypertension. 15.Hyperlipidemia. 16.ESBL E coli from the urine. 17.Anxiety, depression. 18.NO CODE, NO CPR, NO VENT. RECOMMENDATION: Continue current medications, monitoring and symptomatic treatment. Otherwise, at this time, I would recommend continue the broad-spectrum IV antibiotics and also PEG tube placement because of poor p.o. intake and high risk of aspiration. Cardizem for DVT. Cardizem for AFIB. Dr. Alicia's input appreciated. Guarded prognosis. Further recommendations to follow. MMODL / IJN: [id number] /
[2020-10-19 16:48] LABS: Glucose,Whole Blood 101 mg/dL (75-99)
[2020-10-19] MEDS: DOCUSATE 100 MG CAP PO SCH (19:36)
[2020-10-19] MEDS: ESCITALOPRAM 5 MG TAB PO SCH (19:37)
[2020-10-19 20:13] LABS: Glucose,Whole Blood 85 mg/dL (75-99)
[2020-10-19 20:44] LABS: Glucose,Whole Blood 97 mg/dL (75-99)
--- NOTE | 2020-10-19 22:06 | PN ---
PROGRESS NOTE DATE OF SERVICE: 10/19/2020 REASON FOR FOLLOWUP: ESBL E coli urinary tract infection and aspiration pneumonia. INTERVAL HISTORY: Patient is currently afebrile. The patient remains to be lethargic and BiPAP dependent. He is hemodynamically stable, not on pressor support. No vomiting, diarrhea has been reported by nursing staff. Oral intake remains to be poor to none. PHYSICAL EXAMINATION: Blood pressure 112/80 with a pulse of 114. Temperature 98. He is 97% on BiPAP. General description is an elderly male lying in bed in no distress. Respiratory system: Unlabored breathing with decreased intensity in breath sounds. No wheeze. Heart S1, S2. Regular rate and rhythm. ABDOMEN: Soft, no tenderness. LABS: Hemoglobin is 12.1, white count 6.5. BUN of 16, creatinine 0.70. DIAGNOSTIC IMPRESSION AND PLAN: Patient with ESBL E coli urinary tract infection with recurrent aspiration pneumonia in this patient currently covered with meropenem to continue. Overall prognosis remains to be guarded. Continue supportive care. MMODL / IJN: [id number] /
[2020-10-20] MEDS: MEROPENEM 1 GM in SODIUM CHLORIDE 0.9% 100 ML IVPB SCH ×4 (00:14→23:28)
[2020-10-20] MEDS: SODIUM CHLORIDE 0.9% 1,000 ML IV SCH ×2 (00:18→16:47)
[2020-10-20 06:17] LABS: Glucose,Whole Blood 96 mg/dL (75-99)
[2020-10-20] MEDS: ACETAMINOPHEN TAB 325 MG TAB PO SCH ×3 (06:43→21:29)
[2020-10-20] MEDS: ENOXAPARIN 40 MG/0.4 ML SYRINGE SQ SCH ×2 (06:44→21:28)
[2020-10-20] MEDS: DILTIAZEM 125 MG in SODIUM CHLORIDE 0.9% 100 ML IV SCH ×2 (06:51→22:41)
[2020-10-20] MEDS: ZINC SULFATE 220 MG CAP PO SCH (08:54)
[2020-10-20] MEDS: CHOLECALCIFEROL 25 MCG (1000 IU) TABLET PO SCH (08:54)
[2020-10-20] MEDS: ASCORBIC ACID 500 MG TAB PO SCH ×2 (08:54→21:28)
[2020-10-20] MEDS: FLUTICASONE 50MCG/SPRAY NASAL 16GM EA NOSTRIL SCH (08:56)
[2020-10-20] MEDS: ALBUTEROL HFA INHALER INHALATION PRN ×2 (09:24→12:44)
[2020-10-20 09:41] LABS: African American GFR (CKD) >90 (>60 ml/min/1.73 sqM); Anion Gap 11 mmol/L; Blood Urea Nitrogen 15 mg/dL (9-20); Calcium 8.1 mg/dL (8.4-10.2); Carbon Dioxide 11 mmol/L (22-30); Chloride 118 mmol/L (98-107); Glucose 77 mg/dL (74-99); Non-African American GFR(CKD) 89 (>60 ml/min/1.73 sqM); Sodium 140 mmol/L (137-145)
[2020-10-20 09:56] LABS: Potassium 4.6 mmol/L (3.5-5.1)
[2020-10-20 12:07] LABS: Glucose,Whole Blood 75 mg/dL (75-99)
--- NOTE | 2020-10-20 13:12 | P.PN ---
Subjective Progress Note Date: 10/20/20 Principal diagnosis: Dysphasia This is an 84-year-old male patient with multiple medical comorbidities who is here with Covid-19 pneumonia infection area gastroenterology has been consulted because the patient has been unwilling to eat and possible evidence of aspiration pneumonia. The patient's son is requesting a PEG tube to be placed. However the patient is currently on BiPAP. She was supposed to possibly have an EGD with PEG tube placement today, however patient was evaluated by anesthesiology who states patient is not stable or cleared for proceeding with EGD and PEG tube. The patient's son, destiny Hartman was called and notified that the procedure has been canceled at this time. Also discussed with Dr. Jamison. Objective - Vital Signs Vital signs: Vital Signs Temp 96.9 F L 10/20/20 11:57 Pulse 97 10/20/20 11:57 Resp 20 10/20/20 11:57 BP 135/74 10/20/20 11:57 Pulse Ox 95 10/20/20 11:57 Intake & Output 10/19/20 10/20/20 10/20/20 18:59 06:59 18:59 Intake Total 400 1219 Output Total 400 Balance 400 819 Weight 65.5 kg 67.5 kg Intake: Intake, IV Titration 400 1219 Amount Dextrose 5% in Water 1, 400 000 ml @ 100 mls/hr IV . Q10H [facility] Rx#:[id number] Diltiazem 125 mg In 0 219 Sodium Chloride 0.9% 100 ml @ 5 MG/HR 5 mls/hr IV .Q24H [facility] Rx#:[id number] Meropenem 1 gm In Sodium 100 Chloride 0.9% 100 ml @ 33 .3 mls/hr IVPB Q8HR [facility] Rx#:[id number] Sodium Chloride 0.9% 1, 900 000 ml @ 75 mls/hr IV . [id number] [facility] Rx#:[id number] Oral 0 Blood Product 0 Output: Urine 400 Other: Voiding Method Indwelling Catheter Indwelling Catheter Indwelling Catheter - Exam General appearance: The patient is alert, nonverbal, opens eyes. HET: Head is normocephalic and atraumatic. Conjunctiva pink. Sclera aniicteric. Neck: Supple without lymphadenopathy. Abdomen: Soft, thin, nontender, nondistended with bowel sounds. No guarding or rigidity. Extremities: Normal skin color and turgor. No pedal edema Neurological: No focal deficits. Alert and oriented 3. - Labs CBC & Chem 7: 10/19/20 07:22 10/20/20 08:04 Labs: Abnormal Lab Results - Last 24 Hours (Table) 10/19/20 10/20/20 Range/Units 16:46 08:04 Chloride 118 H (98-107) mmol/L Carbon Dioxide 11 L (22-30) mmol/L Creatinine 0.64 L (0.66-1.25) mg/dL POC Glucose (mg/dL) 101 H (75-99) mg/dL Calcium 8.1 L (8.4-10.2) mg/dL Assessment and Plan (1) Oropharyngeal dysphagia Narrative/Plan: 85-year-old male with multiple medical comorbidities including recent hospitalization for infection with Covid 19. Currently the patient is hospitalized receiving treatment for metabolic encephalopathy, hypoxic respiratory failure and possible aspiration pneumonia. Initial consultation by speech language pathology the patient's was able to swallow with recommendation for next or thick liquids with pured diet and one-to-one assist with oral intake. There are reconsulted as the patient's oral intake is poor and plan is for video swallow evaluation on Monday whether that was canceled due to risk of aspiration. Patient is still nonverbal. Patient is now on BiPAP, was scheduled for EGD with PEG tube placement today however anesthesiology does not feel patient is stable to proceed with procedure. Procedure is canceled. Current Visit: Yes Status: Acute Code(s): R13.12 - DYSPHAGIA, OROPHARYNGEAL PHASE SNOMED Code(s): 73528575 (2) COVID-19 Current Visit: Yes Status: Acute Code(s): U07.1 - COVID-19 SNOMED Code(s): 627755567 (3) Altered mental status Current Visit: No Status: Acute Code(s): R41.82 - ALTERED MENTAL STATUS, UNSPECIFIED SNOMED Code(s): 691195882 Plan: 1. Supportive care 2. Continue broad-spectrum antibiotic therapy 3. Continue medical management by primary team 4. Appreciate recommendations from pulmonology 5. EGD with PEG tube placement canceled, anesthesia evaluated patient does not feel he is stable to proceed 6. May resume Lovenox 7. Nothing by mouth 8. Discuss with Dr. Jamison would recommend parental nutrition at this time, dietitian consulted Thank you for this consultation we will continue to follow Dr. Milind Madsen I agree with the dictator's note, documented as a scribe by Zenaida Baca.
--- NOTE | 2020-10-20 15:39 | P.PN ---
Subjective Progress Note Date: 10/20/20 Principal diagnosis: Fever, tachycardia, recent COVID 19 pneumonia 84-year-old white male patient, with recent history of hospitalization for COVID19 pneumonia, and patient was discharged to the [facility] on the [place] on 10/05/2020. Patient was hospitalized from 10/01/2020 through 10/05/2020. Patient is a poor historian, has underlying history of advanced dementia, his severe cardiomyopathy with EF of around 20-25%, atrial fibrillation, chronic congestive heart failure systolic dysfunction, hypertension, hyperlipidemia, anxiety, frequent falls, previous history of subdural hemorrhage, recent cervical neck fracture currently in a soft collar. On 10/11/2020 patient was br ought into the emergency department for evaluation of fever, tachycardia. His previous chest x-ray from his previous admission there was mild right basilar opacity, most likely related to atelectasis, a CT angiogram of the chest showed no evidence of pulmonary embolism. 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 His subsequent chest x- ray on 10/05/2020 showed some worsening in the appearance of the right lower lobe and right middle lobe hazy infiltration. However clinically patient had remained stable and did not have any worsening in his oxygenation and he was discharged to the snf on [facility]. His chest x-ray on admission on the 2020 showed right mid and lower lung field infiltrates. EKG showed SVT with a rate of 166, temperature was 100.5F, patient was satting 93% on 12 L of oxygen. His laboratory data showed leukocytosis with white blood cell, 15.3, hemoglobin of 14.4, neutrophils of 14, lymphocyte count of 0.7, his INR was 1, sodium is 150, potassium is 4.8, chloride was 121, BUN of 41 Cr1.06, his LDH has trended up to 937 from 585, CRP is 86.5, up from 138 during last admission, pro- calcitonin level is 0.21, his urinalysis shows evidence of infection. Patient is lethargic, and there is suspicion for aspiration pneumonia. He was started on a azithromycin and Rocephin for empiric antibiotic coverage, however in view of suspected aspiration we will switch the antibiotic coverage to Zosyn. Brain CT showed mild to moderate ventricular megaly/hydrocephalus probably in part due to central cerebral atrophy. No acute intracranial abnormality On 10/13/2020 patient seen in follow-up on selective care unit. Patient is awake, but confused, encephalopathic, but does not appear to be in any acute distress. He is currently on 7 L of oxygen the pulse ox of 97%, not sure why his oxygen had increased, earlier patient was on 3 L of oxygen pulse ox of 94%, patient has been nothing by mouth in view of his altered mentation, speech evaluation was obtained, and patient was noted to be coughing with thin liquids, and although she did not outright failed the swallow evaluation his altered mental status prevented him from following simple verbal commands. Patient had a delayed swallow, and coughing after swallowing, difficulty chewing. Recommendation was made for dysphagia level I pured diet with nectar thick liquids upright positioning, direct one-on-one supervision, however in view of his continued altered mental status, generalized weakness, suspected chronic aspiration, we will recommend PEG tube placement for nutritional support. Today's chest x-ray shows near complete opacification of the right hemithorax, left lung hyperinflated, mild patchy density in the right medial lung base. Patient has a very weak cough, likely developed mucous plugging in the right mainstem bronchus, however his CODE STATUS is DO NOT RESUSCITATE, he is a very frail. We placed on BiPAP support. Overall his CODE STATUS needs to be readdressed again, as the patient is suspected to be chronically aspirating, will need PEG tube for nutritional support if the patient's family wants to continue with supportive care. He has been unable to take any of his oral medications, cardiology has the patient on Cardizem and amiodarone drip for rate control. Patient is on Zosyn for empiric antibiotic coverage. On October 19, 2020 patient is seen in follow-up on medical floor, he remains on BiPAP, with pressures of 12/6 and FiO2 of 40%, pulse ox of 93%, hemodynamically blood pressure has been stable, been afebrile. His chest x-ray today showed patchy perihilar and basilar infiltrates right greater than left although somewhat improved. Patient is currently on meropenem for ESBL E. coli, blood cultures have shown no growth. Patient remains on 0.0 cm rate is 75 ML per hour and diltiazem 5 mg per hour for heart rate control. Generally patient continues to be very weak, he has been nothing by mouth all weekend, we recommended PEG tube placement for nutritional support. Speech evaluation was supposed to repeat a modified barium swallow however the patient has remained on BiPAP [id number], and speech eval was deferred. ID Service is following. On meropenem. On 10/20/2020 patient seen in follow-up. He is lethargic, quite weak, he remains on BiPAP support with pressures of 12/6 and FiO2 of 40%, his pulse ox of 95%, no fever, blood pressure stable, no new chest x-ray, lung sounds are diminished. She does not appear to be in any acute distress, however he is lethargic, he is very physically debilitated. He has been on antibiotics in the form of meropenem for ESBL E. coli urinary tract infection, blood cultures have been negative. He has been nothing by mouth, he because of high risk for aspiration and the PEG tube placement was recommended however the procedure was again canceled related to patient being on BiPAP support Objective - Vital Signs Vital signs: Vital Signs Temp 96.9 F L 10/20/20 11:57 Pulse 97 10/20/20 11:57 Resp 20 10/20/20 11:57 BP 135/74 10/20/20 11:57 Pulse Ox 95 10/20/20 11:57 Intake & Output 10/19/20 10/20/20 10/20/20 18:59 06:59 18:59 Intake Total 400 1219 Output Total 400 Balance 400 819 Weight 65.5 kg 67.5 kg Intake: Intake, IV Titration 400 1219 Amount Dextrose 5% in Water 1, 400 000 ml @ 100 mls/hr IV . Q10H [facility] Rx#:[id number] Diltiazem 125 mg In 0 219 Sodium Chloride 0.9% 100 ml @ 5 MG/HR 5 mls/hr IV .Q24H [facility] Rx#:[id number] Meropenem 1 gm In Sodium 100 Chloride 0.9% 100 ml @ 33 .3 mls/hr IVPB Q8HR [facility] Rx#:[id number] Sodium Chloride 0.9% 1, 900 000 ml @ 75 mls/hr IV . [id number] [facility] Rx#:[id number] Oral 0 Blood Product 0 Output: Urine 400 Other: Voiding Method Indwelling Catheter Indwelling Catheter Indwelling Catheter - Exam GENERAL EXAM: Lethargic, drowsy 84-year-old white male, on BiPAP support with pressures of 12/6 and FiO2 of 40% he has a weak cough, unable to clear secretions, is thought to be chronically aspirating HEAD: Normocephalic/atraumatic. EYES: Normal reaction of pupils, equal size. Conjunctiva pink, sclera white. NOSE: Clear with pink turbinates. THROAT: No erythema or exudates. NECK: No masses, no JVD, no thyroid enlargement, no adenopathy. CHEST: No chest wall deformity. Symmetrical expansion. LUNGS: Equal air entry with basilar crackles CVS: Regular rate and rhythm, normal S1 and S2, no gallops, no murmurs, no rubs ABDOMEN: Soft, nontender. No hepatosplenomegaly, normal bowel sounds, no guarding or rigidity. EXTREMITIES: No clubbing, no edema, no cyanosis, 2+ pulses and upper and lower extremities. MUSCULOSKELETAL: Muscle strength and tone normal. SPINE: No scoliosis or deformity SKIN: No rashes CENTRAL NERVOUS SYSTEM: Drowsy, lethargic No focal deficits, tone is normal in all 4 extremities. - Labs CBC & Chem 7: 10/19/20 07:22 10/20/20 08:04 Labs: Abnormal Lab Results - Last 24 Hours (Table) 10/19/20 10/20/20 Range/Units 16:46 08:04 Chloride 118 H (98-107) mmol/L Carbon Dioxide 11 L (22-30) mmol/L Creatinine 0.64 L (0.66-1.25) mg/dL POC Glucose (mg/dL) 101 H (75-99) mg/dL Calcium 8.1 L (8.4-10.2) mg/dL Assessment and Plan Plan: Assessment: #1. Acute hypoxic respiratory failure related to suspected aspiration pneumonia in addition to recent history of COVID 19 related pneumonia. #2. Suspect chronic aspiration related to overall generalized medical debility, toxic metabolic encephalopathy #3. Near-complete opacification of the right hemithorax likely related to right mainstem mucous plugging, patient has a very weak and ineffective cough, ment ation has been altered, patient is thought to be chronically aspirating. Code Status DO NOT RESUSCITATE, remains on BiPAP support pressures of 12/6 and FiO2 of 40% #4. A. fib with RVR, remains on Cardizem and amiodarone drip #5. Chronic systolic heart failure #6. Recent hospitalization for acute exacerbation of systolic CHF and A. fib with RVR #7. Recent COVID 19 infection diagnosed on 09/16/2020 #8. Acute metabolic encephalopathy and underlying advanced dementia, brain CT showed no acute intracranial abnormality #9. Hypertension #10. Hyperlipidemia #11. 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 Frequent falls, recent fracture of C1, currently in the soft collar #13. History of paroxysmal A. fib not on anticoagulation due to multiple falls #14. History of subdural hemorrhage #15. GERD/reflux #16. Anxiety/depression Plan: Patient remains on BiPAP support, he is a high surgical risk, his PEG tube insertion procedure was again canceled. Continue current antibiotics, may provide patient with breaks from the BiPAP. His prognosis is extremely guarded. Continue supportive care. I performed a history & physical examination of the patient and discussed their management with my nurse practitioner, Leelee Roth. I reviewed the nurse practitioner's note and agree with the documented findings and plan of care. Lung sounds are positive for diffuse wheezes throughout the lung [place]. The findings and the impression was discussed with the patient. I attest to the documentation by the nurse practitioner. Time with Patient: Less than 30
--- NOTE | 2020-10-20 16:18 | PN ---
PROGRESS NOTE DATE OF SERVICE: 10/20/2020 This 85-year-old gentleman who was admitted with acute bilateral COVID-19 pneumonia had possible acute hypoxic respiratory failure also and sepsis. The patient had right lower lobe atelectasis also. The patient had change in mental status. The patient was not taking any fluids at this time. The patient is slated for PEG tube placement today by GI. Past medical history reviewed. Review of systems could not be taken. CURRENT MEDICATIONS: Reviewed. They include Tylenol, Ventolin, vitamin C, Colace, Lovenox. Lexapro p.r.n. Medication doses are reviewed. PHYSICAL EXAMINATION: Patient is conscious, stuporous. Pulse 97, blood pressure 135/74, respiration 20, temperature 96.9, pulse ox 94% on BiPAP. BiPAP settings are noted. and BiPAP. HEENT: Conjunctivae normal. NECK: No jugular venous distention. CARDIOVASCULAR SYSTEM: S1, S2 muffled. RESPIRATORY SYSTEM: Breath sounds diminished at the bases. Bilateral scattered rhonchi and crackles. ABDOMEN: Soft, non-tender. LEGS: No edema. No swelling. NERVOUS SYSTEM: No focal deficit. LABS: Sodium 140, potassium 4.6. CO2 is 11. ASSESSMENT: 1. Acute bilateral COVID-19 pneumonia, right more than the left, with possible acute hypoxic respiratory failure as well as sepsis, present on admission. 2. Possible acute right lower lobe atelectasis and pneumonia; aspiration pneumonia. 3. Change in mental status, acute on chronic metabolic encephalopathy. 4. Escherichia coli sepsis. 5. Hyponatremia, possibly secondary to dehydration, poor oral intake. 6. Increased white count, possibly secondary to sepsis. 7. Anemia, normocytic anemia of chronic disease. 8. Severe protein-calorie malnutrition; BMI of 18.9. 9. History of chronic obstructive pulmonary disease. 10.History of atrial fibrillation, chronic. 11.History of congestive heart failure. 12.History of dementia. 13.History of gastroesophageal reflux disease. 14.Hypertension. 15.Hyperlipidemia. 16.Extended-spectrum beta-lactamase Escherichia coli from the urine. 17.Anxiety, depression. 18.NO CODE, NO CPR, NO VENT. RECOMMENDATIONS AND DISCUSSION: I recommend to continue current medications, continue with monitoring, continue symptomatic treatment. Otherwise at this time I would recommend PEG tube per GI. Continue the antibiotics. Continue the rest of the medications. Prognosis extremely guarded because of multiple complex medical issues. Further recommendations to follow. MMODL / IJN: [id number] / PERRY
[2020-10-20 17:14] LABS: Glucose,Whole Blood 92 mg/dL (75-99)
--- NOTE | 2020-10-20 17:59 | PN ---
PROGRESS NOTE DATE OF SERVICE: REASON FOR FOLLOWUP: Pneumonia and urinary tract infection. INTERVAL HISTORY: The patient is currently afebrile. The patient remains BiPAP-dependent, hemodynamically stable, not on any pressor support. The patient remains lethargic, unable to provide any history. No vomiting, diarrhea or any other changes reported by the nursing staff. PHYSICAL EXAMINATION: Blood pressure 135/74 with a pulse of 97, temperature 96.9. He is 95% on BiPAP. General description is an elderly male lying in bed in no distress. RESPIRATORY SYSTEM: Unlabored breathing with decreased intensity of breath sounds. No wheeze. HEART: S1, S2. Regular rate and rhythm. ABDOMEN: Soft. No tenderness. LABS: BUN of 15, creatinine 0.64. DIAGNOSTIC IMPRESSION AND PLAN: Patient admitted to hospital with shortness of breath, multifactorial, with sputum; possibly a component of pneumonia, question of aspiration, also with extended-spectrum beta-lactamase Escherichia coli urinary tract infection. The patient is covered with meropenem. Prognosis remains guarded. Continue with supportive care. MMODL / IJN: [id number] /
[2020-10-20] MEDS: DOCUSATE 100 MG CAP PO SCH (21:28)
[2020-10-20] MEDS: ESCITALOPRAM 5 MG TAB PO SCH (21:29)
[2020-10-20 21:44] LABS: Glucose,Whole Blood 94 mg/dL (75-99)
[2020-10-21] MEDS: ACETAMINOPHEN TAB 325 MG TAB PO SCH ×3 (06:08→22:36)
[2020-10-21 06:36] LABS: Glucose,Whole Blood 77 mg/dL (75-99)
[2020-10-21] MEDS: ENOXAPARIN 40 MG/0.4 ML SYRINGE SQ SCH ×2 (08:54→21:17)
[2020-10-21] MEDS: SODIUM CHLORIDE 0.9% 1,000 ML IV SCH (08:54)
[2020-10-21] MEDS: MEROPENEM 1 GM in SODIUM CHLORIDE 0.9% 100 ML IVPB SCH ×3 (08:54→23:05)
[2020-10-21] MEDS: FLUTICASONE 50MCG/SPRAY NASAL 16GM EA NOSTRIL SCH (08:55)
[2020-10-21] MEDS: ZINC SULFATE 220 MG CAP PO SCH (08:55)
[2020-10-21] MEDS: ASCORBIC ACID 500 MG TAB PO SCH ×2 (08:55→20:33)
[2020-10-21] MEDS: CHOLECALCIFEROL 25 MCG (1000 IU) TABLET PO SCH (08:55)
[2020-10-21] MEDS ORDERED: AMIODARONE 360 MG in DEXTROSE 5% IN WATER 200 ML IV ONE ×2 (10:50)
[2020-10-21] MEDS ORDERED: DEXTROSE 5% IN WATER 100 ML with AMIODARONE 150 MG IV ONE (10:50)
[2020-10-21 11:38] LABS: Ionized Calcium 5.1 mg/dL (4.5-5.3)
[2020-10-21 11:40] LABS: Glucose,Whole Blood 72 mg/dL (75-99)
[2020-10-21 11:50] LABS: ALT 20 U/L (4-49); AST 25 U/L (17-59); African American GFR (CKD) >90 (>60 ml/min/1.73 sqM); Albumin 2.2 g/dL (3.5-5.0); Alkaline Phosphatase 64 U/L (38-126); Anion Gap 6 mmol/L; Blood Urea Nitrogen 16 mg/dL (9-20); Carbon Dioxide 17 mmol/L (22-30); Chloride 116 mmol/L (98-107); Glucose 75 mg/dL (74-99); Magnesium 2.1 mg/dL (1.6-2.3); Non-African American GFR(CKD) >90 (>60 ml/min/1.73 sqM); Phosphorus 2.2 mg/dL (2.5-4.5); Potassium 4.3 mmol/L (3.5-5.1); Sodium 139 mmol/L (137-145); Total Bilirubin 0.6 mg/dL (0.2-1.3); Total Protein 4.8 g/dL (6.3-8.2)
--- NOTE | 2020-10-21 12:03 | P.PN ---
Subjective Progress Note Date: 10/21/20 Principal diagnosis: Dysphasia This is an 84-year-old male patient with multiple medical comorbidities who is here with Covid-19 pneumonia infection area gastroenterology has been consulted because the patient has been unwilling to eat and possible evidence of aspiration pneumonia. The patient's son is requesting a PEG tube to be placed. Yesterdayhe was scheduled for EGD and PEG tube placement, however patient was evaluated by anesthesia and deemed not stable to proceed with procedure. it was discussed with Dr. Jamison to consider parenteral nutrition. Dietitian consult. Patient was seen and examined sitting up in bed. His nurse just trial him off his BiPAP with high flow nasal cannula. Patient is actually more alert today, was responsive and did try to verbally communicate. Objective - Vital Signs Vital signs: Vital Signs Temp 97.6 F 10/21/20 08:00 Pulse 143 H 10/21/20 08:00 Resp 22 10/21/20 09:01 BP 118/86 10/21/20 08:00 Pulse Ox 98 10/21/20 09:01 Intake & Output 10/20/20 10/21/20 10/21/20 18:59 06:59 18:59 Intake Total 700 650 Output Total 600 200 Balance 100 450 Weight 67.5 kg Intake: IV 425 Sodium Chloride 0.9% 1, 425 000 ml @ 75 mls/hr IV . [id number] [facility] Rx#:[id number] Intake, IV Titration 700 225 Amount Diltiazem 125 mg In 125 Sodium Chloride 0.9% 100 ml @ 5 MG/HR 5 mls/hr IV .Q24H [facility] Rx#:[id number] Meropenem 1 gm In Sodium 100 100 Chloride 0.9% 100 ml @ 33 .3 mls/hr IVPB Q8HR [facility] Rx#:[id number] Sodium Chloride 0.9% 1, 600 000 ml @ 75 mls/hr IV . [id number] [facility] Rx#:[id number] Output: Urine 600 200 Other: Voiding Method Indwelling Catheter Indwelling Catheter # Bowel Movements 0 - Exam General appearance: The patient is alert, try to verbally communicate, opens eyes. HET: Head is normocephalic and atraumatic. Conjunctiva pink. Sclera aniicteric. Neck: Supple without lymphadenopathy. Abdomen: Soft, thin, nontender, nondistended with bowel sounds. No guarding or rigidity. Extremities: Normal skin color and turgor. No pedal edema Neurological: Oriented to self. Nonverbal. - Labs CBC & Chem 7: 10/19/20 07:22 10/21/20 10:59 Labs: Abnormal Lab Results - Last 24 Hours (Table) 10/20/20 Range/Units 08:04 Chloride 118 H (98-107) mmol/L Carbon Dioxide 11 L (22-30) mmol/L Creatinine 0.64 L (0.66-1.25) mg/dL Calcium 8.1 L (8.4-10.2) mg/dL Assessment and Plan (1) Oropharyngeal dysphagia Narrative/Plan: 85-year-old male with multiple medical comorbidities including recent hospitalization for infection with Covid 19. [facility], hypoxic respiratory failure and possible aspiration pneumonia. Initial consultation by speech language pathology the patient's was able to swallow with recommendation for next or thick liquids with pured diet and one-to-one assist with oral intake. There are reconsulted as the patient's oral intake is poor and plan is for video swallow evaluation on Monday whether that was canceled due to risk of aspiration. Patient is still nonverbal. Patient is now on BiPAP, was scheduled for EGD with PEG tube placement today however anesthesiology does not feel patient is stable to proceed with procedure. Procedure is canceled. Today patient will be reevaluated with possible Dobbhoff placement. Current Visit: Yes Status: Acute Code(s): R13.12 - DYSPHAGIA, OROPHARYNGEAL PHASE SNOMED Code(s): 83858899 (2) COVID-19 Current Visit: Yes Status: Acute Code(s): U07.1 - COVID-19 SNOMED Code(s): 410722515 (3) Altered mental status Current Visit: No Status: Acute Code(s): R41.82 - ALTERED MENTAL STATUS, UNSPECIFIED SNOMED Code(s): 651973433 Plan: 1. Supportive care 2. Continue broad-spectrum antibiotic therapy 3. Continue medical management by primary team 4. Appreciate recommendations from pulmonology 5. EGD with PEG tube placement canceled, anesthesia evaluated patient does not feel he is stable to proceed 6. May resume Lovenox 7. Nothing by mouth, risk for aspiration 8. Dobbhoff tube placement today with f/u abd xray for placement 9. Hold feedings today 10. Consult rfid developer for tube feeding Thank you for this consultation we will continue to follow Dr. Milind Madsen I agree with the dictator's note, documented as a scribe by Zenaida Baca.
[2020-10-21] MEDS: ALBUTEROL HFA INHALER INHALATION PRN ×2 (12:28→19:11)
[2020-10-21 13:05] LABS: Triglycerides 120 mg/dL (<150)
[2020-10-21] MEDS: DEXTROSE 5% IN WATER 1,000 ML IV SCH ×2 (13:30→22:37)
--- NOTE | 2020-10-21 13:53 | XR ---
EXAMINATION TYPE: XR abdomen 2V DATE OF EXAM: 10/21/2020 COMPARISON: None INDICATION: Dobbhoff placement TECHNIQUE: Single view abdomen semiupright view FINDINGS: Dobbhoff tube appears to be curled within the mid esophagus. This does not extend to the stomach to t he diaphragm. There is a right basilar infiltrate. A small pleural effusion may be present bilaterall y. Mass effect within the abdomen is not evident Psoas margins are normal. No organomegaly is present. IMPRESSION: 1. Dobbhoff tube is curled within the mid to distal esophagus. Should be pulled back and repositioned .
--- NOTE | 2020-10-21 14:12 | P.PN ---
Subjective Progress Note Date: 10/21/20 Principal diagnosis: Fever, tachycardia, recent COVID 19 pneumonia 84-year-old white male patient, with recent history of hospitalization for COVID19 pneumonia, and patient was discharged to the [facility] the [place] on 10/05/2020. Patient was hospitalized from 10/01/2020 through 10/05/2020. Patient is a poor historian, has underlying history of advanced dementia, his severe cardiomyopathy with EF of around 20-25%, atrial fibrillation, chronic congestive heart failure systolic dysfunction, hypertension, hyperlipidemia, anxiety, frequent falls, previous history of subdural hemorrhage, recent cervical neck fracture currently in a soft collar. On 10/11/2020 patient was br ought into the emergency department for evaluation of fever, tachycardia. His previous chest x-ray from his previous admission there was mild right basilar opacity, most likely related to atelectasis, a CT angiogram of the chest showed no evidence of pulmonary embolism. 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 His subsequent chest x- ray on 10/05/2020 showed some worsening in the appearance of the right lower lobe and right middle lobe hazy infiltration. However clinically patient had remained stable and did not have any worsening in his oxygenation and he was discharged to the longterm on [facility]. His chest x-ray on admission on the 2020 showed right mid and lower lung field infiltrates. EKG showed SVT with a rate of 166, temperature was 100.5F, patient was satting 93% on 12 L of oxygen. His laboratory data showed leukocytosis with white blood cell, 15.3, hemoglobin of 14.4, neutrophils of 14, lymphocyte count of 0.7, his INR was 1, sodium is 150, potassium is 4.8, chloride was 121, BUN of 41 Cr1.06, his LDH has trended up to 937 from 585, CRP is 86.5, up from 138 during last admission, pro- calcitonin level is 0.21, his urinalysis shows evidence of infection. Patient is lethargic, and there is suspicion for aspiration pneumonia. He was started on a azithromycin and Rocephin for empiric antibiotic coverage, however in view of suspected aspiration we will switch the antibiotic coverage to Zosyn. Brain CT showed mild to moderate ventricular megaly/hydrocephalus probably in part due to central cerebral atrophy. No acute intracranial abnormality On 10/13/2020 patient seen in follow-up on selective care unit. Patient is awake, but confused, encephalopathic, but does not appear to be in any acute distress. He is currently on 7 L of oxygen the pulse ox of 97%, not sure why his oxygen had increased, earlier patient was on 3 L of oxygen pulse ox of 94%, patient has been nothing by mouth in view of his altered mentation, speech evaluation was obtained, and patient was noted to be coughing with thin liquids, and although she did not outright failed the swallow evaluation his altered mental status prevented him from following simple verbal commands. Patient had a delayed swallow, and coughing after swallowing, difficulty chewing. Recommendation was made for dysphagia level I pured diet with nectar thick liquids upright positioning, direct one-on-one supervision, however in view of his continued altered mental status, generalized weakness, suspected chronic aspiration, we will recommend PEG tube placement for nutritional support. Today's chest x-ray shows near complete opacification of the right hemithorax, left lung hyperinflated, mild patchy density in the right medial lung base. Patient has a very weak cough, likely developed mucous plugging in the right mainstem bronchus, however his CODE STATUS is DO NOT RESUSCITATE, he is a very frail. We placed on BiPAP support. Overall his CODE STATUS needs to be readdressed again, as the patient is suspected to be chronically aspirating, will need PEG tube for nutritional support if the patient's family wants to continue with supportive care. He has been unable to take any of his oral medications, cardiology has the patient on Cardizem and amiodarone drip for rate control. Patient is on Zosyn for empiric antibiotic coverage. On October 19, 2020 patient is seen in follow-up on medical floor, he remains on BiPAP, with pressures of 12/6 and FiO2 of 40%, pulse ox of 93%, hemodynamically blood pressure has been stable, been afebrile. His chest x-ray today showed patchy perihilar and basilar infiltrates right greater than left although somewhat improved. Patient is currently on meropenem for ESBL E. coli, blood cultures have shown no growth. Patient remains on 0.0 cm rate is 75 ML per hour and diltiazem 5 mg per hour for heart rate control. Generally patient continues to be very weak, he has been nothing by mouth all weekend, we recommended PEG tube placement for nutritional support. Speech evaluation was supposed to repeat a modified barium swallow however the patient has remained on BiPAP [id number], and speech eval was deferred. ID Service is following. On meropenem. On 10/20/2020 patient seen in follow-up. He is lethargic, quite weak, he remains on BiPAP support with pressures of 12/6 and FiO2 of 40%, his pulse ox of 95%, no fever, blood pressure stable, no new chest x-ray, lung sounds are diminished. She does not appear to be in any acute distress, however he is lethargic, he is very physically debilitated. He has been on antibiotics in the form of meropenem for ESBL E. coli urinary tract infection, blood cultures have been negative. He has been nothing by mouth, he because of high risk for aspiration and the PEG tube placement was recommended however the procedure was again canceled related to patient being on BiPAP support On 10/21/2020 patient seen in follow-up on medical surgical floor. he is off the BiPAP support, currently on 8 L of oxygen a pulse ox of 96%, breathing comfortably, no acute distress, he is more awake, he is not verbalizing sitting, that appears to be fairly comfortable. He has been nothing by mouth for any period of time with inability to take any oral intake related to recurrent aspiration, and being BiPAP dependent. He has service has canceled the procedure yesterday related to patient being BiPAP dependent. He is being trialed on the nasal cannula, doing well so far. Initiation of parenteral feeding is being discussed as well Objective - Vital Signs Vital signs: Vital Signs Temp 97.6 F 10/21/20 08:00 Pulse 113 H 10/21/20 13:32 Resp 20 10/21/20 13:32 BP 116/79 10/21/20 13:32 Pulse Ox 96 10/21/20 13:32 Intake & Output 10/20/20 10/21/20 10/21/20 18:59 06:59 18:59 Intake Total 700 650 Output Total 600 200 200 Balance 100 450 -200 Weight 67.5 kg 67.5 kg Intake: IV 425 Sodium Chloride 0.9% 1, 425 000 ml @ 75 mls/hr IV . [id number] [facility] Rx#:[id number] Intake, IV Titration 700 225 Amount Diltiazem 125 mg In 125 Sodium Chloride 0.9% 100 ml @ 5 MG/HR 5 mls/hr IV .Q24H [facility] Rx#:[id number] Meropenem 1 gm In Sodium 100 100 Chloride 0.9% 100 ml @ 33 .3 mls/hr IVPB Q8HR [facility] Rx#:[id number] Sodium Chloride 0.9% 1, 600 000 ml @ 75 mls/hr IV . [id number] [facility] Rx#:[id number] Output: Urine 600 200 200 Other: Voiding Method Indwelling Catheter Indwelling Catheter # Bowel Movements 0 - Exam GENERAL EXAM: More awake on today's exam 84-year-old white male, is thought to be chronically aspirating HEAD: Normocephalic/atraumatic. EYES: Normal reaction of pupils, equal size. Conjunctiva pink, sclera white. NOSE: Clear with pink turbinates. THROAT: No erythema or exudates. NECK: No masses, no JVD, no thyroid enlargement, no adenopathy. CHEST: No chest wall deformity. Symmetrical expansion. LUNGS: Equal air entry with basilar crackles CVS: Regular rate and rhythm, normal S1 and S2, no gallops, no murmurs, no rubs ABDOMEN: Soft, nontender. No hepatosplenomegaly, normal bowel sounds, no guarding or rigidity. EXTREMITIES: No clubbing, no edema, no cyanosis, 2+ pulses and upper and lower extremities. MUSCULOSKELETAL: Muscle strength and tone normal. SPINE: No scoliosis or deformity SKIN: No rashes CENTRAL NERVOUS SYSTEM: Drowsy, lethargic No focal deficits, tone is normal in all 4 extremities. - Labs CBC & Chem 7: 10/19/20 07:22 10/21/20 10:59 Labs: Abnormal Lab Results - Last 24 Hours (Table) 10/21/20 10/21/20 Range/Units 10:59 11:26 Chloride 116 H (98-107) mmol/L Carbon Dioxide 17 L (22-30) mmol/L Creatinine 0.56 L (0.66-1.25) mg/dL POC Glucose (mg/dL) 72 L (75-99) mg/dL Calcium 8.0 L (8.4-10.2) mg/dL Phosphorus 2.2 L (2.5-4.5) mg/dL Total Protein 4.8 L (6.3-8.2) g/dL Albumin 2.2 L (3.5-5.0) g/dL Assessment and Plan Plan: Assessment: #1. Acute hypoxic respiratory failure related to suspected aspiration pneumonia in addition to recent history of COVID 19 related pneumonia. #2. Suspect chronic aspiration related to overall generalized medical debility, toxic metabolic encephalopathy #3. Near-complete opacification of the right hemithorax likely related to right mainstem mucous plugging, patient has a very weak and ineffective cough, mentation has been altered, patient is thought to be chronically aspirating. Code Status DO NOT RESUSCITATE, remains on BiPAP support pressures of 12/6 and FiO2 of 40% #4. A. fib with RVR, remains on Cardizem and amiodarone drip #5. Chronic systolic heart failure #6. Recent hospitalization for acute exacerbation of systolic CHF and A. fib with RVR #7. Recent COVID 19 infection diagnosed on 09/16/2020 #8. Acute metabolic encephalopathy and underlying advanced dementia, brain CT showed no acute intracranial abnormality #9. Hypertension #10. Hyperlipidemia #11. 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 Frequent falls, recent fracture of C1, currently in the soft collar #13. History of paroxysmal A. fib not on anticoagulation due to multiple falls #14. History of subdural hemorrhage #15. GERD/reflux #16. Anxiety/depression Plan: Patient is tolerating nasal cannula trial well so far, may placed on BiPAP support if develops dyspnea or worsening hypoxemia. Head of the bed up 30 at all times, possibility of PEG tube insertion versus initiation of TPN is being discussed. Prognosis extremely guarded. We'll continue supportive medical treatment. I performed a history & physical examination of the patient and discussed their management with my nurse practitioner, Leelee Roth. I reviewed the nurse practitioner's note and agree with the documented findings and plan of care. Lung sounds are positive for diffuse wheezes throughout the lung [place]. The findings and the impression was discussed with the patient. I attest to the documentation by the nurse practitioner. Time with Patient: Less than 30
[2020-10-21 17:12] LABS: Glucose,Whole Blood 108 mg/dL (75-99)
--- NOTE | 2020-10-21 18:47 | P.PN ---
Progress Note - Text Progress Note Date: 10/21/20 Chief Complaint: Unwell History of presenting complaint: This is a 84-year-old patient resident of [facility] in [facility] being followed by Davide Pérez. Patient tested positive for COVID 19 on 09/16/2020. recently at [facility] was treated there for UTI. From that he was discharged and sent to rehab at [facility] in [facility]. In the process patient lost some weight and become rather weak. Admitted September 16. Diagnosed with COVID 19 pneumonia. Treated with heparin steroids. Also to acute kidney injury felt to be from Bactrim. Acute metabolic encephalopathy. Hyponatremic. Uncontrolled A. fib. Advanced medical debility. Patient was discharged on October 05. Patient oral intake was fairly left the hospital. Now presents to the ER. As per the EMS run sheet: Blood pressure 120/88, pulse 81, respiration 30, pulse ox 83% on room air, temperature 100.6. EMS was called out for patient having rapid respirations and tachycardia. Patient is barely been talking over the last week. Decrease response to stimuli. Patient been moving his hand under his head. No signs of trauma. EKG showed sinus tachycardia. Left arm felt to be flaccid. Admitted with right lower lobe pneumonia, possible aspiration with sepsis lactic acidosis, metabolic encephalopathy, hyper natremia, atrial fibrillation rapid ventricular rate. Started on IV Zosyn, aspiration precautions, IV fluids. [place] to have embolic stroke. Affecting the left arm. Developed collapse atelectasis of the right lung. Anesthesia felt the patient to be very high risk hands PEG tube could not be placed. Today-for the last 5 days patient was being covered by [facility]. Today patient seems to be a bit more responsive. After some time he did say okay. On nasal cannula.-8 L. Patient remains nothing by mouth because of high risk of aspiration. . review of systems:Patient cannot tell. Active Medications Acetaminophen (Acetaminophen Suppository 650 Mg Supp) 650 mg RECTAL Q4HR PRN PRN Reason: Fever and/ or Mild Pain Last Admin: 10/12/20 01:07 Dose: 650 mg Documented by: Acetaminophen (Acetaminophen Tab 325 Mg Tab) 650 mg PO Q8HR@0600,1400,2200 [facility] Last Admin: 10/21/20 13:31 Dose: Not Given Documented by: Albuterol Sulfate (Albuterol Hfa Inhaler) 1 puff INHALATION RT-Q6H PRN PRN Reason: Wheezing Last Admin: 10/21/20 12:28 Dose: 1 puff Documented by: Ascorbic Acid (Ascorbic Acid 500 Mg Tab) 500 mg PO BID [facility] Last Admin: 10/21/20 08:55 Dose: Not Given Documented by: Cholecalciferol (Cholecalciferol 25 Mcg (1000 Iu) Tablet) 125 mcg PO DAILY [facility] Last Admin: 10/21/20 08:55 Dose: Not Given Documented by: Docusate Sodium (Docusate 100 Mg Cap) 100 mg PO DAILY@2100 [facility] Last Admin: 10/20/20 21:28 Dose: Not Given Documented by: Enoxaparin Sodium (Enoxaparin 40 Mg/0.4 Ml Syringe) 40 mg SQ BID@0900,2100 [facility] Last Admin: 10/21/20 08:54 Dose: 40 mg Documented by: Escitalopram Oxalate (Escitalopram 5 Mg Tab) 5 mg PO DAILY@2100 [facility] Last Admin: 10/20/20 21:29 Dose: Not Given Documented by: Fluticasone Propionate (Fluticasone 50mcg/[place] Nasal 16gm) 2 spray EA NOSTRIL DAILY@0900 [facility] Last Admin: 10/21/20 08:55 Dose: Not Given Documented by: Diltiazem HCl 125 mg/ Sodium (Chloride) 125 mls @ 5 mls/hr IV .Q24H [facility] Last Admin: 10/20/20 22:41 Dose: 10 mg/hr, 10 mls/hr Documented by: Meropenem 1 gm/ Sodium (Chloride) 100 mls @ 33.3 mls/hr IVPB Q8HR [facility]; Protocol Last Admin: 10/21/20 16:49 Dose: 33.3 mls/hr Documented by: Amiodarone HCl 450 mg/ (Dextrose/Water) 250 mls @ 16.667 mls/hr IV .Q15H [facility]; Protocol Stop: 10/22/20 10:49 Dextrose/Water (Dextrose 5%-Water Iv Soln) 1,000 mls @ 100 mls/hr IV .Q10H [facility] Last Admin: 10/21/20 13:30 Dose: 100 mls/hr Documented by: Miscellaneous Information (Pneumonia Protocol Utilized 1 Each Misc) 1 each PO ONCE PRN PRN Reason: Per Protocol Miscellaneous Information (Magnesium Replacement Protocol 1 Each Misc) 1 each MISCELLANE DAILY PRN; Protocol PRN Reason: Per Protocol Miscellaneous Information (Potassium Replacement Protocol 1 Each Misc) 1 each MISCELLANE DAILY PRN; Protocol PRN Reason: Per Protocol Zinc Sulfate (Zinc Sulfate 220 Mg Cap) 220 mg PO DAILY [facility] Last Admin: 10/21/20 08:55 Dose: Not Given Documented by: Past medical history to include: Atrial fibrillation, CHF, COPD, dementia, GERD, hypertension, hyperlipidemia carotid artery disease with bypass, partial pneumonectomy, anxiety depression. COVID 19 pneumonia diagnosed 09/16/2020 Social history: rehab at [facility]. No history of smoking or alcohol Family history: Patient cannot tell Physical examination: VITAL SIGNS: 97.6, 113, 22, 118/86, 98% on 8 L GENERAL: Laying in bed, tired awake EYES: Pupils equal. Conjunctiva normal HEENT: External appearance of nose and ears normal, oral cavity dry NECK: wearing a collar HEART: Irregular heart sounds no edema. LUNGS:[ Respiratory rate increased; decreased breath sounds. ABDOMEN: Soft, nontender, liver spleen not palpable, no masses palpable. PSYCH: Unable to assess. NEUROLOGICAL: Cranial nerves grossly intact; decreased movement of the left arm INVESTIGATIONS, reviewed in the clinical context: October 21: Potassium 4.3 creatinine 0.56 albumin 2.2 October 07: White count 10.1 hemoglobin 12.2 sodium 140 potassium 3.6 creatinine 0.94. Check stat x-ray-7 improvement of aeration on the right side. With infiltrates October 14: White count 11.4 hemoglobin 12 potassium 3.6 creatinine 1.05 Chest x-ray film personally reviewed by me-new right-sided wipeout, with trachea pulled of the right Coronavirus [PCR]-detected White count 15.3 hemoglobin 14.4 platelets 315-2150 potassium 4.8 bun 41 and creatinine 1.06 Lactic acid 2.4 CRP 86.5 pro-calcitonin 0.21 UA positive for leukoesterase, WBC, bacteria Urine culture-E. coli/ESBL EKG tracing personally reviewed by me--sinus tachycardia Chest x-ray film personally reviewed by me-right lower lobe infiltrate Assessment: -Right lower lobe pneumonia, suspect gram-negative orgasm and/or aspiration, c ausing sepsis with lactic acidosis, -Right-sided atelectasis with some improvement -Acute cardioembolic stroke causing left arm paresis -Acute metabolic encephalopathy from infection, hypernatremia-slow to respond -Hypernatremia, from free water deficit-slow to respond -Persistent Atrial fibrillation with a rapid ventricular rate-remains uncontrollable 100 -COPD -Alzheimer's dementia -GERD -Hyperlipidemia -Essential hypertension -Coronary artery disease with prior history of bypass -History of pneumonectomy partial -Moderate protein calorie malnutrition patient has decreased muscle mass loss of subcutaneous fat -Advancing medical debility -No code Plan: Had a lengthy talk with FARM MANAGEMENT AGENT from [facility], she gave me an update on the last 5 days. Advised the PEG tube was not done. As per dietitian patient was not felt to be candidate for peripheral nutrition. I got a call from the nurse in the afternoon that the son would like some for malnutrition. I did call any back and did go to proceed with Doppoff tube. Total time spent today about 40 minutes with over 20 minutes of discussion. Continue with aspiration precautions..
[2020-10-21] MEDS: DILTIAZEM 125 MG in SODIUM CHLORIDE 0.9% 100 ML IV SCH (19:56)
[2020-10-21] MEDS: AMIODARONE 450 MG in DEXTROSE 5% IN WATER 250 ML IV SCH ×2 (19:56)
[2020-10-21 20:20] LABS: Glucose,Whole Blood 96 mg/dL (75-99)
[2020-10-21] MEDS: ESCITALOPRAM 5 MG TAB PO SCH (20:33)
[2020-10-21] MEDS: DOCUSATE 100 MG CAP PO SCH (20:33)
--- NOTE | 2020-10-21 22:34 | PN ---
PROGRESS NOTE DATE OF SERVICE: 10/21/2020 REASON FOR FOLLOWUP: ESBL E coli urinary tract infection and aspiration pneumonia. INTERVAL HISTORY: The patient is currently afebrile. The patient is currently off the BiPAP and is on nasal cannula oxygen. The patient was responding to his name but did not answer any questions. No vomiting, diarrhea or any other changes reported by the nursing staff. PHYSICAL EXAMINATION: Blood pressure 120/65 with a pulse of 91, temperature 97.9. He is 100% on 5 L nasal cannula. General description is an elderly male lying in bed in no distress. RESPIRATORY SYSTEM: Unlabored breathing with decreased intensity of breath sounds. No wheeze. HEART: S1, S2. Regular rate and rhythm. ABDOMEN: Soft. No tenderness. LABS: BUN of 16, creatinine 0.56. DIAGNOSTIC IMPRESSION AND PLAN: Patient admitted to hospital with extended-spectrum beta-lactamase Escherichia coli urinary tract infection and a component of aspiration pneumonia. Patient is covered with meropenem; to continue while monitoring his clinical course closely. Continue supportive care. MMODL / IJN: [id number] /
[2020-10-22] MEDS: ACETAMINOPHEN TAB 325 MG TAB PO SCH ×3 (05:19→21:13)
[2020-10-22 06:10] LABS: Glucose,Whole Blood 124 mg/dL (75-99)
[2020-10-22 07:27] LABS: Glucose,Whole Blood 126 mg/dL (75-99)
[2020-10-22 09:03] LABS: Phosphorus 1.8 mg/dL (2.5-4.5)
[2020-10-22] MEDS: ENOXAPARIN 40 MG/0.4 ML SYRINGE SQ SCH ×2 (09:23→21:53)
[2020-10-22] MEDS: ASCORBIC ACID 500 MG TAB PO SCH ×2 (09:23→21:13)
[2020-10-22] MEDS: CHOLECALCIFEROL 25 MCG (1000 IU) TABLET PO SCH ×2 (09:23→09:30)
[2020-10-22] MEDS: AMIODARONE 450 MG in DEXTROSE 5% IN WATER 250 ML IV SCH ×2 (09:24)
[2020-10-22] MEDS: DEXTROSE 5% IN WATER 1,000 ML IV SCH ×2 (09:24→21:56)
[2020-10-22] MEDS: ZINC SULFATE 220 MG CAP PO SCH (09:25)
[2020-10-22] MEDS: MEROPENEM 1 GM in SODIUM CHLORIDE 0.9% 100 ML IVPB SCH ×3 (09:34→23:20)
[2020-10-22 11:43] LABS: Glucose,Whole Blood 122 mg/dL (75-99)
[2020-10-22] MEDS: FLUTICASONE 50MCG/SPRAY NASAL 16GM EA NOSTRIL SCH (11:58)
--- NOTE | 2020-10-22 12:38 | P.PN ---
Subjective Progress Note Date: 10/22/20 The patient is seen at bedside and he continues to be encephalopathic per the patient nurse. He continues to have left-sided weakness. The patient was being seen by Dr. Gonsales for neurological workup. Please refer to his note for further details of the patient's history. Seems that Dr. Gonsales spoke with the patient's son and that left-sided weakness seems old. Objective - Vital Signs Vital signs: Vital Signs Temp 97.8 F 10/22/20 09:39 Pulse 129 H 10/22/20 09:39 Resp 18 10/22/20 09:39 BP 126/73 10/22/20 09:39 Pulse Ox 95 10/22/20 09:39 Intake & Output 10/21/20 10/22/20 10/22/20 18:59 06:59 18:59 Intake Total 125 390.834 Output Total 200 200 0 Balance -75 190.834 0 Weight 67.5 kg Intake: Intake, IV Titration 125 390.834 Amount Dextrose 5% in Water 1, 300 000 ml @ 100 mls/hr IV . Q10H FLORENCIO Rx#:[id number] Diltiazem 125 mg In 125 90.834 Sodium Chloride 0.9% 100 ml @ 5 MG/HR 5 mls/hr IV .Q24H FLORENCIO Rx#:[id number] Output: Urine 200 200 Stool 0 0 Other: Voiding Method Indwelling Catheter Indwelling Catheter Indwelling Catheter - Exam GENERAL: The patient is lying in bed and is not in acute distress. NEUROLOGICAL: Limited because of his condition Higher mental function: The patient is drowsy but awakeable to voice. He is non-verbal. He followed one command and was able to show a thumbs up. Otherwise not following any command and not verbalizing or communicating. Cranial nerves: The pupils are round, equal and reactive to light. Visual maravilla could not be assessed because of his condition. Primary gaze is mid- line. No facial weakness noted bilaterally. Otherwise could not assess rest of cranial nerves because of his condition. Motor: The strength: left arm is flaccid. Patient does withdraw to painful stimuli over the right upper and lower extremity. Has minimal withdrawl to painful stimuli over left lower extremity but none in left upper extremity. Cerebellum: Could not be assessed. Sensation: Light touch could not be assessed. - Labs CBC & Chem 7: 10/19/20 07:22 10/21/20 10:59 Labs: Abnormal Lab Results - Last 24 Hours (Table) 10/21/20 10/22/20 10/22/20 Range/Units 17:07 06:08 07:26 POC Glucose (mg/dL) 108 H 124 H 126 H (75-99) mg/dL Phosphorus (2.5-4.5) mg/dL 10/22/20 10/22/20 Range/Units 08:23 11:41 POC Glucose (mg/dL) 122 H (75-99) mg/dL Phosphorus 1.8 L (2.5-4.5) mg/dL Assessment and Plan Assessment: * Chronic left arm weakness, since suffering from a fall 6 months ago. Per patient's son description, the left arm weaknesses is chronic, not a new issue (per conversation of Dr. Gonsales and patient's son). * Nonverbal state, probably due to toxic metabolic encephalopathy. Patient has multiple active infectious issues, organ dysfunction as mentioned below, probably resulting in toxic metabolic encephalopathy. * Aspiration pneumonia, recent COVID infection (positive COVID in our facility on 10/14/20 but positive at [facility] on 09/19/20) * Acute UTI * CHF with low ejection fraction * Hypernatremia * Advanced dementia * Atrial fibrillation. * CT head reported hydrocephalus, but patient probably has advanced dementia. Not a candidate for ventriculoperitoneal shunting. Plan: * Dr. Gonsales had discussion with the patient's son and it appears the left arm weakness is chronic. Patient's inability to speak is likely from significant toxic metabolic encephalopathy. Patient had CT scans of head performed twice (10/12/20 and 10/13/20) that were negative. * Carotid Doppler showed no significant stenosis. Antegrade flow in both vertebral arteries.. * EEG was attempted this Monday but could not be done because he was on BiPAP. Will attempt to get it done today. * Ordered repeat CT head for today (10/22/20): Is reported as no acute intracr anial hemorrhage or midline shift. There is moderate to severe diffuse age- related cerebral atrophy and mild to moderate chronic small vessel ischemic changes redemonstrated. No significant change from prior. From a neurology perspective the patient does not need MRI of the brain since the patient got multiple CT of the head and there is no acute subacute or encephalomalacia seen on the CT. * 2-D echo from 10/02/2020 showed mild concentric LVH, severe global hypokinesis of left ventricle. EF is severely impaired 20-25%. Left atrium is moderately dilated. * Patient is currently on Meropenem (patient has Pneumonia and UTI) and Infection Disease team is on board. * Continue Lovenox 40 mg twice a day. * During hospital stay, Telemetry showed atrial fibrillation. Cardiology on board. Patient started on amiodarone * Patient on Zosyn for pneumonia and UTI. * Medical management as per IM. UPDATE: Routine EEG on 10/22/2020 (Preliminary report): This is an abnormal routine EEG. It shows background slowing of moderate to severe encephalopathy. There are no focal slowing, Lipitor discharges or seizure on the EEG. The plan was discussed with the patient's primary team. Time with Patient: Less than 30
--- NOTE | 2020-10-22 13:03 | CT ---
EXAMINATION TYPE: CT brain wo con DATE OF EXAM: 10/22/2020 HISTORY: Mental status changes. CT DLP: 1217.4 mGycm. Automated Exposure Control for Dose Reduction was Utilized. TECHNIQUE: CT scan of the head is performed without contrast. COMPARISON: CT brain October 13, 2020. FINDINGS: There is no acute intracranial hemorrhage or midline shift identified. There is diffuse v entricular and sulcal prominence consistent with diffuse age-related cerebral atrophy. There is low- attenuation in the periventricular white matter consistent with chronic small vessel ischemic change. The globes are intact and the visualized sinuses are clear. IMPRESSION: No acute intracranial hemorrhage or midline shift. There is moderate to severe diffuse age-related cerebral atrophy and mild to moderate chronic small vessel ischemic change redemonstrated . No significant change from prior.
--- NOTE | 2020-10-22 14:33 | P.PN ---
Subjective Progress Note Date: 10/22/20 Principal diagnosis: Fever, tachycardia, recent COVID 19 pneumonia 84-year-old white male patient, with recent history of hospitalization for COVID19 pneumonia, and patient was discharged to the [facility] on the [place] on 10/05/2020. Patient was hospitalized from 10/01/2020 through 10/05/2020. Patient is a poor historian, has underlying history of advanced dementia, his severe cardiomyopathy with EF of around 20-25%, atrial fibrillation, chronic congestive heart failure systolic dysfunction, hypertension, hyperlipidemia, anxiety, frequent falls, previous history of subdural hemorrhage, recent cervical neck fracture currently in a soft collar. On 10/11/2020 patient was br ought into the emergency department for evaluation of fever, tachycardia. His previous chest x-ray from his previous admission there was mild right basilar opacity, most likely related to atelectasis, a CT angiogram of the chest showed no evidence of pulmonary embolism. 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 His subsequent chest x- ray on 10/05/2020 showed some worsening in the appearance of the right lower lobe and right middle lobe hazy infiltration. However clinically patient had remained stable and did not have any worsening in his oxygenation and he was [facility] to the [facility] on [facility]. His chest x-ray on admission on the 2020 showed right mid and lower lung field infiltrates. EKG showed SVT with a rate of 166, temperature was 100.5F, patient was satting 93% on 12 L of oxygen. His laboratory data showed leukocytosis with white blood cell, 15.3, hemoglobin of 14.4, neutrophils of 14, lymphocyte count of 0.7, his INR was 1, sodium is 150, potassium is 4.8, chloride was 121, BUN of 41 Cr1.06, his LDH has trended up to 937 from 585, CRP is 86.5, up from 138 during last admission, pro- calcitonin level is 0.21, his urinalysis shows evidence of infection. Patient is lethargic, and there is suspicion for aspiration pneumonia. He was started on a azithromycin and Rocephin for empiric antibiotic coverage, however in view of suspected aspiration we will switch the antibiotic coverage to Zosyn. Brain CT showed mild to moderate ventricular megaly/hydrocephalus probably in part due to central cerebral atrophy. No acute intracranial abnormality On 10/13/2020 patient seen in follow-up on selective care unit. Patient is awake, but confused, encephalopathic, but does not appear to be in any acute distress. He is currently on 7 L of oxygen the pulse ox of 97%, not sure why his oxygen had increased, earlier patient was on 3 L of oxygen pulse ox of 94%, patient has been nothing by mouth in view of his altered mentation, speech evaluation was obtained, and patient was noted to be coughing with thin liquids, and although she did not outright failed the swallow evaluation his altered mental status prevented him from following simple verbal commands. Patient had a delayed swallow, and coughing after swallowing, difficulty chewing. Recommendation was made for dysphagia level I pured diet with nectar thick liquids upright positioning, direct one-on-one supervision, however in view of his continued altered mental status, generalized weakness, suspected chronic aspiration, we will recommend PEG tube placement for nutritional support. Today's chest x-ray shows near complete opacification of the right hemithorax, left lung hyperinflated, mild patchy density in the right medial lung base. Patient has a very weak cough, likely developed mucous plugging in the right mainstem bronchus, however his CODE STATUS is DO NOT RESUSCITATE, he is a very frail. We placed on BiPAP support. Overall his CODE STATUS needs to be readdressed again, as the patient is suspected to be chronically aspirating, will need PEG tube for nutritional support if the patient's family wants to continue with supportive care. He has been unable to take any of his oral medications, cardiology has the patient on Cardizem and amiodarone drip for rate control. Patient is on Zosyn for empiric antibiotic coverage. On October 19, 2020 patient is seen in follow-up on medical floor, he remains on BiPAP, with pressures of 12/6 and FiO2 of 40%, pulse ox of 93%, hemodynamically blood pressure has been stable, been afebrile. His chest x-ray today showed patchy perihilar and basilar infiltrates right greater than left although somewhat improved. Patient is currently on meropenem for ESBL E. coli, blood cultures have shown no growth. Patient remains on 0.0 cm rate is 75 ML per hour and diltiazem 5 mg per hour for heart rate control. Generally patient continues to be very weak, he has been nothing by mouth all weekend, we recommended PEG tube placement for nutritional support. Speech evaluation was supposed to repeat a modified barium swallow however the patient has remained on BiPAP [id number], and speech eval was deferred. ID Service is following. On meropenem. On 10/20/2020 patient seen in follow-up. He is lethargic, quite weak, he remains on BiPAP support with pressures of 12/6 and FiO2 of 40%, his pulse ox of 95%, no fever, blood pressure stable, no new chest x-ray, lung sounds are diminished. She does not appear to be in any acute distress, however he is lethargic, he is very physically debilitated. He has been on antibiotics in the form of meropenem for ESBL E. coli urinary tract infection, blood cultures have been negative. He has been nothing by mouth, he because of high risk for aspiration and the PEG tube placement was recommended however the procedure was again canceled related to patient being on BiPAP support On 10/21/2020 patient seen in follow-up on medical surgical floor. he is off the BiPAP support, currently on 8 L of oxygen a pulse ox of 96%, breathing comfortably, no acute distress, he is more awake, he is not verbalizing sitting, that appears to be fairly comfortable. He has been nothing by mouth for any period of time with inability to take any oral intake related to recurrent aspiration, and being BiPAP dependent. He has service has canceled the procedure yesterday related to patient being BiPAP dependent. He is being trialed on the nasal cannula, doing well so far. Initiation of parenteral feeding is being discussed as well On 10/22/2020 patient seen in follow-up on selective care unit, today he is on no oxygen, earlier he was sat 95% on room air as documented in the EMR, bedside pulse oximetry was applied and patient's pulse ox is 90-94%, he is breathing comfortably, he has not maintained eye contact, or follow any commands, appears to be encephalopathic, he is very weak, but appears to be in no acute distress, lung sounds are diminished. No wheezing, no fever or chills. today's labs showed a phosphorous level of 1.8, magnesium of 2.0. brain CT was completed showing no acute intracranial hemorrhage or midline shift, moderate to severe diffuse age- related cerebral atrophy and mild to moderate chronic small vessel ischemic changes. GI service is following, and last night an attempt has been made to place a Dobbhoff feeding tube unsuccessfully. Objective - Vital Signs Vital signs: Vital Signs Temp 97.8 F 10/22/20 09:39 Pulse 129 H 10/22/20 09:39 Resp 18 10/22/20 09:39 BP 126/73 10/22/20 09:39 Pulse Ox 95 10/22/20 09:39 Intake & Output 10/21/20 10/22/20 10/22/20 18:59 06:59 18:59 Intake Total 125 390.834 Output Total 200 200 0 Balance -75 190.834 0 Weight 67.5 kg 67.5 kg Intake: Intake, IV Titration 125 390.834 Amount Dextrose 5% in Water 1, 300 000 ml @ 100 mls/hr IV . Q10H [facility]ENCIO Rx#:[id number] Diltiazem 125 mg In 125 90.834 Sodium Chloride 0.9% 100 ml @ 5 MG/HR 5 mls/hr IV .Q24H FLORENCIO Rx#:[id number] Output: Urine 200 200 Stool 0 0 Other: Voiding Method Indwelling Catheter Indwelling Catheter Indwelling Catheter - Exam GENERAL EXAM: More awake on today's exam 84-year-old white male, patient does not maintain eye contact, his eyes are open spontaneously but he is not following commands, not tracking with his eyes, not verbally responding HEAD: Normocephalic/atraumatic. EYES: Normal reaction of pupils, equal size. Conjunctiva pink, sclera white. NOSE: Clear with pink turbinates. THROAT: No erythema or exudates. NECK: No masses, no JVD, no thyroid enlargement, no adenopathy. CHEST: No chest wall deformity. Symmetrical expansion. LUNGS: Equal air entry with basilar crackles CVS: Regular rate and rhythm, normal S1 and S2, no gallops, no murmurs, no rubs ABDOMEN: Soft, nontender. No hepatosplenomegaly, normal bowel sounds, no guarding or rigidity. EXTREMITIES: No clubbing, no edema, no cyanosis, 2+ pulses and upper and lower extremities. MUSCULOSKELETAL: Muscle strength and tone normal. SPINE: No scoliosis or deformity SKIN: No rashes CENTRAL NERVOUS SYSTEM: Drowsy, lethargic No focal deficits, tone is normal in all 4 extremities. - Labs CBC & Chem 7: 10/19/20 07:22 10/21/20 10:59 Labs: Abnormal Lab Results - Last 24 Hours (Table) 10/21/20 10/22/20 10/22/20 Range/Units 17:07 06:08 07:26 POC Glucose (mg/dL) 108 H 124 H 126 H (75-99) mg/dL Phosphorus (2.5-4.5) mg/dL 10/22/20 10/22/20 Range/Units 08:23 11:41 POC Glucose (mg/dL) 122 H (75-99) mg/dL Phosphorus 1.8 L (2.5-4.5) mg/dL Assessment and Plan Plan: Assessment: #1. Acute hypoxic respiratory failure related to suspected aspiration pneumonia in addition to recent history of COVID 19 related pneumonia. #2. Suspect chronic aspiration related to overall generalized medical debility, toxic metabolic encephalopathy #3. Near-complete opacification of the right hemithorax likely related to right mainstem mucous plugging, patient has a very weak and ineffective cough, mentation has been altered, patient is thought to be chronically aspirating. Code Status DO NOT RESUSCITATE, remains on BiPAP support pressures of 12/6 and FiO2 of 40%. his chest x-ray findings have improved with positive pressure ventilation, most recent chest x-ray shows patchy perihilar and basilar infiltrates right greater than left. Currently off BiPAP support, and on room air, with pulse ox of 94% #4. A. fib with RVR, remains on Cardizem drip #5. Chronic systolic heart failure #6. Recent hospitalization for acute exacerbation of systolic CHF and A. fib with RVR #7. Recent COVID 19 infection diagnosed on 09/16/2020 #8. Acute metabolic encephalopathy and underlying advanced dementia, brain CT showed no acute intracranial abnormality #9. Hypertension #10. Hyperlipidemia #11. 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 Frequent falls, recent fracture of C1, currently in the soft collar #13. History of paroxysmal A. fib not on anticoagulation due to multiple falls #14. History of subdural hemorrhage #15. GERD/reflux #16. Anxiety/depression Plan: Continue maintaining aspiration precautions, patient is currently on room air, maintaining stable O2 saturations, appears to be in no respiratory distress. The bed up 30 at all times. We'll defer to the GI service for feeding tube placement. I performed a history & physical examination of the patient and discussed their management with my nurse practitioner, Leelee Roth. I reviewed the nurse practitioner's note and agree with the documented findings and plan of care. Lung sounds are positive for diffuse wheezes throughout the lung maravilla. The findings and the impression was discussed with the patient. I attest to the documentation by the nurse practitioner. Time with Patient: Less than 30
[2020-10-22] MEDS ORDERED: METOCLOPRAMIDE 5 MG/ML 2 ML VIAL IVP STA (14:58)
--- NOTE | 2020-10-22 14:59 | P.PN ---
Subjective Progress Note Date: 10/22/20 Principal diagnosis: Dysphasia This is an 84-year-old male patient with multiple medical comorbidities who is here with Covid-19 pneumonia infection area gastroenterology has been consulted because the patient has been unwilling to eat and possible evidence of aspiration pneumonia. The patient's son is requesting a PEG tube to be placed. EGD and PEG tube were scheduled, however anesthesia did not clear patient to proceed with procedure. Yesterday a Dobbhoff tube was trialed, however unsuccessful in placement and therefore discontinued. There've been no acute changes through the night, patient is sitting upright and appears more comfortable. Breathing is nonlabored, he is on room air at this time. Objective - Vital Signs Vital signs: Vital Signs Temp 97.8 F 10/22/20 09:39 Pulse 129 H 10/22/20 09:39 Resp 18 10/22/20 09:39 BP 126/73 10/22/20 09:39 Pulse Ox 95 10/22/20 09:39 Intake & Output 10/21/20 10/22/20 10/22/20 18:59 06:59 18:59 Intake Total 125 390.834 Output Total 200 200 0 Balance -75 190.834 0 Weight 67.5 kg 67.5 kg Intake: Intake, IV Titration 125 390.834 Amount Dextrose 5% in Water 1, 300 000 ml @ 100 mls/hr IV . Q10H [facility]ORENCIO Rx#:[id number] Diltiazem 125 mg In 125 90.834 Sodium Chloride 0.9% 100 ml @ 5 MG/HR 5 mls/hr IV .Q24H FLORENCIO Rx#:[id number] Output: Urine 200 200 Stool 0 0 Other: Voiding Method Indwelling Catheter Indwelling Catheter Indwelling Catheter - Exam General appearance: The patient is alert, try to verbally communicate, opens eyes. HET: Head is normocephalic and atraumatic. Conjunctiva pink. Sclera aniicteric. Neck: Supple without lymphadenopathy. Abdomen: Soft, thin, nontender, nondistended with bowel sounds. No guarding or rigidity. Extremities: Normal skin color and turgor. No pedal edema Neurological: Oriented to self. Nonverbal. - Labs CBC & Chem 7: 10/19/20 07:22 10/21/20 10:59 Labs: Abnormal Lab Results - Last 24 Hours (Table) 10/21/20 10/22/20 10/22/20 Range/Units 17:07 06:08 07:26 POC Glucose (mg/dL) 108 H 124 H 126 H (75-99) mg/dL Phosphorus (2.5-4.5) mg/dL 10/22/20 10/22/20 Range/Units 08:23 11:41 POC Glucose (mg/dL) 122 H (75-99) mg/dL Phosphorus 1.8 L (2.5-4.5) mg/dL Assessment and Plan (1) Oropharyngeal dysphagia Narrative/Plan: 85-year-old male with multiple medical comorbidities including recent hospitalization for infection with Covid 19. Currently the patient is hospitalized receiving treatment for metabolic encephalopathy, hypoxic respiratory failure and possible aspiration pneumonia. Initial consultation by speech language pathology the patient's was able to swallow with recommendation for next or thick liquids with pured diet and one-to-one assist with oral intake. There are reconsulted as the patient's oral intake is poor and plan is for video swallow evaluation on Monday whether that was canceled due to risk of aspiration. Patient is still nonverbal. Patient is now on BiPAP, was scheduled for EGD with PEG tube placement today however anesthesiology does not feel patient is stable to proceed with procedure. Procedure is canceled. Dobhoff tube placement, awaiting x-ray report were proper placement. Current Visit: Yes Status: Acute Code(s): R13.12 - DYSPHAGIA, OROPHARYNGEAL PHASE SNOMED Code(s): 58616403 (2) COVID-19 Current Visit: Yes Status: Acute Code(s): U07.1 - COVID-19 SNOMED Code(s): 872334966 (3) Altered mental status Current Visit: No Status: Acute Code(s): R41.82 - ALTERED MENTAL STATUS, UNSPECIFIED SNOMED Code(s): 325874018 Plan: 1. Supportive care 2. Biotics per recommendation of infectious disease 3. Continue medical management by primary team 4. Appreciate recommendations from pulmonology 5. EGD with PEG tube placement canceled, anesthesia evaluated patient does not feel he is stable to proceed 6. May resume Lovenox 7. Nothing by mouth at this time 8. Dobbhoff tube placement today with f/u abd xray for placement 9. Hold feedings today 10. Consult mgmt consultant for tube feeding in morning 11. Reglan 10 mg IV push 1 Thank you for this consultation we will continue to follow Dr. Milind Madsen I agree with the dictator's note, documented as a scribe by Zenaida Baca.
--- NOTE | 2020-10-22 15:27 | XR ---
EXAMINATION TYPE: XR chest 1V portable DATE OF EXAM: 10/22/2020 COMPARISON: Chest x-ray dated 10/19/2020 HISTORY: Dobbhoff tube placement TECHNIQUE: Single frontal view of the chest is obtained. FINDINGS: There is been interval placement of the Dobbhoff tube which is coursing towards the left u pper quadrant, distal tip not included on the exam. Patient is rotated. No other interval change is e vident. IMPRESSION: Dobbhoff tip is not included on the exam.
--- NOTE | 2020-10-22 15:31 | PN ---
PROGRESS NOTE DATE OF SERVICE: 10/22/2020. REASON FOR FOLLOWUP: Urinary tract infection and pneumonitis. INTERVAL HISTORY: The patient is currently afebrile. Patient seemed to be breathing comfortably. He seems to be slightly more awake, however, did not answer any question. No vomiting, no diarrhea or any other changes reported by the nursing staff. PHYSICAL EXAMINATION: Blood pressure 126/73 with a pulse of 129, temperature 97.8. He is 95% on room air. General description is an elderly male lying in bed in no distress. RESPIRATORY SYSTEM: Unlabored breathing, decreased breath sounds in the bases. No wheeze. HEART: S1, S2. Regular rate and rhythm. ABDOMEN: Soft, no tenderness. LABS: No new labs have been obtained today. DIAGNOSTIC IMPRESSION AND PLAN: Patient with fever, concerning for the pneumonia and urinary tract infection. Urine has been ESBL. Patient is currently on meropenem, will continue while monitoring clinical course closely. Continue supportive care. MMODL / IJN: [id number] /
--- NOTE | 2020-10-22 16:34 | XR ---
EXAMINATION TYPE: XR abdomen 1V DATE OF EXAM: 10/22/2020 COMPARISON: 10/21/2020 HISTORY: Check tube placement TECHNIQUE: Single view. FINDINGS: There is nasogastric tube with the tip overlying the gastric fundus. There is no sign of intestinal o bstruction or pneumoperitoneum. Fecal pattern is normal. There are chest leads. IMPRESSION: NG tube is in the fundus of the stomach.
--- NOTE | 2020-10-22 16:51 | EEG ---
ELECTROENCEPHALOGRAM REPORT DATE OF SERVICE: 10/22/2020. CLINICAL HISTORY: This is an 85-year-old gentleman with altered mental status and is COVID-19 positive. This video EEG is obtained to evaluate for seizure and epileptiform activity. RELEVANT MEDICATION: The patient is not on any antiepileptic drug. EEG TYPE: A routine 21 channel EEG is performed with video using 10/20 electrode placement system. DESCRIPTION: Only awake state is obtained. There is no posterior-dominant rhythm seen over the posterior bilateral hemispheres. During awake state, the background consists of diffuse nonrhythmic low to moderate voltage, of 5 to 5.5 hertz theta activity. At times, the background consists of diffuse nonrhythmic low to moderate voltage of 2 to 3 hertz delta activity. There is no physiological stage II sleep. There is no focal slowing. Interictal and ictal: None. ACTIVATION PROCEDURE: Photic stimulation and hyperventilation are not performed due to COVID-19. CLINICAL INTERPRETATION: This is an abnormal routine EEG. The background slowing is suggestive of moderate encephalopathy. There are no focal slowing, epileptiform discharges or seizure on the EEG. Clinical correlation is recommended. JAMARCUS / FREDERICKN: [id number] / PERRY
[2020-10-22 17:19] LABS: Glucose,Whole Blood 144 mg/dL (75-99)
[2020-10-22] MEDS: ALBUTEROL HFA INHALER INHALATION PRN (17:22)
[2020-10-22 21:08] LABS: Glucose,Whole Blood 117 mg/dL (75-99)
[2020-10-22] MEDS: DOCUSATE 100 MG CAP PO SCH (21:13)
[2020-10-22] MEDS: ESCITALOPRAM 5 MG TAB PO SCH (21:43)
[2020-10-22] MEDS: DILTIAZEM 125 MG in SODIUM CHLORIDE 0.9% 100 ML IV SCH (21:55)
--- NOTE | 2020-10-22 22:17 | P.PN ---
Progress Note - Text Progress Note Date: 10/22/20 Chief Complaint: Unwell History of presenting complaint: This is a 84-year-old patient resident of [facility] in [facility] being followed by Davide Pérez. Patient tested positive for COVID 19 on 09/16/2020. recently at [facility] was treated there for UTI. From that he was discharged and sent to rehab at [facility] in [facility] /[facility]. In the process patient lost some weight and become rather weak. Admitted September 16. Diagnosed with COVID 19 pneumonia. Treated with heparin steroids. Also to acute kidney injury felt to be from Bactrim. Acute metabolic encephalopathy. Hyponatremic. Uncontrolled A. fib. Advanced medical debility. Patient was discharged on October 05. Patient oral intake was fairly left the hospital. Now presents to the ER. As per the EMS run sheet: Blood pressure 120/88, pulse 81, respiration 30, pulse ox 83% on room air, temperature 100.6. EMS was called out for patient having rapid respirations and tachycardia. Patient is barely been talking over the last week. Decrease response to stimuli. Patient been moving his hand under his head. No signs of trauma. EKG showed sinus tachycardia. Left arm felt to be flaccid. Admitted with right lower lobe pneumonia, possible aspiration with sepsis lactic acidosis, metabolic encephalopathy, hyper natremia, atrial fibrillation rapid ventricular rate. Started on IV Zosyn, aspiration precautions, IV fluids. [place] to have embolic stroke. Affecting the left arm. Developed collapse atelectasis of the right lung. Anesthesia felt the patient to be very high risk hands PEG tube could not be placed. Dophoff placement by GI was unsuccessful. Today-laying in bed. Does open eyes. Tries to communicate. Late in the afternoon nasogastric tube was placed. . review of systems:Patient cannot tell. Active Medications Acetaminophen (Acetaminophen Suppository 650 Mg Supp) 650 mg RECTAL Q4HR PRN PRN Reason: Fever and/ or Mild Pain Last Admin: 10/12/20 01:07 Dose: 650 mg Documented by: Acetaminophen (Acetaminophen Tab 325 Mg Tab) 650 mg PO Q8HR@0600,1400,2200 [facility] Last Admin: 10/22/20 21:13 Dose: Not Given Documented by: Albuterol Sulfate (Albuterol Hfa Inhaler) 1 puff INHALATION RT-Q6H PRN PRN Reason: Wheezing Last Admin: 10/22/20 17:22 Dose: 1 puff Documented by: Ascorbic Acid (Ascorbic Acid 500 Mg Tab) 500 mg PO BID [facility] Last Admin: 10/22/20 21:13 Dose: Not Given Documented by: Cholecalciferol (Cholecalciferol 25 Mcg (1000 Iu) Tablet) 125 mcg PO DAILY [facility] Last Admin: 10/22/20 09:30 Dose: Not Given Documented by: Docusate Sodium (Docusate 100 Mg Cap) 100 mg PO DAILY@2100 [facility] Last Admin: 10/22/20 21:13 Dose: Not Given Documented by: Enoxaparin Sodium (Enoxaparin 40 Mg/0.4 Ml Syringe) 40 mg SQ BID@0900,2100 [facility] Last Admin: 10/22/20 21:53 Dose: 40 mg Documented by: Escitalopram Oxalate (Escitalopram 5 Mg Tab) 5 mg PO DAILY@2100 [facility] Last Admin: 10/22/20 21:43 Dose: Not Given Documented by: Fluticasone Propionate (Fluticasone 50mcg/[place] Nasal 16gm) 2 spray EA NOSTRIL DAILY@0900 [facility] Last Admin: 10/22/20 11:58 Dose: Not Given Documented by: Diltiazem HCl 125 mg/ Sodium (Chloride) 125 mls @ 5 mls/hr IV .Q24H [facility] Last Infusion: 10/22/20 21:56 Dose: 10 mg/hr, 10 mls/hr Documented by: Meropenem 1 gm/ Sodium (Chloride) 100 mls @ 33.3 mls/hr IVPB Q8HR [facility]; Protocol Last Admin: 10/22/20 17:54 Dose: 33.3 mls/hr Documented by: Dextrose/Water (Dextrose 5%-Water Iv Soln) 1,000 mls @ 100 mls/hr IV .Q10H [facility] Last Admin: 10/22/20 21:56 Dose: 100 mls/hr Documented by: Miscellaneous Information (Pneumonia Protocol Utilized 1 Each Misc) 1 each PO ONCE PRN PRN Reason: Per Protocol Miscellaneous Information (Magnesium Replacement Protocol 1 Each Misc) 1 each MISCELLANE DAILY PRN; Protocol PRN Reason: Per Protocol Miscellaneous Information (Potassium Replacement Protocol 1 Each Misc) 1 each MISCELLANE DAILY PRN; Protocol PRN Reason: Per Protocol Zinc Sulfate (Zinc Sulfate 220 Mg Cap) 220 mg PO DAILY [facility] Last Admin: 10/22/20 09:25 Dose: Not Given Documented by: Past medical history to include: Atrial fibrillation, CHF, COPD, dementia, GERD, hypertension, hyperlipidemia carotid artery disease with bypass, partial pneumonectomy, anxiety depression. COVID 19 pneumonia diagnosed 09/16/2020 Social history: rehab at [facility] on [facility]. No history of smoking or alcohol Family history: Patient cannot tell Physical examination: VITAL SIGNS: 97.8, 120, 18, 10/14 of 73, 95% room air GENERAL: Laying in bed, tired awake EYES: Pupils equal. Conjunctiva normal HEENT: External appearance of nose and ears normal, oral cavity dry NECK: wearing a collar HEART: Irregular heart sounds no edema. LUNGS:[ Respiratory rate increased; decreased breath sounds. ABDOMEN: Soft, nontender, liver spleen not palpable, no masses palpable. PSYCH: Unable to assess. NEUROLOGICAL: Cranial nerves grossly intact; flaccid left arm. Opens eyes. Moves his right arm. INVESTIGATIONS, reviewed in the clinical context: October 21: Potassium 4.3 creatinine 0.56 albumin 2.2 October 07: White count 10.1 hemoglobin 12.2 sodium 140 potassium 3.6 creatinine 0.94. Check stat x-ray-7 improvement of aeration on the right side. With infiltrates October 14: White count 11.4 hemoglobin 12 potassium 3.6 creatinine 1.05 Chest x-ray film personally reviewed by me-new right-sided wipeout, with trachea pulled of the right Coronavirus [PCR]-detected White count 15.3 hemoglobin 14.4 platelets 315-2150 potassium 4.8 bun 41 and creatinine 1.06 Lactic acid 2.4 CRP 86.5 pro-calcitonin 0.21 UA positive for leukoesterase, WBC, bacteria Urine culture-E. coli/ESBL EKG tracing personally reviewed by me--sinus tachycardia Chest x-ray film personally reviewed by me-right lower lobe infiltrate Assessment: -Right lower lobe pneumonia, suspect gram-negative orgasm and/or aspiration, causing sepsis with lactic acidosis, -Right-sided atelectasis with some improvement -Acute cardioembolic stroke causing left arm paresis -Acute metabolic encephalopathy from infection, hypernatremia-slow to respond -Hypernatremia, from free water deficit-slow to respond -Persistent Atrial fibrillation with a rapid ventricular rate-remains uncontrollable 100 -COPD -Alzheimer's dementia -GERD -Hyperlipidemia -Essential hypertension -Coronary artery disease with prior history of bypass -History of pneumonectomy partial -Moderate protein calorie malnutrition patient has decreased muscle mass loss of subcutaneous fat -Advancing medical debility -No code Plan: NG tube was placed later this afternoon. 2 feeding to be resumed as per dietitian recommendations. Medications to given. Prognosis remains guarded. Follow closely..
[2020-10-23] MEDS: DEXTROSE 5% IN WATER 1,000 ML IV SCH ×3 (03:58→20:27)
[2020-10-23] MEDS: ACETAMINOPHEN TAB 325 MG TAB PO SCH ×3 (03:58→20:30)
[2020-10-23 06:47] LABS: Glucose,Whole Blood 126 mg/dL (75-99)
--- NOTE | 2020-10-23 07:41 | XR ---
EXAMINATION TYPE: XR abdomen 1V DATE OF EXAM: 10/23/2020 COMPARISON: October 22, 2020 HISTORY: Pain TECHNIQUE: Single supine KUB image of the abdomen is obtained FINDINGS: Small bowel demonstrates no evidence for dilatation or air fluid levels. Gas and fecal material is seen in non-distended colon. Dobbhoff tube is noted within the region of th e gastric fundus. No convincing evidence for pneumoperitoneum. No unusual calcifications. The lung bases are clear. The osseous structures are intact. IMPRESSION: 1. Overall nonobstructive bowel gas pattern.
[2020-10-23 08:05] LABS: African American GFR (CKD) >90 (>60 ml/min/1.73 sqM); Anion Gap 4 mmol/L; Blood Urea Nitrogen 13 mg/dL (9-20); Carbon Dioxide 18 mmol/L (22-30); Chloride 114 mmol/L (98-107); Glucose 119 mg/dL (74-99); Magnesium 1.9 mg/dL (1.6-2.3); Non-African American GFR(CKD) >90 (>60 ml/min/1.73 sqM); Sodium 136 mmol/L (137-145)
[2020-10-23] MEDS: ALBUTEROL HFA INHALER INHALATION PRN (08:08)
[2020-10-23 08:11] LABS: Calcium 7.8 mg/dL (8.4-10.2); Phosphorus 1.9 mg/dL (2.5-4.5); Potassium 4.6 mmol/L (3.5-5.1)
[2020-10-23] MEDS: ZINC SULFATE 220 MG CAP PO SCH (08:39)
[2020-10-23] MEDS: CHOLECALCIFEROL 25 MCG (1000 IU) TABLET PO SCH (08:39)
[2020-10-23] MEDS: ASCORBIC ACID 500 MG TAB PO SCH ×2 (08:39→20:30)
[2020-10-23] MEDS: MEROPENEM 1 GM in SODIUM CHLORIDE 0.9% 100 ML IVPB SCH ×2 (08:48→16:09)
[2020-10-23] MEDS: ENOXAPARIN 40 MG/0.4 ML SYRINGE SQ SCH ×2 (08:48→20:31)
[2020-10-23] MEDS: FLUTICASONE 50MCG/SPRAY NASAL 16GM EA NOSTRIL SCH (08:52)
[2020-10-23 11:59] LABS: Glucose,Whole Blood 131 mg/dL (75-99)
--- NOTE | 2020-10-23 13:12 | P.PN ---
Subjective Progress Note Date: 10/23/20 84-year-old white male patient, with recent history of hospitalization for COVID19 pneumonia, and patient was discharged to the [facility] on the [place] on 10/05/2020. Patient was hospitalized from 10/01/2020 through 10/05/2020. Patient is a poor historian, has underlying history of advanced dementia, his s evere cardiomyopathy with EF of around 20-25%, atrial fibrillation, chronic congestive heart failure systolic dysfunction, hypertension, hyperlipidemia, anxiety, frequent falls, previous history of subdural hemorrhage, recent cervical neck fracture currently in a soft collar. On 10/11/2020 patient was brought into the emergency department for evaluation of fever, tachycardia. His previous chest x-ray from his previous admission there was mild right basilar opacity, most likely related to atelectasis, a CT angiogram of the chest showed no evidence of pulmonary embolism. 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 His subsequent chest x- ray on 10/05/2020 showed some worsening in the appearance of the right lower lobe and right middle lobe hazy infiltration. However clinically patient had remained stable and did not have any worsening in his oxygenation and he was discharged to the snf on [facility]. His chest x-ray on admission on the 2020 showed right mid and lower lung field infiltrates. EKG showed SVT with a rate of 166, temperature was 100.5F, patient was satting 93% on 12 L of oxygen. His laboratory data showed leukocytosis with white blood cell, 15.3, hemoglobin of 14.4, neutrophils of 14, lymphocyte count of 0.7, his INR was 1, sodium is 150, potassium is 4.8, chloride was 121, BUN of 41 Cr1.06, his LDH has trended up to 937 from 585, CRP is 86.5, up from 138 during last admission, pro- calcitonin level is 0.21, his urinalysis shows evidence of infection. Patient is lethargic, and there is suspicion for aspiration pneumonia. He was started on a azithromycin and Rocephin for empiric antibiotic coverage, however in view of suspected aspiration we will switch the antibiotic coverage to Zosyn. Brain CT showed mild to moderate ventricular megaly/hydrocephalus probably in part due to central cerebral atrophy. No acute intracranial abnormality On 10/13/2020 patient seen in follow-up on selective care unit. Patient is aw larry, but confused, encephalopathic, but does not appear to be in any acute distress. He is currently on 7 L of oxygen the pulse ox of 97%, not sure why his oxygen had increased, earlier patient was on 3 L of oxygen pulse ox of 94%, patient has been nothing by mouth in view of his altered mentation, speech evaluation was obtained, and patient was noted to be coughing with thin liquids, and although she did not outright failed the swallow evaluation his altered mental status prevented him from following simple verbal commands. Patient had a delayed swallow, and coughing after swallowing, difficulty chewing. Recommendation was made for dysphagia level I pured diet with nectar thick liquids upright positioning, direct one-on-one supervision, however in view of his continued altered mental status, generalized weakness, suspected chronic aspiration, we will recommend PEG tube placement for nutritional support. Today's chest x-ray shows near complete opacification of the right hemithorax, left lung hyperinflated, mild patchy density in the right medial lung base. Patient has a very weak cough, likely developed mucous plugging in the right mainstem bronchus, however his CODE STATUS is DO NOT RESUSCITATE, he is a very frail. We placed on BiPAP support. Overall his CODE STATUS needs to be readdressed again, as the patient is suspected to be chronically aspirating, will need PEG tube for nutritional support if the patient's family wants to continue with supportive care. He has been unable to take any of his oral medications, cardiology has the patient on Cardizem and amiodarone drip for rate control. Patient is on Zosyn for empiric antibiotic coverage. The patient is seen today 10/14/2020 in follow-up on the selective care unit. He is currently resting in bed. He remains on BiPAP 12/6 and 40% FiO2 to maintain O2 saturations in the 90s. He is currently afebrile. Urine culture positive for E. coli. Blood culture reveals no growth. White count 11.1. Hemoglobin 12.0. Sodium 139. Potassium 3.6. Creatinine 1.05. He remains on a Cardizem drip at 5 mg per hour. Lovenox for DVT prophylaxis. Antibiotics in the form of Zosyn. He is a DO NOT RESUSCITATE/DO NOT INTUBATE CODE STATUS. He remains quite ill. Minimally responsive. X-ray reveals opacified right hemithorax likely due to atelectasis and possible associated effusion. The patient is seen today 10/15/2020 in follow-up on the selective care unit. He is currently resting in bed. He remains on BiPAP 12/6 at 40% FiO2. He does open his eyes to verbal request. Currently afebrile. Still tachycardic. Tachypneic. Chest x-ray is showing improved aeration to the right lung. Moderate infiltrate remains in the right midlung field. Small effusion. Blood cultures reveal no growth. Urine culture positive for E. coli. White count 10.1. Hemoglobin 12.2. Sodium 148. Potassium 3.6. Creatinine 0.94. Follow- up chrona virus testing was still positive. The patient is seen today 10/16/2020 follow-up on the selective care unit. He is currently resting fairly comfortably in bed. He is awake. Off the BiPAP. Currently on 3 L nasal cannula and maintaining O2 saturation in the 90s. He's b een afebrile. Chest x-ray continues to show improved aeration of the right lung. Continued infiltrate. Small effusion. Urine culture positive for E. coli. He remains on Zosyn. Remains tachycardic. On Cardizem drip at 10 mg per hour. Lovenox for DVT prophylaxis. He remains on D5W at 100 ML's per hour. Aspiration precautions. Plan is for PEG tube placement. On 10/22/2020 patient seen in follow-up on [facility] care unit, today he is on no oxygen, earlier he was sat 95% on room air as documented in the EMR, bedside pulse oximetry was applied and patient's pulse ox is 90-94%, he is breathing comfortably, he has not maintained eye contact, or follow any commands, appears to be encephalopathic, he is very weak, but appears to be in no acute distress, lung sounds are diminished. No wheezing, no fever or chills. today's labs showed a phosphorous level of 1.8, magnesium of 2.0. brain CT was completed showing no acute intracranial hemorrhage or midline shift, moderate to severe diffuse age- related cerebral atrophy and mild to moderate chronic small vessel ischemic changes. GI service is following, and last night an attempt has been made to place a Dobbhoff feeding tube unsuccessfully. The patient is seen today 10/23/2020 in follow-up on the selective care unit. He remains resting in bed. A Dobbhoff tube was successfully placed yesterday. Tube feedings are to start today. He remains on a Cardizem drip at 10 mg per hour. 0.9 normal saline at 10 pounds per hour. He is on oxygen at 5 L to maintain O2 saturation in the 90s. Sodium 136. Potassium 4.6. Creatinine 0.52. Objective - Vital Signs Vital signs: Vital Signs Temp 97.8 F 10/23/20 11:31 Pulse 130 H 10/23/20 11:31 Resp 18 10/23/20 11:31 BP 105/75 10/23/20 11:31 Pulse Ox 95 10/23/20 11:31 Intake & Output 10/22/20 10/23/20 10/23/20 18:59 06:59 18:59 Intake Total 34.166 400.083 Output Total 50 150 Balance -15.834 250.083 Weight 67.5 kg 70.5 kg Intake: Intake, IV Titration 34.166 400.083 Amount Dextrose 5% in Water 1, 400 000 ml @ 100 mls/hr IV . Q10H [facility] Rx#:[id number] Diltiazem 125 mg In 34.166 0.083 Sodium Chloride 0.9% 100 ml @ 5 MG/HR 5 mls/hr IV .Q24H [facility]OR[facility] Rx#:[id number] Output: Urine 50 150 Stool 0 Other: Voiding Method Indwelling Catheter Indwelling Catheter - Exam GENERAL EXAM: Lethargic, drowsy 84-year-old male patient on 5 L high flow nasal cannula, he has a weak cough, unable to clear secretions, is thought to be chronically aspirating HEAD: Normocephalic/atraumatic. EYES: Normal reaction of pupils, equal size. Conjunctiva pink, sclera white. NOSE: Dobbhoff tube secured in place Clear with pink turbinates. THROAT: No erythema or exudates. NECK: No masses, no JVD, no thyroid enlargement, no adenopathy. CHEST: No chest wall deformity. Symmetrical expansion. LUNGS: Equal air entry with few crackles in the right lung base, diminished CVS: Regular rate and rhythm, normal S1 and S2, no gallops, no murmurs, no rubs ABDOMEN: Soft, nontender. No hepatosplenomegaly, normal bowel sounds, no guarding or rigidity. EXTREMITIES: No clubbing, no edema, no cyanosis, 2+ pulses and upper and lower extremities. MUSCULOSKELETAL: Muscle strength and tone normal. SPINE: No scoliosis or deformity SKIN: No rashes CENTRAL NERVOUS SYSTEM: Drowsy, lethargic No focal deficits, tone is normal in all 4 extremities. - Labs CBC & Chem 7: 10/19/20 07:22 10/23/20 07:02 Labs: Abnormal Lab Results - Last 24 Hours (Table) 10/22/20 10/22/20 10/23/20 Range/Units 17:18 20:59 06:42 Sodium (137-145) mmol/L Chloride (98-107) mmol/L Carbon Dioxide (22-30) mmol/L Creatinine (0.66-1.25) mg/dL Glucose (74-99) mg/dL POC Glucose (mg/dL) 144 H 117 H 126 H (75-99) mg/dL Calcium (8.4-10.2) mg/dL Phosphorus (2.5-4.5) mg/dL 10/23/20 10/23/20 Range/Units 07:02 11:58 Sodium 136 L (137-145) mmol/L Chloride 114 H (98-107) mmol/L Carbon Dioxide 18 L (22-30) mmol/L Creatinine 0.52 L (0.66-1.25) mg/dL Glucose 119 H (74-99) mg/dL POC Glucose (mg/dL) 131 H (75-99) mg/dL Calcium 7.8 L (8.4-10.2) mg/dL Phosphorus 1.9 L (2.5-4.5) mg/dL Assessment and Plan Assessment: 1. Acute hypoxic respiratory failure related to suspected aspiration pneumonia in addition to recent history of COVID 19 related pneumonia. Currently on 6 L high flow nasal cannula. Coronavirus still detected 10/14/2020. 2. Suspect chronic aspiration related to overall generalized medical debility, toxic metabolic encephalopathy. Dobbhoff tube placed on 10/22/2020. 3. Aspiration pneumonia with Near-complete opacification of the right hemithorax likely related to right mainstem mucous plugging, patient has a very weak and ineffective cough, mentation has been altered, patient is thought to be chronically aspirating. Follow-up chest x-ray shows improved aeration of the right lung base. No plans for bronchoscopy. 4. A. fib with RVR, remains on Cardizem and amiodarone drip 5. Chronic systolic heart failure 6. Recent hospitalization for acute exacerbation of systolic CHF and A. fib with RVR 7. Recent COVID 19 infection diagnosed on 09/16/2020 8. Acute metabolic encephalopathy and underlying advanced dementia, brain CT showed no acute intracranial abnormality 9. Hypertension 10. Hyperlipidemia 11. Coronary artery disease with prior history of bypass 12. Frequent falls, recent fracture of C1, currently in the soft collar 13. History of paroxysmal A. fib not on anticoagulation due to multiple falls 14. History of subdural hemorrhage 15. GERD/reflux 16. Anxiety/depression Plan: The patient was seen and evaluated by Dr. Jennifer Pardo tube placed yesterday for nutrition Titrate down the FiO2 as tolerated We'll see as needed I, the cosigning physician, performed a history & physical examination of the patient. Lungs sounds few crackles in the right lung base, diminished.. Maintaining good O2 saturations in the 90s on 5 L high flow nasal cannula. I discussed the assessment and plan of care with my nurse practitioner, Aury Serrano. I attest to the above note as dictated by her.
--- NOTE | 2020-10-23 13:32 | P.PN ---
Subjective Progress Note Date: 10/23/20 Principal diagnosis: Dysphasia This is an 84-year-old male patient with multiple medical comorbidities who is here with Covid-19 pneumonia infection area gastroenterology has been consulted because the patient has been unwilling to eat and possible evidence of aspiration pneumonia. The patient's son is requesting a PEG tube to be placed. EGD and PEG tube were scheduled, however anesthesia did not clear patient to proceed with procedure. Yesterday a Dobbhoff tube was placed without any difficulty. X-ray was completed showing good placement. Dietitian consulted. Tube feeding started today at 10 mL per hour. Objective - Vital Signs Vital signs: Vital Signs Temp 97.6 F 10/23/20 08:41 Pulse 129 H 10/23/20 08:40 Resp 18 10/23/20 08:40 BP 154/95 10/23/20 08:40 Pulse Ox 100 10/23/20 08:40 Intake & Output 10/22/20 10/23/20 10/23/20 18:59 06:59 18:59 Intake Total 34.166 400.083 Output Total 50 150 Balance -15.834 250.083 Weight 67.5 kg 70.5 kg Intake: Intake, IV Titration 34.166 400.083 Amount Dextrose 5% in Water 1, 400 000 ml @ 100 mls/hr IV . Q10H [facility] Rx#:[id number] Diltiazem 125 mg In 34.166 0.083 Sodium Chloride 0.9% 100 ml @ 5 MG/HR 5 mls/hr IV .Q24H [facility] Rx#:[id number] Output: Urine 50 150 Stool 0 Other: Voiding Method Indwelling Catheter Indwelling Catheter - Exam General appearance: The patient is alert, try to verbally communicate, opens eyes. HET: Head is normocephalic and atraumatic. Conjunctiva pink. Sclera aniicteric. Dobbhoff tube in place. Neck: Supple without lymphadenopathy. Abdomen: Soft, thin, nontender, nondistended with bowel sounds. No guarding or rigidity. Extremities: Normal skin color and turgor. No pedal edema Neurological: Oriented to self. Nonverbal. - Labs CBC & Chem 7: 10/19/20 07:22 10/23/20 07:02 Labs: Abnormal Lab Results - Last 24 Hours (Table) 10/22/20 10/22/20 10/22/20 Range/Units 11:41 17:18 20:59 Sodium (137-145) mmol/L Chloride (98-107) mmol/L Carbon Dioxide (22-30) mmol/L Creatinine (0.66-1.25) mg/dL Glucose (74-99) mg/dL POC Glucose (mg/dL) 122 H 144 H 117 H (75-99) mg/dL Calcium (8.4-10.2) mg/dL Phosphorus (2.5-4.5) mg/dL 10/23/20 10/23/20 Range/Units 06:42 07:02 Sodium 136 L (137-145) mmol/L Chloride 114 H (98-107) mmol/L Carbon Dioxide 18 L (22-30) mmol/L Creatinine 0.52 L (0.66-1.25) mg/dL Glucose 119 H (74-99) mg/dL POC Glucose (mg/dL) 126 H (75-99) mg/dL Calcium 7.8 L (8.4-10.2) mg/dL Phosphorus 1.9 L (2.5-4.5) mg/dL Assessment and Plan (1) Oropharyngeal dysphagia Narrative/Plan: 85-year-old male with multiple medical comorbidities including recent hospitalization for infection with Covid 19. Currently the patient is hospitalized receiving treatment for metabolic encephalopathy, hypoxic respiratory failure and possible aspiration pneumonia. Initial consultation by speech language pathology the patient's was able to swallow with recommendation for next or thick liquids with pured diet and one-to-one assist with oral intake. There are reconsulted as the patient's oral intake is poor and plan is for video swallow evaluation on Monday whether that was canceled due to risk of aspiration. Patient is still nonverbal. Patient is now on BiPAP, was scheduled for EGD with PEG tube placement today however anesthesiology does not feel patient is stable to proceed with procedure. Procedure is canceled. Dobhoff tube placed, dietitian consult, tube feedings started at 10 mL's per hour. Current Visit: Yes Status: Acute Code(s): R13.12 - DYSPHAGIA, OROPHARYNGEAL PHASE SNOMED Code(s): 53582380 (2) COVID-19 Current Visit: Yes Status: Acute Code(s): U07.1 - COVID-19 SNOMED Code(s): 444808867 (3) Altered mental status Current Visit: No Status: Acute Code(s): R41.82 - ALTERED MENTAL STATUS, UNSPECIFIED SNOMED Code(s): 163979892 Plan: 1. Supportive care 2. Antibiotics per recommendation of infectious disease 3. Continue medical management by primary team 4. Appreciate recommendations from pulmonology 5. EGD with PEG tube placement canceled, anesthesia evaluated patient does not feel he is stable to proceed 6. May resume Lovenox 7. Nothing by mouth at this time 8. Dobbhoff tube placement 9. Dietitian consult for tube feedings, patient was started at 10 ML per hour Thank you for this consultation we will continue to follow Dr. Milind Madsen I agree with the dictator's note, documented as a scribe by Zenaida Baca.
--- NOTE | 2020-10-23 14:23 | PN ---
PROGRESS NOTE DATE OF SERVICE: 10/23/2020 REASON FOR FOLLOWUP: ESBL E coli UTI and pneumonia. INTERVAL HISTORY: The patient is currently afebrile. The patient remains to be on a nasal cannula oxygen. The patient remains to be severely lethargic, unable to provide any history. No vomiting or diarrhea has been reported. PHYSICAL EXAMINATION: Blood pressure 105/75 with pulse of 130, temperature 97.8. He is 95% on 5 L nasal cannula. General description is an elderly male lying in bed in no distress. RESPIRATORY SYSTEM: Unlabored breathing, decreased breath sounds at the bases. No wheeze. HEART: S1, S2. Regular rate and rhythm. ABDOMEN: Soft, no tenderness. LABS: BUN of 13, creatinine 0.52. DIAGNOSTIC IMPRESSION AND PLAN: Patient with ESBL Escherichia coli urinary tract infection and concerning for a pneumonia, question of possible aspiration. Patient is covered with meropenem. Overall prognosis remains to be guarded. Continue with supportive care. MMODL / IJN: [id number] /
[2020-10-23 17:08] LABS: Glucose,Whole Blood 137 mg/dL (75-99)
[2020-10-23] MEDS: DOCUSATE 100 MG CAP PO SCH (20:29)
[2020-10-23] MEDS: ESCITALOPRAM 5 MG TAB PO SCH (20:30)
--- NOTE | 2020-10-23 21:00 | P.PN ---
Progress Note - Text Progress Note Date: 10/23/20 Chief Complaint: Unwell History of presenting complaint: This is a 84-year-old patient resident of [facility] in [facility] being followed by Davide Pérez. Patient tested positive for COVID 19 on 09/16/2020. recently at [facility] was treated there for UTI. From that he was discharged and sent to rehab at [facility]. In the process patient lost some weight and become rather weak. Admitted September 16. Diagnosed with COVID 19 pneumonia. Treated with heparin steroids. Also to acute kidney injury felt to be from Bactrim. Acute metabolic encephalopathy. Hyponatremic. Uncontrolled A. fib. Advanced medical debility. Patient was discharged on October 05. Patient oral intake was fairly left the hospital. Now presents to the ER. As per the EMS run sheet: Blood pressure 120/88, pulse 81, respiration 30, pulse ox 83% on room air, temperature 100.6. EMS was called out for patient having rapid respirations and tachycardia. Patient is barely been talking over the last week. Decrease response to stimuli. Patient been moving his hand under his head. No signs of trauma. EKG showed sinus tachycardia. Left arm felt to be flaccid(according to son leg this for a few months.) Admitted with right lower lobe pneumonia, possible aspiration with sepsis lactic acidosis, metabolic encephalopathy, hyper natremia, atrial fibrillation rapid ventricular rate. Started on IV Zosyn, aspiration precautions, IV fluids. (There was a question about embolic stroke causing left arm weakness., But as per the son the left arm weakness has been present for much longer-on July 05 patient had left shoulder injury and had presented to the ER for the same-x-ray of the left shoulder showed widening of the AC joint space.).. Developed collapse atelectasis of the right lung. Anesthesia felt the patient to be very high risk , hence PEG tube could not be placed. Dobbhoff tube placed by Dr. To on October 22. Today-getting 2 feeding. Laying in bed. Tired. Remains in A. fib. Heart rate variable. . review of systems:Patient cannot tell. Active Medications Acetaminophen (Acetaminophen Suppository 650 Mg Supp) 650 mg RECTAL Q4HR PRN PRN Reason: Fever and/ or Mild Pain Last Admin: 10/12/20 01:07 Dose: 650 mg Documented by: Acetaminophen (Acetaminophen Tab 325 Mg Tab) 650 mg PO Q8HR@0600,1400,2200 [facility] Last Admin: 10/23/20 20:30 Dose: Not Given Documented by: Albuterol Sulfate (Albuterol Hfa Inhaler) 1 puff INHALATION RT-Q6H PRN PRN Reason: Wheezing Last Admin: 10/23/20 08:08 Dose: 1 puff Documented by: Ascorbic Acid (Ascorbic Acid 500 Mg Tab) 500 mg PO BID [facility] Last Admin: 10/23/20 20:30 Dose: Not Given Documented by: Cholecalciferol (Cholecalciferol 25 Mcg (1000 Iu) Tablet) 125 mcg PO DAILY [facility] Last Admin: 10/23/20 08:39 Dose: Not Given Documented by: Docusate Sodium (Docusate 100 Mg Cap) 100 mg PO DAILY@2100 [facility] Last Admin: 10/23/20 20:29 Dose: Not Given Documented by: Enoxaparin Sodium (Enoxaparin 40 Mg/0.4 Ml Syringe) 40 mg SQ BID@0900,2100 [facility] Last Admin: 10/23/20 20:31 Dose: 40 mg Documented by: Escitalopram Oxalate (Escitalopram 5 Mg Tab) 5 mg PO DAILY@2100 [facility] Last Admin: 10/23/20 20:30 Dose: Not Given Documented by: Fluticasone Propionate (Fluticasone 50mcg/[place] Nasal 16gm) 2 spray EA NOSTRIL DAILY@0900 [facility] Last Admin: 10/23/20 08:52 Dose: Not Given Documented by: Diltiazem HCl 125 mg/ Sodium (Chloride) 125 mls @ 5 mls/hr IV .Q24H [facility] Last Infusion: 10/22/20 21:56 Dose: 10 mg/hr, 10 mls/hr Documented by: Meropenem 1 gm/ Sodium (Chloride) 100 mls @ 33.3 mls/hr IVPB Q8HR [facility]; Protocol Last Admin: 10/23/20 16:09 Dose: 33.3 mls/hr Documented by: Dextrose/Water (Dextrose 5%-Water Iv Soln) 1,000 mls @ 100 mls/hr IV .Q10H [facility] Last Admin: 10/23/20 20:27 Dose: 100 mls/hr Documented by: Miscellaneous Information (Pneumonia Protocol Utilized 1 Each Misc) 1 each PO ONCE PRN PRN Reason: Per Protocol Miscellaneous Information (Magnesium Replacement Protocol 1 Each Misc) 1 each MISCELLANE DAILY PRN; Protocol PRN Reason: Per Protocol Miscellaneous Information (Potassium Replacement Protocol 1 Each Misc) 1 each MISCELLANE DAILY PRN; Protocol PRN Reason: Per Protocol Zinc Sulfate (Zinc Sulfate 220 Mg Cap) 220 mg PO DAILY [facility] Last Admin: 10/23/20 08:39 Dose: Not Given Documented by: Past medical history to include: Atrial fibrillation, CHF, COPD, dementia, GERD, hypertension, hyperlipidemia carotid artery disease with bypass, partial pneumonectomy, anxiety depression. COVID 19 pneumonia diagnosed 09/16/2020 Social history: rehab at [facility]. No history of smoking or alcohol Family history: Patient cannot tell Physical examination: VITAL SIGNS: Afebrile, 110, 18, 154/95, 100% on 5 L GENERAL: Laying in bed, tired awake EYES: Pupils equal. Conjunctiva normal HEENT: External appearance of nose and ears normal, oral cavity dry -Dobbhoff tube with feeding NECK: wearing a collar HEART: Irregular heart sounds no edema. LUNGS:[ Respiratory rate increased; decreased breath sounds. ABDOMEN: Soft, nontender, liver spleen not palpable, no masses palpable. PSYCH: Unable to assess. NEUROLOGICAL: Cranial nerves grossly intact; flaccid left arm. Opens eyes. Moves his right arm. May speak to occasional word INVESTIGATIONS, reviewed in the clinical context: October 21: Potassium 4.3 creatinine 0.56 albumin 2.2 October 07: White count 10.1 hemoglobin 12.2 sodium 140 potassium 3.6 creatinine 0.94. Chest x-ray-7 improvement of aeration on the right side. With infiltrates October 14: White count 11.4 hemoglobin 12 potassium 3.6 creatinine 1.05 Chest x-ray film personally reviewed by me-new right-sided wipeout, with trachea pulled of the right Coronavirus [PCR]-detected White count 15.3 hemoglobin 14.4 platelets 315-2150 potassium 4.8 bun 41 and creatinine 1.06 Lactic acid 2.4 CRP 86.5 pro-calcitonin 0.21 UA positive for leukoesterase, WBC, bacteria Urine culture-E. coli/ESBL EKG tracing personally reviewed by me--sinus tachycardia Chest x-ray film personally reviewed by me-right lower lobe infiltrate Assessment: -Right lower lobe pneumonia, suspect gram-negative organism and/or aspiration, causing sepsis with lactic acidosis, -Right-sided atelectasis with some improvement -Chronic left arm paresis, not acute as documented earlier has patient's left arm paresis -patient had injury in July 05 shoulder x-ray at that time showed a widened AC joint. Consistent with ligamentous tear) -Acute metabolic encephalopathy from infection, hypernatremia-slow to respond -Hypernatremia, from free water improved -Persistent Atrial fibrillation with a rapid ventricular rate-remains uncontrollable-rate variable -COPD -Alzheimer's dementia-hasn't June 2020 shows only AO 1 as per EMS run sheet. -GERD -Hyperlipidemia -Essential hypertension -Coronary artery disease with prior history of bypass -History of pneumonectomy partial -Moderate protein calorie malnutrition patient has decreased muscle mass loss of subcutaneous fat -Advancing medical debility -History of multiple falls -No code Plan: Discussed with neurology. EEG negative for epilepsy. No further intervention at present time. If patient was to improve significantly then further cervical spine workup as an outpatient. Discussed with patient's son over the phone. He'll probably visit the father over the weekend. Update given. Questions answered. No new questions. Total time spent today about 45 minutes with over 25 minutes of discussion
[2020-10-23] MEDS: METOPROLOL TARTRATE 25 MG TAB PO SCH (21:30)
[2020-10-24] MEDS: MEROPENEM 1 GM in SODIUM CHLORIDE 0.9% 100 ML IVPB SCH ×4 (00:02→23:31)
[2020-10-24] MEDS: DILTIAZEM 125 MG in SODIUM CHLORIDE 0.9% 100 ML IV SCH ×2 (00:02→16:30)
[2020-10-24 00:03] LABS: Glucose,Whole Blood 115 mg/dL (75-99)
[2020-10-24] MEDS: ACETAMINOPHEN TAB 325 MG TAB PO SCH ×3 (03:25→19:54)
[2020-10-24] MEDS: METOPROLOL TARTRATE 25 MG TAB PO SCH ×3 (03:25→19:54)
[2020-10-24] MEDS: ACETAMINOPHEN SUPPOSITORY 650 MG SUPP RECTAL PRN (04:51)
[2020-10-24] MEDS: DEXTROSE 5% IN WATER 1,000 ML IV SCH ×2 (06:25→16:32)
[2020-10-24 06:38] LABS: Glucose,Whole Blood 103 mg/dL (75-99)
[2020-10-24 07:21] LABS: African American GFR (CKD) >90 (>60 ml/min/1.73 sqM); Anion Gap 2 mmol/L; Blood Urea Nitrogen 9 mg/dL (9-20); Calcium 7.7 mg/dL (8.4-10.2); Carbon Dioxide 24 mmol/L (22-30); Chloride 107 mmol/L (98-107); Glucose 108 mg/dL (74-99); Magnesium 1.9 mg/dL (1.6-2.3); Non-African American GFR(CKD) >90 (>60 ml/min/1.73 sqM); Phosphorus 1.5 mg/dL (2.5-4.5); Potassium 3.6 mmol/L (3.5-5.1); Sodium 133 mmol/L (137-145)
[2020-10-24] MEDS: ENOXAPARIN 40 MG/0.4 ML SYRINGE SQ SCH ×2 (09:43→19:55)
[2020-10-24] MEDS: ZINC SULFATE 220 MG CAP PO SCH (09:44)
[2020-10-24] MEDS: ASCORBIC ACID 500 MG TAB PO SCH ×2 (09:44→19:55)
[2020-10-24] MEDS: CHOLECALCIFEROL 25 MCG (1000 IU) TABLET PO SCH (09:44)
[2020-10-24] MEDS: FLUTICASONE 50MCG/SPRAY NASAL 16GM EA NOSTRIL SCH (09:44)
[2020-10-24 11:59] LABS: Glucose,Whole Blood 106 mg/dL (75-99)
--- NOTE | 2020-10-24 13:00 | XR ---
EXAMINATION TYPE: XR abdomen 1V DATE OF EXAM: 10/24/2020 COMPARISON: NONE HISTORY: Dobbhoff tube placement TECHNIQUE: Single supine KUB image of the abdomen is obtained FINDINGS: Dobbhoff Tube overlies the left mid abdomen No convincing evidence for pneumoperitoneum. Patchy basilar infiltrates and pleural effusions are noted. Bowel gas pattern is nonspecific. The osseous structures are intact. IMPRESSION: 1. Dobbhoff Tube overlies the left mid abdomen
[2020-10-24] MEDS: ALBUTEROL HFA INHALER INHALATION PRN (15:40)
--- NOTE | 2020-10-24 17:52 | XR ---
EXAMINATION TYPE: XR abdomen 1V DATE OF EXAM: 10/24/2020 COMPARISON: Today HISTORY: Check tube placement TECHNIQUE: Single view supine FINDINGS: There is nasogastric feeding tube that has the tip in the distal stomach or the proximal du odenum. There is no evidence of free air. There is bilateral lower lobe pulmonary infiltrates and ple ural fluid unchanged. IMPRESSION: NG tube in the distal stomach.
[2020-10-24 18:20] LABS: Glucose,Whole Blood 120 mg/dL (75-99)
--- NOTE | 2020-10-24 19:08 | PN ---
PROGRESS NOTE DATE OF SERVICE: 10/24/2020 REASON FOR FOLLOWUP: ESBL E coli urinary tract infection and pneumonia. INTERVAL HISTORY: Patient did have a low-grade fever this morning of 99.9. The patient is afebrile since then. The patient is hemodynamically stable. He has had Dobbhoff for feeding. Remains to be lethargic and unable to provide any history. No vomiting or diarrhea has been reported by nursing staff. PHYSICAL EXAMINATION: Blood pressure 135/80 with a pulse of 104, temperature 98.2. He is 94% on 5 L nasal cannula. General description is an elderly male lying in bed in no distress. Respiratory system: Unlabored breathing, clear to auscultation anteriorly. Heart S1, S2. Regular rate and rhythm. Abdomen soft, no tenderness. LABS: BUN of 9, creatinine 0.53. DIAGNOSTIC IMPRESSION AND PLAN: Patient with ESBL E coli urinary tract infection with component of pneumonia, possible aspiration etiology for which the patient is currently covered with meropenem, to continue finish course of therapy. Continue supportive care. MMODL / IJN: [id number] /
[2020-10-24] MEDS: DOCUSATE 100 MG CAP PO SCH (19:55)
[2020-10-24] MEDS: ESCITALOPRAM 5 MG TAB PO SCH (19:55)
--- NOTE | 2020-10-24 21:40 | P.PN ---
Progress Note - Text Progress Note Date: 10/24/20 Chief Complaint: Unwell History of presenting complaint: This is a 84-year-old patient resident of [facility] in [facility] being followed by Davide Pérez. Patient tested positive for COVID 19 on 09/16/2020. recently at [facility] was treated there for UTI. From that he was discharged and sent to rehab at [facility]. In the process patient lost some weight and become rather weak. Admitted September 16. Diagnosed with COVID 19 pneumonia. Treated with heparin steroids. Also to acute kidney injury felt to be from Bactrim. Acute metabolic encephalopathy. Hyponatremic. Uncontrolled A. fib. Advanced medical debility. Patient was discharged on October 05. Patient oral intake was fairly left the hospital. Now presents to the ER. As per the EMS run sheet: Blood pressure 120/88, pulse 81, respiration 30, pulse ox 83% on room air, temperature 100.6. EMS was called out for patient having rapid respirations and tachycardia. Patient is barely been talking over the last week. Decrease response to stimuli. Patient been moving his hand under his head. No signs of trauma. EKG showed sinus tachycardia. Left arm felt to be flaccid(according to son leg this for a few months.) Admitted with right lower lobe pneumonia, possible aspiration with sepsis lactic acidosis, metabolic encephalopathy, hyper natremia, atrial fibrillation rapid ventricular rate. Started on IV Zosyn, aspiration precautions, IV fluids. (There was a question about embolic stroke causing left arm weakness., But as per the son the left arm weakness has been present for much longer-on July 05 patient had left shoulder injury and had presented to the ER for the same-x-ray of the left shoulder showed widening of the AC joint space.).. Developed collapse atelectasis of the right lung. Anesthesia felt the patient to be very high risk , hence PEG tube could not be placed. Dobbhoff tube placed by Dr. To on October 22. October 23 patient pulled out the Dobbhoff tube. Today-this morning stop off tube was replaced by Dr. Moore. Patient rather lethargic. Not answering questions. . review of systems:Patient cannot tell. Active Medications Acetaminophen (Acetaminophen Suppository 650 Mg Supp) 650 mg RECTAL Q4HR PRN PRN Reason: Fever and/ or Mild Pain Last Admin: 10/24/20 04:51 Dose: 650 mg Documented by: Acetaminophen (Acetaminophen Tab 325 Mg Tab) 650 mg PO Q8HR@0600,1400,2200 [facility] Last Admin: 10/24/20 19:54 Dose: 650 mg Documented by: Albuterol Sulfate (Albuterol Hfa Inhaler) 1 puff INHALATION RT-Q6H PRN PRN Reason: Wheezing Last Admin: 10/24/20 15:40 Dose: 1 puff Documented by: Ascorbic Acid (Ascorbic Acid 500 Mg Tab) 500 mg PO BID [facility] Last Admin: 10/24/20 19:55 Dose: 500 mg Documented by: Cholecalciferol (Cholecalciferol 25 Mcg (1000 Iu) Tablet) 125 mcg PO DAILY [facility] Last Admin: 10/24/20 09:44 Dose: Not Given Documented by: Docusate Sodium (Docusate 100 Mg Cap) 100 mg PO DAILY@2100 [facility] Last Admin: 10/24/20 19:55 Dose: Not Given Documented by: Enoxaparin Sodium (Enoxaparin 40 Mg/0.4 Ml Syringe) 40 mg SQ BID@0900,2100 [facility] Last Admin: 10/24/20 19:55 Dose: 40 mg Documented by: Escitalopram Oxalate (Escitalopram 5 Mg Tab) 5 mg PO DAILY@2100 [facility] Last Admin: 10/24/20 19:55 Dose: 5 mg Documented by: Fluticasone Propionate (Fluticasone 50mcg/[place] Nasal 16gm) 2 spray EA NOSTRIL DAILY@0900 [facility] Last Admin: 10/24/20 09:44 Dose: Not Given Documented by: Meropenem 1 gm/ Sodium (Chloride) 100 mls @ 33.3 mls/hr IVPB Q8HR [facility]; Protocol Last Admin: 10/24/20 16:30 Dose: 33.3 mls/hr Documented by: Dextrose/Water (Dextrose 5%-Water Iv Soln) 1,000 mls @ 100 mls/hr IV .Q10H [facility] Last Admin: 10/24/20 16:32 Dose: 100 mls/hr Documented by: Diltiazem HCl 125 mg/ Sodium (Chloride) 125 mls @ 10 mls/hr IV .[id number] [facility] Last Admin: 10/24/20 16:30 Dose: 10 mg/hr, 10 mls/hr Documented by: Metoprolol Tartrate (Metoprolol Tartrate 25 Mg Tab) 25 mg PO Q8H [facility] Last Admin: 10/24/20 19:54 Dose: 25 mg Documented by: Miscellaneous Information (Pneumonia Protocol Utilized 1 Each Misc) 1 each PO ONCE PRN PRN Reason: Per Protocol Miscellaneous Information (Magnesium Replacement Protocol 1 Each Misc) 1 each MISCELLANE DAILY PRN; Protocol PRN Reason: Per Protocol Miscellaneous Information (Potassium Replacement Protocol 1 Each Misc) 1 each MISCELLANE DAILY PRN; Protocol PRN Reason: Per Protocol Zinc Sulfate (Zinc Sulfate 220 Mg Cap) 220 mg PO DAILY [facility] Last Admin: 10/24/20 09:44 Dose: Not Given Documented by: Past medical history to include: Atrial fibrillation, CHF, COPD, dementia, GERD, hypertension, hyperlipidemia carotid artery disease with bypass, partial pneumonectomy, anxiety depression. COVID 19 pneumonia diagnosed 09/16/2020 Social history: rehab at [facility]. No history of smoking or alcohol Family history: Patient cannot tell Physical examination: VITAL SIGNS: 98, 114, 28, 102/59, 92% on 5 L GENERAL: Laying in bed, lethargic, barely arousable EYES: Pupils equal. Conjunctiva normal HEENT: External appearance of nose and ears normal, oral cavity dry -Dobbhoff tube with feeding NECK: wearing a collar HEART: Irregular heart sounds no edema. LUNGS:[ Respiratory rate increased; decreased breath sounds, right basal crackles ABDOMEN: Soft, nontender, liver spleen not palpable, no masses palpable. PSYCH: Unable to assess. NEUROLOGICAL: Cranial nerves grossly intact; flaccid left arm. INVESTIGATIONS, reviewed in the clinical context: October 21: Potassium 4.3 creatinine 0.56 albumin 2.2 October 07: White count 10.1 hemoglobin 12.2 sodium 140 potassium 3.6 creatinine 0.94. Chest x-ray-7 improvement of aeration on the right side. With infiltrates October 14: White count 11.4 hemoglobin 12 potassium 3.6 creatinine 1.05 Chest x-ray film personally reviewed by al-javier right-sided wipeout, with trachea pulled of the right Coronavirus [PCR]-detected White count 15.3 hemoglobin 14.4 platelets 315-2150 potassium 4.8 bun 41 and creatinine 1.06 Lactic acid 2.4 CRP 86.5 pro-calcitonin 0.21 UA positive for leukoesterase, WBC, bacteria Urine culture-E. coli/ESBL EKG tracing personally reviewed by me--sinus tachycardia Chest x-ray film personally reviewed by me-right lower lobe infiltrate Assessment: -Right lower lobe pneumonia, suspect gram-negative organism and/or aspiration, causing sepsis with lactic acidosis, -Right-sided atelectasis with some improvement -Chronic left arm paresis, not acute as documented earlier has patient's left arm paresis -patient had injury in July 05 shoulder x-ray at that time showed a widened AC joint. Consistent with ligamentous tear) -Acute metabolic encephalopathy from infection, hypernatremia-slow to respond -Hypernatremia, from free water improved -Persistent Atrial fibrillation with a rapid ventricular rate-remains uncontrollable-rate variable -COPD -Alzheimer's dementia-hasn't June 2020 shows only AO 1 as per EMS run sheet. -GERD -Hyperlipidemia -Essential hypertension -Coronary artery disease with prior history of bypass -History of pneumonectomy partial -Moderate protein calorie malnutrition patient has decreased muscle mass loss of subcutaneous fat -Dobbhoff tube was placed. Patient pointed out. Replaced again this morning -Advancing medical debility -History of multiple falls -No code Plan: A spoke again to patient's son on the phone last night. He might be coming in today or tomorrow. Continue current medication treatment plan. Antibiotics to continue. Prognosis is not good. Dobbhoff tube feeding
[2020-10-25 00:08] LABS: Glucose,Whole Blood 112 mg/dL (75-99)
[2020-10-25] MEDS: DEXTROSE 5% IN WATER 1,000 ML IV SCH ×2 (02:42→18:44)
[2020-10-25] MEDS: DILTIAZEM 125 MG in SODIUM CHLORIDE 0.9% 100 ML IV SCH ×3 (02:43→23:20)
[2020-10-25] MEDS: ACETAMINOPHEN TAB 325 MG TAB PO SCH ×3 (03:59→21:48)
[2020-10-25] MEDS: METOPROLOL TARTRATE 25 MG TAB PO SCH ×3 (03:59→21:48)
[2020-10-25 06:10] LABS: Glucose,Whole Blood 166 mg/dL (75-99)
[2020-10-25 06:12] LABS: Glucose,Whole Blood 135 mg/dL (75-99)
[2020-10-25 07:50] LABS: African American GFR (CKD) >90 (>60 ml/min/1.73 sqM); Anion Gap 5 mmol/L; Blood Urea Nitrogen 10 mg/dL (9-20); Calcium 7.8 mg/dL (8.4-10.2); Carbon Dioxide 23 mmol/L (22-30); Chloride 102 mmol/L (98-107); Glucose 127 mg/dL (74-99); Non-African American GFR(CKD) >90 (>60 ml/min/1.73 sqM); Sodium 130 mmol/L (137-145)
[2020-10-25 07:51] LABS: Potassium 3.8 mmol/L (3.5-5.1)
[2020-10-25] MEDS: MEROPENEM 1 GM in SODIUM CHLORIDE 0.9% 100 ML IVPB SCH ×3 (08:20→23:23)
--- NOTE | 2020-10-25 08:24 | P.PN ---
Subjective Progress Note Date: 10/24/20 Principal diagnosis: oropharyngeal dysphagia, suspected aspiration pneumonia, Covid 19 infection The patient is seen lying in bed in no acute events reported, however the patient did pull his Dobbhoff tube out last night. At this time Dobbhoff tube was inserted successfully with plan for abdominal x-ray to ensure correct placement in the stomach if radiology agrees that the Dobbhoff is in the stomach okay for tube feeds. Objective - Vital Signs Vital signs: Vital Signs Temp 98 F 10/24/20 09:30 Pulse 114 H 10/24/20 09:30 Resp 28 H 10/24/20 09:30 BP 102/59 10/24/20 09:30 Pulse Ox 92 L 10/24/20 09:30 Intake & Output 10/23/20 10/24/20 10/24/20 18:59 06:59 18:59 Output Total 300 850 Balance -300 -850 Weight 70.5 kg 71 kg Output: Urine 300 850 Uretheral (Tamayo) 275 Stool 0 0 Other: Voiding Method Indwelling Catheter Indwelling Catheter # Bowel Movements 1 - Exam On physical examination, patient appears comfortable in no apparent distress. HEAD: Normocephalic, atraumatic. EYES: No scleral icterus. No conjunctival injection. MOUTH: No lesions, tongue midline. NECK: Trachea midline, no gross abnormalities. CHEST: decreased air entry in all maravilla. ABDOMEN: Soft, nontender. Bowel sounds are positive. No organomegaly. No guarding or rigidity. EXTREMITIES: bilateral pedal edema. SKIN: No rashes, no jaundice. NEUROLOGIC:the patient is nonverbal, flaccid left upper extremity paralysis. - Labs CBC & Chem 7: 10/19/20 07:22 10/25/20 06:58 Labs: Abnormal Lab Results - Last 24 Hours (Table) 10/23/20 10/23/20 10/24/20 Range/Units 11:58 17:07 00:00 Sodium (137-145) mmol/L Creatinine (0.66-1.25) mg/dL Glucose (74-99) mg/dL POC Glucose (mg/dL) 131 H 137 H 115 H (75-99) mg/dL Calcium (8.4-10.2) mg/dL Phosphorus (2.5-4.5) mg/dL 02/06/21 02/06/21 Range/Units 06:32 06:36 Sodium 133 L (137-145) mmol/L Creatinine 0.53 L (0.66-1.25) mg/dL Glucose 108 H (74-99) mg/dL POC Glucose (mg/dL) 103 H (75-99) mg/dL Calcium 7.7 L (8.4-10.2) mg/dL Phosphorus 1.5 L (2.5-4.5) mg/dL Assessment and Plan (1) Oropharyngeal dysphagia Narrative/Plan: 85-year-old male with multiple medical comorbidities including recent hospitalization for infection with Covid 19. Currently the patient is hospitalized receiving treatment for metabolic encephalopathy, hypoxic respiratory failure and possible aspiration pneumonia. Initial consultation by speech language pathology the patient's was able to swallow with recommendation for next or thick liquids with pured diet and one-to-one assist with oral intake, however subsequent evaluation felt that the patient had severe oropharyn geal dysphagia and was not safe for oral nutrition. PEG tube in all been placed as the patient has not been felt to be safer anesthesia. The patient had a Dobbhoff tube placed which was pulled out yesterday and reinserted today. Current Visit: Yes Status: Acute Code(s): R13.12 - DYSPHAGIA, OROPHARYNGEAL PHASE SNOMED Code(s): 94713392 (2) COVID-19 Current Visit: Yes Status: Acute Code(s): U07.1 - COVID-19 SNOMED Code(s): 229389863 (3) Altered mental status Current Visit: No Status: Acute Code(s): R41.82 - ALTERED MENTAL STATUS, UNSPECIFIED SNOMED Code(s): 980970217 Plan: Supportive care Continue broad-spectrum antibiotic therapy Continue management by her primary team as well as consultants including pul monology and neurology Continue other medical management Dobbhoff tube was placed today after prior Dobbhoff tube was pulled up with the patient last night, abdominal x-ray ordered and if correct location is verified in the stomach or small bowel by radiology service okay to restart tube feeds Thank you for allowing us to participate in the care of the patient we will continue to follow
[2020-10-25] MEDS: ALBUTEROL HFA INHALER INHALATION PRN ×2 (08:42→11:54)
[2020-10-25] MEDS: ENOXAPARIN 40 MG/0.4 ML SYRINGE SQ SCH ×2 (08:47→21:48)
[2020-10-25] MEDS: ASCORBIC ACID 500 MG TAB PO SCH ×2 (08:47→21:48)
[2020-10-25] MEDS: FLUTICASONE 50MCG/SPRAY NASAL 16GM EA NOSTRIL SCH (08:47)
[2020-10-25] MEDS: CHOLECALCIFEROL 25 MCG (1000 IU) TABLET PO SCH (08:47)
[2020-10-25] MEDS: ZINC SULFATE 220 MG CAP PO SCH (08:47)
--- NOTE | 2020-10-25 09:04 | XR ---
EXAMINATION TYPE: XR chest 1V portable DATE OF EXAM: 10/25/2020 HISTORY: Shortness of breath. COMPARISON: October 22, 2020 TECHNIQUE: Single view of the chest is submitted. FINDINGS: Demonstrated are scattered senescent parenchymal change. Progression of infiltrates noted throughout both lung maravilla right greater than left. The heart is stable. Hilar and mediastinal structures are within normal limits. Degenerative changes are seen of the dorsal spine. IMPRESSION: 1. Progression of infiltrates noted throughout both lung maravilla right greater than left.
[2020-10-25] MEDS ORDERED: FUROSEMIDE 10 MG/ML 4 ML VIAL IV STA (09:16)
[2020-10-25 11:58] LABS: Glucose,Whole Blood 133 mg/dL (75-99)
[2020-10-25 13:13] VITALS: BMI 23.1
--- NOTE | 2020-10-25 16:31 | P.PN ---
Subjective Progress Note Date: 10/25/20 Principal diagnosis: oropharyngeal dysphagia, suspected aspiration pneumonia, Covid 19 infection The patient is seen lying in bed in no acute events reported, Dobbhoff tube is in place with feeds running. Objective - Vital Signs Vital signs: Vital Signs Temp 98.7 F 10/25/20 07:58 Pulse 91 10/25/20 07:58 Resp 32 H 10/25/20 07:58 BP 114/99 10/25/20 07:58 Pulse Ox 93 L 10/25/20 07:58 Intake & Output 10/24/20 10/25/20 10/25/20 18:59 06:59 18:59 Intake Total 125 102.167 Output Total 1300 300 Balance -1175 -197.833 Weight 73 kg Intake: Intake, IV Titration 125 102.167 Amount Diltiazem 125 mg In 125 102.167 Sodium Chloride 0.9% 100 ml @ 10 MG/HR 10 mls/hr IV .[id number] [facility] Rx#: [id number] Output: Urine 1300 300 Uretheral (Tamayo) 550 Other: Voiding Method Indwelling Catheter Indwelling Catheter Indwelling Catheter - Exam On physical examination, patient appears comfortable in no apparent distress. HEAD: Normocephalic, atraumatic. EYES: No scleral icterus. No conjunctival injection. MOUTH: No lesions, tongue midline. NECK: Trachea midline, no gross abnormalities. CHEST: decreased air entry in all maravilla. ABDOMEN: Soft, nontender. Bowel sounds are positive. No organomegaly. No guarding or rigidity. EXTREMITIES: bilateral pedal edema. SKIN: No rashes, no jaundice. NEUROLOGIC:the patient is nonverbal, flaccid left upper extremity paralysis. - Labs CBC & Chem 7: 10/19/20 07:22 10/25/20 06:58 Labs: Abnormal Lab Results - Last 24 Hours (Table) 10/24/20 10/24/20 10/25/20 Range/Units 11:51 18:18 00:06 Sodium (137-145) mmol/L Creatinine (0.66-1.25) mg/dL Glucose (74-99) mg/dL POC Glucose (mg/dL) 106 H 120 H 112 H (75-99) mg/dL Calcium (8.4-10.2) mg/dL 10/25/20 10/25/20 10/25/20 Range/Units 06:08 06:10 06:58 Sodium 130 L (137-145) mmol/L Creatinine 0.60 L (0.66-1.25) mg/dL Glucose 127 H (74-99) mg/dL POC Glucose (mg/dL) 166 H 135 H (75-99) mg/dL Calcium 7.8 L (8.4-10.2) mg/dL Assessment and Plan (1) Oropharyngeal dysphagia Narrative/Plan: 85-year-old male with multiple medical comorbidities including recent hosp italization for infection with Covid 19. Currently the patient is hospitalized receiving treatment for metabolic encephalopathy, hypoxic respiratory failure and possible aspiration pneumonia. Initial consultation by speech language pathology the patient's was able to swallow with recommendation for next or thick liquids with pured diet and one-to-one assist with oral intake, however subsequent evaluation felt that the patient had severe oropharyngeal dysphagia and was not safe for oral nutrition. PEG tube in all been placed as the patient has not been felt to be safer anesthesia. The patient had a Dobbhoff tube placed yesterday. Current Visit: Yes Status: Acute Code(s): R13.12 - DYSPHAGIA, OROPHARYNGEAL PHASE SNOMED Code(s): 22725634 (2) COVID-19 Current Visit: Yes Status: Acute Code(s): U07.1 - COVID-19 SNOMED Code(s): 792449637 (3) Altered mental status Current Visit: No Status: Acute Code(s): R41.82 - ALTERED MENTAL STATUS, UNSPECIFIED SNOMED Code(s): 453288701 Plan: Supportive care Continue broad-spectrum antibiotic therapy Continue management by her primary team as well as consultants including pulmonology and neurology Continue other medical management Dobbhoff tube was placed yesterday after initialtube was pulled by the patient Thank you for allowing us to participate in the care of the patient we will continue to follow
[2020-10-25 18:45] LABS: Glucose,Whole Blood 154 mg/dL (75-99)
--- NOTE | 2020-10-25 19:44 | P.PN ---
Progress Note - Text Progress Note Date: 10/25/20 Chief Complaint: Unwell History of presenting complaint: This is a 84-year-old patient resident of [facility] in [facility] being followed by Davide Pérez. Patient tested positive for COVID 19 on 09/16/2020. recently at [facility] was treated there for UTI. From that he was discharged and sent to rehab at [facility] in [facility]. In the process patient lost some weight and become rather weak. Admitted September 16. Diagnosed with COVID 19 pneumonia. Treated with heparin steroids. Also to acute kidney injury felt to be from Bactrim. Acute metabolic encephalopathy. Hyponatremic. Uncontrolled A. fib. Advanced medical debility. Patient was discharged on October 05. Patient oral intake was fairly left the hospital. Now presents to the ER. As per the EMS run sheet: Blood pressure 120/88, pulse 81, respiration 30, pulse ox 83% on room air, temperature 100.6. EMS was called out for patient having rapid respirations and tachycardia. Patient is barely been talking over the last week. Decrease response to stimuli. Patient been moving his hand under his head. No signs of trauma. EKG showed sinus tachycardia. Left arm felt to be flaccid(according to son leg this for a few months.) Admitted with right lower lobe pneumonia, possible aspiration with sepsis lactic acidosis, metabolic encephalopathy, hyper natremia, atrial fibrillation rapid ventricular rate. Started on IV Zosyn, aspiration precautions, IV fluids. (There was a question about embolic stroke causing left arm weakness., But as per the son the left arm weakness has been present for much longer-on July 05 patient had left shoulder injury and had presented to the ER for the same-x-ray of the left shoulder showed widening of the AC joint space.).. Developed collapse atelectasis of the right lung. Anesthesia felt the patient to be very high risk , hence PEG tube could not be placed. Dobbhoff tube placed by Dr. To on October 22. October 23 patient pulled out the Dobbhoff tube. Dobbhoff tube was then replaced again. Today-nurse called me this morning that patient is again short of breath. I ordered the check stat x-ray. Order dose of Lasix. Remains in A. fib. Heart rate controlled. Patient is lethargic short of breath. Placed on BiPAP . review of systems:Patient cannot tell. Active Medications Acetaminophen (Acetaminophen Suppository 650 Mg Supp) 650 mg RECTAL Q4HR PRN PRN Reason: Fever and/ or Mild Pain Last Admin: 10/24/20 04:51 Dose: 650 mg Documented by: Acetaminophen (Acetaminophen Tab 325 Mg Tab) 650 mg PO Q8HR@0600,1400,2200 [facility] Last Admin: 10/25/20 13:05 Dose: 650 mg Documented by: Albuterol Sulfate (Albuterol Hfa Inhaler) 1 puff INHALATION RT-Q6H PRN PRN Reason: Wheezing Last Admin: 10/25/20 11:54 Dose: 1 puff Documented by: Ascorbic Acid (Ascorbic Acid 500 Mg Tab) 500 mg PO BID [facility] Last Admin: 10/25/20 08:47 Dose: Not Given Documented by: Cholecalciferol (Cholecalciferol 25 Mcg (1000 Iu) Tablet) 125 mcg PO DAILY [facility] Last Admin: 10/25/20 08:47 Dose: Not Given Documented by: Docusate Sodium (Docusate 100 Mg Cap) 100 mg PO DAILY@2100 [facility] Last Admin: 10/24/20 19:55 Dose: Not Given Documented by: Enoxaparin Sodium (Enoxaparin 40 Mg/0.4 Ml Syringe) 40 mg SQ BID@0900,2100 [facility] Last Admin: 10/25/20 08:47 Dose: 40 mg Documented by: Escitalopram Oxalate (Escitalopram 5 Mg Tab) 5 mg PO DAILY@2100 [facility] Last Admin: 10/24/20 19:55 Dose: 5 mg Documented by: Fluticasone Propionate (Fluticasone 50mcg/Eighty Four Nasal 16gm) 2 spray EA NOSTRIL DAILY@0900 [facility] Last Admin: 10/25/20 08:47 Dose: Not Given Documented by: Meropenem 1 gm/ Sodium (Chloride) 100 mls @ 33.3 mls/hr IVPB Q8HR [facility]; Protocol Last Admin: 10/25/20 16:50 Dose: 33.3 mls/hr Documented by: Dextrose/Water (Dextrose 5%-Water Iv Soln) 1,000 mls @ 100 mls/hr IV .Q10H [facility] Last Admin: 10/25/20 18:44 Dose: Not Given Documented by: Diltiazem HCl 125 mg/ Sodium (Chloride) 125 mls @ 10 mls/hr IV .[id number] [facility] Last Admin: 10/25/20 13:06 Dose: Not Given Documented by: Metoprolol Tartrate (Metoprolol Tartrate 25 Mg Tab) 25 mg PO Q8H [facility] Last Admin: 10/25/20 13:05 Dose: 25 mg Documented by: Miscellaneous Information (Pneumonia Protocol Utilized 1 Each Misc) 1 each PO ONCE PRN PRN Reason: Per Protocol Miscellaneous Information (Magnesium Replacement Protocol 1 Each Misc) 1 each MISCELLANE DAILY PRN; Protocol PRN Reason: Per Protocol Miscellaneous Information (Potassium Replacement Protocol 1 Each Misc) 1 each MISCELLANE DAILY PRN; Protocol PRN Reason: Per Protocol Zinc Sulfate (Zinc Sulfate 220 Mg Cap) 220 mg PO DAILY [facility] Last Admin: 10/25/20 08:47 Dose: Not Given Documented by: Past medical history to include: Atrial fibrillation, CHF, COPD, dementia, GERD, hypertension, hyperlipidemia carotid artery disease with bypass, partial pneumonectomy, anxiety depression. COVID 19 pneumonia diagnosed 09/16/2020 Social history: rehab at [facility]. No history of smoking or alcohol Family history: Patient cannot tell Physical examination: VITAL SIGNS: 98.7, 120, 36, 1 36 x 1 05, 92% on BiPAP GENERAL: Laying in bed, lethargic, barely arousable EYES: Pupils equal. Conjunctiva normal HEENT: External appearance of nose and ears normal, oral cavity dry -Dobbhoff tube with feeding NECK: wearing a collar HEART: Irregular heart sounds no edema. LUNGS:[ Respiratory rate increased; decreased breath sounds, crackles ABDOMEN: Soft, nontender, liver spleen not palpable, no masses palpable. PSYCH: Unable to assess. NEUROLOGICAL: Cranial nerves grossly intact; flaccid left arm. INVESTIGATIONS, reviewed in the clinical context: October 25 potassium 3.8 creatinine 0.60 Chest x-ray film personally reviewed by me-worsening infiltrates more so on the right side October 21: Potassium 4.3 creatinine 0.56 albumin 2.2 October 07: White count 10.1 hemoglobin 12.2 sodium 140 potassium 3.6 creatinine 0.94. Chest x-ray-7 improvement of aeration on the right side. With infiltrates October 14: White count 11.4 hemoglobin 12 potassium 3.6 creatinine 1.05 Chest x-ray film personally reviewed by me-new right-sided wipeout, with trachea pulled of the right Coronavirus [PCR]-detected White count 15.3 hemoglobin 14.4 platelets 315-2150 potassium 4.8 bun 41 and creatinine 1.06 Lactic acid 2.4 CRP 86.5 pro-calcitonin 0.21 UA positive for leukoesterase, WBC, bacteria Urine culture-E. coli/ESBL EKG tracing personally reviewed by me--sinus tachycardia Chest x-ray film personally reviewed by me-right lower lobe infiltrate Assessment: -Right lower lobe pneumonia, suspect gram-negative organism and/or aspiration, causing sepsis with lactic acidosis, -worsening -Right-sided atelectasis with worsening -Chronic left arm paresis, not acute as documented earlier has patient's left arm paresis -patient had injury in July 05 shoulder x-ray at that time showed a widened AC joint. Consistent with ligamentous tear) -Acute metabolic encephalopathy from infection, worsening -Hypernatremia, from free water improved -Persistent Atrial fibrillation with a rapid ventricular rate-remains uncontrollable-rate variable-currently controlled -COPD -Alzheimer's dementia- June 2020 shows only AO 1 as per EMS run sheet. -GERD -Hyperlipidemia -Essential hypertension -Coronary artery disease with prior history of bypass -History of pneumonectomy partial -Moderate protein calorie malnutrition patient has decreased muscle mass loss of subcutaneous fat -Dobbhoff tube was placed. Patient pointed out. Replaced again this morning -Advancing medical debility -History of multiple falls -No code Plan: Spoke to patient's son over the phone today. Did inform them that patient's condition is failing. Patient is struggling. Patient's son was not able to make it in today. Have asked him to come in tomorrow. Am suggesting comfort care. He'll come in after work tomorrow and we'll take it from there. In the meantime continue current medication treatment plan.
[2020-10-25] MEDS: DOCUSATE 100 MG CAP PO SCH (21:43)
[2020-10-25] MEDS: ESCITALOPRAM 5 MG TAB PO SCH (21:48)
--- NOTE | 2020-10-25 23:12 | PN ---
PROGRESS NOTE DATE OF SERVICE: 10/25/2020 REASON FOR FOLLOWUP: ESBL E coli, UTI and pneumonia. INTERVAL HISTORY: The patient is currently afebrile. The patient is breathing comfortably. However remains to be BIPAP dependent. No vomiting, diarrhea or any other changes reported by the nursing staff. He did have Dobbhoff tube for feeding. PHYSICAL EXAMINATION: Blood pressure 127/95 with a pulse of 94, temp is 97.7. He is 92% on BiPAP. General description is an elderly male lying in bed in no distress. Respiratory system: Unlabored breathing, decreased breath sounds in the base, with no wheeze. Heart S1, S2. Regular rate and rhythm. Abdomen soft, no tenderness. LABS: BUN of 10, creatinine 0.60. DIAGNOSTIC IMPRESSION AND PLAN: Patient with ESBL E coli UTI and component pneumonia, question of possible aspiration etiology. Patient is covered with meropenem. Chest x-ray more of a progression of infiltrate. Continue meropenem and monitor clinical course closely. MMODL / IJN: [id number] /
[2020-10-25 23:46] LABS: Glucose,Whole Blood 178 mg/dL (75-99)
[2020-10-26] MEDS: DEXTROSE 5% IN WATER 1,000 ML IV SCH ×4 (05:08→21:20)
[2020-10-26] MEDS: METOPROLOL TARTRATE 25 MG TAB PO SCH ×3 (05:57→21:21)
[2020-10-26] MEDS: ACETAMINOPHEN TAB 325 MG TAB PO SCH ×3 (05:57→21:21)
[2020-10-26 05:58] LABS: Glucose,Whole Blood 136 mg/dL (75-99)
[2020-10-26] MEDS: ALBUTEROL HFA INHALER INHALATION PRN ×2 (07:41→15:54)
--- NOTE | 2020-10-26 10:14 | P.PN ---
Subjective Progress Note Date: 10/26/20 Principal diagnosis: Dysphasia Patient is seen and examined lying in bed. Patient has BiPAP on. Dobhoff tube is in place with 40 mL per hour feeding. No acute changes through the night reported. Objective - Vital Signs Vital signs: Vital Signs Temp 97.2 F L 10/26/20 04:00 Pulse 91 10/26/20 04:00 Resp 31 H 10/26/20 04:00 BP 122/76 10/26/20 04:00 Pulse Ox 94 L 10/26/20 04:00 Intake & Output 10/25/20 10/26/20 10/26/20 18:59 06:59 18:59 Intake Total 125 530 Output Total 800 220 Balance -675 310 Weight 73 kg 75 kg Intake: Intake, IV Titration 125 Amount Diltiazem 125 mg In 125 Sodium Chloride 0.9% 100 ml @ 10 MG/HR 10 mls/hr IV .[id number] [facility] Rx#: [id number] Tube Feeding 380 Other 150 Output: Urine 800 220 Other: Voiding Method Indwelling Catheter Indwelling Catheter - Exam General appearance: The patient is alert, try to verbally communicate, opens eyes. HET: Head is normocephalic and atraumatic. Conjunctiva pink. Sclera aniicteric. Dobbhoff tube in place. Neck: Supple without lymphadenopathy. Abdomen: Soft, thin, nontender, nondistended with bowel sounds. No guarding or rigidity. Extremities: Normal skin color and turgor. No pedal edema Neurological: Oriented to self. Nonverbal. - Labs CBC & Chem 7: 10/26/20 11:57 10/26/20 11:57 Labs: Abnormal Lab Results - Last 24 Hours (Table) 10/25/20 10/25/20 10/25/20 Range/Units 11:57 18:44 23:45 POC Glucose (mg/dL) 133 H 154 H 178 H (75-99) mg/dL 10/26/20 Range/Units 05:48 POC Glucose (mg/dL) 136 H (75-99) mg/dL Assessment and Plan (1) Oropharyngeal dysphagia Narrative/Plan: 85-year-old male with multiple medical comorbidities including recent hospitalization for infection with Covid 19. Currently the patient is hospitalized receiving treatment for metabolic encephalopathy, hypoxic re spiratory failure and possible aspiration pneumonia. Initial consultation by speech language pathology the patient's was able to swallow with recommendation for next or thick liquids with pured diet and one-to-one assist with oral intake. There are reconsulted as the patient's oral intake is poor and plan is for video swallow evaluation on Monday whether that was canceled due to risk of aspiration. Patient is still nonverbal. Patient is now on BiPAP, was scheduled for EGD with PEG tube placement today however anesthesiology does not feel patient is stable to proceed with procedure. Procedure is canceled. Dobhoff tube placed, dietitian consult, tube feedings at 40 ML/hr Current Visit: Yes Status: Acute Code(s): R13.12 - DYSPHAGIA, OROPHARYNGEAL PHASE SNOMED Code(s): 41158141 (2) COVID-19 Current Visit: Yes Status: Acute Code(s): U07.1 - COVID-19 SNOMED Code(s): 724389994 (3) Altered mental status Current Visit: No Status: Acute Code(s): R41.82 - ALTERED MENTAL STATUS, UNSPECIFIED SNOMED Code(s): 974521952 Plan: 1. Supportive care 2. Antibiotics per recommendation of infectious disease 3. Patient is tolerating Dobbhoff tube feedings, Continue medical management by primary team 4. Continue Dobbhoff feedings as ordered per dietitian 5. Thank you for this consultation, we will be on standby at this time. Please call us back if the patient will be requiring a PEG tube placement. Dr. Fournier I agree with the dictator's note, documented as a scribe by Zenaida Baca.
[2020-10-26] MEDS: MEROPENEM 1 GM in SODIUM CHLORIDE 0.9% 100 ML IVPB SCH ×2 (10:55→18:22)
[2020-10-26] MEDS: ENOXAPARIN 40 MG/0.4 ML SYRINGE SQ SCH ×2 (10:55→21:22)
[2020-10-26] MEDS: CHOLECALCIFEROL 25 MCG (1000 IU) TABLET PO SCH (10:55)
[2020-10-26] MEDS: FLUTICASONE 50MCG/SPRAY NASAL 16GM EA NOSTRIL SCH (10:56)
[2020-10-26] MEDS: ASCORBIC ACID 500 MG TAB PO SCH ×2 (10:56→21:22)
[2020-10-26] MEDS: ZINC SULFATE 220 MG CAP PO SCH (10:56)
--- NOTE | 2020-10-26 10:57 | P.PN ---
Subjective Progress Note Date: 10/26/20 84-year-old white male patient, with recent history of hospitalization for COVID19 pneumonia, and patient was discharged to the [facility] on the [place] on 10/05/2020. Patient was hospitalized from 10/01/2020 through 10/05/2020. Patient is a poor historian, has underlying history of advanced dementia, his severe cardiomyopathy with EF of around 20-25%, atrial fibrillation, chronic congestive heart failure systolic dysfunction, hypertension, hyperlipidemia, anxiety, frequent falls, previous history of subdural hemorrhage, recent cervical neck fracture currently in a soft collar. On 10/11/2020 patient was brought into the emergency department for evaluation of fever, tachycardia. His previous chest x-ray from his previous admission there was mild right basilar opacity, most likely related to atelectasis, a CT angiogram of the chest showed no evidence of pulmonary embolism. 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 His subsequent chest x- ray on 10/05/2020 showed some worsening in the appearance of the right lower lobe and right middle lobe hazy infiltration. However clinically patient had remained stable and did not have any worsening in his oxygenation and [facility] [place]. His chest x-ray on admission on the 2020 showed right mid and lower lung field infiltrates. EKG showed SVT with a rate of 166, temperature was 100.5F, patient was satting 93% on 12 L of oxygen. His laboratory data showed leukocytosis with white blood cell, 15.3, hemoglobin of 14.4, neutrophils of 14, lymphocyte count of 0.7, his INR was 1, sodium is 150, potassium is 4.8, chloride was 121, BUN of 41 Cr1.06, his LDH has trended up to 937 from 585, CRP is 86.5, up from 138 during last admission, pro- calcitonin level is 0.21, his urinalysis shows evidence of infection. Patient is lethargic, and there is suspicion for aspiration pneumonia. He was started on a azithromycin and Rocephin for empiric antibiotic coverage, however in view of suspected aspiration we will switch the antibiotic coverage to Zosyn. Brain CT showed mild to moderate ventricular megaly/hydrocephalus probably in part due to central cerebral atrophy. No acute intracranial abnormality On 10/13/2020 patient seen in follow-up on selective care unit. Patient is a wake, but confused, encephalopathic, but does not appear to be in any acute distress. He is currently on 7 L of oxygen the pulse ox of 97%, not sure why his oxygen had increased, earlier patient was on 3 L of oxygen pulse ox of 94%, patient has been nothing by mouth in view of his altered mentation, speech evaluation was obtained, and patient was noted to be coughing with thin liquids, and although she did not outright failed the swallow evaluation his altered mental status prevented him from following simple verbal commands. Patient had a delayed swallow, and coughing after swallowing, difficulty chewing. Recommendation was made for dysphagia level I pured diet with nectar thick liquids upright positioning, direct one-on-one supervision, however in view of his continued altered mental status, generalized weakness, suspected chronic aspiration, we will recommend PEG tube placement for nutritional support. Today's chest x-ray shows near complete opacification of the right hemithorax, left lung hyperinflated, mild patchy density in the right medial lung base. Patient has a very weak cough, likely developed mucous plugging in the right mainstem bronchus, however his CODE STATUS is DO NOT RESUSCITATE, he is a very frail. We placed on BiPAP support. Overall his CODE STATUS needs to be readdressed again, as the patient is suspected to be chronically aspirating, will need PEG tube for nutritional support if the patient's family wants to continue with supportive care. He has been unable to take any of his oral medications, cardiology has the patient on Cardizem and amiodarone drip for rate control. Patient is on Zosyn for empiric antibiotic coverage. The patient is seen today 10/14/2020 in follow-up on the selective care unit. He is currently resting in bed. He remains on BiPAP 12/6 and 40% FiO2 to maintain O2 saturations in the 90s. He is currently afebrile. Urine culture positive for E. coli. Blood culture reveals no growth. White count 11.1. Hemoglobin 12.0. Sodium 139. Potassium 3.6. Creatinine 1.05. He remains on a Cardizem drip at 5 mg per hour. Lovenox for DVT prophylaxis. Antibiotics in the form of Zosyn. He is a DO NOT RESUSCITATE/DO NOT INTUBATE CODE STATUS. He remains quite ill. Minimally responsive. X-ray reveals opacified right hemithorax likely due to atelectasis and possible associated effusion. The patient is seen today 10/15/2020 in follow-up on the selective care unit. He is currently resting in bed. He remains on BiPAP 12/6 at 40% FiO2. He does open his eyes to verbal request. Currently afebrile. Still tachycardic. Tachypneic. Chest x-ray is showing improved aeration to the right lung. Moderate infiltrate remains in the right midlung field. Small effusion. Blood cultures reveal no growth. Urine culture positive for E. coli. White count 10.1. Hemoglobin 12.2. Sodium 148. Potassium 3.6. Creatinine 0.94. Follow- up chrona virus testing was still positive. The patient is seen today 10/16/2020 follow-up on the selective care unit. He is currently resting fairly comfortably in bed. He is awake. Off the BiPAP. Currently on 3 L nasal cannula and maintaining O2 saturation in the 90s. He's been afebrile. Chest x-ray continues to show improved aeration of the right lung. Continued infiltrate. Small effusion. Urine culture positive for E. coli. He remains on Zosyn. Remains tachycardic. On Cardizem drip at 10 mg per hour. Lovenox for DVT prophylaxis. He remains on D5W at 100 ML's per hour. Aspiration precautions. Plan is for PEG tube placement. On 10/22/2020 patient [facility], today he is on no oxygen, earlier he was sat 95% on room air as documented in the EMR, bedside pulse oximetry was applied and patient's pulse ox is 90-94%, he is breathing comfortably, he has not maintained eye contact, or follow any commands, appears to be encephalopathic, he is very weak, but appears to be in no acute distress, lung sounds are diminished. No wheezing, no fever or chills. today's labs showed a phosphorous level of 1.8, magnesium of 2.0. brain CT was completed showing no acute intracranial hemorrhage or midline shift, moderate to severe diffuse age- related cerebral atrophy and mild to moderate chronic small vessel ischemic changes. GI service is following, and last night an attempt has been made to place a Dobbhoff feeding tube unsuccessfully. The patient is seen today 10/23/2020 in follow-up on the selective care unit. He remains resting in bed. A Dobbhoff tube was successfully placed yesterday. Tube feedings are to start today. He remains on a Cardizem drip at 10 mg per hour. 0.9 normal saline at 10 pounds per hour. He is on oxygen at 5 L to maintain O2 saturation in the 90s. Sodium 136. Potassium 4.6. Creatinine 0. 52. On 10/26/2020 I'm seeing this patient for a follow-up. I see in extremity debilitated male patient 85 years old with respiratory failure secondary to COVID 19 related pneumonia with subsequent aspiration. The patient been on and off on a BiPAP and this morning he is still on a BiPAP with an FiO2 of 100% and pressures of 12/6 cm of water. He does not communicate. His very weak. His encephalopathic. He has a Dobbhoff that was inserted and the patient is receiving enteral feeding for nutritional support. During the course of his treatment, he was infected with an ESBL producing E. coli in his urine and for now, the patient is on a combination of IV meropenem . His most recent chest x- ray showed significant volume loss on the right compared to the left. There is atelectasis in the right lung and the patient has minimal elevation the right upper lobe and possibly a component of pleural effusion. The patient is still in atrial fibrillation, rate is been fluctuating Cardizem drip for rate control with his running at 10 mg an hour. He is also on Lovenox 40 mg subcu every 12 hours. His labs from today are still pending. Yesterday's labs showed a sodium level of 1:30 with a creatinine of 0.6 and the patient has no CBC since early October Objective - Vital Signs Vital signs: Vital Signs Temp 97.2 F L 10/26/20 04:00 Pulse 91 10/26/20 04:00 Resp 31 H 10/26/20 04:00 BP 122/76 10/26/20 04:00 Pulse Ox 94 L 10/26/20 04:00 Intake & Output 10/25/20 10/26/20 10/26/20 18:59 06:59 18:59 Intake Total 125 530 Output Total 800 220 Balance -675 310 Weight 73 kg 75 kg Intake: Intake, IV Titration 125 Amount Diltiazem 125 mg In 125 Sodium Chloride 0.9% 100 ml @ 10 MG/HR 10 mls/hr IV .[id number] [facility] Rx#: [id number] Tube Feeding 380 Other 150 Output: Urine 800 220 Other: Voiding Method Indwelling Catheter Indwelling Catheter - Exam GENERAL EXAM: Lethargic, drowsy 84-year-old male patient on om BIPAP 12/6 and Fio2 100%, he has a weak cough, unable to clear secretions, is thought to be chronically aspirating HEAD: Normocephalic/atraumatic. EYES: Normal reaction of pupils, equal size. Conjunctiva pink, sclera white. NOSE: Dobbhoff tube secured in place Clear with pink turbinates. THROAT: No erythema or exudates. NECK: No masses, no JVD, no thyroid enlargement, no adenopathy. CHEST: No chest wall deformity. Symmetrical expansion. LUNGS: Equal air entry with few crackles in the right lung base, diminished breath sound on either significant diminished compared to the left. CVS: Regular rate and rhythm, normal S1 and S2, no gallops, no murmurs, no rubs ABDOMEN: Soft, nontender. No hepatosplenomegaly, normal bowel sounds, no guarding or rigidity. EXTREMITIES: No clubbing, no edema, no cyanosis, 2+ pulses and upper and lower extremities. MUSCULOSKELETAL: Muscle strength and tone normal. SPINE: No scoliosis or deformity SKIN: No rashes CENTRAL NERVOUS SYSTEM: The patient is unresponsive. He withdraws only to deep painful stimulation. He cannot hold a conversation at this point in time. He does have an underlying dementia is - Labs CBC & Chem 7: 10/19/20 07:22 10/25/20 06:58 Labs: Abnormal Lab Results - Last 24 Hours (Table) 10/25/20 10/25/20 10/25/20 Range/Units 11:57 18:44 23:45 POC Glucose (mg/dL) 133 H 154 H 178 H (75-99) mg/dL 10/26/20 Range/Units 05:48 POC Glucose (mg/dL) 136 H (75-99) mg/dL Assessment and Plan Plan: 1. Acute hypoxic respiratory failure related to suspected aspiration pneumonia in addition to recent history of COVID 19 related pneumonia. Currently on IPAP pressure of 12/6 with an FiO2 of 100%, unresponsive, tachypneic, increased minute ventilation, almost no induration on his right lung with significant pneumonia/effusion/atelectasis based on the most recent chest x-ray. Very much debilitated. Weak cough. Altered mentation, unresponsive and toxic metabolic encephalopathy.. Coronavirus still detected 10/14/2020. 2. Suspect chronic aspiration related to overall generalized medical debility, toxic metabolic encephalopathy. Dobbhoff tube placed on 10/22/2020. 3. Aspiration pneumonia with Near-complete opacification of the right he mithorax likely related to right mainstem mucous plugging, patient has a very weak and ineffective cough, mentation has been altered, patient is thought to be chronically aspirating. Follow-up chest x-ray shows improved aeration of the right lung base. No plans for bronchoscopy. 4. A. fib with RVR, remains on Cardizem and amiodarone drip 5. Chronic systolic heart failure 6. Recent hospitalization for acute exacerbation of systolic CHF and A. fib with RVR 7. Recent COVID 19 infection diagnosed on 09/16/2020 8. Acute metabolic encephalopathy and underlying advanced dementia, brain CT showed no acute intracranial abnormality 9. Hypertension 10. Hyperlipidemia 11. Coronary artery disease with prior history of bypass 12. Frequent falls, recent fracture of C1, currently in the soft collar 13. History of paroxysmal A. fib not on anticoagulation due to multiple falls 14. History of subdural hemorrhage 15. GERD/reflux 16. Anxiety/depression Plan: Continue supportive care Recommend hospice which will take place probably by afternoon. A/P performance and functional status extremely poor. He is known to have significant dementia in addition to multiple comorbidities as mentioned above.
[2020-10-26 12:27] LABS: Glucose,Whole Blood 146 mg/dL (75-99)
[2020-10-26 12:36] LABS: Basophils % (A) 0 %; Eosinophils # (A) 0.1 k/uL (0-0.7); Eosinophils % (A) 1 %; HCT 40.5 % (39.0-53.0); HGB 13.1 gm/dL (13.0-17.5); Hypochromasia Slight; Lymphocytes # (A) 0.8 k/uL (1.0-4.8); Lymphocytes % (A) 6 %; MCH 29.5 pg (25.0-35.0); MCHC 32.4 g/dL (31.0-37.0); Mean Platelet Volume 7.6; Monocytes # (A) 0.5 k/uL (0-1.0); Monocytes % (A) 4 %; Neutrophils # (A) 12.2 k/uL (1.3-7.7); Neutrophils % (A) 89 %; Platelet Count 321 k/uL (150-450); Poikilocytosis Slight; RBC 4.45 m/uL (4.30-5.90); RDW 15.3 % (11.5-15.5); WBC 13.7 k/uL (3.8-10.6)
[2020-10-26 13:04] LABS: African American GFR (CKD) >90 (>60 ml/min/1.73 sqM); Anion Gap 5 mmol/L; Blood Urea Nitrogen 17 mg/dL (9-20); Calcium 7.8 mg/dL (8.4-10.2); Carbon Dioxide 25 mmol/L (22-30); Chloride 97 mmol/L (98-107); Glucose 132 mg/dL (74-99); Non-African American GFR(CKD) >90 (>60 ml/min/1.73 sqM); Potassium 3.9 mmol/L (3.5-5.1); Sodium 127 mmol/L (137-145)
[2020-10-26 18:06] LABS: Glucose,Whole Blood 140 mg/dL (75-99)
[2020-10-26] MEDS: DILTIAZEM 125 MG in SODIUM CHLORIDE 0.9% 100 ML IV SCH (18:22)
[2020-10-26] MEDS: DOCUSATE 100 MG CAP PO SCH (21:22)
--- NOTE | 2020-10-26 21:24 | PN ---
PROGRESS NOTE DATE OF SERVICE: 10/26/2020 REASON FOR FOLLOWUP: ESBL E coli urinary tract infection and aspiration pneumonia. INTERVAL HISTORY: The patient is currently afebrile. The patient remains BiPAP-dependent. The patient is hemodynamically stable. No vomiting or diarrhea or any other changes reported by the nursing staff. PHYSICAL EXAMINATION: Blood pressure is 99/53 with a pulse of 67, temperature 97.5. He is 96% on BiPAP. General description is an elderly male lying in bed in no distress. RESPIRATORY SYSTEM: Unlabored breathing with decreased breath sounds at the base. No wheeze. HEART: S1, S2. Regular rate and rhythm. ABDOMEN: Soft. No tenderness. LABS: Hemoglobin 13.9, white count 13.7, BUN of 17, creatinine 0.62. DIAGNOSTIC IMPRESSION AND PLAN: Patient with extended-spectrum beta-lactamase Escherichia coli urinary tract infection with a component of aspiration pneumonia. Patient is currently on meropenem. That will be continued to finish a 2-week course of therapy. Overall prognosis remains guarded. He may benefit from hospice-oriented care. MMODL / IJN: [id number] /
[2020-10-26] MEDS: ESCITALOPRAM 5 MG TAB PO SCH (21:28)
--- NOTE | 2020-10-26 22:09 | P.PN ---
Progress Note - Text Progress Note Date: 10/26/20 Chief Complaint: Unwell History of presenting complaint: This is a 84-year-old patient resident of [facility] in [facility] being followed by Davide Pérez. Patient tested positive for COVID 19 on 09/16/2020. recently at [facility] was treated there for UTI. From that he was discharged and sent to rehab at [facility] in [facility]. In the process patient lost some weight and become rather weak. Admitted September 16. Diagnosed with COVID 19 pneumonia. Treated with heparin steroids. Also to acute kidney injury felt to be from Bactrim. Acute metabolic encephalopathy. Hyponatremic. Uncontrolled A. fib. Advanced medical debility. Patient was discharged on October 05. Patient oral intake was fairly left the hospital. Now presents to the ER. As per the EMS run sheet: Blood pressure 120/88, pulse 81, respiration 30, pulse ox 83% on room air, temperature 100.6. EMS was called out for patient having rapid respirations and tachycardia. Patient is barely been talking over the last week. Decrease response to stimuli. Patient been moving his hand under his head. No signs of trauma. EKG showed sinus tachycardia. Left arm felt to be flaccid(according to son leg this for a few months.) Admitted with right lower lobe pneumonia, possible aspiration with sepsis lactic acidosis, metabolic encephalopathy, hyper natremia, atrial fibrillation rapid ventricular rate. Started on IV Zosyn, aspiration precautions, IV fluids. (There was a question about embolic stroke causing left arm weakness., But as per the son the left arm weakness has been present for much longer-on July 05 patient had left shoulder injury and had presented to the ER for the same-x-ray of the left shoulder showed widening of the AC joint space.).. Developed collapse atelectasis of the right lung. Anesthesia felt the patient to be very high risk , hence PEG tube could not be placed. Dobbhoff tube placed by Dr. To on October 22. October 23 patient pulled out the Dobbhoff tube. Dobbhoff tube was then replaced again. 2 feeding resumed Today-remains lethargic. On oxygen support. Barely arousable. Short of breath . review of systems:Patient cannot tell. Active Medications Acetaminophen (Acetaminophen Suppository 650 Mg Supp) 650 mg RECTAL Q4HR PRN PRN Reason: Fever and/ or Mild Pain Last Admin: 10/24/20 04:51 Dose: 650 mg Documented by: Acetaminophen (Acetaminophen Tab 325 Mg Tab) 650 mg PO Q8HR@0600,1400,2200 [facility] Last Admin: 10/26/20 21:21 Dose: 650 mg Documented by: Albuterol Sulfate (Albuterol Hfa Inhaler) 1 puff INHALATION RT-Q6H PRN PRN Reason: Wheezing Last Admin: 10/26/20 15:54 Dose: 1 puff Documented by: Ascorbic Acid (Ascorbic Acid 500 Mg Tab) 500 mg PO BID [facility] Last Admin: 10/26/20 21:22 Dose: 500 mg Documented by: Cholecalciferol (Cholecalciferol 25 Mcg (1000 Iu) Tablet) 125 mcg PO DAILY [facility] Last Admin: 10/26/20 10:55 Dose: 125 mcg Documented by: Docusate Sodium (Docusate 100 Mg Cap) 100 mg PO DAILY@2100 [facility] Last Admin: 10/26/20 21:22 Dose: Not Given Documented by: Enoxaparin Sodium (Enoxaparin 40 Mg/0.4 Ml Syringe) 40 mg SQ BID@0900,2100 [facility] Last Admin: 10/26/20 21:22 Dose: 40 mg Documented by: Escitalopram Oxalate (Escitalopram 5 Mg Tab) 5 mg PO DAILY@2100 [facility] Last Admin: 10/26/20 21:28 Dose: 5 mg Documented by: Fluticasone Propionate (Fluticasone 50mcg/[place] Nasal 16gm) 2 spray EA NOSTRIL DAILY@0900 [facility] Last Admin: 10/26/20 10:56 Dose: Not Given Documented by: Dextrose/Water (Dextrose 5%-Water Iv Soln) 1,000 mls @ 100 mls/hr IV .Q10H [facility] Last Admin: 10/26/20 21:20 Dose: 100 mls/hr Documented by: Diltiazem HCl 125 mg/ Sodium (Chloride) 125 mls @ 10 mls/hr IV .[id number] [facility] Last Admin: 10/26/20 18:22 Dose: 10 mg/hr, 10 mls/hr Documented by: Meropenem 1 gm/ Sodium (Chloride) 100 mls @ 33.3 mls/hr IVPB Q8H [facility]; Protocol Last Admin: 10/26/20 18:22 Dose: 33.3 mls/hr Documented by: Metoprolol Tartrate (Metoprolol Tartrate 25 Mg Tab) 25 mg PO Q8H [facility] Last Admin: 10/26/20 21:21 Dose: 25 mg Documented by: Miscellaneous Information (Pneumonia Protocol Utilized 1 Each Misc) 1 each PO ONCE PRN PRN Reason: Per Protocol Miscellaneous Information (Magnesium Replacement Protocol 1 Each Misc) 1 each MISCELLANE DAILY PRN; Protocol PRN Reason: Per Protocol Miscellaneous Information (Potassium Replacement Protocol 1 Each Misc) 1 each MISCELLANE DAILY PRN; Protocol PRN Reason: Per Protocol Zinc Sulfate (Zinc Sulfate 220 Mg Cap) 220 mg PO DAILY [facility] Last Admin: 10/26/20 10:56 Dose: 220 mg Documented by: Past medical history to include: Atrial fibrillation, CHF, COPD, dementia, GERD, hypertension, hyperlipidemia carotid artery disease with bypass, partial pneumonectomy, anxiety depression. COVID 19 pneumonia diagnosed 09/16/2020 Social history: rehab at [facility]. No history of smoking or alcohol Family history: Patient cannot tell Physical examination: VITAL SIGNS: 97.3, 77, 16, 139 with 61, 94% on BiPAP GENERAL: Laying in bed, lethargic, barely arousable EYES: Pupils equal. Conjunctiva normal HEENT: External appearance of nose and ears normal, oral cavity dry -Dobbhoff tube with feeding NECK: wearing a collar HEART: Irregular heart sounds no edema. LUNGS:[ Respiratory rate increased; decreased breath sounds, crackles ABDOMEN: Soft, nontender, liver spleen not palpable, no masses palpable. PSYCH: Unable to assess. NEUROLOGICAL: Cranial nerves grossly intact; flaccid left arm. INVESTIGATIONS, reviewed in the clinical context: October 26: White count 13.7 potassium 3.9 creatinine 0.62 sodium 127 October 25 potassium 3.8 creatinine 0.60 Chest x-ray film personally reviewed by me-worsening infiltrates more so on the right side October 21: Potassium 4.3 creatinine 0.56 albumin 2.2 October 07: White count 10.1 hemoglobin 12.2 sodium 140 potassium 3.6 creatinine 0.94. Chest x-ray-7 improvement of aeration on the right side. With infiltrates October 14: White count 11.4 hemoglobin 12 potassium 3.6 creatinine 1.05 Chest x-ray film personally reviewed by me-new right-sided wipeout, with trachea pulled of the right Coronavirus [PCR]-detected White count 15.3 hemoglobin 14.4 platelets 315-2150 potassium 4.8 bun 41 and creatinine 1.06 Lactic acid 2.4 CRP 86.5 pro-calcitonin 0.21 UA positive for leukoesterase, WBC, bacteria Urine culture-E. coli/ESBL EKG tracing personally reviewed by me--sinus tachycardia Chest x-ray film personally reviewed by me-right lower lobe infiltrate Assessment: -Right lower lobe pneumonia, suspect gram-negative organism and/or aspiration, causing sepsis with lactic acidosis, -slow to respond -Right-sided atelectasis with worsening -Acute hypoxic respiratory failure, remains on BiPAP-slow to respond -Chronic left arm paresis, not acute as documented earlier has patient's left arm paresis -patient had injury in July 05 shoulder x-ray at that time showed a widened AC joint. Consistent with ligamentous tear) -Acute metabolic encephalopathy from infection, slow to respond -Hypernatremia, from free water improved -Hyponatremia -Persistent Atrial fibrillation with a rapid ventricular rate-remains uncontrollable-rate variable-currently controlled -COPD -Alzheimer's dementia- June 2020 shows only AO 1 as per EMS run sheet. -GERD -Hyperlipidemia -Essential hypertension -Coronary artery disease with prior history of bypass -History of pneumonectomy partial -Moderate protein calorie malnutrition patient has decreased muscle mass loss of subcutaneous fat -Dobbhoff tube was placed. Patient pointed out. Replaced again this morning -Advancing medical debility -History of multiple falls -No code Plan: Patient continues to do poorly. Continue current treatment plan. Patient's son is supposed to visit today.
[2020-10-27 00:24] LABS: Glucose,Whole Blood 141 mg/dL (75-99)
[2020-10-27] MEDS: MEROPENEM 1 GM in SODIUM CHLORIDE 0.9% 100 ML IVPB SCH ×3 (04:01→19:07)
[2020-10-27] MEDS: DILTIAZEM 125 MG in SODIUM CHLORIDE 0.9% 100 ML IV SCH (05:53)
[2020-10-27] MEDS: ACETAMINOPHEN TAB 325 MG TAB PO SCH ×2 (05:54→11:56)
[2020-10-27] MEDS: METOPROLOL TARTRATE 25 MG TAB PO SCH ×2 (05:54→11:56)
[2020-10-27] MEDS: DEXTROSE 5% IN WATER 1,000 ML IV SCH ×2 (05:58→19:07)
[2020-10-27 06:05] LABS: Glucose,Whole Blood 156 mg/dL (75-99)
[2020-10-27] MEDS: ENOXAPARIN 40 MG/0.4 ML SYRINGE SQ SCH (08:41)
[2020-10-27] MEDS: ZINC SULFATE 220 MG CAP PO SCH (08:42)
[2020-10-27] MEDS: CHOLECALCIFEROL 25 MCG (1000 IU) TABLET PO SCH (08:42)
[2020-10-27] MEDS: ASCORBIC ACID 500 MG TAB PO SCH (08:42)
[2020-10-27] MEDS: FLUTICASONE 50MCG/SPRAY NASAL 16GM EA NOSTRIL SCH (08:42)
[2020-10-27 09:00] VITALS: TEMP 97.7
[2020-10-27 09:06] VITALS: RESP 29
--- NOTE | 2020-10-27 09:15 | XR ---
EXAMINATION TYPE: XR chest 1V portable DATE OF EXAM: 10/27/2020 CLINICAL HISTORY: Difficulty breathing progress study. TECHNIQUE: Single AP portable upright view of the chest is obtained. COMPARISON: Chest x-ray from 2 days earlier and older studies. FINDINGS: Overlying catheters redemonstrated. Right hilar surgical clips redemonstrated. Overlying s ternal wires and mediastinal clips again seen. Persistent cardiomegaly with central vascular congesti on along with reticular interstitial changes bilaterally. Small right greater than left pleural effus ions. Osseous structures are intact. IMPRESSION: Persistent small to moderate-sized bilateral pleural effusions and cardiomegaly, correlat e for CHF exacerbation. Possible atypical infiltrates in the mid lungs bilaterally, correlate clinica lly. No significant change from most recent x-ray.
[2020-10-27 10:16] LABS: Glucose,Whole Blood 176 mg/dL (75-99)
--- NOTE | 2020-10-27 10:30 | P.PN ---
Subjective Progress Note Date: 10/27/20 84-year-old white male patient, with recent history of hospitalization for COVID19 pneumonia, and patient was discharged to the [facility] on the [place] on 10/05/2020. Patient was hospitalized from 10/01/2020 through 10/05/2020. Patient is a poor historian, has underlying history of advanced dementia, his severe cardiomyopathy with EF of around 20-25%, atrial fibrillation, chronic congestive heart failure systolic dysfunction, hypertension, hyperlipidemia, anxiety, frequent falls, previous history of subdural hemorrhage, recent cervical neck fracture currently in a soft collar. On 10/11/2020 patient was brought into the emergency department for evaluation of fever, tachycardia. His previous chest x-ray from his previous admission there was mild right basilar opacity, most likely related to atelectasis, a CT angiogram of the chest showed no evidence of pulmonary embolism. 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 His subsequent chest x- ray on 10/05/2020 showed some worsening in the appearance of the right lower lobe and right middle lobe hazy infiltration. However clinically patient had remained stable and did not have any worsening in his oxygenation and he was d ischarged to the senior care on [place]. His chest x-ray on admission on the 2020 showed right mid and lower lung field infiltrates. EKG showed SVT with a rate of 166, temperature was 100.5F, patient was satting 93% on 12 L of oxygen. His laboratory data showed leukocytosis with white blood cell, 15.3, hemoglobin of 14.4, neutrophils of 14, lymphocyte count of 0.7, his INR was 1, sodium is 150, potassium is 4.8, chloride was 121, BUN of 41 Cr1.06, his LDH has trended up to 937 from 585, CRP is 86.5, up from 138 during last admission, pro- calcitonin level is 0.21, his urinalysis shows evidence of infection. Patient is lethargic, and there is suspicion for aspiration pneumonia. He was started on a azithromycin and Rocephin for empiric antibiotic coverage, however in view of suspected aspiration we will switch the antibiotic coverage to Zosyn. Brain CT showed mild to moderate ventricular megaly/hydrocephalus probably in part due to central cerebral atrophy. No acute intracranial abnormality On 10/13/2020 patient seen in follow-up on selective care unit. Patient is awake, but confused, encephalopathic, but does not appear to be in any acute distress. He is currently on 7 L of oxygen the pulse ox of 97%, not sure why his oxygen had increased, earlier patient was on 3 L of oxygen pulse ox of 94%, patient has been nothing by mouth in view of his altered mentation, speech evaluation was obtained, and patient was noted to be coughing with thin liquids, and although she did not outright failed the swallow evaluation his altered mental status prevented him from following simple verbal commands. Patient had a delayed swallow, and coughing after swallowing, difficulty chewing. Recommendation was made for dysphagia level I pured diet with nectar thick liquids upright positioning, direct one-on-one supervision, however in view of his continued altered mental status, generalized weakness, suspected chronic aspiration, we will recommend PEG tube placement for nutritional support. Today's chest x-ray shows near complete opacification of the right hemithorax, left lung hyperinflated, mild patchy density in the right medial lung base. Patient has a very weak cough, likely developed mucous plugging in the right mainstem bronchus, however his CODE STATUS is DO NOT RESUSCITATE, he is a very frail. We placed on BiPAP support. Overall his CODE STATUS needs to be readdressed again, as the patient is suspected to be chronically aspirating, will need PEG tube for nutritional support if the patient's family wants to continue with supportive care. He has been unable to take any of his oral medications, cardiology has the patient on Cardizem and amiodarone drip for rate control. Patient is on Zosyn for empiric antibiotic coverage. The patient is seen today 10/14/2020 in follow-up on the selective care unit. He is currently resting in bed. He remains on BiPAP 12/6 and 40% FiO2 to maintain O2 saturations in the 90s. He is currently afebrile. Urine culture positive for E. coli. Blood culture reveals no growth. White count 11.1. Hemoglobin 12.0. Sodium 139. Potassium 3.6. Creatinine 1.05. He remains on a Cardizem drip at 5 mg per hour. Lovenox for DVT prophylaxis. Antibiotics in the form of Zosyn. He is a DO NOT RESUSCITATE/DO NOT INTUBATE CODE STATUS. He remains quite ill. Minimally responsive. X-ray reveals opacified right hemithorax likely due to atelectasis and possible associated effusion. The patient is seen today 10/15/2020 in follow-up on the selective care unit. He is currently resting in bed. He remains on BiPAP 12/6 at 40% FiO2. He does open his eyes to verbal request. Currently afebrile. Still tachycardic. Tachypneic. Chest x-ray is showing improved aeration to the right lung. Moderate infiltrate remains in the right midlung field. Small effusion. Blood cultures reveal no growth. Urine culture positive for E. coli. White count 10.1. Hemoglobin 12.2. Sodium 148. Potassium 3.6. Creatinine 0.94. Follow- up chrona virus testing was still positive. The patient is seen today 10/16/2020 follow-up on the selective care unit. He is currently resting fairly comfortably in bed. He is awake. Off the BiPAP. Currently on 3 L nasal cannula and maintaining O2 saturation in the 90s. He's been afebrile. Chest x-ray continues to show improved aeration of the right lung. Continued infiltrate. Small effusion. Urine culture positive for E. coli. He remains on Zosyn. Remains tachycardic. On Cardizem drip at 10 mg per hour. Lovenox for DVT prophylaxis. He remains on D5W at 100 ML's per hour. Aspiration precautions. Plan is for PEG tube placement. On 10/22/2020 patient seen in follow-up on [facility] care unit, today he is on no oxygen, earlier he was sat 95% on room air as documented in the EMR, bedside pulse oximetry was applied and patient's pulse ox is 90-94%, he is breathing comfortably, he has not maintained eye contact, or follow any commands, appears to be encephalopathic, he is very weak, but appears to be in no acute distress, lung sounds are diminished. No wheezing, no fever or chills. today's labs showed a phosphorous level of 1.8, magnesium of 2.0. brain CT was completed showing no acute intracranial hemorrhage or midline shift, moderate to severe diffuse age- related cerebral atrophy and mild to moderate chronic small vessel ischemic changes. GI service is following, and last night an attempt has been made to place a Dobbhoff feeding tube unsuccessfully. The patient is seen today 10/23/2020 in follow-up on the selective care unit. He remains resting in bed. A Dobbhoff tube was successfully placed yesterday. Tube feedings are to start today. He remains on a Cardizem drip at 10 mg per hour. 0.9 normal saline at 10 pounds per hour. He is on oxygen at 5 L to maintain O2 saturation in the 90s. Sodium 136. Potassium 4.6. Creatinine 0.52. On 10/26/2020 I'm seeing this patient for a follow-up. I see in extremity debilitated male patient 85 years old with respiratory failure secondary to COVID 19 related pneumonia with subsequent aspiration. The patient been on and off on a BiPAP and this morning he is still on a BiPAP with an FiO2 of 100% and pressures of 12/6 cm of water. He does not communicate. His very weak. His encephalopathic. He has a Dobbhoff that was inserted and the patient is receiving enteral feeding for nutritional support. During the course of his treatment, he was infected with an ESBL producing E. coli in his urine and for now, the patient is on a combination of IV meropenem . His most recent chest x- ray showed significant volume loss on the right compared to the left. There is atelectasis in the right lung and the patient has minimal elevation the right upper lobe and possibly a component of pleural effusion. The patient is still in atrial fibrillation, rate is been fluctuating Cardizem drip for rate control with his running at 10 mg an hour. He is also on Lovenox 40 mg subcu every 12 hours. His labs from today are still pending. Yesterday's labs showed a sodium level of 1:30 with a creatinine of 0.6 and the patient has no CBC since early 10/27/19, the patient is completely unresponsive. He decompensated as of yesterday evening. Become more unresponsive and this morning he was found to be completely unresponsive and while on the BiPAP of 12/6 and 100% FiO2, the patient is able to generate volumes of 400 and he is extremely tachypneic with respiratory rate about 30 and he is using excessive muscle breathing. His chest x-ray shows significant volume loss on the right with a large left-sided pleural effusion and diffuse bilateral pulmonary infiltrates compatible to the earlier chest x-ray. Enteral feeding was held at the she was clotted and we have stopp ed enteral feeding. No reported aspiration by the nursing staff. He is completely unresponsive, unarousable, DNR/DNI CODE STATUS and his heart is gradually dropping. His current pulse ox is 75%. Objective - Vital Signs Vital signs: Vital Signs Temp 97.7 F 10/27/20 08:00 Pulse 102 H 10/27/20 04:00 Resp 29 H 10/27/20 08:00 BP 108/60 10/27/20 10:05 Pulse Ox 73 L 10/27/20 10:01 Intake & Output 10/26/20 10/27/20 10/27/20 18:59 06:59 18:59 Intake Total 505 Output Total 400 180 Balance 105 -180 Weight 75.5 kg Intake: Intake, IV Titration 125 Amount Diltiazem 125 mg In 125 Sodium Chloride 0.9% 100 ml @ 10 MG/HR 10 mls/hr IV .[id number] [facility] Rx#: [id number] Tube Feeding 380 Output: Urine 400 180 Stool 0 Other: Voiding Method Indwelling Catheter Indwelling Catheter # Bowel Movements 1 - Exam GENERAL EXAM: Lethargic, drowsy 84-year-old male patient on om BIPAP 08/23 and Fio2 100%, he has a weak cough, unable to clear secretions, is thought to be chronically aspirating completely unresponsive on today's evaluation, using excessive muscle breathing, and he has developed generalized swelling in all 4 extremities HEAD: Normocephalic/atraumatic. EYES: Normal reaction of pupils, equal size. Conjunctiva pink, sclera white. NOSE: Dobbhoff tube secured in place Clear with pink turbinates. THROAT: No erythema or exudates. NECK: No masses, no JVD, no thyroid enlargement, no adenopathy. CHEST: No chest wall deformity. Symmetrical expansion. LUNGS: Equal air entry with few crackles in the right lung base, diminished breath sound on either significant diminished compared to the left. CVS: Regular rate and rhythm, normal S1 and S2, no gallops, no murmurs, no rubs ABDOMEN: Soft, nontender. No hepatosplenomegaly, normal bowel sounds, no guarding or rigidity. EXTREMITIES: No clubbing, no edema, no cyanosis, 2+ pulses and upper and lower extremities. MUSCULOSKELETAL: Muscle strength and tone normal. SPINE: No scoliosis or deformity SKIN: No rashes CENTRAL NERVOUS SYSTEM: The patient is unresponsive. He withdraws only to deep painful stimulation. He cannot hold a conversation at this point in time. He does have an underlying dementia is - Labs CBC & Chem 7: 10/26/20 11:57 10/26/20 11:57 Labs: Abnormal Lab Results - Last 24 Hours (Table) 10/26/20 10/26/20 10/26/20 Range/Units 11:57 11:57 12:26 WBC 13.7 H (3.8-10.6) k/uL Neutrophils # 12.2 H (1.3-7.7) k/uL Lymphocytes # 0.8 L (1.0-4.8) k/uL Sodium 127 L (137-145) mmol/L Chloride 97 L (98-107) mmol/L Creatinine 0.62 L (0.66-1.25) mg/dL Glucose 132 H (74-99) mg/dL POC Glucose (mg/dL) 146 H (75-99) mg/dL Calcium 7.8 L (8.4-10.2) mg/dL 10/26/20 10/27/20 10/27/20 Range/Units 18:04 00:24 06:02 WBC (3.8-10.6) k/uL Neutrophils # (1.3-7.7) k/uL Lymphocytes # (1.0-4.8) k/uL Sodium (137-145) mmol/L Chloride (98-107) mmol/L Creatinine (0.66-1.25) mg/dL Glucose (74-99) mg/dL POC Glucose (mg/dL) 140 H 141 H 156 H (75-99) mg/dL Calcium (8.4-10.2) mg/dL 10/27/20 Range/Units 10:14 WBC (3.8-10.6) k/uL Neutrophils # (1.3-7.7) k/uL Lymphocytes # (1.0-4.8) k/uL Sodium (137-145) mmol/L Chloride (98-107) mmol/L Creatinine (0.66-1.25) mg/dL Glucose (74-99) mg/dL POC Glucose (mg/dL) 176 H (75-99) mg/dL Calcium (8.4-10.2) mg/dL Assessment and Plan Plan: 1. Acute hypoxic respiratory failure related to suspected aspiration pneumonia in addition to recent history of COVID 19 related pneumonia. Currently on IPAP pressure of 12/6 with an FiO2 of 100%, unresponsive, tachypneic, increased minute ventilation, almost no induration on his right lung with significant pneumonia/effusion/atelectasis based on the most recent chest x-ray. Very much debilitated. Weak cough. Altered mentation, unresponsive and toxic metabolic encephalopathy.. Coronavirus still detected 10/14/2020. 2. Suspect chronic aspiration related to overall generalized medical debility, toxic metabolic encephalopathy. Dobbhoff tube placed on 10/22/2020. 3. Aspiration pneumonia with Near-complete opacification of the right hemithorax likely related to right mainstem mucous plugging, patient has a very weak and ineffective cough, mentation has been altered, patient is thought to be chronically aspirating. Follow-up chest x-ray shows improved aeration of the right lung base. No plans for bronchoscopy. 4. A. fib with RVR, remains on Cardizem and amiodarone drip 5. Chronic systolic heart failure 6. Recent hospitalization for acute exacerbation of systolic CHF and A. fib with RVR 7. Recent COVID 19 infection diagnosed on 09/16/2020 8. Acute metabolic encephalopathy and underlying advanced dementia, brain CT showed no acute intracranial abnormality 9. Hypertension 10. Hyperlipidemia 11. Coronary artery disease with prior history of bypass 12. Frequent falls, recent fracture of C1, currently in the soft collar 13. History of paroxysmal A. fib not on anticoagulation due to multiple falls 14. History of subdural hemorrhage 15. GERD/reflux 16. Anxiety/depression Plan: Further decompensation and respiratory status was noted today. The patient would likely pass away within next few hours. His pulse ox in the mid 70s despite being on a BiPAP. Chest x-ray findings are unchanged with significant volume loss and diffuse bilateral pulmonary infiltrates addition to consolidation and the right-sided pleural effusion. We have made recommendations for hospice. Family did not introduce hospice. I think the patient will ultimately passively within next few hours. DNR/DNI CODE STATUS. He is in obvious respiratory failure at this point in time. chest x-ray was noted. Discuss if willing,ed the case with the nursing staff.
[2020-10-27 10:46] VITALS: PULSE 80
[2020-10-27 11:56] VITALS: BP 99/49
[2020-10-27 12:26] LABS: Glucose,Whole Blood 155 mg/dL (75-99)
--- NOTE | 2020-10-27 14:30 | PN ---
PROGRESS NOTE DATE OF SERVICE: 10/27/2020 REASON FOR FOLLOWUP: ESBL E coli UTI and pneumonia. INTERVAL HISTORY: The patient is currently afebrile. The patient remains to be BiPAP dependent. He is currently saturating at only 80% to 83%. The patient is hemodynamically stable, not on pressor support. Did have a Dobbhoff for feeding, though seemed to have . No diarrhea has been reported. The patient is lethargic and is unable to provide any history. PHYSICAL EXAMINATION: Blood pressure 99/49, pulse of 80, temperature 97.7. He is 83% on BiPAP. General description is an elderly male lying in bed in no distress. RESPIRATORY SYSTEM: Unlabored breathing with decreased breath sounds at the bases. No wheeze. HEART: S1, S2. Regular rate and rhythm. ABDOMEN: Soft, no tenderness. LABS: No new labs have been obtained today. DIAGNOSTIC IMPRESSION AND PLAN: Patient with ESBL Escherichia coli urinary tract infection and a component of pneumonia. Patient is covered with meropenem. Prognosis remains to be guarded. Hospital. may be appropriate. Continue supportive care. MMODL / IJN: [id number] /
--- NOTE | 2020-10-27 20:22 | P.PN ---
Progress Note - Text Progress Note Date: 10/27/20 Chief Complaint: Unwell History of presenting complaint: This is a 84-year-old patient resident of [facility] in [facility] being followed by Davide Pérez. Patient tested positive for COVID 19 on 09/16/2020. recently at [facility] was treated there for UTI. From that he was discharged and sent to rehab at [facility] in [facility]. In the process patient lost some weight and become rather weak. Admitted September 16. Diagnosed with COVID 19 pneumonia. Treated with heparin steroids. Also to acute kidney injury felt to be from Bactrim. Acute metabolic encephalopathy. Hyponatremic. Uncontrolled A. fib. Advanced medical debility. Patient was discharged on October 05. Patient oral intake was fairly left the hospital. Now presents to the ER. As per the EMS run sheet: Blood pressure 120/88, pulse 81, respiration 30, pulse ox 83% on room air, temperature 100.6. EMS was called out for patient having rapid respirations and tachycardia. Patient is barely been talking over the last week. Decrease response to stimuli. Patient been moving his hand under his head. No signs of trauma. EKG showed sinus tachycardia. Left arm felt to be flaccid(according to son leg this for a few months.) Admitted with right lower lobe pneumonia, possible aspiration with sepsis lactic acidosis, metabolic encephalopathy, hyper natremia, atrial fibrillation rapid ventricular rate. Started on IV Zosyn, aspiration precautions, IV fluids. (There was a question about embolic stroke causing left arm weakness., But as per the son the left arm weakness has been present for much longer-on July 05 patient had left shoulder injury and had presented to the ER for the same-x-ray of the left shoulder showed widening of the AC joint space.).. Developed collapse atelectasis of the right lung. Anesthesia felt the patient to be very high risk , hence PEG tube could not be placed. Dobbhoff tube placed by Dr. To on October 22. October 23 patient pulled out the Dobbhoff tube. Dobbhoff tube was then replaced again. 2 feeding resumed Today-patient continues to go downhill. Very lethargic. On BiPAP. Feeding tube to be taken out. Told the nurse to call the son in. Patient doing very poorly. review of systems:Patient cannot tell. Active Medications Acetaminophen (Acetaminophen Suppository 650 Mg Supp) 650 mg RECTAL Q4HR PRN PRN Reason: Fever and/ or Mild Pain Last Admin: 10/24/20 04:51 Dose: 650 mg Documented by: Acetaminophen (Acetaminophen Tab 325 Mg Tab) 650 mg PO Q8HR@0600,1400,2200 [facility] Last Admin: 10/27/20 11:56 Dose: Not Given Documented by: Albuterol Sulfate (Albuterol Hfa Inhaler) 1 puff INHALATION RT-Q6H PRN PRN Reason: Wheezing Last Admin: 10/26/20 15:54 Dose: 1 puff Documented by: Enoxaparin Sodium (Enoxaparin 40 Mg/0.4 Ml Syringe) 40 mg SQ BID@0900,2100 [facility] Last Admin: 10/27/20 08:41 Dose: 40 mg Documented by: Dextrose/Water (Dextrose 5%-Water Iv Soln) 1,000 mls @ 100 mls/hr IV .Q10H [facility] Last Admin: 10/27/20 19:07 Dose: Not Given Documented by: Meropenem 1 gm/ Sodium (Chloride) 100 mls @ 33.3 mls/hr IVPB Q8H [facility]; Protocol Last Admin: 10/27/20 19:07 Dose: Not Given Documented by: Metoprolol Tartrate (Metoprolol Tartrate 25 Mg Tab) 25 mg PO Q8H [facility] Last Admin: 10/27/20 11:56 Dose: Not Given Documented by: Miscellaneous Information (Pneumonia Protocol Utilized 1 Each [facility] 1 each PO ONCE PRN PRN Reason: Per Protocol Miscellaneous Information (Magnesium Replacement Protocol 1 Each [facility]) 1 each MISCELLANE DAILY PRN; Protocol PRN Reason: Per Protocol Miscellaneous Information (Potassium Replacement Protocol 1 Each Mis) 1 each MISCELLANE DAILY PRN; Protocol PRN Reason: Per Protocol Past medical history to include: Atrial fibrillation, CHF, COPD, dementia, GERD, hypertension, hyperlipidemia carotid artery disease with bypass, partial pneumonectomy, anxiety depression. COVID 19 pneumonia diagnosed 09/16/2020 Social history: rehab at [facility]. No history of smoking or alcohol Family history: Patient cannot tell Physical examination: VITAL SIGNS: 97.7, 29, 108/60, 73% on BiPAP GENERAL: Laying in bed, lethargic, barely arousable EYES: Pupils equal. Conjunctiva normal NECK: wearing a collar HEART: Irregular heart sounds no edema. LUNGS:[ Respiratory rate increased; decreased breath sounds, crackles. Very short of breath ABDOMEN: Soft, nontender, liver spleen not palpable, no masses palpable. PSYCH: Unable to assess. NEUROLOGICAL: Cranial nerves grossly intact; flaccid left arm. INVESTIGATIONS, reviewed in the clinical context: October 26: White count 13.7 potassium 3.9 creatinine 0.62 sodium 127 October 25 potassium 3.8 creatinine 0.60 Chest x-ray film personally reviewed by me-worsening infiltrates more so on the right side October 21: Potassium 4.3 creatinine 0.56 albumin 2.2 October 07: White count 10.1 hemoglobin 12.2 sodium 140 potassium 3.6 creatinine 0.94. Chest x-ray-7 improvement of aeration on the right side. With infiltrates October 14: White count 11.4 hemoglobin 12 potassium 3.6 creatinine 1.05 Chest x-ray film personally reviewed by me-new right-sided wipeout, with trachea pulled of the right Coronavirus [PCR]-detected White count 15.3 hemoglobin 14.4 platelets 315-2150 potassium 4.8 bun 41 and creatinine 1.06 Lactic acid 2.4 CRP 86.5 pro-calcitonin 0.21 UA positive for leukoesterase, WBC, bacteria Urine culture-E. coli/ESBL EKG tracing personally reviewed by me--sinus tachycardia Chest x-ray film personally reviewed by me-right lower lobe infiltrate Assessment: -Right lower lobe pneumonia, suspect gram-negative organism and/or aspiration, causing sepsis with lactic acidosis, -slow to respond -Right-sided atelectasis with no improvement -Acute hypoxic respiratory failure, remains on worsening -Chronic left arm paresis, not acute as documented earlier has patient's left arm paresis -patient had injury in July 05 shoulder x-ray at that time showed a widened AC joint. Consistent with ligamentous tear) -Acute metabolic encephalopathy from infection, worsening -Hypernatremia, from free water improved -Hyponatremia -Persistent Atrial fibrillation with a rapid ventricular rate-remains uncontrollable-rate variable-currently controlled -COPD -Alzheimer's dementia- June 2020 shows only AO 1 as per EMS run sheet. -GERD -Hyperlipidemia -Essential hypertension -Coronary artery disease with prior history of bypass -History of pneumonectomy partial -Moderate protein calorie malnutrition patient has decreased muscle mass loss of subcutaneous fat -Dobbhoff tube was placed. Patient pointed out. Replaced again this morning -Advancing medical debility -History of multiple falls -No code Plan: Patient be kept comfortable. Keep on oxygen. Patient doing very poorly. Advanced care planning: Patient's son has come up to the room. He understands the patient is doing poorly. He is waiting for us, couple of siblings to come in. Otherwise agreeable to proceed with comfort measures. I did explain to him that feeding is futile at this point. We'll give the patient comfortable. He wishes to do the same. His expresses wish to use [facility]. Been contacted by the nurse. Son is rather distressed of course by his father failing. time spent for a ACP about 20 minutes.
--- NOTE | 2020-10-28 10:41 | P.DS ---
Providers Date of admission: 10/11/20 13:33 Expected date of discharge: 10/27/20 (Patient ) Attending physician: Beni Carrion Consults: 10/11/20 13:33 Consult Physician Stat Consulting Provider: Miguel Vazquez Consult Reason/Comments: dyspnea Do you want consulting provider notified?: Already Contacted 10/11/20 13:34 Consult Physician Urgent Consulting Provider: Lindsey De Leon Consult Reason/Comments: tachycardia Do you want consulting provider notified?: Yes 10/12/20 08:14 Consult Physician Stat Consulting Provider: Eugenio Gonsales Consult Reason/Comments: left weakness Do you want consulting provider notified?: Yes 10/15/20 15:48 Consult Physician Routine Consulting Provider: Abdulkadir Fournier Consult Reason/Comments: PEG tube Do you want consulting provider notified?: Yes 10/16/20 16:25 Consult Physician Routine Consulting Provider: Hubert Alicia Consult Reason/Comments: esbl ecoli and covid Do you want consulting provider notified?: Yes Primary care physician: Daryl Umanzor [place] Hospital Course: Chief Complaint: Unwell History of presenting complaint: This is a 84-year-old patient resident of [facility] in [facility] being followed by Davide Pérez. Patient tested positive for COVID 19 on 09/16/2020. recently at [facility] was treated there for UTI. From that he was discharged and sent to rehab at [facility] in [facility]. In the process patient lost some weight and become rather weak. Admitted September 16. Diagnosed with COVID 19 pneumonia. Treated with heparin steroids. Also to acute kidney injury felt to be from Bactrim. Acute metabolic encephalopathy. Hyponatremic. Uncontrolled A. fib. Advanced medical debility. Patient was discharged on October 05. Patient oral intake was fairly left the hospital. Now presents to the ER. As per the EMS run sheet: Blood pressure 120/88, pulse 81, respiration 30, pulse ox 83% on room air, temperature 100.6. EMS was called out for patient having rapid respirations and tachycardia. Patient is barely been talking over the last week. Decrease response to stimuli. Patient been moving his hand under his head. No signs of trauma. EKG showed sinus tachycardia. Left arm felt to be flaccid(according to son leg this for a few months.) Admitted with right lower lobe pneumonia, possible aspiration with sepsis lactic acidosis, metabolic encephalopathy, hyper natremia, atrial fibrillation rapid ventricular rate. Started on IV Zosyn, aspiration precautions, IV fluids. (There was a question about embolic stroke causing left arm weakness., But as per the son the left arm weakness has been present for much longer-on July 05 patient had left shoulder injury and had presented to the ER for the same-x-ray of the left shoulder showed widening of the AC joint space.).. Developed collapse atelectasis of the right lung. Anesthesia felt the patient to be very high risk , hence PEG tube could not be placed. Dobbhoff tube placed by Dr. To on October 22. October 23 patient pulled out the Dobbhoff tube. Dobbhoff tube was then replaced again. 2 feeding resumed.. Patient continued to go downhill.. Respiratory status worsened. I talked with the son a few times. Today-continues to get worse. Spoke to the son. Patient made comfortable. Consultation: Dr. Vazquez in partners from pulmonary Dr. Houston from neurology Cardiology associates Dr. Moore in partners from GI Dr. Alicia from OR Past medical history to include: Atrial fibrillation, CHF, COPD, dementia, GERD, hypertension, hyperlipidemia carotid artery disease with bypass, partial pneumonectomy, anxiety depression. COVID 19 pneumonia diagnosed 09/16/2020 Social history: rehab at [facility] on [facility]. No history of smoking or alcohol Family history: Patient cannot tell INVESTIGATIONS, reviewed in the clinical context: October 26: White count 13.7 potassium 3.9 creatinine 0.62 sodium 127 October 25 potassium 3.8 creatinine 0.60 Chest x-ray film personally reviewed by me-worsening infiltrates more so on the right side October 21: Potassium 4.3 creatinine 0.56 albumin 2.2 October 07: White count 10.1 hemoglobin 12.2 sodium 140 potassium 3.6 creatinine 0.94. Chest x-ray-7 improvement of aeration on the right side. With infiltrates October 14: White count 11.4 hemoglobin 12 potassium 3.6 creatinine 1.05 Chest x-ray film personally reviewed by me-new right-sided wipeout, with trachea pulled of the right Coronavirus [PCR]-detected White count 15.3 hemoglobin 14.4 platelets 315-2150 potassium 4.8 bun 41 and creatinine 1.06 Lactic acid 2.4 CRP 86.5 pro-calcitonin 0.21 UA positive for leukoesterase, WBC, bacteria Urine culture-E. coli/ESBL EKG tracing personally reviewed by me--sinus tachycardia Chest x-ray film personally reviewed by me-right lower lobe infiltrate Cause of Pneumonia Other medical conditions: -Right lower lobe pneumonia, suspect gram-negative organism and/or aspiration, causing sepsis with lactic acidosis, -slow to respond -Right-sided atelectasis with no improvement -Acute hypoxic respiratory failure, remains on worsening -Chronic left arm paresis, not acute as documented earlier has patient's left arm paresis -patient had injury in July 05 shoulder x-ray at that time showed a widened AC joint. Consistent with ligamentous tear) -Acute metabolic encephalopathy from infection, worsening -Hypernatremia, from free water improved -Hyponatremia -Persistent Atrial fibrillation with a rapid ventricular rate-remains uncontrollable-rate variable-currently controlled -COPD -Alzheimer's dementia- June 2020 shows only AO 1 as per EMS run sheet. -GERD -Hyperlipidemia -Essential hypertension -Coronary artery disease with prior history of bypass -History of pneumonectomy partial -Moderate protein calorie malnutrition patient has decreased muscle mass loss of subcutaneous fat -Dobbhoff tube was placed. Patient pointed out. Replaced again this morning -Advancing medical debility -History of multiple falls Disposition: Patient Plan - Discharge Summary Discharge Rx Participant: Yes New Discharge Prescriptions: No Action Albuterol Sulfate [Proair Hfa] 1 puff INHALATION RT-Q6H PRN PRN Reason: Wheezing Acetaminophen [Tylenol Arthritis] 650 mg PO Q8HR@0600,1400,2200 Fluticasone Nasal [place] [Flonase Nasal [place]] 2 spr EA NOSTRIL DAILY@0900 Escitalopram Oxalate 5 mg PO DAILY@2100 Docusate [Colace] 100 mg PO DAILY@2100 lisinopriL [Zestril] 2.5 mg PO DAILY@0900 Lactose-Reduced Food [Ensure Plus] 120 ml PO TID@1000,1400,1800 Metoprolol Tartrate [Lopressor] 50 mg PO BID@0900,2100 Enoxaparin [Lovenox] 40 mg SQ BID@0900,2100 Metoprolol Tartrate [Lopressor] 50 mg PO ONCE PRN PRN Reason: elevated pulse Discharge Medication List Acetaminophen [Tylenol Arthritis] 650 mg PO Q8HR@0600,1400,2200 07/05/20 [History] Albuterol Sulfate [Proair Hfa] 1 puff INHALATION RT-Q6H PRN 07/05/20 [History] Docusate [Colace] 100 mg PO DAILY@209907/05/20 [History] Escitalopram Oxalate 5 mg PO DAILY@209907/05/20 [History] Fluticasone Nasal [place] [Flonase Nasal [place]] 2 spr EA NOSTRIL DAILY@89907/05/20 [History] lisinopriL [Zestril] 2.5 mg PO DAILY@0909/30/20 [History] Enoxaparin [Lovenox] 40 mg SQ BID@0900,209910/11/20 [History] Lactose-Reduced Food [Ensure Plus] 120 ml PO TID@1000,1400,1800 10/11/20 [History] Metoprolol Tartrate [Lopressor] 50 mg PO BID@0900,209910/11/20 [History] Metoprolol Tartrate [Lopressor] 50 mg PO ONCE PRN 10/11/20 [History] Follow up Appointment(s)/Referral(s): Daryl Umanzor MD [Primary Care Provider] - 1-2 days Discharge Disposition: - Preliminary Cause of Preliminary Cause of : Pneumonia
--- NOTE | 2020-10-29 08:45 | CDI ---
Documentation Clarification Form Date: 10/29/2020 08:24:12 AM From: Roro FrancoCampoLONNIE, CCDS Admit Date: 10/11/2020 01:33:00 PM Patient Name: Link Collins Visit Number: [id number] Discharge Date: 10/27/2020 09:05:00 PM ATTENTION: The Clinical Documentation Specialists (CDI) and [facility] Coding Staff appreciate your assistance in clarifying documentation. Please respond to the clarification below the line at the bottom and electronically sign. The CDI & [facility] Coding staff will review the response and follow-up if needed. Please note: Queries are made part of the Legal Health Record. If you have any questions, please contact the author of this message via ITS. Dr. Hubert Linded: A Stage I Pressure Injury is documented in the Wound Assessment and noted to be Present on Admission. There is no physician documentation regarding the Pressure Injury. History/Risk Factors Per the 10/12 History & Physical Past Medical History: Atrial Fibrillation, CHF, COPD, Dementia, GERD, Hypertension, Hyperlipidemia, CAD status post Bypass, Partial Pneumonectomy and diagnosed with COVID 19 Pneumonia on 09/16/2020. Resident of [facility]/Rehab. Clinical Indicators Per the 10/12 History & Physical: The patient tested positive for COVID 19 on 09/16/2020 and was admitted with COVID 19 Pneumonia, FIDENCIO, Acute metabolic Encephalopathy and Hyponatremia, he was discharged on 10/05/2020. Per the patient's son, he was recently treated for a UTI at [facility] and was discharged to a rehab facility. The patient presented to the ED on 10/12 via EMS with rapid respirations and tachycardia, barely talking & very weak. Admitted with Right Lower Lobe Pneumonia, suspect Gram-Negative organism an/or aspiration causing Sepsis with Lactic Acidosis, POA, Acute Metabolic Encephalopathy from infection and Hypernatremia, Persistent Atrial Fibrillation with RVR and Moderate Protein Calorie Malnutrition with decreased muscle mass, loss of subcutaneous fat & BMI 19. Per the 10/14 Wound Assessment: Coccyx Pressure Injury, Present on Admission, Stage I with dressing: clean/dry/intact. Per the 10/26 Wound Assessment: Stage I with Excoriation, Moist, Erythema Treatment: Dressing Changes, Foam Border Dressing, Barrier Cream. IV antibiotics: Rocephin, IV Azithromycin, IV Meropenem In your professional opinion, can you please clarify the diagnosis, location, laterality and whether present on admission (POA): Stage 1 Pressure/Decubitus Ulcer or Pressure Injury (intact skin, non- blanching redness of local area) Other Stage Pressure/Decubitus Ulcer or Pressure Injury, please specify: Other condition, please specify Unable to determine Please indicate etiology of pressure ulcer (if known): Please indicate if the Pressure Ulcer/Injury was Present on Admission: Yes No (Last Revision: June 2017) stage 1 pressure ulcer to sacral area present on admission MTDD
--- NOTE | 2020-10-29 08:57 | CDI ---
Documentation Clarification Form Date: 10/29/2020 08:46:34 AM From: Roro CampoLONNIE, CCDS Admit Date: 10/11/2020 01:33:00 PM Patient Name: Link Collins Visit Number: [id number] Discharge Date: 10/27/2020 09:05:00 PM ATTENTION: The Clinical Documentation Specialists (CDI) and [facility] Coding Staff appreciate your assistance in clarifying documentation. Please respond to the clarification below the line at the bottom and electronically sign. The CDI & [facility] Coding staff will review the response and follow-up if needed. Please note: Queries are made part of the Legal Health Record. If you have any questions, please contact the author of this message via ITS. Dr. Beni Carrion: COVID 19 is documented in the 10/11 ED Note Clinical Impression COVID is not documented in subsequent documentation assessments. History/Risk Factors Per the 10/12 History & Physical Past Medical History: Atrial Fibrillation, CHF, COPD, Dementia, GERD, Hypertension, Hyperlipidemia, CAD status post Bypass, Partial Pneumonectomy and diagnosed with COVID 19 Pneumonia on 09/16/2020. Resident of [facility]Rehab. Clinical Indicators Per the 10/12 History & Physical: The patient tested positive for COVID 19 on 09/16/2020 and was admitted with COVID 19 Pneumonia, FIDENCIO, Acute metabolic Encephalopathy and Hyponatremia, he was discharged on 10/05/2020. Per the patient's son, he was recently treated for a UTI at [facility] and was discharged to a rehab facility. The patient presented to the ED on 10/12 via EMS with rapid respirations and tachycardia, barely talking & very weak. Admitted with Right Lower Lobe Pneumonia, suspect Gram-Negative organism an/or aspiration causing Sepsis with Lactic Acidosis, POA, Acute Metabolic Encephalopathy from infection and Hypernatremia, Persistent Atrial Fibrillation with RVR and Moderate Protein Calorie Malnutrition with decreased muscle mass, loss of subcutaneous fat & BMI 19. VS 10/11: T 99.6 Axillary, P 165, R 22 - 26, BP 104/85, PO 96 RA - 96 2Lnc LAB 10/11: WBC 15.3, Neut 14.0, Lymph 0.7, Na 150, Cl 121, BUN 41, Glucose 124, Lactic Acid 2.4, 3.5, 3.1; Mag 2.5, Ferritin 461.4, LDH 937, CRP 86.5, Total Protein 5.8, Albumin 2.9, Procalcitonin 0.21 COVID Test: Scanned: Test date 09/19/2020 Benja Bailey: Detected. COVID Test Bc Medina: 10/14/20: Detected. Treatment: IV fluid 1,000 mls @ 999 mls/hr, IV Rocephin, IV Azithromycin, INH Ventolin, PO Vit C BID, PO Vit D3 Daily, PO Orazinc Daily, Lovenox sq BID, IV Zosyn. Respiratory Treatment: O2 2Lnc, High Flow O2, BiPAP In your professional opinion, can you please clarify the status of COVID: o COVID: Present on Admission o COVID: Previously diagnosed, treated this admission o COVID: History only o Other, please specify o Unable to determine (Last Revision: December 2017) COVID 19, previously diagnosed, history only-not treated this admission MTDD
--- NOTE | 2020-10-29 09:17 | CDI ---
Documentation Clarification Form Date: 10/29/2020 09:02:00 AM From: Roro Campo CCS, CCDS Admit Date: 10/11/2020 01:33:00 PM Patient Name: Link Collins Visit Number: [id number] Discharge Date: 10/27/2020 09:05:00 PM ATTENTION: The Clinical Documentation Specialists (CDI) and [facility] Coding Staff appreciate your assistance in clarifying documentation. Please respond to the clarification below the line at the bottom and electronically sign. The CDI & [facility] Coding staff will review the response and follow-up if needed. Please note: Queries are made part of the Legal Health Record. If you have any questions, please contact the author of this message via ITS. Dr. Beni Carrion: Conflicting documentation has been found in the medical record: Per the 10/12 History & Physical, subsequent Progress Notes and the Discharge Summary the following is documented: "Moderate protein calorie malnutrition patient has decreased muscle mass loss of subcutaneous fat and a BMI 19." Per the 10/16 through 10/20 Progress Notes the following is documented: "Severe protein-calorie malnutrition with body mass index of 18.9." History/Risk Factors Per the 10/12 History & Physical Past Medical History: Atrial Fibrillation, CHF, COPD, Dementia, GERD, Hypertension, Hyperlipidemia, CAD status post Bypass, Partial Pneumonectomy and diagnosed with COVID 19 Pneumonia on 09/16/2020. Resident of [facility]/Rehab. Clinical Indicators Per the 10/12 History & Physical: The patient tested positive for COVID 19 on 09/16/2020 and was admitted with COVID 19 Pneumonia, FIDENCIO, Acute metabolic Encephalopathy and Hyponatremia, he was discharged on 10/05/2020. Per the patient's son, he was recently treated for a UTI at [facility] and was discharged to a rehab facility. The patient presented to the ED on 10/12 via EMS with rapid respirations and tachycardia, barely talking & very weak. Admitted with Right Lower Lobe Pneumonia, suspect Gram-Negative organism an/or aspiration causing Sepsis with Lactic Acidosis, POA, Acute Metabolic Encephalopathy from infection and Hypernatremia, Persistent Atrial Fibrillation with RVR and Moderate Protein Calorie Malnutrition with decreased muscle mass, loss of subcutaneous fat & BMI 19. VS 10/11: T 99.6 Axillary, P 165, R 22 - 26, BP 104/85, PO 96 RA - 96 2Lnc LAB 10/11: WBC 15.3, Neut 14.0, Lymph 0.7, Na 150, Cl 121, BUN 41, Glucose 124, Lactic Acid 2.4, 3.5, 3.1; Mag 2.5, Ferritin 461.4, LDH 937, CRP 86.5, Total Protein 5.8, Albumin 2.9, Procalcitonin 0.21 COVID Test: Scanned: Test date 09/19/2020 Benja Bailey: Detected. COVID Test Bc Medina: 10/14/20: Detected. UA 10/11: Yellow, Turbid, 1+ Protein, Mod Blood, Large Esterase, RBC 124, WBC >182 10/11 Blood Culture: Final Negative 10/11 Urine Culture: Final E Coli 10/12 Swallow Screen: Failed. 10/14 Stage I Pressure Injury documented by nursing. 10/19 Nutritional Assessment: Tube Feeds, Referral regarding PEG placement (patient was deemed high risk per Anesthesia for PEG tube placement, Dobbhoff placed & replaced after patient removed) - Poor Nutrition Intake, Difficulty Swallowing, BiPAP dependent - BMI per Bed scale 23.9 - Weight: 65.5 kg, IBW: 75.296 kg (87% of IBW) - Height: 5 ft 10 in - BMI: 20.7 Underweight Treatment: IV fluid 1,000 mls @ 999 mls/hr, IV Cardizem, IV Amiodarone, IV Rocephin, IV Azithromycin, INH Ventolin, PO Vit C BID, PO Vit D3 Daily, PO Orazinc Daily, Lovenox sq BID, IV Zosyn. / Dobbhoff Feeding Tube, replaced 10/22 Respiratory Treatment: O2 2Lnc, High Flow O2, BiPAP In your opinion, please clarify the severity of the patient's malnutrition: Moderate Protein Calorie Malnutrition Severe Protein Calorie Malnutrition Other Severity of Protein Calorie Malnutrition Unable to Determine (Last Revision: December 2017) Moderate protein calorie malnutrition MTDD
== END 2020-10-27 21:05 | disposition expired | DRG 871 ==
LOC: EC 11:10 → 3SCARD 13:33
PROVIDERS: ADMIT Hospitalist; ATTEND Hospitalist
PROC: 5A09557 Assistance with Respiratory Ventilation, Greater than 96 Consecutive Hours, Continuous Positive Airway Pressure (ICD-10-PCS; 2020-10-13)
PROC: 05HB33Z Insertion of Infusion Device into Right Basilic Vein, Percutaneous Approach (ICD-10-PCS; 2020-10-19 09:00)
PROC: 0DH67UZ Insertion of Feeding Device into Stomach, Via Natural or Artificial Opening (ICD-10-PCS; principal; 2020-10-21)
PROC: 3E0436Z Introduction of Nutritional Substance into Central Vein, Percutaneous Approach (ICD-10-PCS; 2020-10-21)
DX: A41.51 Sepsis due to Escherichia coli [E. coli] (principal); G92 Toxic encephalopathy; J96.01 Acute respiratory failure with hypoxia; J69.0 Pneumonitis due to inhalation of food and vomit; J15.6 Pneumonia due to other Gram-negative bacteria; E44.0 Moderate protein-calorie malnutrition; E87.2 Acidosis; E87.0 Hyperosmolality and hypernatremia; I42.9 Cardiomyopathy, unspecified; I47.1 Supraventricular tachycardia; I48.19 Other persistent atrial fibrillation; J44.0 Chronic obstructive pulmonary disease with (acute) lower respiratory infection; E87.1 Hypo-osmolality and hyponatremia; G91.9 Hydrocephalus, unspecified; G81.04 Flaccid hemiplegia affecting left nondominant side; I50.22 Chronic systolic (congestive) heart failure; Z68.1 Body mass index [BMI] 19.9 or less, adult; N39.0 Urinary tract infection, site not specified; J98.11 Atelectasis; Z16.12 Extended spectrum beta lactamase (ESBL) resistance; L89.151 Pressure ulcer of sacral region, stage 1; R13.12 Dysphagia, oropharyngeal phase; Z86.16 Personal history of COVID-19; D63.8 Anemia in other chronic diseases classified elsewhere; G30.9 Alzheimer's disease, unspecified; I11.0 Hypertensive heart disease with heart failure; Z66 Do not resuscitate; F02.80 Dementia in other diseases classified elsewhere, unspecified severity, without behavioral disturbance, psychotic disturbance, mood disturbance, and anxiety; E86.0 Dehydration; E78.5 Hyperlipidemia, unspecified; K21.9 Gastro-esophageal reflux disease without esophagitis; F32.9 Major depressive disorder, single episode, unspecified; F41.9 Anxiety disorder, unspecified; I25.10 Atherosclerotic heart disease of native coronary artery without angina pectoris; R53.81 Other malaise; R29.6 Repeated falls; S12.000D Unspecified displaced fracture of first cervical vertebra, subsequent encounter for fracture with routine healing; S43.52XD Sprain of left acromioclavicular joint, subsequent encounter; I49.3 Ventricular premature depolarization; M19.90 Unspecified osteoarthritis, unspecified site; W19.XXXD Unspecified fall, subsequent encounter; Z79.899 Other long term (current) drug therapy; Z77.090 Contact with and (suspected) exposure to asbestos; Z53.09 Procedure and treatment not carried out because of other contraindication; Z95.1 Presence of aortocoronary bypass graft; Z90.2 Acquired absence of lung [part of]; Z87.440 Personal history of urinary (tract) infections; Z91.81 History of falling; Z87.820 Personal history of traumatic brain injury; Z88.5 Allergy status to narcotic agent; Z88.8 Allergy status to other drugs, medicaments and biological substances
CPT/HCPCS: 36410; 36415; 51702; 51798; 70450; 71045; 71250; 74018; 74019; 76937; 80048; 80053; 81001; 82330; 82728; 83605; 83615; 83735; 84100; 84145; 84478; 85025; 85027; 85379; 85610; 85730; 86140; 87040; 87077; 87086; 87186; 87635; 93005; 94640; 94660; 95819; 96361; 96365; 96375; 99291